=== PATIENT | female | born 1955 | race Caucasian/White ===

== ENCOUNTER 2020-07-11 12:21 | Outpatient (REF) | payer OTHER, SELFPAY | END 2020-07-11 12:22 | disposition home or self-care (01) | LOC: HO.BBR 12:21 | PROVIDERS: PCP Internal Medicine; Visit Provider Internal Medicine | DX: Z13.89 Encounter for screening for other disorder (principal) ==

== ENCOUNTER 2020-07-11 13:07 | Outpatient (REF) | payer SELFPAY ==
[2020-07-11 13:40] LABS: Cholesterol 200 mg/dL
== END 2020-07-11 13:08 | disposition home or self-care (01) ==
LOC: HO.LNC 13:07
PROVIDERS: Visit Provider Pathology Anatomic Pathology & Clinical Pathology
DX: Z76.89 Persons encountering health services in other specified circumstances (principal)
CPT/HCPCS: 82465

== ENCOUNTER 2020-08-31 07:25 | Outpatient (REF) | payer OTHER, SELFPAY ==
[2020-08-31 07:44] LABS: COVID-19 Test Negative (Negative)
== END 2020-08-31 07:26 | disposition home or self-care (01) ==
LOC: HO.EMPCOV 07:25
PROVIDERS: Visit Provider Internal Medicine
DX: Z20.822 Contact with and (suspected) exposure to COVID-19 (principal)
CPT/HCPCS: 36415; 87635; C9803

== ENCOUNTER 2020-09-07 08:00 | Outpatient (REF) | payer OTHER, SELFPAY ==
[2020-09-07 08:27] LABS: COVID-19 Test Negative (Negative); IDNOW Serial# 55D5AD1C
== END 2020-09-07 08:01 | disposition home or self-care (01) ==
LOC: HO.EMPCOV 08:00
PROVIDERS: Visit Provider Internal Medicine
DX: Z20.822 Contact with and (suspected) exposure to COVID-19 (principal)
CPT/HCPCS: 36415; 87635; C9803

== ENCOUNTER 2020-09-07 12:33 | Outpatient (REF) | payer OTHER, SELFPAY | END 2020-09-07 12:34 | disposition home or self-care (01) | LOC: HO.BBR 12:33 | PROVIDERS: PCP Internal Medicine; Visit Provider Internal Medicine | DX: Z13.89 Encounter for screening for other disorder (principal) ==

== ENCOUNTER 2020-11-11 08:14 | Outpatient (REF) | payer OTHER, SELFPAY ==
--- NOTE | ~2020-11-11 | MM_ITS ---
EXAMINATION: MM SCREENING DIGITAL BREAST TOMOSYNTHESIS, BILATERAL CLINICAL INFORMATION: Screening. Asymptomatic. Family history breast cancer sister, grandmother. The lifetime risk of breast cancer based on the Tyrer-Cuzick Model is 15%. COMPARISON: Mammography: 08/11/2019, 12/06/2016 TECHNIQUE: Digital breast tomosynthesis is performed in both the craniocaudal and mediolateral oblique views along with computer-aided detection (CAD). Synthesized 2D images are generated from the tomosynthesis. FINDINGS: There are scattered areas of fibroglandular density (ACR BI-RADS breast composition Category b). There are no significant masses, abnormal calcifications, or other abnormalities. Parenchymal pattern is similar to prior exams. There is biopsy clip marker anterior right breast. No significant changes. MM/MM tomosynthesis screening BI IMPRESSION: No significant changes from prior studies. ASSESSMENT: BI-RADS 1: Negative RECOMMENDATION: Routine annual mammography screening. This patient's information was entered into a reminder system with a target due date for their next mammogram.
== END 2020-11-11 08:15 | disposition home or self-care (01) ==
LOC: HO.MAMMO 08:14
PROVIDERS: Visit Provider Internal Medicine
DX: Z12.31 Encounter for screening mammogram for malignant neoplasm of breast (principal)
CPT/HCPCS: 77063; 77067

== ENCOUNTER 2020-11-23 14:01 | Outpatient (REF) | payer OTHER, SELFPAY ==
[2020-11-23 15:45] LABS: Alanine Aminotransferase 50 U/L (0-31); Albumin Level 3.9 g/dL (3.5-5.0); Alkaline Phosphatase 119 U/L (39-117); Aspartate Amino Transferase 42 U/L (5-31); Bilirubin Direct 0.2 mg/dL (0.0-0.5); Bilirubin Total 0.4 mg/dL (0.0-1.0); Iron 154 mcg/dL (30-160); Percent Iron Saturation 55 % (15-50); Total Iron Binding Capacity 280 mcg/dL (228-428); Total Protein 6.3 g/dL (6.5-8.0); Unsaturated Iron Binding 126 ug/dL
[2020-11-23 16:05] LABS: Ferritin 61 ng/mL (10-250)
== END 2020-11-23 14:02 | disposition home or self-care (01) ==
LOC: HO.BBR 14:01
PROVIDERS: Visit Provider Internal Medicine
DX: E83.110 Hereditary hemochromatosis (principal)
CPT/HCPCS: 36415; 80076; 82728; 83540

== ENCOUNTER 2021-02-03 13:12 | Outpatient (REF) | payer OTHER, SELFPAY | END 2021-02-03 13:13 | disposition home or self-care (01) | LOC: HO.BBR 13:12 | PROVIDERS: Visit Provider Internal Medicine | DX: Z13.89 Encounter for screening for other disorder (principal) ==

== ENCOUNTER 2021-04-05 13:59 | Outpatient (REF) | payer OTHER, SELFPAY | END 2021-04-05 14:00 | disposition home or self-care (01) | LOC: HO.BBR 13:59 | PROVIDERS: PCP Internal Medicine; Visit Provider Internal Medicine | DX: Z13.89 Encounter for screening for other disorder (principal) ==

== ENCOUNTER 2021-04-19 13:01 | Outpatient (REF) | payer OTHER, SELFPAY | END 2021-04-19 13:02 | disposition home or self-care (01) | LOC: HO.BBR 13:01 | PROVIDERS: PCP Internal Medicine; Visit Provider Internal Medicine | DX: Z13.89 Encounter for screening for other disorder (principal) ==

== ENCOUNTER 2021-06-20 10:32 | Outpatient (REF) | payer OTHER, SELFPAY ==
[2021-06-20 06:31] LABS: MANUAL DIFF FLAG NO
[2021-06-20 07:27] LABS: Basophils Absolute Auto 0.1 X10*3/uL (0.0-0.2); Basophils Percent Auto 1.1 % (0-2); Eosinophils Absolute Auto 0.3 X10*3/uL (0.0-0.4); Eosinophils Percent Auto 4.4 % (0-4); Hematocrit 41.5 % (37.0-47.0); Hemoglobin 14.2 g/dl (12.0-16.0); Imm Gran Abs Auto 0.01 X10*3/uL (0.00-0.03); Imm Gran Pct Auto 0.2 % (0.0-0.4); Lymphocytes Absolute Auto 2.7 X10*3/uL (1.2-4.9); Lymphocytes Percent Auto 42.4 % (20-40); Mean Corpuscular HGB Conc 34.2 g/dl (31.0-35.0); Mean Corpuscular Hemoglobin 34.4 pg (27.0-33.0); Mean Corpuscular Volume 100.5 fL (80.0-98.0); Monocytes Absolute Auto 0.5 X10*3/uL (0.1-1.2); Monocytes Percent Auto 7.8 % (2-11); Neutrophils Absolute Auto 2.8 x10*3/uL (2.0-8.3); Neutrophils Percent Auto 44.1 % (45-73); Platelet Count 313 X10*3/uL (160-400); Red Blood Count 4.13 X10*6/uL (4.20-5.50); Red Cell Distribution Width 13.2 % (11.0-16.0); White Blood Count 6.4 X10*3/uL (4.8-10.8)
[2021-06-20 08:00] LABS: Alanine Aminotransferase 48 U/L (0-31); Albumin Level 4.2 g/dL (3.5-5.0); Alkaline Phosphatase 131 U/L (39-117); Anion Gap 11 (12-20); Aspartate Amino Transferase 31 U/L (5-31); Bilirubin Total 0.6 mg/dL (0.0-1.0); Blood Urea Nitrogen 15 mg/dL (9-16); Calcium 9.4 mg/dL (8.4-10.2); Carbon Dioxide 28 mmol/L (22-29); Chloride 104 mmol/L (96-108); Cholesterol 208 mg/dL; Estimated Glomerular Filt Rate 51; Glucose Fasting 111 mg/dL (60-99); HDL Cholesterol 59 mg/dL; Iron 163 mcg/dL (30-160); LDL Cholesterol Calculated 116 mg/dl; Percent Iron Saturation 50 % (15-50); Potassium 4.2 mmol/L (3.3-5.1); Sodium 139 mmol/L (135-145); Total Iron Binding Capacity 326 mcg/dL (228-428); Total Protein 6.8 g/dL (6.5-8.0); Triglycerides 167 mg/dL; Unsaturated Iron Binding 163 ug/dL
[2021-06-20 08:05] LABS: Alanine Aminotransferase 48 U/L (0-31); Albumin Level 4.2 g/dL (3.5-5.0); Alkaline Phosphatase 132 U/L (39-117); Aspartate Amino Transferase 32 U/L (5-31); Bilirubin Direct 0.2 mg/dL (0.0-0.5); Bilirubin Total 0.6 mg/dL (0.0-1.0); Total Protein 6.8 g/dL (6.5-8.0)
[2021-06-20 08:25] LABS: Ferritin 26 ng/mL (10-250); Free T4 (Free Thyroxine) 1.09 ng/dL (0.71-1.85); Thyroid Stimulating Hormone 2.42 uIU/mL (0.32-4.0)
== END 2021-06-20 10:33 | disposition home or self-care (01) ==
LOC: HO.LAB 10:32
PROVIDERS: Absent Provider Internal Medicine; PCP Internal Medicine; Visit Provider Internal Medicine
DX: Z00.00 Encounter for general adult medical examination without abnormal findings (principal); E03.9 Hypothyroidism, unspecified; E83.110 Hereditary hemochromatosis
CPT/HCPCS: 36415; 80053; 80061; 80076; 82248; 82728; 83540; 84439; 84443; 85025

== ENCOUNTER 2021-06-21 13:02 | Outpatient (REF) | payer OTHER, SELFPAY | END 2021-06-21 13:03 | disposition home or self-care (01) | LOC: HO.BBR 13:02 | PROVIDERS: PCP Internal Medicine; Visit Provider Internal Medicine | DX: Z13.89 Encounter for screening for other disorder (principal) ==

== ENCOUNTER 2021-08-17 15:00 | Outpatient (REF) | payer OTHER, SELFPAY ==
--- NOTE | ~2021-08-17 | MM_ITS ---
EXAMINATION: BONE DENSITOMETRY CLINICAL INDICATION: Menopause. COMPARISON: None (current study represents initial baseline exam). TECHNIQUE: Using a A[employer] DXA System (software version: 13.1) manufactured by [employer], dual-energy x-ray absorptiometry was performed of the lumbar spine and left hip. The images are of good technical quality. Summary results are attached. FINDINGS: AP SPINE L1-L4: BMD 1.051 g/cm2, Z-score -0.6, T-score -1.1, osteopenia. LEFT FEMUR, NECK: BMD 0.985 g/cm2, Z-score 0.4, T-score -0.4, normal. LEFT FEMUR, TOTAL: BMD 1.111 g/cm2, Z-score 1.2, T-score 0.8, normal. IDENTIFIED RISK FACTORS: Low calcium intake, menopause. HISTORY OF FRACTURE: None listed. MEDICATIONS: Vitamin D. MM/XR DEXA axial skeleton IMPRESSION: 1. DIAGNOSIS: Osteopenia based on the lowest T-score value of -1.1 in the lumbar spine applying World Health Organization criteria. 2. 10-YEAR FRACTURE RISK PREDICTION, FRAX: Major osteoporotic fracture (clinical spine, forearm, hip or shoulder) 6.4%. Hip fracture 0.2%. 3. Treatment Recommendations: NOF guidelines recommend consideration for treatment in postmenopausal women and men age 50 and older presenting with the following: -A hip or vertebral (clinical or morphometric) fracture. -T-score less than or equal to -2.5 at the femoral neck or spine after appropriate evaluation to exclude secondary causes. -Low bone mass at the hip or spine and a 10-year fracture probability by FRAX of greater than or equal to 3% for hip fracture or greater than or equal to 20% for major osteoporotic fracture based on the [place] adapted WHO algorithm. 4. Other Recommendations: All treatment decisions require clinical judgment and consideration of individual patient factors, including patient preferences, comorbidities, previous drug use, risk factors not captured in the FRAX model (e.g. frailty, falls, vitamin D deficiency, increased bone turnover, interval significant decline in bone density) and possible under or overestimation of fracture risk by FRAX. Additional medical evaluation for secondary cause of low bone mineral density may be appropriate. FUTURE SCAN RECOMMENDATION: People with diagnosed cases of osteoporosis or at high risk for fracture should have regular bone mineral density tests. For patients eligible for Medicare, routine testing is allowed once every 2 years. The testing frequency can be increased to one year for patients who have rapidly progressing disease, those who are receiving or discontinuing medical therapy to restore bone mass, or have additional risk factors.
== END 2021-08-17 15:01 | disposition home or self-care (01) ==
LOC: HO.MAMMO 15:00
PROVIDERS: PCP Internal Medicine; Visit Provider Internal Medicine
DX: Z13.820 Encounter for screening for osteoporosis (principal); M85.80 Other specified disorders of bone density and structure, unspecified site; Z78.0 Asymptomatic menopausal state; Z79.899 Other long term (current) drug therapy
CPT/HCPCS: 77080

== ENCOUNTER 2021-08-23 12:58 | Outpatient (REF) | payer OTHER, SELFPAY | END 2021-08-23 12:59 | disposition home or self-care (01) | LOC: HO.BBR 12:58 | PROVIDERS: Visit Provider Internal Medicine | DX: Z13.89 Encounter for screening for other disorder (principal) ==

== ENCOUNTER 2021-09-04 09:16 | Day surgery (SDC) | payer OTHER, SELFPAY ==
[2021-08-29 11:45] VITALS: BMI 41.5
--- NOTE | 2021-09-01 09:55 | P.CONAN_ITS ---
Documented by User: Magda Borden NP 09/01/21 09:58 HPI - Anesthesia Eval Consult details Narrative: 65yo F for [facility] Past Medical History Medical History (Updated 08/29/21 @ 11:39 by Ashley Nicholson RN) GERD (gastroesophageal reflux disease) Hemochromatosis HTN (hypertension) Hypothyroid Migraine Surgical History Surgical History (Updated 08/29/21 @ 11:39 by Ashley Nicholson RN) H/O colonoscopy History of Evan fundoplication Hx of blepharoplasty Hx of breast biopsy Hx of cholecystectomy Social History Social History (System 08/28/21 @ 07:14 by Nilsa Sheikh) Patient Tobacco Use Status: Tobacco use Unknown Advance Directives: No Advance Directives Information Provided: Yes Advance Directives on File: No Meds Allergies Allergy/AdvReac Type Severity Reaction Status Date / Time bee pollen [bee stings] Allergy Unknown Unknown Verified 08/29/21 11:40 Seasonal Allergies Allergy Unknown Unknown Verified 08/29/21 11:40 Home Medications Medication Instructions Recorded Confirmed Last Taken Type amitriptyline 25 mg tablet 1 tab PO BEDTIME 08/29/21 08/29/21 Unknown History cetirizine 10 mg tablet 1 tab PO DAILY 08/29/21 08/29/21 Unknown History chlordiazepoxide HCl 10 mg capsule 1 cap PO BEDTIME 08/29/21 08/29/21 Unknown History levothyroxine 100 mcg tablet 1 tab PO DAILY 08/29/21 08/29/21 Unknown History losartan 25 mg tablet 1 tab PO DAILY 08/29/21 08/29/21 Unknown History metoprolol succinate 100 mg 1 tab PO DAILY 08/29/21 08/29/21 Unknown History tablet,extended release 24 hr Exam Exam Date and Time: September 01, 2021 0955 Height,Weight and Vital Signs: Height 5 ft 4 in Weight 109.769 kg Pertinent Lab Results Pertinent Lab Results: Laboratory Tests 06/20/21 06/20/21 06:29 06:29 WBC 6.4 Hgb 14.2 Hct 41.5 Plt Count 313 Sodium 139 Potassium 4.2 Chloride 104 Carbon Dioxide 28 BUN 15 Creatinine 1.08 Assessment and Plan Assessment Anesthesia Assessment: Chart Reviewed Documented by User: Kodi Purcell MD 09/04/21 09:33 [facility] Past Medical History Medical History (Updated 08/29/21 @ 11:39 by Ashley Nicholson RN) GERD (gastroesophageal reflux disease) Hemochromatosis HTN (hypertension) Hypothyroid Migraine Family History Family history of problems with anesthesia: No Surgical History Surgical History (Updated 08/29/21 @ 11:39 by Ashley Nicholson RN) H/O colonoscopy History of Evan fundoplication Hx of blepharoplasty Hx of breast biopsy Hx of cholecystectomy History of Problems with Anesthesia: No Social History Social History (System 08/28/21 @ 07:14 by Nilsa Sheikh) Patient Tobacco Use Status: Tobacco use Unknown Advance Directives: No Advance Directives Information Provided: Yes Advance Directives on File: No Meds Allergies Allergy/AdvReac Type Severity Reaction Status Date / Time bee pollen [bee stings] Allergy Unknown Unknown Verified 08/29/21 11:40 Seasonal Allergies Allergy Unknown Unknown Verified 08/29/21 11:40 Home Medications Medication Instructions Recorded Confirmed Last Taken Type amitriptyline 25 mg tablet 1 tab PO BEDTIME 08/29/21 08/29/21 Unknown History cetirizine 10 mg tablet 1 tab PO DAILY 08/29/21 08/29/21 Unknown History chlordiazepoxide HCl 10 mg capsule 1 cap PO BEDTIME 08/29/21 08/29/21 Unknown History levothyroxine 100 mcg tablet 1 tab PO DAILY 08/29/21 08/29/21 Unknown History losartan 25 mg tablet 1 tab PO DAILY 08/29/21 08/29/21 Unknown History metoprolol succinate 100 mg 1 tab PO DAILY 08/29/21 08/29/21 Unknown History tablet,extended release 24 hr Assessment and Plan Assessment Anesthesia Assessment: Anesthesia Plan Discussed Final Anesthetic Review Family History of Problems with Anesthesia: No History of Problems with Anesthesia: No NPO: Yes ASA Class: III Final Preanesthetic Review: No Changes in Pt Med Stat, Meds/Allgs Chart Reviewed, Consent Obtained/Reviewed and Anes Risks/Benef Reviewed Patient Risk: Intermediate Procedure Risk: Low Anesthetic Plan Anesthetic Plan: MAC: Disposition: Standard PACU
[2021-09-04 09:54] VITALS: BP 146/88; PULSE 77; RESP 18; TEMP 35.6; O2SAT 100
[2021-09-04] MEDS: Lactated Ringers 1,000 ML 100 ML IVCONT (09:58)
[2021-09-04 11:55] VITALS: BP 123/82; PULSE 76; RESP 18; TEMP -12.7; TEMP 9; O2SAT 98
--- NOTE | 2021-09-04 11:56 | P.BOP_ITS ---
Brief Operative Note Date of Service: 09/04/21 Pre-op diagnosis: Change in BM's, rectal bleeding Post-op diagnosis: other (Diverticulosis) Procedure: Colonoscopy to the cecum Surgeon: Gil Lacy Anesthesia: MAC Was an Deck Supervisor used for this Procedure?: No Estimated blood loss (mL): 0 Pathology: none sent Condition: stable Disposition: PACU
--- NOTE | 2021-09-04 11:59 | PC.NURSE ---
dr cisneros at bedside nad
[2021-09-04 12:10] VITALS: BP 119/82; PULSE 89; RESP 18; TEMP 36.1; O2SAT 98
--- NOTE | 2021-09-04 12:56 | OP_ITS ---
SURGEON: Gil Lacy MD INDICATIONS: The patient presents for evaluation of change in bowel habits and hematochezia. Full consent was obtained from her for this, including risks of bleeding and perforation. PREOPERATIVE DIAGNOSIS: POSTOPERATIVE DIAGNOSIS: PROCEDURE PERFORMED: Colonoscopy to cecum. ESTIMATED BLOOD LOSS: COMPLICATIONS: ANESTHESIA: Monitored anesthesia care. ASSISTANTS: SPECIMENS: PREOPERATIVE DIAGNOSES: Hematochezia and change in bowel habits. POSTOPERATIVE DIAGNOSES: Hematochezia, change in bowel habits, diverticulosis, and internal hemorrhoids. DESCRIPTION OF PROCEDURE: The patient was placed in the left lateral decubitus position. The digital rectal exam revealed no abnormalities. The Olympus video pediatric colonoscope was entered into the rectum and advanced to the cecum with the assistance of abdominal wall pressure. Once in the cecum, I did identify normal-appearing cecal pouch with appendiceal orifice and a normal-appearing ileocecal valve. The entire cecum and ileocecal valve appeared normal. The scope was slowly withdrawn assessing all mucosal surfaces carefully. Preparation was excellent. I did not visualize any sign of polyps, colitis, nor angiodysplasia. There was a mild amount of sigmoid diverticulosis. The sigmoid colon did have some edema and slight areas of erythema, but not consistent with colitis. I suspect this was related to the prep. There were no polyps, colitis, nor angiodysplasia is noted anywhere in the colon. In the rectum, scope was retroflexed visualizing some small internal hemorrhoids, but no other pathology. The rectal mucosa appeared normal. The scope was straightened and withdrawn from the patient. She tolerated the procedure well and was returned to recovery area in stable condition. IMPRESSION: 1. Sigmoid diverticulosis. 2. Internal hemorrhoids. PLAN: Given the negative exam, I would recommend a followup colonoscopy in 10 years for further screening. She was advised to continue her phlebotomy every other month for the hemochromatosis and to see me in 1 year for followup in that regard. She was advised to use daily supplemental fiber to help with her BM irregularity. She will otherwise see me in the interim on a p.r.n. basis. MD OMARI Leblanc/JORI / [phone] AMBREEN
== END 2021-09-04 12:47 | disposition home or self-care (01) ==
PROVIDERS: PCP Internal Medicine; Visit Provider Internal Medicine
PROC: 0DJD8ZZ Inspection of Lower Intestinal Tract, Via Natural or Artificial Opening Endoscopic (ICD-10-PCS; CPT 45378; principal; 2021-09-04 10:20)
DX: K62.5 Hemorrhage of anus and rectum (principal); R19.4 Change in bowel habit; K57.30 Diverticulosis of large intestine without perforation or abscess without bleeding; K64.8 Other hemorrhoids; E83.110 Hereditary hemochromatosis; I10 Essential (primary) hypertension; E03.9 Hypothyroidism, unspecified; G43.909 Migraine, unspecified, not intractable, without status migrainosus; Z79.899 Other long term (current) drug therapy; Z90.49 Acquired absence of other specified parts of digestive tract
CPT/HCPCS: 45378

== ENCOUNTER 2021-10-25 13:08 | Outpatient (REF) | payer OTHER, SELFPAY | END 2021-10-25 13:09 | disposition home or self-care (01) | LOC: HO.BBR 13:08 | PROVIDERS: Visit Provider Internal Medicine | DX: Z13.89 Encounter for screening for other disorder (principal) ==

== ENCOUNTER 2021-11-28 09:48 | Outpatient (REF) | payer OTHER, SELFPAY ==
--- NOTE | ~2021-11-28 | XR_ITS ---
EXAMINATION: XR WRIST, LEFT CLINICAL INFORMATION: Pain medial and lateral sides of the left wrist status post injury COMPARISON: None TECHNIQUE: PA, lateral, and oblique views of the left wrist. FINDINGS: There is some soft tissue swelling about the wrist with loss of fat planes. There is some degenerative spurring about the first carpal metacarpal joint. There is a lucent line seen about the dorsum of the triquetrum without definite avulsed fracture fragment. This may represent a nondisplaced triquetral body fracture. Clinical correlation is suggested. XR/XR wrist LT min 3V IMPRESSION: Question nondisplaced dorsal triquetral fracture. Clinical correlation suggested.
== END 2021-11-28 09:49 | disposition home or self-care (01) ==
LOC: HO.XRAY 09:48
PROVIDERS: PCP Internal Medicine; Visit Provider Internal Medicine
DX: S69.92XD Unspecified injury of left wrist, hand and finger(s), subsequent encounter (principal)
CPT/HCPCS: 73110

== ENCOUNTER 2022-01-31 12:03 | Outpatient (REF) | payer OTHER, SELFPAY ==
[2022-01-31 13:36] LABS: Alanine Aminotransferase 41 U/L (0-31); Albumin Level 3.9 g/dL (3.5-5.0); Alkaline Phosphatase 118 U/L (39-117); Aspartate Amino Transferase 43 U/L (5-31); Bilirubin Direct 0.2 mg/dL (0.0-0.5); Bilirubin Total 0.4 mg/dL (0.0-1.0); Iron 111 mcg/dL (30-160); Percent Iron Saturation 37 % (15-50); Total Iron Binding Capacity 300 mcg/dL (228-428); Total Protein 6.5 g/dL (6.5-8.0); Unsaturated Iron Binding 189 ug/dL
[2022-01-31 13:50] LABS: Ferritin 22 ng/mL (10-250)
== END 2022-01-31 12:04 | disposition home or self-care (01) ==
LOC: HO.BBR 12:03
PROVIDERS: Visit Provider Internal Medicine
DX: E83.110 Hereditary hemochromatosis (principal)
CPT/HCPCS: 36415; 80076; 82728; 83540

== ENCOUNTER 2022-02-13 12:45 | Outpatient (REF) | payer OTHER, SELFPAY ==
--- NOTE | ~2022-02-13 | XR_ITS ---
EXAMINATION: XR LUMBOSACRAL SPINE CLINICAL INFORMATION: Fall. Pain. COMPARISON: None TECHNIQUE: Three views of the lumbosacral spine. FINDINGS: Bone alignment is normal. There is a mild recent appearing compression fracture of the superior endplate of the L4 vertebral body. Disc spaces are normal. There is lower lumbar spine facet arthritis. There is evidence of atherosclerotic disease. XR/XR lumbar spine 2-3V IMPRESSION: Mild recent appearing compression fracture of the superior endplate of the L4 vertebral body. Lower lumbar spine facet arthritis. Findings will be communicated by the [place] work flow quality control representative.
== END 2022-02-13 12:46 | disposition home or self-care (01) ==
LOC: HO.XRAY 12:45
PROVIDERS: Absent Provider Internal Medicine; PCP Internal Medicine; Visit Provider Family Medicine
DX: M54.50 Low back pain, unspecified (principal); Z91.81 History of falling
CPT/HCPCS: 72100

== ENCOUNTER 2022-02-19 14:16 | Outpatient (REF) | payer OTHER, SELFPAY ==
--- NOTE | ~2022-02-19 | XR_ITS ---
EXAMINATION: XR PELVIS CLINICAL INFORMATION: Fall, trauma, pain COMPARISON: Lumbar radiographs 02/13/2022 TECHNIQUE: AP view of the pelvis. FINDINGS: There is no fracture or dislocation. The SI joints and pubis show no diastases. No hip joint narrowing or erosive change. There is some minor spurring from the bilateral greater trochanters and lateral iliac crests. Bowel gas unremarkable. XR/XR pelvis 1-2V IMPRESSION: No fracture or dislocation.
[2022-02-19 14:28] LABS: MANUAL DIFF FLAG NO
[2022-02-19 14:50] LABS: Appearance Urine HAZY; Color Urine YELLOW; Glucose Urine UA NEG (NEG); Leukocyte Esterase Urine 1+ (NEG); Nitrite Urine POS (NEG); Urine Blood 2+ (NEG); Urine Ketones NEG (NEG); Urine Protein NEG (NEG-TRACE)
[2022-02-19 14:51] LABS: Basophils Absolute Auto 0.1 X10*3/uL (0.0-0.2); Basophils Percent Auto 0.8 % (0-2); Eosinophils Absolute Auto 0.3 X10*3/uL (0.0-0.4); Eosinophils Percent Auto 3.6 % (0-4); Hematocrit 39.4 % (37.0-47.0); Hemoglobin 12.7 g/dl (12.0-16.0); Imm Gran Abs Auto 0.02 X10*3/uL (0.00-0.03); Imm Gran Pct Auto 0.2 % (0.0-0.4); Lymphocytes Absolute Auto 2.6 X10*3/uL (1.2-4.9); Lymphocytes Percent Auto 29.6 % (20-40); Mean Corpuscular HGB Conc 32.2 g/dl (31.0-35.0); Mean Corpuscular Hemoglobin 31.2 pg (27.0-33.0); Mean Corpuscular Volume 96.8 fL (80.0-98.0); Mean Platelet Volume 9.5 fL (9.4-12.3); Monocytes Absolute Auto 0.7 X10*3/uL (0.1-1.2); Monocytes Percent Auto 7.4 % (2-11); Neutrophils Absolute Auto 5.2 x10*3/uL (2.0-8.3); Neutrophils Percent Auto 58.4 % (45-73); Platelet Count 325 X10*3/uL (160-400); Red Blood Count 4.07 X10*6/uL (4.20-5.50); Red Cell Distribution Width 17.4 % (11.0-16.0); White Blood Count 8.9 X10*3/uL (4.8-10.8)
[2022-02-19 15:01] LABS: Bacteria Urine 4+ /LPF; Squamous Epithelial Cell Urine 1+ /LPF; WBC Urine 30-49 /HPF (0-4)
[2022-02-19 15:02] LABS: RBC Urine 0 /HPF (0)
[2022-02-19 15:13] LABS: Alanine Aminotransferase 32 U/L (0-31); Albumin Level 4.3 g/dL (3.5-5.0); Alkaline Phosphatase 169 U/L (39-117); Anion Gap 15 (12-20); Aspartate Amino Transferase 27 U/L (5-31); Bilirubin Total 0.5 mg/dL (0.0-1.0); Blood Urea Nitrogen 19 mg/dL (9-16); C Reactive Protein 0.48 mg/dL (< or = 0.50); Calcium 9.8 mg/dL (8.4-10.2); Carbon Dioxide 27 mmol/L (22-29); Chloride 104 mmol/L (96-108); Estimated Glomerular Filt Rate 46; Glucose Random 133 mg/dL (60-115); Potassium 4.6 mmol/L (3.3-5.1); Sodium 141 mmol/L (135-145); Total Protein 7.5 g/dL (6.5-8.0)
[2022-02-19 15:33] LABS: Free T4 (Free Thyroxine) 1.08 ng/dL (0.71-1.85); Thyroid Stimulating Hormone 3.37 uIU/mL (0.32-4.0)
== END 2022-02-19 14:17 | disposition home or self-care (01) ==
LOC: HO.XRAY 14:16
PROVIDERS: PCP Internal Medicine; Visit Provider Internal Medicine
DX: R10.2 Pelvic and perineal pain (principal); I10 Essential (primary) hypertension; E03.9 Hypothyroidism, unspecified; Z91.81 History of falling
CPT/HCPCS: 36415; 72170; 80053; 81001; 84439; 84443; 85025; 86140

== ENCOUNTER 2022-02-21 13:52 | Outpatient (REF) | payer OTHER, SELFPAY ==
--- NOTE | ~2022-02-21 | CT_ITS ---
EXAMINATION: CT PELVIS WITHOUT CONTRAST CLINICAL INFORMATION: Fall. Pain. Rule out fracture. COMPARISON: Previous x-ray of the pelvis 02/19/2022 TECHNIQUE: Helical scanning was performed with submillimeter collimation through the pelvis. Sagittal and coronal multiplanar 2-D reconstructions were obtained. This CT examination was performed using dose optimization techniques as appropriate, variously including the following: *Automated exposure control *Adjustment of mA and/or kV according to patient size (this includes techniques or standardized protocols for targeted exams where dose is matched to indication/reason for exam; i.e. extremities or head) *Use of iterative reconstruction technique DLP: 579 mGy-cm FINDINGS: Bone alignment is normal. No fracture or dislocation is seen. The hip joints are normal. The sacroiliac joints and pubic symphysis are normal. There is facet arthritis of the lower lumbar spine. Visualized bowel is unremarkable. Uterus and adnexa are unremarkable. No ascites or adenopathy is seen. Vascular structures are normal. No hernia. Bladder not optimally distended. CT/CT pelvis wo con IMPRESSION: Unremarkable examination.
== END 2022-02-21 13:53 | disposition home or self-care (01) ==
LOC: HO.CT 13:52
PROVIDERS: PCP Internal Medicine; Visit Provider Internal Medicine
DX: R10.2 Pelvic and perineal pain (principal)
CPT/HCPCS: 72192

== ENCOUNTER 2022-03-20 08:54 | Outpatient (REF) | payer OTHER, SELFPAY ==
--- NOTE | ~2022-03-20 | MR_ITS ---
EXAMINATION: MR LUMBAR SPINE WITHOUT CONTRAST CLINICAL INFORMATION: Wedge compression fracture of the fourth lumbar vertebra. COMPARISON: Lumbar spine radiographs 02/13/2022. TECHNIQUE: MRI of the lumbar spine was obtained using routine sequences without contrast. FINDINGS: There is bone marrow edema associated with a compression fracture of the L4 vertebral body. Specifically there is impaction of the upper and lower endplates resulting in 50% vertebral height loss centrally. There is no retropulsion of posterior cortex. Alignment is normal. There is disc desiccation at multiple levels without substantial loss of intervertebral disc height. The tip of the conus medullaris is located at L1-L2. No mass effect on the conus. Visualized distal cord signal intensity is normal. At L1-L2 there is a shallow central protrusion. No canal stenosis. No mass effect on the traversing or foraminal nerve roots. At L2-L3 there is a shallow central protrusion superimposed upon a bulging disc. Bilateral facet degenerative change. No canal stenosis. No mass effect on the traversing or foraminal nerve roots. At L3-L4 there is prominence of the epidural fat. There is a diffusely bulging disc. Advanced facet degenerative change. Complete effacement of the subarachnoid space effectively resulting in severe stenosis. No foraminal nerve root compression. At L4-L5 there is prominence of the epidural fat. There is a diffusely bulging disc. Advanced bilateral facet degenerative change. Mild to moderate canal stenosis. No mass effect on the traversing or foraminal nerve roots. At L5-S1 there is a slightly bulging disc. Advanced bilateral facet degenerative change. No canal stenosis. No mass effect on the traversing or foraminal nerve roots. Limited visualization of the retroperitoneal anatomy reveals a few small well marginated benign-appearing cystic lesions within both kidneys. Psoas and paraspinal groups are symmetric. MR/MR lumbar spine wo con IMPRESSION: There is bone marrow edema associated with an acute to subacute compression fracture of the L4 vertebral body. No retropulsion of posterior cortex at this level. There is however multilevel degenerative spondylosis of the mid to lower lumbar spine which appears to be superimposed upon epidural lipomatosis. Consequently there is complete effacement of the subarachnoid space effectively resulting in severe canal stenosis at L3-L4 and mild to moderate canal stenosis at L4-L5. No foraminal nerve root compression.
== END 2022-03-20 08:55 | disposition home or self-care (01) ==
LOC: HO.MRI 08:54
PROVIDERS: Visit Provider Nurse Practitioner Family
DX: S32.040A Wedge compression fracture of fourth lumbar vertebra, initial encounter for closed fracture (principal)
CPT/HCPCS: 72148

== ENCOUNTER 2022-04-24 07:01 | Day surgery (SDC) | payer OTHER, SELFPAY ==
--- NOTE | 2022-04-23 12:05 | HO.ANESPROP2 ---
Documented by User: Magda Borden NP 04/23/22 12:07 HPI - Anesthesia Eval Consult details Narrative: 66yo F for Kyphoplasty s/p colo 08/2021 with MAC [facility] Active Problems Active Problems: All Active Problems (Updated 03/27/22 @ 13:36 by Liliane Anguiano NP) Stenosis, spinal, lumbar (Acute) Spondylosis of lumbar spine (Acute) Osteopenia (Acute) Muscle spasm (Acute) Compression fracture of L4 vertebra (Acute) Past Medical History Medical History GERD (gastroesophageal reflux disease) Hemochromatosis HTN (hypertension) Hypothyroid Migraine Family History Family history of problems with anesthesia: No Surgical History Surgical History H/O colonoscopy History of Evan fundoplication Hx of blepharoplasty Hx of breast biopsy Hx of cholecystectomy History of Problems with Anesthesia: No Social History Social History Patient Tobacco Use Status: Tobacco use Unknown Use of substances other than those prescribed or required for medical reasons: No Are you DNR?: No Advance Directives: No Advance Directives Information Provided: Yes Meds Allergies Allergy/AdvReac Type Severity Reaction Status Date / Time bee pollen [bee stings] Allergy Unknown Unknown Verified 03/16/22 09:56 Seasonal Allergies Allergy Unknown Unknown Verified 03/16/22 09:56 Home Medications Medication Instructions Recorded Confirmed Last Taken Type amitriptyline 25 mg tablet 1 tab PO BEDTIME 08/29/21 08/29/21 Unknown History cetirizine 10 mg tablet 1 tab PO DAILY 08/29/21 08/29/21 Unknown History chlordiazepoxide HCl 10 mg capsule 1 cap PO BEDTIME 08/29/21 08/29/21 Unknown History levothyroxine 100 mcg tablet 1 tab PO DAILY 08/29/21 08/29/21 Unknown History losartan 25 mg tablet 1 tab PO DAILY 08/29/21 09/04/21 09/04/21 06:30 History metoprolol succinate 100 mg 1 tab PO DAILY 08/29/21 08/29/21 Unknown History tablet,extended release 24 hr gabapentin 100 mg capsule 100 mg PO TID PRN pain 03/16/22 Unknown History methylsulfonylmethane 1,000 mg 1,000 mg PO BID 03/16/22 Unknown History tablet (MSM) tramadol 50 mg tablet 50 mg PO Q6H PRN 03/16/22 Unknown History Exam Exam Date and Time: April 23, 2022 1205 Pertinent Lab Results Pertinent Lab Results: Laboratory Tests 02/19/22 02/19/22 14:27 14:27 WBC 8.9 Hgb 12.7 Hct 39.4 Plt Count 325 Sodium 141 Potassium 4.6 Chloride 104 Carbon Dioxide 27 BUN 19 H Creatinine 1.18 Narrative Narrative: MR lumbar spine wo con 03/2022 IMPRESSION: There is bone marrow edema associated with an acute to subacute compression fracture of the L4 vertebral body. No retropulsion of posterior cortex at this level. There is however multilevel degenerative spondylosis of the mid to lower lumbar spine which appears to be superimposed upon epidural lipomatosis. Consequently there is complete effacement of the subarachnoid space effectively resulting in severe canal stenosis at L3-L4 and mild to moderate canal stenosis at L4-L5. No foraminal nerve root compression. Assessment and Plan Assessment Anesthesia Assessment: Chart Reviewed Final Anesthetic Review Family History of Problems with Anesthesia: No History of Problems with Anesthesia: No Documented by User: Nader Tellez MD 04/24/22 08:37 [facility] Past Medical History Medical History GERD (gastroesophageal reflux disease) Hemochromatosis HTN (hypertension) Hypothyroid Migraine Surgical History Surgical History H/O colonoscopy History of Evan fundoplication Hx of blepharoplasty Hx of breast biopsy Hx of cholecystectomy Social History Social History Patient Tobacco Use Status: Tobacco use Unknown Use of substances other than those prescribed or required for medical reasons: No Are you DNR?: No Advance Directives: No Advance Directives Information Provided: Yes Meds Allergies Allergy/AdvReac Type Severity Reaction Status Date / Time bee pollen [bee stings] Allergy Unknown Unknown Verified 03/16/22 09:56 Seasonal Allergies Allergy Unknown Unknown Verified 03/16/22 09:56 Home Medications Medication Instructions Recorded Confirmed Last Taken Type amitriptyline 25 mg tablet 1 tab PO BEDTIME 08/29/21 08/29/21 Unknown History cetirizine 10 mg tablet 1 tab PO DAILY 08/29/21 08/29/21 Unknown History chlordiazepoxide HCl 10 mg capsule 1 cap PO BEDTIME 08/29/21 08/29/21 Unknown History levothyroxine 100 mcg tablet 1 tab PO DAILY 08/29/21 08/29/21 Unknown History losartan 25 mg tablet 1 tab PO DAILY 08/29/21 09/04/21 09/04/21 06:30 History metoprolol succinate 100 mg 1 tab PO DAILY 08/29/21 08/29/21 Unknown History tablet,extended release 24 hr gabapentin 100 mg capsule 100 mg PO TID PRN pain 03/16/22 Unknown History methylsulfonylmethane 1,000 mg 1,000 mg PO BID 03/16/22 Unknown History tablet (MSM) tramadol 50 mg tablet 50 mg PO Q6H PRN 03/16/22 Unknown History Exam Airway Mallampati Class: II TM Dist: >3cm Neck ROM: Full Denture: Upper and Lower Loose/Missing/Broken Teeth: Yes Heart: [id number] Lungs: cta b/l Assessment and Plan Assessment Anesthesia Assessment: Anesthesia Plan Discussed Final Anesthetic Review NPO: Yes ASA Class: III Final Preanesthetic Review: No Changes in Pt Med Stat, Meds/Allgs Chart Reviewed, Consent Obtained/Reviewed and Anes Risks/Benef Reviewed Patient Risk: Intermediate Procedure Risk: Intermediate Assessment/Block/Sedation in SS: Assess/Block/Sedation-SS Anesthetic Plan Anesthetic Plan: MAC: and Agree w/ Assess. and Plan Disposition: Standard PACU
[2022-04-24] VITALS (9 sets, daily range): BP systolic 124–172; BP diastolic 72–88; PULSE 56–71; RESP 10–18; TEMP 36.3–36.4; O2SAT 96–99; BMI 38.4
--- NOTE | ~2022-04-24 | CT_ITS ---
EXAMINATION: CT LUMBAR SPINE WITHOUT CONTRAST CT LUMBAR SPINE POST VERTEBROPLASTY CLINICAL INFORMATION: L4 compression fracture. Pre-kyphoplasty CT at L4. COMPARISON: Lumbar spine MRI 03/20/2022. TECHNIQUE: Lumbar spine CT centered at the L4 level was performed prior to and following kyphoplasty. Multiplanar reformats were rendered and reviewed. This CT examination was performed using dose optimization techniques as appropriate, variously including the following: *Automated exposure control *Adjustment of mA and/or kV according to patient size (this includes techniques or standardized protocols for targeted exams where dose is matched to indication/reason for exam; i.e. extremities or head) *Use of iterative reconstruction technique DLP: 515 mGy-cm FINDINGS: There is a severe compression fracture at L4 with comminution of the vertebral body but without significant retropulsion. The posterior elements appear intact. The adjacent L3 and L5 vertebral bodies appear normal. There is multilevel facet arthropathy. Mild atheromatous changes are seen in the abdominal aorta. The extraspinal soft tissues are otherwise within normal limits. No paraspinal hematoma is seen. On the posttreatment CT, cement is seen within the right and left aspects of the L4 vertebral body. A small amount of cement is also seen extending into the L3-L4 disc space. CT/CT lumbar spine wo IV con IMPRESSION: Preoperative and postoperative lumbar spine CT redemonstrates the significant compression fracture at L4. On the postoperative images cement is seen within the right and left aspects of the L4 vertebral body.
--- NOTE | ~2022-04-24 | CT_ITS ---
EXAMINATION: CT LUMBAR SPINE WITHOUT CONTRAST CT LUMBAR SPINE POST VERTEBROPLASTY CLINICAL INFORMATION: L4 compression fracture. Pre-kyphoplasty CT at L4. COMPARISON: Lumbar spine MRI 03/20/2022. TECHNIQUE: Lumbar spine CT centered at the L4 level was performed prior to and following kyphoplasty. Multiplanar reformats were rendered and reviewed. This CT examination was performed using dose optimization techniques as appropriate, variously including the following: *Automated exposure control *Adjustment of mA and/or kV according to patient size (this includes techniques or standardized protocols for targeted exams where dose is matched to indication/reason for exam; i.e. extremities or head) *Use of iterative reconstruction technique DLP: 515 mGy-cm FINDINGS: There is a severe compression fracture at L4 with comminution of the vertebral body but without significant retropulsion. The posterior elements appear intact. The adjacent L3 and L5 vertebral bodies appear normal. There is multilevel facet arthropathy. Mild atheromatous changes are seen in the abdominal aorta. The extraspinal soft tissues are otherwise within normal limits. No paraspinal hematoma is seen. On the posttreatment CT, cement is seen within the right and left aspects of the L4 vertebral body. A small amount of cement is also seen extending into the L3-L4 disc space. CT/CT lumbar spine post vert IMPRESSION: Preoperative and postoperative lumbar spine CT redemonstrates the significant compression fracture at L4. On the postoperative images cement is seen within the right and left aspects of the L4 vertebral body.
--- NOTE | ~2022-04-24 | IR_ITS ---
EXAMINATION: IR LUMBAR VERTEBROPLASTY CLINICAL INFORMATION: Osteopenia, fall, pain and with acute compression fracture L4 vertebra. COMPARISON: None MRI lumbar spine 03/20/2022. TECHNIQUE: Following explaining fluoroscopy-guided bipedicle approach L4 kyphoplasty procedure, benefits and risks, a written consent was obtained. Patient was placed prone on fluoroscopy table and low back area was cleaned and draped with 2% chlorhexidine solution. 1% lidocaine was injected at the skin following localization of the right L4 pedicle. A 22-gauge spinal needle was then inserted from the skin to the level of the pedicle and 0.25% Marcaine was injected. Through a small skin incision, a 10-gauge Kyphon needle was advanced from the skin to the level of the pedicle and through the pedicle into the posterior one third of the L4 vertebra. The needle was inserted obliquely from lateral to midline approach parallel to the pedicle. A similar left 10-gauge Kyphon needle was inserted from the skin through the pedicle into the lateral left half of the L4 vertebra perpendicular to the posterior cortex of the L4 vertebra. Subsequently, the stylets were withdrawn and a hand drill was injected to the right and left needle. Due to hardening of the bone a curette was advanced, through the right and left needle and a cavity was created. The curette was withdrawn and high-tensile balloons were inserted at the right and left needle and were inflated to 500 psi for 5 minutes. The balloons were deflated and freshly prepared polymethyl methacrylate was injected through the right followed by left needle under continuous AP, lateral fluoroscopy monitoring. After achieving an adequate amount of cement both needles were withdrawn and complete hemostasis was achieved at the puncture site. Patient tolerated the procedure extremely well. Sedation was provided by anesthesia department. FLUOROSCOPY TIME: 12 minutes. DOSE AREA PRODUCT: 8530 cGy-cm2. FINDINGS: On preliminary imaging, there is a severe compression fracture superior endplate L4 vertebra with anterior displacement a small bone fragment. There is a most vertical fissure extending through the mid L4 vertebra. On several fluoroscopy images obtained, there is an adequate amount of cement occupying the L4 vertebra with no extravasation seen. IR/IR kyphoplasty lumbar IMPRESSION: Successful fluoroscopy-guided bipedicle approach L4 kyphoplasty performed without immediate complications.
[2022-04-24 08:10] LABS: MANUAL DIFF FLAG NO
[2022-04-24 08:12] LABS: Basophils Absolute Auto 0.1 X10*3/uL (0.0-0.2); Eosinophils Absolute Auto 0.5 X10*3/uL (0.0-0.4); Eosinophils Percent Auto 8.9 % (0-4); Hematocrit 37.2 % (37.0-47.0); Hemoglobin 12.5 g/dl (12.0-16.0); Imm Gran Abs Auto 0.01 X10*3/uL (0.00-0.03); Imm Gran Pct Auto 0.2 % (0.0-0.4); Lymphocytes Absolute Auto 2.2 X10*3/uL (1.2-4.9); Lymphocytes Percent Auto 44.3 % (20-40); Mean Corpuscular HGB Conc 33.6 g/dl (31.0-35.0); Mean Corpuscular Hemoglobin 32.2 pg (27.0-33.0); Mean Corpuscular Volume 95.9 fL (80.0-98.0); Mean Platelet Volume 9.7 fL (9.4-12.3); Monocytes Absolute Auto 0.5 X10*3/uL (0.1-1.2); Monocytes Percent Auto 9.1 % (2-11); Neutrophils Absolute Auto 1.8 x10*3/uL (2.0-8.3); Neutrophils Percent Auto 35.5 % (45-73); Platelet Count 266 X10*3/uL (160-400); Red Blood Count 3.88 X10*6/uL (4.20-5.50); Red Cell Distribution Width 14.1 % (11.0-16.0); White Blood Count 5.1 X10*3/uL (4.8-10.8)
[2022-04-24 08:19] LABS: INTERNATIONAL NORM RATIO 0.8 (0.9-1.1); Prothrombin Time 9.6 SEC (10.0-13.1)
[2022-04-24 08:21] LABS: Partial Thromboplastin Time 27.9 SEC (26.0-36.4)
[2022-04-24 08:23] LABS: Anion Gap 14 (12-20); Blood Urea Nitrogen 24 mg/dL (9-16); Carbon Dioxide 24 mmol/L (22-29); Chloride 108 mmol/L (96-108); Creatinine Clr Calc Pharmacy 67.2; Estimated Glomerular Filt Rate 57; Sodium 142 mmol/L (135-145)
[2022-04-24] MEDS: Lidocaine HCl 2 % MPF 5 ML VIAL INFILTRATI (09:38)
[2022-04-24] MEDS: iohexoL 300 MG/ML 100 ML INFUS..BTL 50 ML IV (09:43)
--- NOTE | 2022-04-24 10:10 | HO.ANESPROP2 ---
HPI - Anesthesia Eval Consult details Narrative: 66 F for kyphoplasty PMFSH Active Problems Active Problems: All Active Problems (Updated 03/27/22 @ 13:36 by Liliane Anguiano NP) Stenosis, spinal, lumbar (Acute) Spondylosis of lumbar spine (Acute) Osteopenia (Acute) Muscle spasm (Acute) Compression fracture of L4 vertebra (Acute) Past Medical History Medical History GERD (gastroesophageal reflux disease) Hemochromatosis HTN (hypertension) Hypothyroid Migraine Family History Family history of problems with anesthesia: No Surgical History Surgical History H/O colonoscopy History of Evan fundoplication Hx of blepharoplasty Hx of breast biopsy Hx of cholecystectomy History of Problems with Anesthesia: No Social History Social History Patient Tobacco Use Status: Tobacco use Unknown Use of substances other than those prescribed or required for medical reasons: No Are you DNR?: No Advance Directives: No Advance Directives Information Provided: Yes Meds Allergies Allergy/AdvReac Type Severity Reaction Status Date / Time bee pollen [bee stings] Allergy Unknown Unknown Verified 03/16/22 09:56 Seasonal Allergies Allergy Unknown Unknown Verified 03/16/22 09:56 Active Medications: Current Medications Fentanyl (Fentanyl Citrate/Pf 100 Mcg/2 Ml Vial) 50 mcg IVPUSH Q5M PRN; Protocol PRN Reason: Pain, Severe (Pain Scale 7-10) Lactated Ringer's (Lr) 1,000 mls @ 100 mls/hr IVCONT .Q10H [place] Promethazine HCl 6.25 mg/ (Sodium Chloride) 50.25 mls @ 201 mls/hr IV ONCE PRN PRN Reason: Nausea and Vomiting Ondansetron HCl (Ondansetron Hcl 4 Mg/2 Ml Vial) 4 mg IVPUSH ONCE PRN PRN Reason: Nausea and Vomiting Oxycodone HCl (Oxycodone Hcl Immed Release 5 Mg Tablet) 10 mg PO ONCE PRN PRN Reason: Pain, Mild (Pain Scale 1-3) Home Medications Medication Instructions Recorded Confirmed Last Taken Type amitriptyline 25 mg tablet 1 tab PO BEDTIME 01/18/22 01/18/22 Unknown History cetirizine 10 mg tablet 1 tab PO DAILY 08/29/21 08/29/21 Unknown History chlordiazepoxide HCl 10 mg capsule 1 cap PO BEDTIME 08/29/21 08/29/21 Unknown History levothyroxine 100 mcg tablet 1 tab PO DAILY 08/29/21 08/29/21 Unknown History losartan 25 mg tablet 1 tab PO DAILY 08/29/21 09/04/21 09/04/21 06:30 History metoprolol succinate 100 mg 1 tab PO DAILY 08/29/21 08/29/21 Unknown History tablet,extended release 24 hr gabapentin 100 mg capsule 100 mg PO TID PRN pain 03/16/22 Unknown History methylsulfonylmethane 1,000 mg 1,000 mg PO BID 03/16/22 Unknown History tablet (MSM) tramadol 50 mg tablet 50 mg PO Q6H PRN 03/16/22 Unknown History Exam Exam Date and Time: April 24, 2022 1010 Height,Weight and Vital Signs: Height 5 ft 4 in Weight 224 lb Last Vital Signs Temp 97.3 F 04/24/22 07:44 Pulse 71 04/24/22 07:44 Resp 16 04/24/22 07:44 BP 146/88 H 04/24/22 07:44 Pulse Ox 98 04/24/22 07:44 O2 Del Method 04/24/22 07:44 Pertinent Lab Results Pertinent Lab Results: Laboratory Tests 04/24/22 04/24/22 04/24/22 07:59 07:59 07:59 WBC 5.1 RBC 3.88 L Hgb 12.5 Hct 37.2 MCV 95.9 MCH 32.2 MCHC 33.6 RDW 14.1 Plt Count 266 MPV 9.7 Immature Gran % (Auto) 0.2 Neut % (Auto) 35.5 L Lymph % (Auto) 44.3 H [place] % (Auto) 9.1 Eos % (Auto) 8.9 H Baso % (Auto) 2.0 Lymph # (Auto) 2.2 [place] # (Auto) 0.5 Eos # (Auto) 0.5 H Baso # (Auto) 0.1 Abs Immat Gran (auto) 0.01 Absolute Neuts (auto) 1.8 L Absolute Nucleated RBC 0.000 Nucleated RBC % (auto) 0.0 PT 9.6 L INR 0.8 L APTT 27.9 Sodium 142 Potassium 4.0 Chloride 108 Carbon Dioxide 24 Anion Gap 14 BUN 24 H Creatinine 0.98 Estim Creat Clear Calc 67.2 Estimated GFR 57 Airway Mallampati Class: III TM Dist: >3cm Neck ROM: Full Denture: Upper and Lower Loose/Missing/Broken Teeth: Yes Assessment and Plan Assessment Anesthesia Assessment: Anesthesia Plan Discussed Final Anesthetic Review Family History of Problems with Anesthesia: No History of Problems with Anesthesia: No NPO: Yes ASA Class: III Final Preanesthetic Review: No Changes in Pt Med Stat, Meds/Allgs Chart Reviewed, Consent Obtained/Reviewed and Anes Risks/Benef Reviewed Patient Risk: Intermediate Procedure Risk: Low Anesthetic Plan Anesthetic Plan: MAC: Disposition: Standard PACU
[2022-04-24] MEDS: Acetaminophen 325 MG TABLET 975 MG PO (12:23)
[2022-04-24] MEDS: oxyCODONE HCl Immed Release 5 MG TABLET PO (12:58)
== END 2022-04-24 14:29 | disposition home or self-care (01) ==
PROVIDERS: Radiology Diagnostic Radiology; PCP Internal Medicine; Visit Provider Radiology Diagnostic Radiology
DX: S32.040A Wedge compression fracture of fourth lumbar vertebra, initial encounter for closed fracture (principal); W19.XXXA Unspecified fall, initial encounter; Y93.9 Activity, unspecified; Y92.9 Unspecified place or not applicable; Y99.8 Other external cause status; M62.838 Other muscle spasm; M85.80 Other specified disorders of bone density and structure, unspecified site; J30.2 Other seasonal allergic rhinitis; I10 Essential (primary) hypertension; E03.9 Hypothyroidism, unspecified; G43.909 Migraine, unspecified, not intractable, without status migrainosus; E83.119 Hemochromatosis, unspecified; K21.9 Gastro-esophageal reflux disease without esophagitis; Z79.899 Other long term (current) drug therapy; Z98.890 Other specified postprocedural states
CPT/HCPCS: 22514; 36415; 72131; 80051; 82565; 84520; 85025; 85610; 85730; C1713; J0690; J2250; J3010; Q9967

== ENCOUNTER 2022-05-03 12:06 | Outpatient (REF) | payer OTHER, SELFPAY | END 2022-05-03 12:07 | disposition home or self-care (01) | LOC: HO.BBR 12:06 | PROVIDERS: Visit Provider Internal Medicine | DX: Z13.89 Encounter for screening for other disorder (principal) ==

== ENCOUNTER 2022-07-23 07:04 | Outpatient (REF) | payer OTHER, SELFPAY ==
[2022-07-23 08:35] LABS: Alanine Aminotransferase 29 U/L (0-31); Albumin Level 3.8 g/dL (3.5-5.0); Alkaline Phosphatase 126 U/L (39-117); Aspartate Amino Transferase 26 U/L (5-31); Bilirubin Direct < 0.2 mg/dL (0.0-0.5); Bilirubin Total 0.4 mg/dL (0.0-1.0); Ferritin 16 ng/mL (10-250); Iron 66 mcg/dL (30-160); Percent Iron Saturation 23 % (15-50); Total Iron Binding Capacity 284 mcg/dL (228-428); Total Protein 6.3 g/dL (6.5-8.0); Unsaturated Iron Binding 218 ug/dL
== END 2022-07-23 07:05 | disposition home or self-care (01) ==
LOC: HO.BBR 07:04
PROVIDERS: Visit Provider Internal Medicine
DX: E83.110 Hereditary hemochromatosis (principal)
CPT/HCPCS: 36415; 80076; 82728; 83540

== ENCOUNTER → 2022-08-29 14:10 | Outpatient (BNVA) | payer OTHER, SELFPAY | PROVIDERS: PCP Internal Medicine; Visit Provider Anesthesiology | DX: M47.816 Spondylosis without myelopathy or radiculopathy, lumbar region (principal) ==

== ENCOUNTER 2022-09-05 11:57 | Outpatient (REF) | payer OTHER, SELFPAY ==
--- NOTE | ~2022-09-05 | MM_ITS ---
EXAMINATION: MM SCREENING DIGITAL BREAST TOMOSYNTHESIS, BILATERAL CLINICAL INFORMATION: Screening. Asymptomatic. The lifetime risk of breast cancer based on the Tyrer-Cuzick Model is 12%. COMPARISON: Mammography: 11/11/2020, 08/11/2019, 12/06/2016 TECHNIQUE: Digital breast tomosynthesis is performed in both the craniocaudal and mediolateral oblique views along with computer-aided detection (CAD). Synthesized 2D images are generated from the tomosynthesis. FINDINGS: There are scattered areas of fibroglandular density (ACR BI-RADS breast composition Category b). There is fine fibronodular parenchymal pattern with small waxing and waning nodularity similar to prior exam. Biopsy clip marker again noted retroareolar right breast. There is no significant mass or architectural abnormality. No abnormal calcifications. The axilla and skin contours are unremarkable. MM/MM tomosynthesis screening BI IMPRESSION: No significant changes from prior studies. ASSESSMENT: BI-RADS 2: Benign RECOMMENDATION: Routine annual mammography screening. This patient's information was entered into a reminder system with a target due date for their next mammogram.
== END 2022-09-05 11:58 | disposition home or self-care (01) ==
LOC: HO.MAMMO 11:57
PROVIDERS: PCP Internal Medicine; Visit Provider Internal Medicine
DX: Z12.31 Encounter for screening mammogram for malignant neoplasm of breast (principal)
CPT/HCPCS: 77063; 77067

== ENCOUNTER 2022-09-13 10:46 | Day surgery (SDC) | payer OTHER, SELFPAY ==
--- NOTE | ~2022-09-13 | FL_ITS ---
EXAMINATION: FL FLUOROSCOPY WITH IMAGES CLINICAL INFORMATION: Bilateral lumbar injections. COMPARISON: None. TECHNIQUE: Fluoroscopy Supervised By: Dr. Raul Ortiz Fluoroscopy Time: 0.7 minutes Cumulative Dose: 16.7 mGy-cm DAP: 4.57 Gy-cm2 Images: 8 FINDINGS: 8 digital images were obtained revealing needle positioned adjacent to bilateral pedicles at S1, L5 and L3 pedicles with contrast opacifying the soft tissues. Visualized bones are grossly unremarkable. There is evidence of L4 kyphoplasty procedure. FL/FL guidance in OR IMPRESSION: Fluoroscopic guidance was provided to referring physician for pain management.
--- NOTE | 2022-09-13 09:55 | MHC.SHP ---
Pre-Procedural Eval Section A Date of Service: 09/13/22 Changes since office visit: Yes Patient answered all questions The History & Physical has been completed within 30 days and I have reviewed it.: No Section B Chief Complaint: Spondylosis without myelopathy or radiculopathy, Details of Present Illness: As above Relevant Family History (Specify if Yes): No Relevant Social History: None Present Medications: None Medical History: No relevant PMH History of Previous Operations: No relevant previous surgery Allergies: Allergies Allergy/AdvReac Type Severity Reaction Status Date / Time bee pollen [bee stings] Allergy Unknown Unknown Verified 08/29/22 14:25 Seasonal Allergies Allergy Unknown Unknown Verified 08/29/22 14:25 Review of Systems Sugical H&P ROS: Negative: Constitution, Cardiovascular, Respiratory, Neurological, Psychiatric, Hem-Onc, Allergic/Immunologic, Gastrointestinal, Genitourinary, Musculoskeletal, Integumentary, Endocrine and Eyes/Ears/Nose/Throat Exam Surgical H&P Exam: Normal: HEENT, Normal: Heart, Normal: Lungs, Normal: Extremities, Normal: Abdomen, Normal: Skin and Normal: Neurological Plan Diagnosis/Plan: Unchanged I have reviewed the history and physical and performed a pertinent physical examination on my patient. No changes have occurred unless specified. Time Spent With Patient Time: Total time managing care of this patient today ____ minutes.
[2022-09-13 11:02] VITALS: BMI 39.4
[2022-09-13 11:08] VITALS: BP 114/72; PULSE 85; RESP 18; TEMP 36.1; O2SAT 97
--- NOTE | 2022-09-13 11:17 | HO.ANESPROP2 ---
HPI - Anesthesia Eval Consult details Narrative: 66 yr female obese for MBBB PMFSH Active Problems Active Problems: All Active Problems (Updated 08/29/22 @ 14:51 by Raul Ortiz MD) Spondylosis of lumbar region without myelopathy or radiculopathy (Acute) Stenosis, spinal, lumbar (Acute) Spondylosis of lumbar spine (Acute) Osteopenia (Acute) Muscle spasm (Acute) Compression fracture of L4 vertebra (Acute) Past Medical History Medical History GERD (gastroesophageal reflux disease) Hemochromatosis HTN (hypertension) Hypothyroid Migraine Family History Family history of problems with anesthesia: No Surgical History Surgical History H/O colonoscopy History of Evan fundoplication Hx of blepharoplasty Hx of breast biopsy Hx of cholecystectomy History of Problems with Anesthesia: No Social History Social History Patient Tobacco Use Status: Former Tobacco user Use of substances other than those prescribed or required for medical reasons: No Advance Directives: No Advance Directives Information Provided: Yes Meds Allergies Allergy/AdvReac Type Severity Reaction Status Date / Time bee pollen [bee stings] Allergy Unknown Unknown Verified 08/29/22 14:25 Seasonal Allergies Allergy Unknown Unknown Verified 08/29/22 14:25 Active Medications: Current Medications Lactated Ringer's (Lr) 1,000 mls @ 50 mls/hr IVCONT .Q20H [facility] Home Medications Medication Instructions Recorded Confirmed Last Taken Type amitriptyline 25 mg tablet 1 tab PO BEDTIME 08/29/21 09/13/22 Unknown History cetirizine 10 mg tablet 1 tab PO DAILY 08/29/21 09/13/22 09/13/22 History chlordiazepoxide HCl 10 mg capsule 1 cap PO BEDTIME 08/29/21 09/13/22 Unknown History levothyroxine 100 mcg tablet 1 tab PO DAILY 08/29/21 09/13/22 09/13/22 History losartan 25 mg tablet 1 tab PO DAILY 08/29/21 09/13/22 09/13/22 History metoprolol succinate 100 mg 1 tab PO DAILY 08/29/21 09/13/22 09/13/22 History tablet,extended release 24 hr methylsulfonylmethane 1,000 mg 1,000 mg PO BID 03/16/22 Unknown History tablet (MSM) Exam Exam Date and Time: September 13, 2022 1117 Height,Weight and Vital Signs: Height 5 ft 4 in Weight 104.326 kg Last Vital Signs Temp 97.0 F 09/13/22 11:08 Pulse 85 09/13/22 11:08 Resp 18 09/13/22 11:08 BP 114/72 09/13/22 11:08 Pulse Ox 97 09/13/22 11:08 O2 Del Method 09/13/22 11:08 Airway Mallampati Class: II TM Dist: >3cm Neck ROM: Full Heart: rrr Lungs: cta Assessment and Plan Assessment Anesthesia Assessment: Anesthesia Plan Discussed and Chart Reviewed Final Anesthetic Review Family History of Problems with Anesthesia: No History of Problems with Anesthesia: No ASA Class: II Final Preanesthetic Review: No Changes in Pt Med Stat, Meds/Allgs Chart Reviewed, Consent Obtained/Reviewed and Anes Risks/Benef Reviewed Patient Risk: Low Procedure Risk: Low Anesthetic Plan Anesthetic Plan: MAC: Disposition: Standard PACU
[2022-09-13] MEDS: Lactated Ringers 1,000 ML 50 ML IVCONT (11:23)
--- NOTE | 2022-09-13 11:37 | P.OP_ITS ---
Operative Note Operative Note Date of Service: 09/13/22 Narrative: Diagnostic bilateral L2- L3- L4- DRL5 medial branch block. ?Informed consent was explained to the patient. All questions were explained and? answered.? The patient was taken inside the operating room where she was positioned prone on the operating table. Time-out was performed delineating correct site, side, the nature of the procedure, patient's allergy, preoperative antibiotic if needed.? All operating room staff was participating in OR time-out procedure. ASA monitors were applied and the patient was sedated. fentanyl and ketamine were avoided during the sedation. ?The lower back was prepped with ChloraPrep and draped with sterile towels.? C- arm was brought over the operating field and sq picture of L3, L4-and L5 vertebra and S1 AREA were delineated on the screen.? Point of interest were delineated as confluence of superior articular process of L3, L4 and L5 vertebra bilaterally with corresponding transverse processes as well as confluence of the sacral alae bilaterally with superior articular process of S1.? The projection of the point of interest to the skin were injected with the small amount of local anesthetic lidocaine 2% 1-1.5 cc.? After that 22 gauge 5 inch spinal n eedle was driven sequentially to the points of interest in tunnel vision fashion. After needle gently contacted the bone at the point of interests the needle was injected with small amount of the contrast.? The injection of the contrast did not demonstrate any intravascular or intrathecal spread of the contrast.? After that injection of the? ropivacaine 0.5%-1cc was performed at each needle location.? ? Upon completion of the injections? needle was? removed and sterile Band-Aids were applied.? The patient tolerated procedure very well.
--- NOTE | 2022-09-13 11:38 | P.BOP_ITS ---
Brief Operative Note Date of Service: 09/13/22 Pre-op diagnosis: spondylosis lumbar without myelo/ radiculopathy Post-op diagnosis: same Procedure: diagnostic MBB L2 L3- L4- DRL5 Surgeon: Raul Ortiz MD Anesthesia: MAC Was an Garage Mechanic used for this Procedure?: No Estimated blood loss (mL): 1 Condition: stable Disposition: PACU
[2022-09-13 12:15] VITALS: BP 111/64; PULSE 87; RESP 17; TEMP 36.4; O2SAT 98
[2022-09-13 12:31] VITALS: BP 119/75; PULSE 78; RESP 17; TEMP 36.4; O2SAT 98
== END 2022-09-13 13:32 | disposition home or self-care (01) ==
PROVIDERS: PCP Internal Medicine; Visit Provider Anesthesiology
PROC: (CPT 64493; principal; 2022-09-13 12:20)
DX: M47.816 Spondylosis without myelopathy or radiculopathy, lumbar region (principal); M54.9 Dorsalgia, unspecified; M62.838 Other muscle spasm; M85.80 Other specified disorders of bone density and structure, unspecified site
CPT/HCPCS: 64493; 64494; 64495; Q9967

== ENCOUNTER → 2022-09-20 11:38 | Outpatient (BNVA) | payer OTHER, SELFPAY | PROVIDERS: PCP Internal Medicine; Visit Provider Nurse Practitioner Family | DX: Z13.89 Encounter for screening for other disorder (principal) ==

== ENCOUNTER 2022-11-06 13:59 | Outpatient (REF) | payer OTHER, SELFPAY | END 2022-11-06 14:00 | disposition home or self-care (01) | LOC: HO.BBR 13:59 | PROVIDERS: Visit Provider Internal Medicine | DX: Z13.89 Encounter for screening for other disorder (principal) ==

== ENCOUNTER 2022-11-09 10:28 | Outpatient (REF) | payer OTHER, SELFPAY ==
[2022-11-09 10:47] LABS: MANUAL DIFF FLAG NO
[2022-11-09 11:05] LABS: Basophils Absolute Auto 0.1 X10*3/uL (0.0-0.2); Basophils Percent Auto 1.5 % (0-2); Eosinophils Absolute Auto 0.3 X10*3/uL (0.0-0.4); Eosinophils Percent Auto 4.7 % (0-4); Hematocrit 40.6 % (37.0-47.0); Hemoglobin 13.3 g/dl (12.0-16.0); Imm Gran Abs Auto 0.02 X10*3/uL (0.00-0.03); Imm Gran Pct Auto 0.3 % (0.0-0.4); Lymphocytes Percent Auto 41.1 % (20-40); Mean Corpuscular HGB Conc 32.8 g/dl (31.0-35.0); Mean Corpuscular Hemoglobin 31.6 pg (27.0-33.0); Mean Corpuscular Volume 96.4 fL (80.0-98.0); Mean Platelet Volume 10.1 fL (9.4-12.3); Monocytes Absolute Auto 0.7 X10*3/uL (0.1-1.2); Neutrophils Absolute Auto 3.1 x10*3/uL (2.0-8.3); Neutrophils Percent Auto 43.4 % (45-73); Platelet Count 296 X10*3/uL (160-400); Red Blood Count 4.21 X10*6/uL (4.20-5.50); Red Cell Distribution Width 15.1 % (11.0-16.0); White Blood Count 7.2 X10*3/uL (4.8-10.8)
[2022-11-09 11:33] LABS: Alanine Aminotransferase 35 U/L (0-31); Albumin Level 4.2 g/dL (3.5-5.0); Alkaline Phosphatase 138 U/L (39-117); Anion Gap 13 (12-20); Aspartate Amino Transferase 32 U/L (5-31); Bilirubin Total 0.5 mg/dL (0.0-1.0); Blood Urea Nitrogen 17 mg/dL (9-16); Calcium 9.5 mg/dL (8.4-10.2); Carbon Dioxide 26 mmol/L (22-29); Chloride 106 mmol/L (96-108); Estimated Glomerular Filt Rate 42; Glucose Random 100 mg/dL (60-115); Iron 100 mcg/dL (30-160); Percent Iron Saturation 31 % (15-50); Potassium 5.4 mmol/L (3.3-5.1); Sodium 140 mmol/L (135-145); Total Iron Binding Capacity 323 mcg/dL (228-428); Unsaturated Iron Binding 223 ug/dL
[2022-11-09 11:51] LABS: Ferritin 16 ng/mL (10-250); T4 Thyroxine 8.9 ug/dL (4.5-12.0); Thyroid Stimulating Hormone 5.04 uIU/mL (0.32-4.0); Vitamin D 25-OH Total 14.1 ng/mL (>30)
== END 2022-11-09 10:29 | disposition home or self-care (01) ==
LOC: HO.LAB 10:28
PROVIDERS: PCP Internal Medicine; Visit Provider Internal Medicine
DX: Z00.00 Encounter for general adult medical examination without abnormal findings (principal); E03.9 Hypothyroidism, unspecified
CPT/HCPCS: 36415; 80053; 82306; 82728; 83540; 84436; 84443; 85025

== ENCOUNTER 2022-11-12 06:29 | Outpatient (REF) | payer OTHER, SELFPAY ==
[2022-11-12 08:27] LABS: Alanine Aminotransferase 31 U/L (0-31); Albumin Level 4.1 g/dL (3.5-5.0); Alkaline Phosphatase 128 U/L (39-117); Anion Gap 14 (12-20); Aspartate Amino Transferase 25 U/L (5-31); Bilirubin Total 0.5 mg/dL (0.0-1.0); Blood Urea Nitrogen 19 mg/dL (9-16); Calcium 9.9 mg/dL (8.4-10.2); Carbon Dioxide 26 mmol/L (22-29); Chloride 104 mmol/L (96-108); Cholesterol 247 mg/dL; Estimated Glomerular Filt Rate 49; Glucose Fasting 108 mg/dL (60-99); HDL Cholesterol 64 mg/dL; LDL Cholesterol Calculated 141 mg/dl; Potassium 4.6 mmol/L (3.3-5.1); Sodium 139 mmol/L (135-145); Total Protein 6.8 g/dL (6.5-8.0); Triglycerides 213 mg/dL
== END 2022-11-12 06:30 | disposition home or self-care (01) ==
LOC: HO.LAB 06:29
PROVIDERS: PCP Internal Medicine; Visit Provider Internal Medicine
DX: Z00.00 Encounter for general adult medical examination without abnormal findings (principal); E03.9 Hypothyroidism, unspecified
CPT/HCPCS: 36415; 80053; 80061

== ENCOUNTER 2023-02-08 06:05 | Outpatient (REF) | payer OTHER, SELFPAY ==
[2023-02-08 08:18] LABS: Free T4 (Free Thyroxine) 1.07 ng/dL (0.71-1.85); Vitamin D 25-OH Total 56.7 ng/mL (>30)
[2023-02-08 08:28] LABS: Vitamin B12 298 pg/mL (200-900)
== END 2023-02-08 06:06 | disposition home or self-care (01) ==
LOC: HO.LAB 06:05
PROVIDERS: PCP Internal Medicine; Visit Provider Internal Medicine
DX: E03.9 Hypothyroidism, unspecified (principal); E55.9 Vitamin D deficiency, unspecified; R53.83 Other fatigue
CPT/HCPCS: 36415; 82306; 82607; 84439; 84443

== ENCOUNTER 2023-03-19 08:50 | Outpatient (REF) | payer OTHER, SELFPAY ==
[2023-03-19 12:30] LABS: Appearance Urine Cloudy; Color Urine Yellow; Glucose Urine UA Negative (Negative); Leukocyte Esterase Urine Large (3+) (Negative); Nitrite Urine Negative (Negative); PH 6.5 (5.0-9.0); UMIC TRIGGER UACC YES; Urine Blood Large (3+) (Negative); Urine Ketones Negative (Negative); Urine Protein Negative (Neg-Trace)
[2023-03-19 12:35] LABS: Bacteria Urine None Seen (None Seen); Hyaline Casts Urine 0-2 /LPF (0-2); RBC Urine >20 /HPF (0-2); Squamous Epithelial Cell Urine 0-2 /HPF (0-2); UACC Culture Trigger YES; WBC Urine >50 /HPF (0-5)
== END 2023-03-19 08:51 | disposition home or self-care (01) ==
LOC: HO.LAB 08:50
PROVIDERS: PCP Internal Medicine; Visit Provider Internal Medicine
DX: R30.0 Dysuria (principal)
CPT/HCPCS: 81001; 87086

== ENCOUNTER 2023-04-26 09:53 | Outpatient (AMB) | payer OTHER, SELFPAY ==
--- NOTE | 2023-04-26 10:07 | A.OFFVIS_ITS ---
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 Patient reports ankle surgery in 2005 [place]. Currently she continues to have swelling since surgery but has been getting worse the past 4-5 months. Feels tightness with swelling and numbness. 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 She states she has swelling in her ankle since the surgery but has been worsening since the past 5 months. She also c/o pain, numbness and tightness in her ankle. She has a history of right ankle surgery in [address] 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 Review of Systems Const All systems reviewed & are unremarkable except as noted in HPI and below Physical Exam Vital Signs: BMI result Body Mass Index 39.5 Const General: cooperative, healthy appearing, comfortable, no acute distress, well developed and alert Orientation/consciousness: patient oriented x3 HEENT Head: Yes normal to inspection, Yes normocephalic and Yes atraumatic Eyes General: appearance normal, both eyes and all related structures Resp Effort & Inspection: normal respiratory effort and able to speak in complete sentences Cardio Rate: regular rate Peripheral pulses: Peripheral pulses 2+ throughout GI Palpation (GI): Soft to palpation Skin Lesions: no lesions Rashes: no rashes Neuro General: patient oriented x3 Extrem Other: Right ankle: Normal to inspection. No bony abnormality. No tenderness over the medial or lateral malleolus. She does have slight tenderness over the anterior portion of ankle along the talus. Full ROM with minimal crepitus. NVI. Results Reviewed Results Reviewed: X-rays of the right ankle obtained in the office today show orthopedic hardware in place with evidence of joint collapse and post traumatic arthritic changes. Assessment & Plan Assessment & Plan (1) Arthritis of right ankle: Code(s): M19.071 - Primary osteoarthritis, right ankle and foot Plan We discussed options which include physical therapy, bracing, steroid injection and referral to foot and ankle specialist. At this time, we will try more conservative approach which will be physical therapy and a lace-up ankle brace which was given in the office today. We will also get her set up with some Compound cream. If she continues to have discomfort, she will contact me to discuss potential steroid injection, otherwise follow-up as needed. Orders: Orders XR ankle RT min 3V Today M25.571 - Pain in right ankle and joints of right foot PT Evaluation and Treatment Today M19.071 - Primary osteoarthritis, right ankle and foot Patient Instructions: Scribed for Alina Azar PA-C, by Con Weathers medical charge entry specialist, on 04/26/2023 at 10:00 AM EST. I, Alina Azar PA-C, have personally reviewed and agree with the information entered by the scribe. Coding Level of Care Code New Pt Level 3 (10397) Diagnoses Arthritis of right ankle M19.071
[2023-04-26 10:15] VITALS: BMI 39.5
== END 2023-04-26 11:04 | disposition home or self-care (01) ==
PROVIDERS: PCP Internal Medicine; Visit Provider Physician Assistant
DX: M19.071 Primary osteoarthritis, right ankle and foot (principal)
CPT/HCPCS: 99203

== ENCOUNTER 2023-04-26 09:53 | Outpatient (REF) | payer OTHER, SELFPAY ==
--- NOTE | ~2023-04-26 | XR_ITS ---
EXAMINATION: XR ANKLE, RIGHT CLINICAL INFORMATION: Pain in right ankle and joints of right foot COMPARISON: None available. TECHNIQUE: AP, lateral, and mortise views of the right ankle. FINDINGS: 2 screws are seen within the distal tibia and medial malleolus. 2 screws are seen in the distal fibula and lateral malleolus. No acute fracture. There is marked narrowing of the tibiotalar joint with marginal osteophytes. There is soft tissue swelling along the anterior aspect of the ankle. XR/XR ankle RT min 3V IMPRESSION: 1. Postsurgical changes of the distal tibia and fibula. 2. Marked osteoarthritis of the tibiotalar joint.
== END 2023-04-26 09:54 | disposition home or self-care (01) ==
LOC: HO.HOSX 09:53
PROVIDERS: PCP Internal Medicine; Visit Provider Physician Assistant
DX: M19.071 Primary osteoarthritis, right ankle and foot (principal)
CPT/HCPCS: 73610

== ENCOUNTER 2023-05-09 14:33 | Outpatient (REF) | payer OTHER, SELFPAY ==
[2023-05-09 16:24] LABS: Alanine Aminotransferase 63 U/L (0-31); Albumin Level 3.8 g/dL (3.5-5.0); Alkaline Phosphatase 121 U/L (39-117); Aspartate Amino Transferase 53 U/L (5-31); Bilirubin Direct 0.2 mg/dL (0.0-0.5); Bilirubin Total 0.4 mg/dL (0.0-1.0); Iron 179 mcg/dL (30-160); Percent Iron Saturation 70 % (15-50); Total Iron Binding Capacity 255 mcg/dL (228-428); Total Protein 6.7 g/dL (6.5-8.0); Unsaturated Iron Binding 76 ug/dL
[2023-05-09 16:34] LABS: Ferritin 96 ng/mL (10-250)
== END 2023-05-09 14:34 | disposition home or self-care (01) ==
LOC: HO.BBR 14:33
PROVIDERS: PCP Internal Medicine; Visit Provider Internal Medicine
DX: E83.110 Hereditary hemochromatosis (principal)
CPT/HCPCS: 36415; 80076; 82728; 83540

== ENCOUNTER 2023-09-03 14:00 | Outpatient (RCR) | payer OTHER, SELFPAY ==
[2023-08-16 14:09] VITALS: BP 123/69; PULSE 87
--- NOTE | 2023-08-16 15:16 | MHC.PT.EP ---
[facility] [place] Office [place] Office [place] Office [address] Chiquis Cervantes [address] [phone] F: [phone] F: [phone] F: [phone] F: [phone] Physical Therapy Plan of Care Date of Evaluation: 08/16/23 Date of Surgery: NA Diagnosis: Primary OA, R ankle and foot Assessment: Shellie Gonsalves is a 67 year old female who is referred to PT for primary OA, R ankle and foot . She reports of having ankle pain and swelling for the last 7-8 months. She has had p/h/o tri-malleolar fracture. On PT examination she presents with no TTP, 7/10 pain prolonged standing, walking and at the end of the day, decreased ankle ROM, decreased ankle and B hip strength, altered posture, balance and gait. She lives alone and is independent with all ADLS however has pain with them. 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 She would benefit from skilled PT to address the aforementioned impairments and improve tolerance to functional activities. Frequency and Duration: The patient will be seen 2/week for 4 weeks Short Term Goals: 1. Pt will report of having 50% decrease in pain which will enable her to stand throughout her shift without fatigue in 2 weeks 2. Pt will be able to move her ankle through all planes of motion without pain which will enable her to negotiate stairs without any difficulty in 3 weeks. Residential Goals: 1. Pt will demonstrate increase in muscle strength by 1 grade which will help reduce swelling and pain at the end of the day in 5 weeks. 2. Pt will be independent with all HEP for symptom management and maintenance following d/c in 5 weeks. Treatment Plan: Modalities to reduce pain, spasms and effusion. Manual therapy to restore motion and function. Therapeutic exercise to improve strength and flexibility. Neuromuscular re-education for posture and balance. Therapeutic activities to return to functional activities of daily living. Electronically signed by: Meeta Gavin PT DPT Please sign and return to therapist. Thank you for your referral.
--- NOTE | 2023-09-12 09:12 | MHC.PT.DC ---
[facility] [place] Office [place] Office [place] Office [address] Chiquis Cervantes [address] [phone] F: [phone] F: [phone] F: [phone] F: [phone] Physical Therapy Discharge Report Diagnosis: Primary OA, R ankle and foot Date of Surgery: NA Date of Evaluation: 08/16/23 Date of Discharge: 09/12/23 Treatments to Date: 4 Cancellations to Date: 4 No Shows to Date: 1 Discharge Status: Patient Elected to Stop Discharge Summary: Damaris attended 4 PT visits and then called and d/c herself from PT. She did not give any reason for d/c. She is therefore being d/c from PT. Electronically signed by: Meeta Gavin PT DPT Please sign and return to therapist. Thank you for your referral.
== END 2023-09-12 09:13 | disposition home or self-care (01) ==
LOC: HO.PT 14:00
PROVIDERS: PCP Internal Medicine; Visit Provider Physician Assistant
DX: M19.071 Primary osteoarthritis, right ankle and foot (principal)
CPT/HCPCS: 97110; 97161; 97530

== ENCOUNTER 2023-09-11 11:24 | Outpatient (REF) | payer OTHER, SELFPAY ==
--- NOTE | ~2023-09-11 | MM_ITS ---
EXAMINATION: MM SCREENING DIGITAL BREAST TOMOSYNTHESIS, BILATERAL CLINICAL INFORMATION: Screening. Asymptomatic. COMPARISON: Mammography: This study is compared with prior exams dating back to 2019. TECHNIQUE: Digital breast tomosynthesis is performed in both the craniocaudal and mediolateral oblique views along with computer-aided detection (CAD). Synthesized 2D images are generated from the tomosynthesis. FINDINGS: There are scattered areas of fibroglandular density (ACR BI-RADS breast composition Category b). There are no significant masses, abnormal calcifications, or other abnormalities. There is a biopsy tissue marker in the right subareolar region. It lies within a small, oval, benign mass. MM/MM tomosynthesis screening BI IMPRESSION: No mammographic evidence of malignancy. ASSESSMENT: BI-RADS BI-RADS 2 - Benign Findings RECOMMENDATION: Routine annual mammography screening. 1 year F/U This examination should not preclude the clinical evaluation of a suspicious palpable abnormality. This patient's information was entered into a reminder system with a target due date for their next mammogram.
== END 2023-09-11 11:25 | disposition home or self-care (01) ==
LOC: HO.MAMMO 11:24
PROVIDERS: PCP Internal Medicine; Visit Provider Internal Medicine
DX: Z12.31 Encounter for screening mammogram for malignant neoplasm of breast (principal)
CPT/HCPCS: 77063; 77067

== ENCOUNTER → 2023-09-11 11:30 | Outpatient (BNV) | payer OTHER, SELFPAY | PROVIDERS: PCP Internal Medicine; Visit Provider Radiology Diagnostic Radiology | DX: Z12.31 Encounter for screening mammogram for malignant neoplasm of breast (principal) | CPT/HCPCS: 77063; 77067 ==

== ENCOUNTER 2023-11-21 05:55 | Outpatient (REF) | payer OTHER, SELFPAY ==
[2023-11-21 06:26] LABS: MANUAL DIFF FLAG NO
[2023-11-21 08:10] LABS: Basophils Absolute Auto 0.1 X10*3/uL (0.0-0.2); Basophils Percent Auto 1.6 % (0-2); Eosinophils Absolute Auto 0.4 X10*3/uL (0.0-0.4); Eosinophils Percent Auto 6.5 % (0-4); Hematocrit 41.6 % (37.0-47.0); Hemoglobin 14.2 g/dl (12.0-16.0); Imm Gran Abs Auto 0.01 X10*3/uL (0.00-0.03); Imm Gran Pct Auto 0.2 % (0.0-0.4); Lymphocytes Absolute Auto 2.4 X10*3/uL (1.2-4.9); Lymphocytes Percent Auto 39.7 % (20-40); Mean Corpuscular HGB Conc 34.1 g/dl (31.0-35.0); Mean Corpuscular Hemoglobin 34.1 pg (27.0-33.0); Mean Corpuscular Volume 99.8 fL (80.0-98.0); Mean Platelet Volume 10.5 fL (9.4-12.3); Monocytes Absolute Auto 0.5 X10*3/uL (0.1-1.2); Neutrophils Absolute Auto 2.7 x10*3/uL (2.0-8.3); Platelet Count 273 X10*3/uL (160-400); Red Blood Count 4.17 X10*6/uL (4.20-5.50); Red Cell Distribution Width 13.7 % (11.0-16.0); White Blood Count 6.1 X10*3/uL (4.8-10.8)
[2023-11-21 08:15] LABS: INTERNATIONAL NORM RATIO 0.8 (0.9-1.1); Prothrombin Time 10.2 SEC (11.1-13.3)
[2023-11-22 12:57] LABS: Alpha Fetoprotein 3.9 ng/mL
[2023-11-27 02:24] LABS: FIB-ALT 55 U/L (6-29); FIB-Alpha-2-Macroglobulin 177 mg/dL (106-279); FIB-Apolipoprotein A1 180 mg/dL (101-198); FIB-GGT 64 U/L (3-65); FIB-Haptoglobin 64 mg/dL (43-212); FIB-Total Bilirubin 0.5 mg/dL (0.2-1.2); Liver Fibrosis Score 0.27; Liver Fibrosis Stage F1; Nec Inflam Act Grade A1; Nec Inflam Act Score 0.31
== END 2023-11-21 05:56 | disposition home or self-care (01) ==
LOC: HO.LAB 05:55
PROVIDERS: Visit Provider Internal Medicine
DX: E83.110 Hereditary hemochromatosis (principal); R74.8 Abnormal levels of other serum enzymes; K76.0 Fatty (change of) liver, not elsewhere classified
CPT/HCPCS: 36415; 81596; 82105; 85025; 85610

== ENCOUNTER 2023-11-21 14:34 | Outpatient (REF) | payer OTHER, SELFPAY ==
[2023-11-21 17:36] LABS: Alanine Aminotransferase 68 U/L (0-31); Albumin Level 3.8 g/dL (3.5-5.0); Alkaline Phosphatase 126 U/L (39-117); Aspartate Amino Transferase 56 U/L (5-31); Bilirubin Direct 0.2 mg/dL (0.0-0.5); Bilirubin Total 0.4 mg/dL (0.0-1.0); Iron 197 mcg/dL (30-160); Percent Iron Saturation 76 % (15-50); Total Iron Binding Capacity 258 mcg/dL (228-428); Total Protein 6.8 g/dL (6.5-8.0); Unsaturated Iron Binding 61 ug/dL
[2023-11-21 17:50] LABS: Ferritin 142 ng/mL (10-250)
== END 2023-11-21 14:35 | disposition home or self-care (01) ==
LOC: HO.BBR 14:34
PROVIDERS: PCP Internal Medicine; Visit Provider Internal Medicine
DX: E83.110 Hereditary hemochromatosis (principal)
CPT/HCPCS: 36415; 80076; 82728; 83540

== ENCOUNTER 2023-11-29 07:57 | Outpatient (REF) | payer OTHER, SELFPAY ==
--- NOTE | ~2023-11-29 | US_ITS ---
EXAMINATION: US COMPLETE ABDOMEN WITH LIVER ELASTOGRAPHY CLINICAL INFORMATION: Hereditary hemochromatosis. Elevated liver enzymes. COMPARISON: Abdomen ultrasound from 11/13/2019. TECHNIQUE: Real-time imaging of the abdominal viscera. Noninvasive ultrasound liver fibrosis assessment is performed using Mauro ElastPQ point quantification shear wave elastography (2D-SWE) with a C5-2 MHz transducer. Multiple elastography samples are obtained. FINDINGS: PANCREAS: The pancreas is obscured by bowel gas. ABDOMINAL AORTA: The proximal, middle, and distal aortic segments are normal in caliber. INFERIOR VENA CAVA: Visualized portions are normal. LIVER: The liver parenchyma remains diffusely hyperechoic. The liver contour is normal. No cirrhotic morphology. No focal lesion or intrahepatic ductal dilatation. The right lobe measures 17.3 cm in length. The left lobe measures 10.9 cm in length. Portal flow is normal. Shear wave liver elastography median stiffness is 1.58 m/s (reference: normal median stiffness is 1.3 m/s or less). The median stiffness measurement was 1.39 m/s on 11/13/2019. IQR/median stiffness to assess sampling precision is 0.07 (reference: good quality data set is IQR/median stiffness of 0.15 or less). GALLBLADDER: Status post cholecystectomy. COMMON BILE DUCT: Normal in caliber measuring 0.6 cm in diameter. RIGHT KIDNEY: The kidney is 10.8 cm in length. No nephrolithiasis or hydronephrosis. 1.6 cm simple cyst is present in the interpolar region. No renal imaging follow-up is recommended for simple cysts. LEFT KIDNEY: The kidney is 9.7 cm in length. No nephrolithiasis or hydronephrosis. There are 1.6 cm and 1.2 cm simple cysts for which no follow-up imaging is recommended. SPLEEN: Normal. The spleen measures 8.8 cm in maximum dimension. FREE FLUID: None. US/US abdomen comp w elastography IMPRESSION: * Diffuse hepatic steatosis. * Shear wave liver elastography reveals a median stiffness of 1.58 m/s, a 13% increase compared to 11/13/2019. In the absence of other known clinical signs, this rules out compensated advanced chronic liver disease. * No evidence of hepatic mass or ascites. REFERENCE: Society of Radiologists in Ultrasound Liver Stiffness Thresholds (2019): LIVER STIFFNESS THRESHOLDS: *Liver Stiffness equal or less than 1.3 m/s: High probability of being normal. *Liver Stiffness less than 1.7 m/s: In the absence of other known clinical signs, rules out compensated advanced chronic liver disease. *Liver Stiffness 1.7-2.1 m/s: Suggestive of compensated advanced chronic liver disease but need further test for confirmation. *Liver Stiffness over 2.1 m/s: Rules in compensated advanced chronic liver disease. *Liver Stiffness over 2.4 m/s: Suggestive of clinically significant portal hypertension. QUALITY OF DATA SET: *IQR/Median value equal or less than 0.15 implies a quality data set. *IQR/Median value over 0.15 implies a poor quality data set. SIGNIFICANT CHANGE FROM PRIOR EXAM: Significant change if liver stiffness measurement is 10% or greater from prior exam. OTHER CONSIDERATIONS: The stage of liver fibrosis may be overestimated in the setting of acute hepatitis, liver inflammation, elevated liver function tests, hepatic vascular congestion, obstructive cholestasis, non-fasting state, and infiltrative diseases such as amyloidosis and lymphoma. In some patients with NAFLD, the liver stiffness thresholds for compensated advanced chronic liver disease may be lower. In causes other than viral hepatitis and NAFLD, liver stiffness thresholds are not well established.
== END 2023-11-29 07:58 | disposition home or self-care (01) ==
LOC: HO.US 07:57
PROVIDERS: PCP Internal Medicine; Visit Provider Internal Medicine
DX: E83.10 Disorder of iron metabolism, unspecified (principal); R74.8 Abnormal levels of other serum enzymes; K76.0 Fatty (change of) liver, not elsewhere classified
CPT/HCPCS: 76700; 76981

== ENCOUNTER 2024-06-10 12:03 | Outpatient (REF) | payer OTHER, SELFPAY ==
[2024-06-10 13:59] LABS: Iron 195 mcg/dL (30-160); Percent Iron Saturation 71 % (15-50); Total Iron Binding Capacity 276 mcg/dL (228-428); Unsaturated Iron Binding 81 ug/dL
[2024-06-10 14:00] LABS: Ferritin 182 ng/mL (10-250)
== END 2024-06-10 12:04 | disposition home or self-care (01) ==
LOC: HO.BBR 12:03
PROVIDERS: PCP Internal Medicine; Visit Provider Internal Medicine
DX: E83.110 Hereditary hemochromatosis (principal)
CPT/HCPCS: 36415; 82728; 83540

== ENCOUNTER 2024-09-25 05:59 | Outpatient (REF) | payer OTHER, SELFPAY ==
--- OUTSIDE RECORDS SUMMARY | 2024-09-25 06:01 | XMS_ITS | Patient Health Record ---
[facility] Address [address] [facility] [place] [address] Care Team Providers Care Verse Writer Name Role Phone Hima Choudhary MD Primary Care Provider Vaughn Hong Unavailable [phone] Allergies No Known Allergies Reason For Referral No Information Medications Medication SIG (Take, Route, Frequency, Duration) Notes Start Date End Date Status Ketamine HCl Compound Cream Ac tive Gabapentin compound cream Acti ve Cetirizine HCl 10 MG 1 tablet Orally Onc e a day for 30 day(s) Active Losartan Potassium 25 MG 1 tablet Orally Once a day for 30 day(s) Active Diclofenac compound cream Acti ve Levothyroxine Sodium Active Ciclopirox 0.77 % 1 application Externally Twice a day for 365 days Active Metoprolol Succinate 100 MG 1 capsule Orally Once a day for 30 day(s) Active Social History Tobacco Use: Social History Observation Description Date Details (start date - stop date) Former Smoker NA - NA Tobacco Use/Smoking Question Answer Notes Are you a: former smoker Additional Findings: Tobacco Non-User Current no n-smoker Alcohol Screen Question Answer Notes Did you have a drink contain ing alcohol in the past year? Yes How often did you have a dri nk containing alcohol in the past year? Monthly or less (1 point) Points 1 Interpretation Negative Tobacco use other than smoking: Question Answer Notes Are you an other tobacco user? No Problems Problem Type SNOMED Code ICD Code Onset Dates Problem Status W/U Status Risk Notes Problem Skin ulcer of toe of right foot with fat layer exposed (L97.512) Active confirmed Problem [id number] Fungal infection of nail (B35.1) Active confirmed Rx management (4) Encounters Encounter Location Date Provider Diagnosis [facility] [place] [address] [place] [address] 10/14/2023 Vaughn Reina Plan Of Treatment Pending Test Test Name Order Date [id number] 07/19/2023 [id number] SKIN/TISSUE 08/02/2023 Insurance Providers Payer Name Payer Address Payer Phone Subscriber Number Group Number Insured Name Patient Relationship to Insured Coverage Start Date Coverage End Date Blue Benefits [address] [address] [place] [address] [id number] Yadira Bojorquez Self - patient is the insured Medical (General) History Medical History History ICD Code Arthritis Back,Hip,and Knee pain covid-19 Gall bladder problems Headaches/Migraines High blood pressure sinusitis thyroid Measles Mumps Chicken pox Bone implants/screws - Right ankle hemochromatosis - Liver Surgical History Surgery Date(Month/Year) Gall bladder removal laproscopy trimalleolar fracture - Right 2006 kyphosis repair
--- OUTSIDE RECORDS SUMMARY | 2024-09-25 06:01 | XMS_ITS ---
Author Organization [facility] Address [address] [place] [address] Care Team Providers Care Die Storage Worker Name Role Phone Hima Choudhary MD Primary Care Provider Unavaila Vaughn Gardner Unavailable [phone] REASON FOR VISIT CX 10/15/23 Encounters Encounter Location Date Provider Diagnosis [address] [address] 10/14/2023 Vaughn Reina Plan Of Treatment No Information Progress Notes * Yadira FONTENOTDOMarin:1955 (68 yo F)Acc No.[id number]:10/14/2023 Patient:?Yadira Fontenot :1955???Age:68 Y???Sex:Female Address:[address] [place] [address] [place] [address] * true * Date:? Generated for Ki khoury/Brenda/eTransmitting on:?09/25/2024 06:01 AM EST
--- OUTSIDE RECORDS SUMMARY | 2024-09-25 06:01 | XMS_ITS ---
Author Organization [facility] Address [address] [facility] [place] [address] Care Team Providers Care Slot Floor Supervisor Name Role Phone Hima Choudhary MD Primary Care Provider Unavaila Vaughn Gardner Unavailable [phone] Allergies No Known Allergies REASON FOR VISIT Open sore - Toe Medications Medication SIG (Take, Route, Frequency, Duration) Notes Start Date End Date Status Losartan Potassium 25 MG 1 tablet Orally Once a day for 30 day(s) Active Diclofenac compound cream Acti ve Levothyroxine Sodium Active Ciclopirox 0.77 % 1 application Externally Twice a day for 365 days Active Metoprolol Succinate 100 MG 1 capsule Orally Once a day for 30 day(s) Active Ketamine HCl Compound Cream Ac tive Gabapentin compound cream Acti ve Cetirizine HCl 10 MG 1 tablet Orally Onc e a day for 30 day(s) Active Social [...] with fat layer exposed (L97.512) Active confirmed Vital Signs Height 5ft 4in in 08/02/2023 Weight 230 lbs 08/02/2023 BMI 39.48 kg/m2 08/02/2023 Procedures Procedure Date Ordered Date Performed Result Body Sit e [id number] SKIN/TISSUE 08/02/2023 N/A Encounters Encounter Location Date Provider Diagnosis [facility] [place] [address] [place] [address] 08/02/2023 Vaughn Reina Skin ulcer of toe of right foot with fat layer exposed L97.512 Assessments Encounter Date Diagnosis (ICD Code) Assessment Notes Treatment Notes Treatment Clinical Notes Section Notes 08/02/2023 Skin ulcer of toe of right foot with fat layer exposed (ICD-10 - L97.512) Patient Educated with: WOUND CARE INSTRUCTIONS.p df (WOUND CARE INSTRUCTIONS.p df) 08/02/2023 Other Plan Of Treatment Treatment Notes Assessment Notes Skin ulcer of toe of right f oot with fat layer exposed Patient Educated with: WOUND CARE INSTRUCTIONS.pdf (WOUND CARE INSTRUCTIONS.pdf) Pending Test Test Name Order Date [id number] SKIN/TISSUE 08/02/2023 Next Appt Details Follow Up: 4 Weeks, Reason: Procedure Notes * Category Sub-Category Detail Notes Debride skin and subQ Open wound Physician of record performed open wound selective debridement of devitalized necrotic/nonviable soft tissue, fibrin, exudate, epidermis, dermis, thru skin and subcutaneous fat tissue, first 20 sq cm or less, using sharp dissection with sterile 15 blade, and/or tissue nippers. ANESTHESIA- was accomplished TOPICALLY with Lidocaine Hydrochloride Jelly 2 percent, Sterile antibiotic dressing applied. Hemostasis was controlled through direct pressure. Post debridement measurements: 12mm x 5mm x 3mm. Character of the wound post debriement is stable (99938) Progress Notes * Yadira FONTENOTDOB:1955 (67 yo F)Acc No.[id number]:08/02/2023 Progress Notes Patient:?Yadira Fontenot Provider:?Vaughn Reina DPM :1955???Age:67 Y???Sex:Female D ate:08/02/2023 Address:[address] [place] [address] Pcp:Hima Choudhary MD Subjective: * Chief Complaints: * ???Open sore - Toe * HPI: ???Skin problems:?Nature:?Open sore.?Treatments:?Topical abx, soaks.? * ROS:?General/Constitutional:?Nausea?denies.?Vomiting?denies.?Hunger Thirst?denies.?Loss appetite?denies.?Chills?denies.?Fatigue?denies.?Fever?denies.?Night Sweats?denies.?Unexplained weight loss?denies.?Unexplained weight gain?denies.?HEENTM:?Dentures?admits.?Dizziness?denies.?Glasses/contacts?admits.?Retinopathy?de nies.?Blurred/double vision?denies.?TMJ?denies.?Discharge/drainage?denies.?Implants?denies.?Sore throat?denies.?Dental implants?denies.?Hard of hearing ?denies.?Difficulty chewing/swallowing/speaking?denies.?Nose bleeds?denies.?Sore mouth?denies.?Respiratory:?On Oxygen?denies.?Pneumonia/pleurisy?denies.?Bronchitis?denies.?Emphysema?denies.?C oughing?denies.?Cough blood?denies.?Shortness of breath?denies.?Wheezing?denies.?Cardiovascular:?Pacemaker?denies.?MVP?denies.?WPW?denies.?CHF?denies.?Heart attack?denies.?Septal defect?denies.?Rapid beat?denies.?Chest pain ?denies.?Atrial Fib.?denies.?Murmur/Palpitations?denies.?Gastrointestinal:?Hemorrhoids?denies.?Stomach/Abdominal pain?denies.?Dark blood stool?denies.?Irritable bowel ?denies.?Constipation?denies.?Diarrhea?denies.?Hematology:?Swelling?denies.?Clots?denies.?Varicose Veins?denies.?Bruising?denies.?Bleeding problem?denies.?Genitourinary:?Blood urine?denies.?Frequent/Painfu/urination/bladder control?denies.?Kidney stones?denies.?Infection (UTI)?denies.?Nephropathy?denies.?sex trans dis (STD)?denies.?Prostate?denies.?Musculoskeletal:?Hammertoes?denies.?Bunions?denies.?Back Pain?admits.?Muscle Cramps/ Resting?admits.?Muscle cramps / walking?denies.?Generalized aches and pains?admits.?Weakness?denies.?Integ.:?Hager?denies.?Scars?denies.?Corns/calluses?denies.?Ingrown nails?admits.?Painful nails?admits.?Open Sores?denies.?Rashes?denies.?Neurologic:?Difficulty sleeping?denies.?Brain disorder?denies.?Numbness?denies.?Balance trouble?denies.?Confusion?denies.?Fainting/blackouts?denies.?Tingling?denies.?Tr emors?denies.? * Medical History:? * Surgical History:?Gall bladd er removal laproscopy trimalleolar fracture - Right 2006 kyphosis repair * Hospitalization/Major Diagno stic Procedure:?Denies Past Hospitalization * Family History:?Mother: dece ased, heart attack , diagnosed with Family history of arthritis, Diabetic - NIDDM, Unspecified essential hypertension, Unspecified heart disease.?Father: , heart attack , diagnosed with Diabetic - NIDDM, Unspecified heart disease.?Siblings: Cancer sister, brother kidney/liver disease, diagnosed with Other malignant neoplasm of unspecified site, Other specified conditions influencing health status.? * Social History:?Tobacco Use:?Tobacco Use/Smoking?Are you a:?former smoker ?Additional Findings: Tobacco Non-User?Current non-smoker ?Tobacco use other than smoking?Are you an other tobacco user??No ???Drugs/Alcohol:?Drugs?Have you used drugs other than those for medical reasons in the past 12 months??No ?Alcohol Screen?Did you have a drink containing alcohol in the past year??Yes ?How often did you have a drink containing alcohol in the past year??Monthly or less (1 point) ?Points?1 ?Interpretation?Negative ???Miscellaneous:?Caffeine: yes, frequency:, 2-3 cups per day. ?Children: yes, 2. ?Exercise: yes, painting, music, reading. ?Marital status: single. 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 * Medications:?TakingKetamine HCl , Notes: Compound CreamCetirizine HCl 10 MG Tablet 1 tablet Orally Once a dayGabapentin , Notes: compound creamDiclofenac , Notes: compound creamLosartan Potassium 25 MG Tablet 1 tablet Orally Once a dayLevothyroxine Sodium Metoprolol Succinate 100 MG Capsule ER 24 Hour Sprinkle 1 capsule Orally Once a dayCiclopirox 0.77 % Gel 1 application Externally Twice a dayMedication List reviewed and reconciled with the patientTaking Ketamine HCl , Notes: Compound CreamTaking Cetirizine HCl 10 MG Tablet 1 tablet Orally Once a dayTaking Gabapentin , Notes: compound creamTaking Diclofenac , Notes: compound creamTaking Losartan Potassium 25 MG Tablet 1 tablet Orally Once a dayTaking Levothyroxine Sodium Taking Metoprolol Succinate 100 MG Capsule ER 24 Hour Sprinkle 1 capsule Orally Once a dayTaking Ciclopirox 0.77 % Gel 1 application Externally Twice a dayMedication List reviewed and reconciled with the patient * Allergies:?N.K.D.A.yes[Aller gies Verified] Objective: * Vitals:?Ht:5ft 4in, Wt:230, BMI:39.48, Shoe size:7.5-8, Ht-cm: 162.56 cm, Wt-k.33 kg. * Examination: ???Dermatologic: ?ULCER:? LOCATION, Dorsal, T5,?SIZE, 12mm X 4mm X 2-3mm, BASE, fibro- granular, RIM, hyperkeratotic, UNDERMINING, mild, TRACKING, Sub Q with Fat layer exposed, DRAINAGE, serosanguineous, moderate, NECROTIC TISSUE, loosely-adherent, yellow slough, MALODOR, absent, CALOR, trace, ERYTHEMA, trace.? Assessment: * Assessment: 1.?Skin ulcer of toe of righ t foot with fat layer exposed - L97.512 (Primary)? Plan: * Treatment: * Procedures:?Debride skin and subQ:?Open wound?Physician of record performed open wound selective debridement of devitalized necrotic/nonviable soft tissue, fibrin, exudate, epidermis, dermis, thru skin and subcutaneous fat tissue, first 20 sq cm or less, using sharp dissection with sterile 15 blade, and/or tissue nippers. ANESTHESIA- was accomplished TOPICALLY with Lidocaine Hydrochloride Jelly 2 percent, Sterile antibiotic dressing applied. Hemostasis was controlled through direct pressure. Post debridement measurements: 12mm x 5mm x 3mm. Character of the wound post debriement is stable (50882).? * Procedure Codes:?10216 DEBRI DE SKIN/TISSUE * Preventive Medicine:? ??Counseling:?Ulcer:?A detailed plan of care was reviewed with the patient. We emphasized the fact that the patient takes on an active participating role in the treatment process and emphasized to them that they are an included, valued, and important member of the wound healing team in order to reach an expedient successful outcome. The patient agreed to follow their medically recommended diet while increasing their protein intake if safely able to do so, maintain proper bodily hydaration, abide by weight-bearing restrictions at all times, quit all current smoking habits if any, and diligently follow any/all dressing change instructions. It was clearly made known to the patient that if they fail to do their part, they will likely extend their course of treatment as well as possibly increase their risk of adverse events including amputation. The patient was instructed on importance of proper wound care consisting of pressure reduction, and proper maintainance of a moist wound environment. The patient is to cleanse the wound with warm soapy water/peroxide/saline, or betadine BID based on product availability. The patient is to apply ( Neosporin/Polysporin/or Triple) Antibiotic to the wound and cover with a DSD as directed. The patient was instructed to change dressings according to orders, or PRN saturation, leaks. The patient was instructed to monitor and report any signs or symptoms of infection or any untoward reactions. Precautions Taken: Offloading/Pressure reduction via rest/ limited activity to essential to daily life only, shoe modification, accommodative padding, sharp debridement, and take/apply medication as directed, Debridement frequency as indicated, Given recent successful results to treatment, The patient is to cont the local wound care as directed till completely healed.? * Follow Up:?4 Weeks * Images: * Sign off status: Completed true * Provider:?Vaughn Reina DPM Date:?2022 Generated for Ki khoury/Brenda/Lurdes on:?09/25/2024 06:01 AM EST History and Physical Notes * HPI (History of Present Illness) Category Sub-Category Detail Notes Category Not es Skin problems Nature: Open sore Treatments: Topical abx, soaks Examination Category Sub-Category Detail Notes Category Not es Dermatologic ULCER: LOCATION, Dorsal , T5, SIZE, 12mm X 4mm X 2-3mm, BASE, fibro-granular, RIM, hyperkeratotic, UNDERMINING, mild, TRACKING, Sub Q with Fat layer exposed, DRAINAGE, serosanguineous, moderate, NECROTIC TISSUE, loosely-adherent, yellow slough, MALODOR, absent, CALOR, trace, ERYTHEMA, trace
--- OUTSIDE RECORDS SUMMARY | 2024-09-25 06:01 | XMS_ITS ---
Author Organization [facility] Address [address] [place] [address] Care Team Providers Care Seo Executive Name Role Phone Hima Choudhary MD Primary Care Provider Unavaila Vaughn Gardner Unavailable [phone] Encounters Encounter Location Date Provider Diagnosis [address] [address] 10/15/2023 Vaughn Reina Plan Of Treatment No Information Progress Notes * Yadira FONTENOTDOB:1955 (68 yo F)Acc No.[id number]:10/15/2023 Progress Note Patient:Yadira TEIXEIRA Provider:?Vaughn Reina DPM :1955???Age:68 Y???Sex:Female D ate:10/15/2023 Address:[address] [place] [address] [id number] Pcp:Hima Choudhary MD Subjective: * Chief Complaints: * ??? * Medical History:? Objective: * Vitals:? Assessment: Plan: * Treatment: * Images: * The named appointment provid er may or may not be the originator of this progress note, and it is not deemed complete until electronically signed by the appointment provider. Sign off status: Pending * Provider:?Vaughn Reina DPM Date:?2023 Generated for Ki khoury/Brenda/eTransmitting on:?09/25/2024 06:01 AM EST
--- OUTSIDE RECORDS SUMMARY | 2024-09-25 06:02 | XMS_ITS ---
Author Organization [facility] Address [address] [place] [address] Care Team Providers Care Abrading Machine Tender Name Role Phone Hima Choudhary MD Primary Care Provider Unavaila Gil Bailon Unavailable [phone] REASON FOR VISIT order Encounters Encounter Location Date Provider Diagnosis [facility] [address] [place] [address] 11/11/2023 Gil Lacy PLAN OF TREATMENT Next Appt Details Provider Name:Gil Lacy , 09/23/2025 11:00:00 AM, [address], [address], [place], [address],
--- OUTSIDE RECORDS SUMMARY | 2024-09-25 06:02 | XMS_ITS ---
Author Organization [facility] Address [address] [place] [address] Care Team Providers Care Box Builder Name Role Phone Hima Choudhary MD Primary Care Provider Gil Hernandez Unavailable [phone] ALLERGIES Allergen (clinical drug ingredient) Drug/Non Drug Allergy documented on EMR Reaction Allergy Type Onset Date Status Bees (uncoded) Unknown Allergy Activ e Seasonal Allergies (uncoded) Unknown Allergy Active REASON FOR VISIT Patient presents today for hemochromatosis MEDICATIONS Medication SIG (Take, Route, Frequency, Duration) Notes Start Date End Date Status Cetirizine HCl 10 MG TK 1 T PO QAM Oral for 30 Active Losartan Potassium 25 MG 1 tablet Orally Once a day Active Amitriptyline HCl 10 MG 1 tablet at bedt killian Orally Once a day Active Levothyroxine Sodium 100 MCG TK 1 T PO O NCE DAILY AND TK 1 AND SS TS PO ON SATURDAY Oral for 90 Active Metoprolol Succinate 100 MG 1 capsule Or ally Once a day Active SOCIAL HISTORY Tobacco Use: Social History Observation Description Date Details (start date - stop date) Never Smoker NA - NA Sex Assigned At : Social History Observation Description Sex Assigned At Unknown Tobacco Use/Smoking Question Answer Notes Patient is a nonsmoker Alcohol Screen Question Answer Notes Did you have a drink containing alcohol in the p ast year? No Points 0 Interpretation Negative VITAL SIGNS BMI 39.48 kg/m2 09/22/2024 Blood pressure systolic 00 mm Hg 09/22/19 25 Blood pressure diastolic 00 mm Hg 025 Height 64 in 09/22/2024 Weight 230 lbs 09/22/2024 Encounters Encounter Location Date Provider Diagnosis [facility] [address] [place] [address] 09/22/2024 Gil Lacy Hereditary hemochromatosis E83.110 ; Elevated liver enzymes R74.8 and Constipation, unspecified constipation type K59.00 ASSESSMENTS Encounter Date Diagnosis Assessment Notes Treatment Notes Treatment Clinical Notes 09/22/2024 Hereditary hemochromatosis (ICD-10 - E83.110) Keep the every 6 month phlebotomy schedule 09/22/2024 Elevated liver enzymes (ICD-10 - R74.8) 09/22/2024 Constipation, unspecified constipation type (ICD-10 - K59.00) Use 2 Metamucil fiber pills once or twice a day with a lot of water to help the constipation PLAN OF TREATMENT Treatment Notes Assessment Notes Hereditary hemochromatosis Keep the ever y 6 month phlebotomy schedule Constipation, unspecified constipation t ype Use 2 Metamucil fiber pills once or twice a day with a lot of water to help the constipation Pending Test Test Name Order Date LIVER PROFILE 09/22/2024 CBC w DIFF 09/22/2024 ALPHA-FETOPROTEIN,TUMOR MARKER Prothrombin Time INR 09/22/2024 Liver Fibrosis Pnl 09/22/2024 US abdomen comp w elastography Next Appt Details Follow Up: 1 Year, Reason: Provider Name:Gil Lacy , 09/23/2025 11:00:00 AM, [address], [address], [place], [address], Progress Notes * Examination Category Sub-Category Detail Notes General Examination GENERAL APPEARANCE: pleasant , well nourished, well developed, in no acute distress EYES: sclera non-icteric NECK/THYROID: no cervical lymphade nopathy, neck supple HEART: S1, S2 normal LUNGS: clear to auscultatio n bilaterally ABDOMEN: normal bowel sounds, no guarding or rigidity, no hepatosplenomegaly, no masses palpable, soft, nontender, nondistended. NEUROLOGIC: alert and oriented SKIN: nonjaundiced, no spi taylor angiomata. EXTREMITIES: no edema ORAL CAVITY: mucosa moist
--- OUTSIDE RECORDS SUMMARY | 2024-09-25 06:03 | XMS_ITS ---
Author Organization [facility] Address [address] [place] [address] Care Team Providers Care Engine Lathe Tender Name Role Phone Hima Choudhary MD Primary Care Provider Gil Hernandez Unavailable [phone] Encounters Encounter Location Date Provider Diagnosis [facility] [address] [place] [address] 11/07/2023 Gil Lacy PLAN OF TREATMENT Next Appt Details Provider Name:Gil Lacy , 09/23/2025 11:00:00 AM, [address], [address], [place], [address],
[2024-09-25 06:24] LABS: MANUAL DIFF FLAG NO
[2024-09-25 07:14] LABS: Basophils Absolute Auto 0.1 X10*3/uL (0.0-0.2); Basophils Percent Auto 1.7 % (0-2); Eosinophils Absolute Auto 0.3 X10*3/uL (0.0-0.4); Eosinophils Percent Auto 5.4 % (0-4); Hematocrit 42.5 % (37.0-47.0); Hemoglobin 14.8 g/dl (12.0-16.0); Imm Gran Abs Auto 0.01 X10*3/uL (0.00-0.03); Imm Gran Pct Auto 0.2 % (0.0-0.4); Lymphocytes Absolute Auto 2.6 X10*3/uL (1.2-4.9); Lymphocytes Percent Auto 40.5 % (20-40); Mean Corpuscular HGB Conc 34.8 g/dl (31.0-35.0); Mean Corpuscular Hemoglobin 34.7 pg (27.0-33.0); Mean Corpuscular Volume 99.5 fL (80.0-98.0); Mean Platelet Volume 10.2 fL (9.4-12.3); Monocytes Absolute Auto 0.6 X10*3/uL (0.1-1.2); Neutrophils Absolute Auto 2.8 x10*3/uL (2.0-8.3); Neutrophils Percent Auto 43.2 % (45-73); Platelet Count 284 X10*3/uL (160-400); Red Blood Count 4.27 X10*6/uL (4.20-5.50); Red Cell Distribution Width 12.8 % (11.0-16.0); White Blood Count 6.4 X10*3/uL (4.8-10.8)
[2024-09-25 07:15] LABS: INTERNATIONAL NORM RATIO 0.9 (0.9-1.1); Prothrombin Time 9.9 SEC (10.9-12.4)
[2024-09-25 07:50] LABS: Alanine Aminotransferase 61 U/L (0-31); Albumin Level 4.1 g/dL (3.5-5.0); Alkaline Phosphatase 138 U/L (39-117); Aspartate Amino Transferase 53 U/L (5-31); Bilirubin Direct 0.1 mg/dL (0.0-0.5); Bilirubin Total 0.4 mg/dL (0.0-1.0); Total Protein 7.7 g/dL (6.5-8.0)
[2024-09-25 07:54] LABS: Alanine Aminotransferase 60 U/L (0-31); Albumin Level 4.1 g/dL (3.5-5.0); Alkaline Phosphatase 152 U/L (39-117); Anion Gap 14 (12-20); Aspartate Amino Transferase 52 U/L (5-31); Bilirubin Total 0.4 mg/dL (0.0-1.0); Blood Urea Nitrogen 16 mg/dL (9-16); Calcium 9.3 mg/dL (8.4-10.2); Carbon Dioxide 24 mmol/L (22-29); Chloride 105 mmol/L (96-108); Cholesterol 192 mg/dL (<200); Estimated Glomerular Filt Rate 52; Glucose Fasting 116 mg/dL (60-99); HDL Cholesterol 65 mg/dL (>40); Iron 123 mcg/dL (30-160); LDL Cholesterol Calculated 102 mg/dL (<100); Percent Iron Saturation 45 % (15-50); Potassium 4.2 mmol/L (3.3-5.1); Sodium 139 mmol/L (135-145); Total Iron Binding Capacity 271 mcg/dL (228-428); Total Protein 7.6 g/dL (6.5-8.0); Triglycerides 125 mg/dL (<150); Unsaturated Iron Binding 148 ug/dL
[2024-09-25 08:15] LABS: Ferritin 115 ng/mL (10-250); Free T4 (Free Thyroxine) 1.17 ng/dL (0.71-1.85); Thyroid Stimulating Hormone 3.31 uIU/mL (0.32-4.0); Vitamin D 25-OH Total 19.5 ng/mL (>30)
[2024-09-28 13:33] LABS: Alpha Fetoprotein 4.3 ng/mL
[2024-10-05 00:38] LABS: FIB-ALT 42 U/L (6-29); FIB-Alpha-2-Macroglobulin 207 mg/dL (106-279); FIB-Apolipoprotein A1 196 mg/dL (101-198); FIB-GGT 51 U/L (3-65); FIB-Haptoglobin 92 mg/dL (43-212); FIB-Total Bilirubin 0.3 mg/dL (0.2-1.2); Liver Fibrosis Score 0.18; Liver Fibrosis Stage F0; Nec Inflam Act Grade A0-A1; Reference ID 5349373
== END 2024-09-25 06:00 | disposition home or self-care (01) ==
LOC: HO.LAB 05:59
PROVIDERS: Internal Medicine; PCP Internal Medicine; Visit Provider Internal Medicine
DX: E83.110 Hereditary hemochromatosis (principal); R74.8 Abnormal levels of other serum enzymes
CPT/HCPCS: 36415; 80053; 80061; 80076; 81596; 82105; 82248; 82306; 82728; 83540; 84439; 84443; 85025; 85610

== ENCOUNTER 2024-09-25 14:34 | Outpatient (REF) | payer OTHER, SELFPAY ==
--- OUTSIDE RECORDS SUMMARY | 2024-09-25 14:37 | XMS_ITS | Patient Health Record ---
Author Organization [facility] Address [address] [place] [address] Care Team Providers Care Mobile Unit Assistant Name Role Phone Hima Choudhary MD Primary Care Provider Gil Hernandez Unavailable [phone] ALLERGIES Allergen (clinical drug ingredient) Drug/Non Drug Allergy documented on EMR Reaction Allergy Type Onset Date Status Bees (uncoded) Unknown Allergy Activ e Seasonal Allergies (uncoded) Unknown Allergy Active RESULTS Component Value Reference Range Notes Liver Fibrosis Pnl (Not yet reviewed by provider) Interpretation: Performing Lab:[facility], [address] [place] [phone] Notes/Report: Liver Fibrosis Score 0.27 Liver Fibrosis Stage F1 Liver Fibrosis Interpretation SEE NOTE minimal fibrosis Fibro Test Score (f) Metavir Score f>=0 and f<=0.21 : F0 (no fibrosis) f>0.21 and f<=0.27 : F0-F1 (no fibrosis) f>0.27 and f<=0.31 : F1 (minimal fibrosis) f>0.31 and f<=0.48 : F1-F2 (minimal fibrosis) f>0.48 and f<=0.58 : F2 (moderate fibrosis) f>0.58 and f<=0.72 : F3 (advanced fibrosis) f>0.72 and f<=0.74 : F3-F4 (advanced fibrosis) f>0.74 and f<=1.00 : F4 (severe fibrosis) Nec Inflam Act Score 0.31 Nec Inflam Act Grade A1 Nec Inflam Act Interpretation SEE NOTE minimal activity ActiTest Score (a) Metavir Score a>=0 and a<=0.17 : A0 (no activity) a>0.17 and a<=0.29 : A0-A1 (no activity) a>0.29 and a<=0.36 : A1 (minimal activity) a>0.36 and a<=0.52 : A1-A2 (minimal activity) a>0.52 and a<=0.60 : A2 (significant activity) a>0.60 and a<=0.62 : A2-A3 (significant activity) a>0.62 and a<=1.00 : A3 (severe activity) SDT-Gjima-3-Macroglobulin 177 106-279 mg/dL FIB-Haptoglobin 64 43-212 mg/dL FIB-Apolipoprotein A1 180 101-198 mg/dL FIB-Total Bilirubin 0.5 0.2-1.2 mg/dL FIB-GGT 64 3-65 U/L FIB-ALT 55 6-29 U/L Reference ID [id number] Footnote SEE NOTE The reliability of results is dependent on compliance with the preanalytical and analytical conditions recommended by [employer]. The tests have to be deferred for: acute hemolysis, acute hepatitis, acute inflammation, extra hepatic cholestasis. The advice of a specialist should be sought for interpretation in chronic hemolysis and Gilbert's syndrome. The test interpretation is not validated in liver transplant patients. Isolated extreme values of one of the components should lead to caution in interpreting the results. In case of discordance between a biopsy result and a test, it is recommended to seek the advice of a specialist. The causes of these discordances could be due to a flaw of the test or to a flaw in the biopsy: i.e. a liver biopsy has a 33% variability rate for one fibrosis stage. FibroTest is interpretable for chronic hepatitis B and C, alcoholic and non alcoholic steatosis. ActiTest is interpretable for chronic hepatitis B and C. The performance characteristics have been determined by [facility]. It has not been cleared or approved by the U.S. Food and Drug Administration. Performance characteristics refer to the analytical performance of the test. [employer], the associated logo, [employer] and all associated [employer] bae are the registered trademarks of [employer] All third democrat bae - (R) and (TM) - are the property of their respective owners. (C) 7539-6591 [employer]. All rights reserved. THIS TEST WAS PERFORMED AT: [employer] [address] [place] [address] GERARDO ENGLE MD,PHD,MOLLY Complete Blood Count Auto Di ff Reviewed date:11/21/2023 10:14:18 AM Interpretation: Performing Lab:[facility], [address] [place] [phone] Notes/Report: White Blood Count 6.1 4.8-10.8 X10*3/uL Red Blood Count 4.17 4.20-5.50 X10*6/uL Hemoglobin 14.2 12.0-16.0 g/dl Hematocrit 41.6 37.0-47.0 % Mean Corpuscular Volume 99.8 80.0-98.0 fL Mean Corpuscular Hemoglobin 34.1 27.0-33.0 pg Mean Corpuscular HGB Conc 34.1 31.0-35.0 g/dl Red Cell Distribution Width 13.7 11.0-16.0 % Platelet Count 273 160-400 X10*3/uL Mean Platelet Volume 10.5 9.4-12.3 fL Neutrophils Percent Auto 44.0 45-73 % Imm Gran Pct Auto 0.2 0.0-0.4 % Lymphocytes Percent Auto 39.7 20-40 % Monocytes Percent Auto 8.0 2-11 % Eosinophils Percent Auto 6.5 0-4 % Basophils Percent Auto 1.6 0-2 % NRBC Pct Auto 0.0 0.0-0.2 /100WBC Neutrophils Absolute Auto 2.7 2.0-8.3 x10*3/u L Imm Gran Abs Auto 0.01 0.00-0.03 X10*3/uL Lymphocytes Absolute Auto 2.4 1.2-4.9 X10*3/u L Monocytes Absolute Auto 0.5 0.1-1.2 X10*3/uL Eosinophils Absolute Auto 0.4 0.0-0.4 X10*3/u L Basophils Absolute Auto 0.1 0.0-0.2 X10*3/uL NRBC Abs Auto 0.000 0.0-0.012 X10*3/uL Prothrombin Time INR Reviewed date:11/21/2023 10:14:25 AM Interpretation: Performing Lab:[facility], [address] [place] [phone] Notes/Report: Prothrombin Time 10.2 11.1-13.3 SEC INTERNATIONAL NORM RATIO 0.8 0.9-1.1 INTERNATIONAL NORMALIZED RATIO (INR) REFERENCE RANGES Reference Range For patients not on anticoagulant therapy: 0.9 - 1.1 INR ranges for oral anticoagulant therapy: For prevention and treatment of venous thrombosis and pulmonary embolism: 2.0 - 3.0 For acute myocardial infarction with aspirin therapy: 2.0 - 3.0 For acute myocardial infarction without aspirin therapy: 3.0 - 4.0 For patients with mechanical prosthetic heart valves: 2.5 - 3.5 Liver Panel Reviewed date:11/23/2023 12:55:10 AM Interpretation: Performing Lab:[facility], [address] [place] [phone] Notes/Report: Bilirubin Total 0.4 0.0-1.0 mg/dL Bilirubin Direct 0.2 0.0-0.5 mg/dL Aspartate Amino Transferase 56 5-31 U/L Alanine Aminotransferase 68 0-31 U/L Total Protein 6.8 6.5-8.0 g/dL Albumin Level 3.8 3.5-5.0 g/dL Alkaline Phosphatase 126 39-117 U/L IRON PROFILE Reviewed date:11/23/2023 12:55:37 AM Interpretation: Performing Lab:[facility], [address] [place] [phone] Notes/Report: Iron 197 30-160 mcg/dL Total Iron Binding Capacity 258 228-428 mcg/dL Percent Iron Saturation 76 15-50 % Unsaturated Iron Binding 61 Ferritin Reviewed date:11/23/2023 12:55:20 AM Interpretation: Performing Lab:[address] [address] Notes/Report: Ferritin 142 10-250 ng/mL Alpha Fetoprotein Reviewed date:11/27/2023 09:15:28 PM Interpretation: Performing Lab:[facility], [address] [place] [phone] Notes/Report: Alpha Fetoprotein 3.9 Reference Range: <6.1 The use of AFP as a tumor marker in females is not recommended. This test was performed using the Domingo Yared chemiluminescent method. Values obtained from different assay methods cannot be used interchangeably. AFP levels, regardless of value, should not be interpreted as absolute evidence of the presence or absence of disease. THIS TEST WAS PERFORMED AT: [employer] [address] [place] [phone] SHAHRZAD OVALLES MD Therapeutic Phlebotomy Reviewed date:11/23/2023 12:55:57 AM Interpretation: Performing Lab:[facility], [address] [place] [phone] Notes/Report: THER/HGB 14.2 12.0-16.0 g/dL THER/HCT TNP 37.0-47.0 % Therapeutic Phlebotomy Phlebotomy Performed 500 mls drawn on 11/21/23. Please note that a copy of this report has been sent to the Primary Care Physician, the ordering physician and any physician designated by patient request. US abdomen comp w elastograp hy (Not yet reviewed by provider) Interpretation: Performing Lab: Notes/Report: [address] [address] Ultrasound Report Signed Patient: Shellie Fontenot MR#: [id number] 48 : 1955 Acct:[id number] Age/Sex: 68 / F ADM Date: 11/29/23 Loc: HO.US Attending Dr: Gil Lacy MD Ordering Physician: Gil Lacy Date of Service: 11/29/23 Procedure(s): US abdomen comp w elastography Accession Number(s): [id number] cc: Hima Choudhary MD; Gil Lacy EXAMINATION: US COMPLETE ABDOMEN WITH LIVER ELASTOGRAPHY CLINICAL INFORMATION: Hereditary hemochromatosis. Elevated liver enzymes. COMPARISON: Abdomen ultrasound from 11/13/2019. TECHNIQUE: Real-time imaging of the abdominal viscera. Noninvasive ultrasound liver fibrosis assessment is performed using Mauro ElastPQ point quantification shear wave elastography (2D-SWE) with a C5-2 MHz transducer. Multiple elastography samples are obtained. FINDINGS: PANCREAS: The pancreas is obscured by bowel gas. ABDOMINAL AORTA: The proximal, middle, and distal aortic segments are normal in caliber. INFERIOR VENA CAVA: Visualized portions are normal. LIVER: The liver parenchyma remains diffusely hyperechoic. The liver contour is normal. No cirrhotic morphology. No focal lesion or intrahepatic ductal dilatation. The right lobe measures 17.3 cm in length. The left lobe measures 10.9 cm in length. Portal flow is normal. Shear wave liver elastography median stiffness is 1.58 m/s (reference: normal median stiffness is 1.3 m/s or less). The median stiffness measurement was 1.39 m/s on 11/13/2019. IQR/median stiffness to assess sampling precision is 0.07 (reference: good quality data set is IQR/median stiffness of 0.15 or less). GALLBLADDER: Status post cholecystectomy. COMMON BILE DUCT: Normal in caliber measuring 0.6 cm in diameter. RIGHT KIDNEY: The kidney is 10.8 cm in length. No nephrolithiasis or hydronephrosis. 1.6 cm simple cyst is present in the interpolar region. No renal imaging follow-up is recommended for simple cysts. LEFT KIDNEY: The kidney is 9.7 cm in length. No nephrolithiasis or hydronephrosis. There are 1.6 cm and 1.2 cm simple cysts for which no follow-up imaging is recommended. SPLEEN: Normal. The spleen measures 8.8 cm in maximum dimension. FREE FLUID: None. US/US abdomen comp w elastography IMPRESSION: * Diffuse hepatic steatosis. * Shear wave liver elastography reveals a median stiffness of 1.58 m/s, a 13% increase compared to 11/13/2019. In the absence of other known clinical signs, this rules out compensated advanced chronic liver disease. * No evidence of hepatic mass or ascites. REFERENCE: Society of Radiologists in Ultrasound Liver Stiffness Thresholds (2020): LIVER STIFFNESS THRESHOLDS: *Liver Stiffness equal or less than 1.3 m/s: High probability of being normal. *Liver Stiffness less than 1.7 m/s: In the absence of other known clinical signs, rules out compensated advanced chronic liver disease. *Liver Stiffness 1.7-2.1 m/s: Suggestive of compensated advanced chronic liver disease but need further test for confirmation. *Liver Stiffness over 2.1 m/s: Rules in compensated advanced chronic liver disease. *Liver Stiffness over 2.4 m/s: Suggestive of clinically significant portal hypertension. QUALITY OF DATA SET: *IQR/Median value equal or less than 0.15 implies a quality data set. *IQR/Median value over 0.15 implies a poor quality data set. SIGNIFICANT CHANGE FROM PRIOR EXAM: Significant change if liver stiffness measurement is 10% or greater from prior exam. OTHER CONSIDERATIONS: The stage of liver fibrosis may be overestimated in the setting of acute hepatitis, liver inflammation, elevated liver function tests, hepatic vascular congestion, obstructive cholestasis, non-fasting state, and infiltrative diseases such as amyloidosis and lymphoma. In some patients with NAFLD, the liver stiffness thresholds for compensated advanced chronic liver disease may be lower. In causes other than viral hepatitis and NAFLD, liver stiffness thresholds are not well established. Dictated By: Yasmani Trammell MD Signed By: <Electronically signed by Yasmani Trammell MD in OV> 12/04/23 1105 DD/ 0830 TD/TT: Program Management Analyst: PD IRON PROFILE (Not yet review ed by provider) Interpretation: Performing Lab:[facility], [address] [place] [phone] Notes/Report: Iron 195 30-160 mcg/dL Total Iron Binding Capacity 276 228-428 mcg/dL Percent Iron Saturation 71 15-50 % Unsaturated Iron Binding 81 Ferritin Reviewed date:06/11/2024 01:19:08 PM Interpretation: Performing Lab:[facility], [address] [place] [phone] Notes/Report: Ferritin 182 10-250 ng/mL Therapeutic Phlebotomy Reviewed date:06/11/2024 01:19:19 PM Interpretation: Performing Lab:[facility], [address] [place] [phone] Notes/Report: THER/HGB 12.7 12.0-16.0 g/dL THER/HCT TNP 37.0-47.0 % Therapeutic Phlebotomy Phlebotomy Performed 500 mls drawn on 06/10/24. Please note that a copy of this report has been sent to the Primary Care Physician, the ordering physician and any physician designated by patient request. REASON FOR REFERRAL No Information MEDICATIONS Medication SIG (Take, Route, Frequency, Duration) [...] capsule Or ally Once a day Active IMMUNIZATIONS Vaccine Route Administration Date Status Comme nts Influenza Unknown 05/12/2018 Administered Influenza Unknown 08/12/2023 Administered Influenza Unknown 03/11/2020 Refused SOCIAL HISTORY Tobacco Use: Social History Observation Description Date Details (start date - stop date) Never Smoker NA - NA Sex Assigned At : Social History Observation Description Sex Assigned At Unknown Tobacco Use/Smoking Question Answer Notes Patient is a nonsmoker Alcohol Screen Question Answer Notes Did you have a drink containing alcohol in the p ast year? No Points 0 Interpretation Negative PROBLEMS Problem Type ICD Code Onset Dates Problem Status W/U Status Risk SNOMED Code Notes Problem Rectal bleeding (K62.5) Active confirmed 06780721 Problem Change in bowel habit (R19.4) Active confirmed 681587399 Problem Hereditary hemochromatosis (E83.110) Active confirmed 33786803 Problem Elevated liver function tests (R79.89) Active confirmed 818668543 Problem Elevated liver enzymes (R74.8) Active confirmed 020017547 Problem Fatty liver (K76.0) Active confirmed 768839299 Problem Iron excess (E83.19) Active confirmed Iron excess (55763990) Problem Constipation, unspecified constipation type (K59.00) Active confirmed 05931880 Problem Diverticulosis of colon (K57.30) Active confirmed Diverticulosi s of colon (766004275) VITAL SIGNS Blood pressure diastolic 00 mm Hg 09/22/2024 Height 64 in 09/22/2024 Blood pressure systolic 00 mm Hg 09/22/2024 Weight 230 lbs 09/22/2024 BMI 39.48 kg/m2 09/22/2024 Encounters Encounter Location Date Provider Diagnosis [facility] [address] [place] [address] 09/22/2024 Gil Lacy Hereditary hemochromatosis E83.110 ; Elevated liver enzymes R74.8 and Constipation, unspecified constipation type K59.00 [facility] [address] [place] [address] 11/07/2023 Gil Lacy [facility] [address] [place] [address] 11/11/2023 Gil Lacy ASSESSMENTS Encounter Date Diagnosis Assessment Notes Treatment Notes Treatment Clinical Notes 09/22/2024 Hereditary hemochromatosis (ICD-10 - E83.110) Keep the every 6 month phlebotomy schedule 09/22/2024 Elevated liver enzymes (ICD-10 - R74.8) 09/22/2024 Constipation, unspecified constipation type (ICD-10 - K59.00) Use 2 Metamucil fiber pills once or twice a day with a lot of water to help the constipation PLAN OF TREATMENT Pending Test Test Name Order Date LIVER PROFILE 09/22/2024 LIVER PROFILE 10/17/2016 LIVER PROFILE 02/04/2020 IRON + IBC (FE) 02/04/2020 IRON + IBC (FE) 11/04/2018 FERRITIN 02/04/2020 FERRITIN 11/04/2018 CBC w DIFF 09/22/2024 CBC w DIFF 08/21/2023 CBC w DIFF 10/17/2016 HEPATITIS B, C PROFILE 11/04/2018 ANYPM-3-[id number] (A1A) 11/04/2018 ALPHA-FETOPROTEIN,TUMOR MARKER 5 ALPHA-FETOPROTEIN,TUMOR MARKER 4 ALPHA-FETOPROTEIN,TUMOR MARKER 7 ALPHA-FETOPROTEIN,TUMOR MARKER 9 MITOCHONDRIAL AB 11/04/2018 SMOOTH MUSCLE ANTIBODIES 11/04/2018 US ABD 10/17/2016 FLUOR. ANTINUCLEAR AB SCREEN (LA) 10/11 HEPATITIS A ANTIBODY-IGG 11/04/2018 Prothrombin Time INR 08/21/2023 Prothrombin Time INR 09/22/2024 IRON PROFILE 06/10/2024 Liver Fibrosis Pnl 08/21/2023 Liver Fibrosis Pnl 11/21/2023 Liver Fibrosis Pnl 09/22/2024 US abdomen comp w elastography 5 US abdomen comp w elastography 4 US abdomen comp w elastography 4 Future Test Test Name Order Date COLONOSCOPY 07/30/2012 COLONOSCOPY 08/02/2021 Next Appt Details Provider Name:Gil Lacy , 09/23/2025 11:00:00 AM, [address] [place] [address], [place] [address], [place], [address], Insurance Providers Payer Name Payer Address Payer Phone Subscriber Number Group Number Insured Name Patient Relationship to Insured Coverage Start Date Coverage End Date [employer] [address] [address] [place] [address] [id number] DANNIELLE FONTENOT Self - patient is the insured MEDICAL (GENERAL) HISTORY Medical History History ICD Code Liver biopsy--no fibrosis/ci rrhosis--iron studies c/w hereditary hemochromatosis--1996 Herdiatary Hemochromatosis-- most recently she had a > 1 year lapse in her phlebotomies and resumed an every other week phlebotomy between November and February of 2020 with improvement of her LFTs and normalization of her iron studies. As of the August 2023 office visit she is on a phlebotomy schedule of every 6 months with stable iron studies and LFTs. Previous GERD-fine since Lap Evan fundop[place] [address] Barber HTN Hypothyroid Denies NC,DM,CVA,Lung disease,renal dise ase Bulging discs in neck Outdoor allergies Screening Colonoscopy in 09/2012-hyperpla stic polyp Migraine headaches Kyphoplasty Negative screening colonoscopy in 08/2021 Slightly elevated LFTs in Se ptember of 2022 in relation to underlying fatty liver, in addition to the hemochromatosis Surgical History Surgery Date(Month/Year) Breast Biopsy in 2009-benign Lap. Evan by Dr Barber Eyelid surgery Cholecystectomy 1997 Kyphoplasty 2020
== END 2024-09-25 14:35 | disposition home or self-care (01) ==
LOC: HO.MAMMO 14:34
PROVIDERS: PCP Internal Medicine; Visit Provider Internal Medicine
DX: Z12.31 Encounter for screening mammogram for malignant neoplasm of breast (principal)
CPT/HCPCS: 77063; 77067

== ENCOUNTER → 2024-09-25 14:45 | Outpatient (BNV) | payer OTHER, SELFPAY | PROVIDERS: PCP Internal Medicine; Visit Provider Internal Medicine | DX: Z12.31 Encounter for screening mammogram for malignant neoplasm of breast (principal) | CPT/HCPCS: 77063; 77067 ==

== ENCOUNTER 2024-11-04 14:33 | Outpatient (AMB) | payer OTHER, SELFPAY ==
--- NOTE | 2024-11-04 14:35 | MHC.PC.OV ---
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: No Accompanied by: Self / Same As Patient Allergies bee pollen [bee stings] Allergy (Unknown, Verified 11/04/24 14:36) Unknown Seasonal Allergies Allergy (Unknown, Verified 11/04/24 14:36) Unknown Tobacco use date assessed: 11/04/24 Fall risk assessment: No Falls in past year Last assessed Fall Risk: 11/04/24 Dental Screening Dental Screen Date: 11/04/24 Did you have a dental visit in the last 12 months?: Yes Did you have a dental problem in the last 6 months where you did not have access to dental care?: No Was dental information given to patient?: No (has dentures) PFSH Medical History GERD (gastroesophageal reflux disease) Hemochromatosis Hypothyroid Migraine HTN (hypertension) Surgical History H/O colonoscopy Hx of blepharoplasty Hx of cholecystectomy History of Evan fundoplication Hx of breast biopsy Family History (Updated 11/04/24 @ 14:45 by ANNA Sanders) Mother Cardiac pacemaker BP (high blood pressure) Anxiety Father Afib Social History (Updated 11/04/24 @ 14:45 by ANNA Sanders) Housing: House Alcohol intake: current Alcohol intake frequency: holidays/special occasions only Patient Tobacco Use Status: Former Tobacco user service: No Current occupational status: employed 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 1. Little interest or pleasure in doing things: not at all 2. Feeling down, depressed, or hopeless: not at all 3. Trouble falling or staying asleep, or sleeping too much: not at all 4. Feeling tired or having little energy: not at all 5. Poor appetite or overeating: not at all 6. Feeling bad about yourself - or that you are a failure or have let yourself or your family down: not at all 7. Trouble concentrating on things, such as reading the newspaper or watching television: not at all 8. Moving or speaking so slowly that other people could have noticed. Or the opposite - being so fidgety or restless that you have been moving around a lot more than usual: not at all 9. Thoughts that you would be better off or of hurting yourself in some way: not at all Total score: 0 Source: Developed by Drs. Gil Wood, Edna Lane, Lalit Adam and colleagues, with an educational cody from [employer] Thrive Questionnaire Date Thrive assessed: 11/04/24 I am a: Patient What is your living situation today?: I have a steady place to live Within the past 12 months, did the food you bought not last and you didn't have the money to get more?: Never true Within the past 12 months, did you worry whether your food would run out before you got money to buy more?: Never true Do you have trouble paying for medicines?: No Do you have trouble getting transportation to medical appointments?: No Do you have trouble paying your heating and electricity bill?: No Do you have trouble taking care of your child, family member or friend?: No Do you have trouble with day-to-day activities such as bathing, preparing meals, shopping, managing finances, etc.?: No Are you currently unemployed and looking for a job?: No Are you interested in more education?: No Please select the resources that you would like help with: None THRIVE Score: 0 AUDIT C Alcohol Use Questionnaire (AUDIT-C) 1. How often do you have a drink containing alcohol?: Monthly or less 2. How many drinks containing alcohol do you have on a typical day when you are drinking?: 1 or 2 3. How often do you have six or more drinks on one occasion?: Never Total Score: 1 AMOS-7 AMB Questionnaire AMOS-7 Date AMOS - 7 assessed: 11/04/24 Feeling nervous, anxious, or on edge: 0 = Not at all Not being able to stop or control worryin = Not at all Worrying too much about different things: 0 = Not at all Trouble relaxin = Not at all Being so restless that it is hard to sit still: 0 = Not at all Becoming easily annoyed or irritable: 0 = Not at all Feeling afraid as if something awful might happen: 0 = Not at all Total AMOS-7 score (0-4 normal; 5-9 mild; 10-14 moderate; 15-21 severe): 0 Source: Developed by Drs. Gil Wood, Edna Lane, Lalit Adam and colleagues, with an educational cody from [employer] Physical exam (Primary Care) Vital Signs: Last Vital Signs Temp 98.5 F 11/04/24 14:38 Pulse 84 11/04/24 14:38 Resp 16 11/04/24 14:38 BP 124/80 11/04/24 14:38 Pulse Ox 97 11/04/24 14:38 Oxygen Delivery Method Room Air 11/04/24 14:38 BMI result Body Mass Index 41.0 Tobacco/Smoking Status: Tobacco use Status Tobacco use date assessed 11/04/24 11/04/24 14:45 Patient Tobacco Use Status Former Tobacco user 11/04/24 14:45 PHQ-9: PHQ-9 Score PHQ-9: Total score 0 11/04/24 14:45 Thrive Assessment: Date of Thrive Assessment Date Thrive assessed 11/04/24 11/04/24 14:45 Coding Level of Care Code New Pt Level 4 (20828) Complex EM visit Add On G2211 Diagnoses Atopic dermatitis L20.9 Elevated liver enzymes R74.8 Assessment & Plan Assessment & Plan (1) Atopic dermatitis: Code(s): L20.9 - Atopic dermatitis, unspecified Plan: Abx and prednisone called in. (2) Elevated liver enzymes: Code(s): R74.8 - Abnormal levels of other serum enzymes Plan: Patient sees a GI MD (Dr Lacy) Plan History of Present Illness The patient is a 69-year-old female presenting with concerns about recurring skin inflammation on her right leg, managed historically with antibiotics and prednisone. Prior treatments with dermatological creams worsened skin thinning, leading to a preference for her previous physician's approach. Despite a previous biopsy, no definitive diagnosis has been determined, with differential diagnoses including atopic dermatitis and eczema. The unpredictability of the condition and fear of cellulitis associated with leg swelling is a source of anxiety for the patient. 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 - Living situation: Currently resides alone. - Alcohol use: Occasional, limited to social events like weddings. - Smoking history: Quit smoking, no current use. - Vision: Utilizes contacts and eyeglasses, including mono-index for vision assistance. - Exercise and mobility: Capable of driving, including at night; no issues reported. Review of Systems - Integumentary: Reports significant skin itchiness and thinning; lesions on the right leg. - Allergic/Immunologic: Reports experiencing allergies and considering increasing cetirizine use. 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 Physical Exam General: Cooperative and healthy appearing Nutritional Appearance: Well nourished Orientation/consciousness: Patient oriented x3 Limitations: No limitations Head: Normal to inspection General: Appearance normal, both eyes and all related structures Neck: Normal visual inspection Chest: Normal palpation of entire chest wall Respiratory: Normal respiratory effort Neurology: Patient oriented x3 Results - Labs: Mention of increased red blood cell size. - Diagnostics: Planned elastography or a CT scan by another provider for liver assessment. Plan I will prescribe Bactrim and prednisone for atopic dermatitis and eczema management, considering the patient's prior successful treatments. The patient is under care for hemochromatosis with ongoing liver monitoring. The patient was advised to discuss medication adjustments for anxiety management with their neurologist. Patient was informed and verbally consented to the use of an ambient scribe for clinic note documentation during this visit. Discussion Notes I reviewed with the patient that atopic dermatitis and eczema will be managed with Bactrim and prednisone, consciously chosen based on previous treatment efficacy. I detailed the benefits of addressing inflammation and minimizing skin irritation while reinforcing follow-up care procedures with her neurologist regarding potential medication changes for anxiety, emphasizing the value of clear communication with existing specialists for ongoing conditions. Patient Instructions - Take prescribed Bactrim and prednisone as directed for skin inflammation management. - Continue monitoring liver function and follow up with Dr. Lacy for hemochromatosis management. - Consult with the neurologist about the possible discontinuation of clorazepate. - Increase cetirizine dosage for allergy management if advised. - Watch for any signs of cellulitis or worsening skin symptoms and seek care promptly if they occur.
[2024-11-04 14:38] VITALS: BP 124/80; PULSE 84; RESP 16; TEMP 36.9; O2SAT 97; BMI 41.0
--- OUTSIDE RECORDS SUMMARY | 2024-11-04 17:30 | XMS_ITS ---
Author Organization [facility] Address [address] [place] [address] Care Team Providers Care Pear Picker Name Role Phone Hima Choudhary MD Primary Care Provider Unavaila Vaughn Gardner Unavailable [phone] Encounters Encounter Location Date Provider Diagnosis [address] [id number] 10/15/2023 Vaughn Reina Plan Of Treatment No Information Progress Notes * Yadira FONTENOTDOB:1955 (69 yo F)Acc No.[id number]:10/15/2023 Progress Note Patient:Yadira TEIXEIRA Provider:?Vaughn Reina DPM :1955???Age:68 Y???Sex:Female D ate:10/15/2023 Address:[address] [place] [address] [id number] Pcp:Hima Choudhary MD Subjective: * Chief Complaints: [...] Reina DPM Date:?2023 Generated for Ki khoury/Brenda/eTransmitting on:?11/04/2024 05:30 PM EDT
--- OUTSIDE RECORDS SUMMARY | 2024-11-04 17:30 | XMS_ITS | Patient Health Record ---
Author Organization [facility] Address [address] [place] [address] Care Team Providers Care Patient Care Coordinator Name Role Phone Hima Choudhary MD Primary Care Provider Gil Hernandez Unavailable [phone] Allergies Allergen (clinical drug ingredient) Drug/Non Drug Allergy documented on EMR Reaction Allergy Type Onset Date Status Bees (uncoded) Unknown Allergy Activ e Seasonal Allergies (uncoded) Unknown Allergy Active Results Component Value Reference Range Notes Complete Blood Count Auto Di ff Reviewed date:11/21/2023 10:14:18 AM Interpretation: Performing Lab:[facility], [address] [place] [phone] Notes/Report: White Blood Count 6.1 4.8-10.8 X10*3/uL [...] 0.0-0.2 /100WBC Neutrophils Absolute Auto 2.7 2.0-8.3 x10*3/uL Imm Gran Abs Auto 0.01 0.00-0.03 X10*3/uL Lymphocytes Absolute Auto 2.4 1.2-4.9 X10*3/uL Monocytes Absolute Auto 0.5 0.1-1.2 X10*3/uL Eosinophils Absolute Auto 0.4 0.0-0.4 X10*3/uL Basophils Absolute Auto 0.1 0.0-0.2 X10*3/uL NRBC Abs Auto 0.000 0.0-0.012 X10*3/uL Prothrombin Time INR Reviewed date:11/21/2023 10:14:25 AM Interpretation: Performing Lab:[address] [address] Notes/Report: Prothrombin Time 10.2 11.1-13.3 SEC INTERNATIONAL [...] Panel Reviewed date:11/23/2023 12:55:10 AM Interpretation: Performing Lab:[address] [address] Notes/Report: Bilirubin Total 0.4 0.0-1.0 mg/dL Bilirubin Direct 0.2 0.0-0.5 mg/dL Aspartate Amino Transferase 56 5-31 U/L Alanine Aminotransferase 68 0-31 U/L Total Protein 6.8 6.5-8.0 g/dL Albumin Level 3.8 3.5-5.0 g/dL Alkaline Phosphatase 126 39-117 U/L IRON PROFILE Reviewed date:11/23/2023 12:55:37 AM Interpretation: Performing Lab:[facility], [address] [place] [phone] Notes/Report: Iron 197 30-160 mcg/dL Total Iron Binding Capacity 258 228-428 mcg/dL Percent Iron Saturation 76 15-50 % Unsaturated Iron Binding 61 Ferritin Reviewed date:11/23/2023 12:55:20 AM Interpretation: Performing Lab:[facility], [address] [place] [phone] Notes/Report: Ferritin 142 10-250 ng/mL Alpha Fetoprotein Reviewed date:11/27/2023 09:15:28 PM Interpretation: Performing Lab:[facility], [address] [place] [phone] Notes/Report: Alpha Fetoprotein 3.9 Reference Range: <6.1 The use of AFP as a tumor marker in females is not recommended. This test was performed using the Domingo Brule chemiluminescent method. Values obtained from different assay methods cannot be used interchangeably. AFP levels, regardless of value, should not be interpreted as absolute evidence of the presence or absence of disease. THIS TEST WAS PERFORMED AT: [facility] [address] [place] [phone] SHAHRZAD OVALLES MD Liver Fibrosis Pnl Reviewed date:10/01/2024 07:00:03 PM Interpretation: Performing Lab:[address] [address] Notes/Report: Liver Fibrosis Score 0.27 Liver Fibrosis [...] a>0.62 and a<=1.00 : A3 (severe activity) BTD-Lfvpo-3-Macroglobuli n 177 106-279 mg/dL FIB-Haptoglobin 64 43-212 mg/dL FIB-Apolipoprotein A1 180 101-198 mg/dL FIB-Total Bilirubin 0.5 0.2-1.2 mg/dL FIB-GGT 64 3-65 U/L FIB-ALT 55 6-29 U/L Reference ID [id number] Footnote SEE NOTE The reliability of results is dependent on compliance with the preanalytical and analytical conditions recommended by Autot[employer]. The tests have to be deferred for: [...] The performance characteristics have been determined by [facility]. It has not been cleared or approved by the U.S. Food and Drug Administration. Performance characteristics refer to the analytical performance of the test. [employer], the associated logo, [employer] [place] and all associated [employer] bae are the registered trademarks of [employer]. All third constitution party bae - (R) and (TM) - are the property of their respective owners. (C) 5301-2353 [employer]. All rights reserved. THIS TEST WAS PERFORMED AT: [facility] [address] [place] [address] GERARDO ENGLE MD,PHD,MOLLY Therapeutic Phlebotomy Reviewed date:11/23/2023 12:55:57 AM Interpretation: Performing Lab:[facility], [address] [place] [phone] Notes/Report: THER/HGB 14.2 12.0-16.0 g/dL THER/HCT TNP 37.0-47.0 % Therapeutic Phlebotomy Phlebotomy Performed 500 mls drawn on 11/21/23. Please note that a copy of this report has been sent to the Primary Care Physician, the ordering physician and any physician designated by patient request. US abdomen comp w elastograp hy (Not yet reviewed by provider) Interpretation: Performing Lab: Notes/Report: [address] [address] Ultrasound Report Signed Patient: Shellie Fontenot MR#: [id number] 48 : 1955 Acct:[id number] Age/Sex: 68 / F ADM Date: 11/29/23 Loc: HO.US Attending Dr: Gil Lacy MD Ordering Physician: Gil Lacy Date of Service: 11/29/23 Procedure(s): US abdomen comp w elastography Accession Number(s): [id number] cc: Hima Choudhary MD; Gil Lacy EXAMINATION: [...] of Radiologists in Ultrasound Liver Stiffness Thresholds (2019): LIVER STIFFNESS THRESHOLDS: *Liver Stiffness equal or [...] in OV> 12/04/23 1105 DD/ 0830 TD/TT: Sewer And Inspector: [place] [address] Ultrasound Report Signed Patient: Shellie Fontenot MR#: [id number] 48 : 1955 Acct:[id number] Age/Sex: 68 / F ADM Date: 11/29/23 Loc: HO.US Attending Dr: Gil Lacy MD Ordering Physician: Gil Lacy Date of Service: 11/29/23 Procedure(s): US abdomen comp w elastography Accession Number(s): [id number] cc: Hima Choudhary MD ; Gil Lacy EXAMINATION: US COMPLETE ABDOMEN WITH LIVER ELASTOGRAPHY CLINICAL INFORMATION: Hereditary hemochromatosis. Elevated liver enzymes. COMPARISON: Abdomen ultrasound f rom 11/13/2019. TECHNIQUE: Real-time imaging of the abdominal viscera. Noninvasive ultrasound liver fibrosis assessment is performed using Mauro ElastPQ point quantification shear wave elastography (2D-SWE) with a C5-2 MHz transducer. Multiple elastography samples are obtained. FINDINGS: PANCREAS: The pancre as is obscured by bowel gas. ABDOMINAL AORTA: The proximal, middle, and distal aortic segments are normal in caliber. INFERIOR VENA CAVA: Visualized portions are normal. LIVER: The liver parenchyma remains diffusely hyperechoic. The liver contour is normal. N o cirrhotic morphology. No focal lesion or intrahepatic ductal dilatation. The right lobe measu res 17.3 cm in length. The left lobe measures 10.9 cm in length. Portal flow is normal. Shear wave liver elastography median stiffness is 1.58 m/s (reference: normal median stiffn ess is 1.3 m/s or less). The median stiffness measurement was 1.39 m/s on 11/13/2019. IQR/median stiffness to assess sampling precision is 0.07 (reference: good quality data se t is IQR/median stiffness of 0.15 or less). GALLBLADDER: Status post cholecystectomy. COMMON BILE DUCT: Normal in caliber measuring 0.6 cm in diameter. RIGHT KIDNEY: The kidney is 10.8 cm in length. No nephrolithiasis or hydronephrosis. 1.6 cm simple cyst is present in the interpolar region. No renal imaging follow-up is recommended for simple cysts. LEFT KIDNEY: The kid lucille is 9.7 cm in length. No nephrolithiasis or hydronephrosis. Ther e are 1.6 cm and 1.2 cm simple cysts for which no follow-up imaging is recommended. SPLEEN: Normal. The spleen measures 8.8 cm in maximum dimension. FREE FLUID: None. US/US abdomen comp w elastography IMPRESSION: * Diffuse hepatic steatosis. * Shear wave liver elastography reveals a median stiffness of 1.58 m/s, a 13% increase compared to 11/13/2019. In the absence of other known clinical signs , this rules out compensated advanced chronic liver disease. * No evidence of hepatic mass or ascites. REFERENCE: Society of Radiologi sts in Ultrasound Liver Stiffness Thresholds (2019): LIVER STIFFNESS THRESHOLDS: *Liver Stiffness equ al or less than 1.3 m/s: High probability of being normal. *Liver Stiffness les s than 1.7 m/s: In the absence of other known clinical signs, rule s out compensated advanced chronic liver disease. *Liver Stiffness 1.7-2.1 m/s: Suggestive of compensated advanced chronic liver diseas e but need further test for confirmation. *Liver Stiffness ove r 2.1 m/s: Rules in compensated advanced chronic liver disease. *Liver Stiffness ove r 2.4 m/s: Suggestive of clinically significant portal hypertension. QUALITY OF DATA SET: *IQR/Median value eq ual or less than 0.15 implies a quality data set. *IQR/Median value ov er 0.15 implies a poor quality data set. SIGNIFICANT CHANGE F ROM PRIOR EXAM: Significant change i f liver stiffness measurement is 10% or greater from prior exam. OTHER CONSIDERATIONS: The stage of liver fibrosis may be overestimated in the setting of acute hepatitis, radha er inflammation, elevated liver function tests, hepatic vascular congestion, obstructive cholestasis, non-fasting state, and infiltrat beck diseases such as amyloidosis and lymphoma. In some patients with NAFLD, the liver stiffness thresholds for compensated advanced chronic liver disease may be lower. In causes other than viral hepatitis and NAFLD, liver stiffness thresholds are not well established. Dictated By: Yasmani Trammell MD Signed By: <Electronically signed by Yasmani Trammell MD in OV> 12/04/23 1105 DD/ 0830 TD/TT: Sewer And Inspector: IRON PROFILE Reviewed date:10/01/2024 06:59:05 PM Interpretation: Performing Lab:[address] [address] Notes/Report: Iron 195 30-160 mcg/dL Total Iron Binding Capacity 276 228-428 mcg/dL Percent Iron Saturation 71 15-50 % Unsaturated Iron Binding 81 Ferritin Reviewed date:06/11/2024 01:19:08 PM Interpretation: Performing Lab:[facility], [address] [place] [phone] Notes/Report: Ferritin 182 10-250 ng/mL Therapeutic Phlebotomy Reviewed date:06/11/2024 01:19:19 PM Interpretation: Performing Lab:[address] [address] Notes/Report: THER/HGB 12.7 12.0-16.0 g/dL THER/HCT TNP 37.0-47.0 % Therapeutic Phlebotomy Phlebotomy Performed 500 mls drawn on 06/10/24. Please note that a copy of this report has been sent to the Primary Care Physician, the ordering physician and any physician designated by patient request. Complete Blood Count Auto Di ff Reviewed date:09/27/2024 03:40:08 PM Interpretation: Performing Lab:[facility], [address] [place] [phone] Notes/Report: White Blood Count 6.4 4.8-10.8 X10*3/uL Red Blood Count 4.27 4.20-5.50 X10*6/uL Hemoglobin 14.8 12.0-16.0 g/dl Hematocrit 42.5 37.0-47.0 % Mean Corpuscular Volume 99.5 80.0-98.0 fL Mean Corpuscular Hemoglobin 34.7 27.0-33.0 pg Mean Corpuscular HGB Conc 34.8 31.0-35.0 g/dl Red Cell Distribution Width 12.8 11.0-16.0 % Platelet Count 284 160-400 X10*3/uL Mean Platelet Volume 10.2 9.4-12.3 fL Neutrophils Percent Auto 43.2 45-73 % Imm Gran Pct Auto 0.2 0.0-0.4 % Lymphocytes Percent Auto 40.5 20-40 % Monocytes Percent Auto 9.0 2-11 % Eosinophils Percent Auto 5.4 0-4 % Basophils Percent Auto 1.7 0-2 % NRBC Pct Auto 0.0 0.0-0.2 /100WBC Neutrophils Absolute Auto 2.8 2.0-8.3 x10*3/uL Imm Gran Abs Auto 0.01 0.00-0.03 X10*3/uL Lymphocytes Absolute Auto 2.6 1.2-4.9 X10*3/uL Monocytes Absolute Auto 0.6 0.1-1.2 X10*3/uL Eosinophils Absolute Auto 0.3 0.0-0.4 X10*3/uL Basophils Absolute Auto 0.1 0.0-0.2 X10*3/uL NRBC Abs Auto 0.000 0.0-0.012 X10*3/uL Prothrombin Time INR Reviewed date:09/27/2024 03:39:49 PM Interpretation: Performing Lab:[facility], [address] [place] [phone] Notes/Report: Prothrombin Time 9.9 10.9-12.4 SEC INTERNATIONAL NORM RATIO 0.9 0.9-1.1 INTERNATIONAL NORMALIZED RATIO (INR) REFERENCE RANGES [...] valves: 2.5 - 3.5 Liver Panel Reviewed date:09/27/2024 03:40:27 PM Interpretation: Performing Lab:[facility], [address] [place] [phone] Notes/Report: Bilirubin Total 0.4 0.0-1.0 mg/dL Bilirubin Direct 0.1 0.0-0.5 mg/dL Aspartate Amino Transferase 53 5-31 U/L Alanine Aminotransferase 61 0-31 U/L Total Protein 7.7 6.5-8.0 g/dL Albumin Level 4.1 3.5-5.0 g/dL Alkaline Phosphatase 138 39-117 U/L Alpha Fetoprotein Reviewed date:2024 06:53:08 PM Interpretation: Performing Lab:[facility], [address] [place] [phone] Notes/Report: Alpha Fetoprotein 4.3 Reference Range: <6.1 The use of AFP as a tumor marker in females is not recommended. This test was performed using the Domingo Yared chemiluminescent method. Values obtained from different assay methods cannot be used interchangeably. AFP levels, regardless of value, should not be interpreted as absolute evidence of the presence or absence of disease. THIS TEST WAS PERFORMED AT: [facility] [address] [place] [phone] SHAHRZAD OVALLES MD Liver Fibrosis Pnl Reviewed date:2024 06:53:27 PM Interpretation: Performing Lab:[facility], [address] [place] [phone] Notes/Report: Liver Fibrosis Score 0.18 Liver Fibrosis Stage F0 Liver Fibrosis Interpretation SEE NOTE no fibrosis Fibro Test Score (f) Metavir Score [...] F4 (severe fibrosis) Nec Inflam Act Score 0.20 Nec Inflam Act Grade A0-A1 Nec Inflam Act Interpretation SEE NOTE no activity ActiTest Score (a) Metavir Score a>=0 and a<=0.17 : A0 (no activity) a>0.17 and a<=0.29 : A0-A1 (no activity) a>0.29 and a<=0.36 : A1 (minimal activity) a>0.36 and a<=0.52 : A1-A2 (minimal activity) a>0.52 and a<=0.60 : A2 (significant activity) a>0.60 and a<=0.62 : A2-A3 (significant activity) a>0.62 and a<=1.00 : A3 (severe activity) WLT-Wcytk-8-Macroglobuli n 207 106-279 mg/dL FIB-Haptoglobin 92 43-212 mg/dL FIB-Apolipoprotein A1 196 101-198 mg/dL FIB-Total Bilirubin 0.3 0.2-1.2 mg/dL FIB-GGT 51 3-65 U/L FIB-ALT 42 6-29 U/L Reference ID [id number] Footnote SEE NOTE The reliability of results is dependent on compliance with the preanalytical and analytical conditions recommended by [employer]otask. The tests have to be deferred for: [...] The performance characteristics have been determined by [employer]. It has not been cleared or approved by the U.S. Food and Drug Administration. Performance characteristics refer to the analytical performance of the test. [employer], [employer], the associated logo, [employer] and all associated [employer] bae are the registered trademarks of [employer]. All third constitution party bae - (R) and (TM) - are the property of their respective owners. (C) 3290-1234 [employer]. All rights reserved. THIS TEST WAS PERFORMED AT: [facility] [address] [place] [address] GERARDO ENGLE MD,PHD,MOLLY Reason For Referral No Information Medications Medication [...] capsule Or ally Once a day Active Immunizations Vaccine Route Administration Date Status Comme nts Influenza Unknown 05/12/2018 Administered Influenza Unknown 08/12/2023 Administered Influenza Unknown 03/11/2020 Refused Social History Tobacco Use: Social History Observation Description Date Details (start date - stop date) Never Smoker NA - NA Tobacco Use/Smoking Question Answer Notes Patient is a nonsmoker Alcohol Screen Question Answer Notes Did you have a drink containing alcohol in the p ast year? No Points 0 Interpretation Negative Section Notes: Nonsmoker > 10 yrs ago; occa sional alcohol Nonsmoker > 10 yrs ago; occa sional alcohol Nonsmoker > 10 yrs ago; occa sional alcohol Nonsmoker > 10 yrs ago; occa sional alcohol Nonsmoker > 10 yrs ago; occa sional alcohol Nonsmoker > 10 yrs ago; Problems Problem Type SNOMED Code ICD Code Onset Dates Problem Status W/U Status Risk Notes Problem 57397060 Rectal bleeding (K62.5) Active confirmed Problem 637080582 Change in bowel habit (R19.4) Active confirmed Problem 51355399 Hereditary hemochromatosis (E83.110) Active confirmed Problem 513270534 Elevated liver function tests (R79.89) Active confirmed Problem 206493312 Elevated liver enzymes (R74.8) Active confirmed Problem 230056946 Fatty liver (K76.0) Active confirmed Problem Iron excess (75412220) Iron excess (E83.19) Active confirmed Problem 15609075 Constipation, unspecified constipation type (K59.00) Active confirmed Problem Diverticulosis of colon (355341912) Diverticulosis of colon (K57.30) Active confirmed Vital Signs Blood pressure diastolic 00 mm Hg 09/22/2024 Height 64 in 09/22/2024 Blood pressure systolic 00 mm Hg 09/22/2024 Weight 230 lbs 09/22/2024 BMI 39.48 kg/m2 09/22/2024 Encounters Encounter Location Date Provider Diagnosis [facility] [address] [place] [phone] 09/22/2024 Gil Lacy Hereditary hemochromatosis E83.110 ; Elevated liver enzymes R74.8 and Constipation, unspecified constipation type K59.00 [facility] [address] [place] [phone] 11/07/2023 Gil Lacy [facility] [address] [place] [phone] 11/11/2023 Gil Lacy Assessments Encounter Date Diagnosis (ICD Code) Assessment Notes Treatment Notes Treatment Clinical Notes Section Notes 09/22/2024 Hereditary hemochromatosis (ICD-10 - E83.110) Keep the every 6 month phlebotomy schedule Overall, Ana appears to be doing well. Her hereditary hemochromatosis seems to be quite stable on her current regimen of the phlebotomies every 6 months. While the iron saturation was somewhat elevated, her ferritin level was in the normal range and therefore I don't think the phlebotomies need to be increased in frequency. She will continue to have close monitoring of her iron levels to be sure the phlebotomies don't need to be increased in frequency in the future. I shall check a followup ultrasound of her liver and abdomen, as well as followup laboratories including alpha-fetoprotein level, liver fibrosis score, and LFTs. We did review that she should have these studies done yearly due to the underlying hemachromatosis and some fibrosis, albeit minimal. I did recommend she try some Metamucil on a regular daily basis with plenty of fluids in regard to her intermittent constipation. I did advise her stay on a high-fiber diet is well. We did review that she will be due for a followup screening colonoscopy in 2031 given a negative exam in 2021 and no family history of colorectal cancer. If theings remain stable I will plan to see Dannielle in one year for a followup visit. I did advise her to certainly call with any problems or questions I can be of assistance with in the interim. Dannielle was comfortable with this plan. Thank you again for allowing me to participate in Dannielle's care. I shall continue to keep you advised of her progress. 09/22/2024 Elevated liver enzymes (ICD-10 - R74.8) Overall, Ana appears to be doing well. Her hereditary hemochromatosis seems to be quite stable on her current regimen of the phlebotomies every 6 months. While the iron saturation was somewhat elevated, her ferritin level was in the normal range and therefore I don't think the phlebotomies need to be increased in frequency. She will continue to have close monitoring of her iron levels to be sure the phlebotomies don't need to be increased in frequency in the future. I shall check a followup ultrasound of her liver and abdomen, as well as followup laboratories including alpha-fetoprotein level, liver fibrosis score, and LFTs. We did review that she should have these studies done yearly due to the underlying hemachromatosis and some fibrosis, albeit minimal. I did recommend she try some Metamucil on a regular daily basis with plenty of fluids in regard to her intermittent constipation. I did advise her stay on a high-fiber diet is well. We did review that she will be due for a followup screening colonoscopy in 2031 given a negative exam in 2021 and no family history of colorectal cancer. If theings remain stable I will plan to see Dannielle in one year for a followup visit. I did advise her to certainly call with any problems or questions I can be of assistance with in the interim. Dannielle was comfortable with this plan. Thank you again for allowing me to participate in Dannielle's care. I shall continue to keep you advised of her progress. 09/22/2024 Constipation, unspecified constipation type (ICD-10 - K59.00) Use 2 Metamucil fiber pills once or twice a day with a lot of water to help the constipation Overall, Ana appears to be doing well. Her hereditary hemochromatosis seems to be quite stable on her current regimen of the phlebotomies every 6 months. While the iron saturation was somewhat elevated, her ferritin level was in the normal range and therefore I don't think the phlebotomies need to be increased in frequency. She will continue to have close monitoring of her iron levels to be sure the phlebotomies don't need to be increased in frequency in the future. I shall check a followup ultrasound of her liver and abdomen, as well as followup laboratories including alpha-fetoprotein level, liver fibrosis score, and LFTs. We did review that she should have these studies done yearly due to the underlying hemachromatosis and some fibrosis, albeit minimal. I did recommend she try some Metamucil on a regular daily basis with plenty of fluids in regard to her intermittent constipation. I did advise her stay on a high-fiber diet is well. We did review that she will be due for a followup screening colonoscopy in 2031 given a negative exam in 2021 and no family history of colorectal cancer. If theings remain stable I will plan to see Dannielle in one year for a followup visit. I did advise her to certainly call with any problems or questions I can be of assistance with in the interim. Dannielle was comfortable with this plan. Thank you again for allowing me to participate in Dannielle's care. I shall continue to keep you advised of her progress. Plan Of Treatment Pending Test Test Name Order Date LIVER PROFILE 09/22/2024 LIVER PROFILE 02/04/2020 LIVER PROFILE 10/17/2016 IRON + IBC (FE) 11/04/2018 IRON + IBC (FE) 02/04/2020 FERRITIN 11/04/2018 FERRITIN 02/04/2020 CBC w DIFF 08/21/2023 CBC w DIFF 09/22/2024 CBC w DIFF 10/17/2016 HEPATITIS B, C PROFILE 11/04/2018 [id number] (A1A) 11/04/2018 ALPHA-FETOPROTEIN,TUMOR MARKER 7 ALPHA-FETOPROTEIN,TUMOR MARKER 9 ALPHA-FETOPROTEIN,TUMOR MARKER 4 ALPHA-FETOPROTEIN,TUMOR MARKER 5 MITOCHONDRIAL AB 11/04/2018 SMOOTH MUSCLE ANTIBODIES 11/04/2018 US ABD 10/17/2016 FLUOR. ANTINUCLEAR AB SCREEN (LA) 10/11 HEPATITIS A ANTIBODY-IGG 11/04/2018 Prothrombin Time INR 08/21/2023 Prothrombin Time INR 09/22/2024 Liver Fibrosis Pnl 09/22/2024 Liver Fibrosis Pnl 08/21/2023 US abdomen comp w elastography 4 US abdomen comp w elastography 5 US abdomen comp w elastography 4 Future Test Test Name Order Date COLONOSCOPY 07/30/2012 COLONOSCOPY 08/02/2021 Next Appt Details Provider Name:Gil Lacy , 09/23/2025 11:00:00 AM, [address] [facility], [address], [place], [address], Insurance Providers Payer Name Payer Address Payer Phone Subscriber Number Group Number Insured Name Patient Relationship to Insured Coverage Start Date Coverage End Date [employer] [place] [address] [address] [place] [address] [id number] DANNIELLE FONTENOT Self - patient is the insured Medical (General) History Medical History History ICD Code Liver biopsy--no [...] [address] Barber HTN Hypothyroid Denies MT,DM,CVA,Lung disease,renal dise ase Bulging discs in neck [...]
--- OUTSIDE RECORDS SUMMARY | 2024-11-04 17:30 | XMS_ITS ---
Author Organization [facility] Address [address] [facility] [place] [address] Care Team Providers Care Mortgage Servicing Specialist Name Role Phone Hima Choudhary MD Primary Care Provider Unavaila Vaughn Gardner Unavailable [phone] Allergies No Known Allergies REASON FOR VISIT [...] Ordered Date Performed Result Body Sit e 25097-[id number] SKIN/TISSUE 08/02/2023 N/A Encounters Encounter Location Date Provider Diagnosis [facility] [address] [place] [address] 08/02/2023 Vaughn Reina Skin ulcer of toe [...] INSTRUCTIONS.pdf) Pending Test Test Name Order Date [id number] SKIN/TISSUE 08/02/2023 Next Appt Details Follow Up: [...] of the wound post debriement is stable (40789) Progress Notes * Yadira FONTENOTDOB:1955 (67 yo F)Acc No.[id number]:08/02/2023 Progress Notes Patient:?Yadira Fontenot Provider:?Vaughn Reina DPM :1955???Age:67 Y???Sex:Female D ate:08/02/2023 Address:[address] [place] [address] Pcp:Hima Choudhary MD Subjective: * Chief Complaints: [...] painting, music, reading. ?Marital status: single. 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 * Medications:?TakingKetamine HCl , [...] of the wound post debriement is stable (52507).? * Procedure Codes:?30306 DEBRI DE SKIN/TISSUE * Preventive Medicine:? ??Counseling:?Ulcer:?A [...] Reina DPM Date:?2022 Generated for Ki khoury/Brenda/Lurdes on:?11/04/2024 05:30 PM EDT History and Physical Notes * HPI (History [...]
--- OUTSIDE RECORDS SUMMARY | 2024-11-04 17:30 | XMS_ITS ---
Author Organization [facility] Address [address] [place] [address] Care Team Providers Care Flare Breaker Name Role Phone Hima Choudhary MD Primary Care Provider UnavailGil James [phone] REASON FOR VISIT order Encounters Encounter Location Date Provider Diagnosis [facility] [address] [place] [address] 11/11/2023 Gil Lacy Plan Of Treatment Next Appt Details Provider Name:Gil Lacy , 09/23/2025 11:00:00 AM, [address], [address], [place], [address], Progress Notes * DANNIELLE FONTENOTDOB:1955 (68 yo F)Acc No.[id number]:11/11/2023 Patient:?DANNIELLE FONTENOT :1955???Age:68 Y???Sex:Female Address:[address] [place], [place] [address] [address] * true * Date:? Generated for Printi iraida/Brenda/eTransmitting on:?11/04/2024 05:30 PM EDT
--- OUTSIDE RECORDS SUMMARY | 2024-11-04 17:30 | XMS_ITS | Patient Health Record ---
Author Organization [facility] Address [address] [facility] [place] [address] Care Team Providers Care Town Marshal Name Role Phone Hima Choudhary MD Primary Care Provider Vaughn Hong Unavailable [phone] Allergies No Known Allergies Reason For Referral [...] fat layer exposed (L97.512) Active confirmed Problem 258282290 Fungal infection of nail (B35.1) Active confirmed Rx management (4) Plan Of Treatment Pending Test Test Name Order Date [id number] 07/19/2023 [id number] SKIN/TISSUE 08/02/2023 Insurance Providers Payer Name Payer Address Payer Phone Subscriber Number Group Number Insured Name Patient Relationship to Insured Coverage Start Date Coverage End Date Blue Benefits [address] [address] [place] [id number] Yadira Bojorquez Self - patient is the [...]
--- OUTSIDE RECORDS SUMMARY | 2024-11-04 17:30 | XMS_ITS ---
Author Organization [facility] Address [address] [address] Care Team Providers Care Cyber Workforce Developer And Manager Name Role Phone Hima Choudhary MD Primary Care Provider Gil Hernandez Unavailable [phone] Allergies Allergen (clinical drug ingredient) Drug/Non Drug Allergy documented on EMR Reaction Allergy Type Onset Date Status Bees (uncoded) Unknown Allergy Activ e Seasonal Allergies (uncoded) Unknown Allergy Active REASON FOR VISIT Patient presents today for hemochromatosis Medications Medication SIG (Take, Route, Frequency, Duration) [...] capsule Or ally Once a day Active Social History Tobacco Use: Social History Observation Description Date Details (start date - stop date) Never Smoker NA - NA Tobacco Use/Smoking Question Answer Notes Patient is a nonsmoker Alcohol Screen Question Answer Notes Did you have a drink containing alcohol in the p ast year? No Points 0 Interpretation Negative Section Notes: Nonsmoker > 10 yrs ago; Vital Signs Blood pressure systolic 00 mm Hg 09/22/19 25 Blood pressure diastolic 00 mm Hg 025 Height 64 in 09/22/2024 Weight 230 lbs 09/22/2024 BMI 39.48 kg/m2 09/22/2024 Encounters Encounter Location Date Provider Diagnosis [facility] [address] [place] [address] 09/22/2024 Gil Lacy Hereditary hemochromatosis E83.110 ; Elevated liver enzymes R74.8 and Constipation, unspecified constipation type K59.00 Assessments Encounter Date Diagnosis (ICD Code) Assessment [...] advised of her progress. Plan Of Treatment Treatment Notes Assessment Notes Hereditary hemochromatosis Keep [...] Provider Name:Gil Lacy , 09/23/2025 11:00:00 AM, [address] [place] [address], [address], [place], [address], Progress Notes * DANNIELLE FONTENOTDOB:1955 (69 yo F)Acc No.[id number]:09/22/2024 Progress Notes Patient:?DANNIELLE FONTENOT Provider:?Gil Lacy MD :1955???Age:68 Y???Sex:Female D ate:09/22/2024 Address:[address] [place], [place] [id number] Pcp:Hima Choudhary MD Subjective: * Chief Complaints: * ???Patient presents today fo r hemochromatosis * HPI: ???incontinence:? I saw Dannielle in followup today in regard to her underlying history of hereditary hemachromatosis and some constipation. Since I last saw Dannielle in August of 2023 she reports that she has been feeling well in general from a GI standpoint. However, she has had some constipation on an intermittent basis. She has not had any hematochezia nor melena. She enjoys a good appetite and denies any significant heartburn nor dysphagia. She has not needed any acid reflux treatment since her previous hiatal hernia surgery back in 1997. She denies abdominal pain, jaundice, nor unintentional weight loss. She denies any known family history of colorectal cancer. In regard to the hereditary hemochromatosis she has been continuing her current regimen of the phlebotomy every 6 months. This has continued to work well in maintaining a normal ferritin level. Her most recent phlebotomy was in May 2024. At that time she had an Iron of 195 and an Iron saturation of 71%. However, her ferritin was only 182 and therefore I did not increase in frequency of her phlebotomies. Laboratories from the spring revealed a normal PT with INR, a normal alpha-fetoprotein level, a liver fibrosis score of only F1, a normal CBC with platelet count, and a normal liver profile except for minimal elevations of her AST, ALT, and alkaline phosphatase. She did have abdominal ultrasound in November of 2023 describing a probable fatty liver but no sign of cirrhosis, splenomegaly, nor ascites. The liver elastography was just minimally elevated. * ROS:?General/Constitutional:?Change in appetite?denies.?Chills?denies.?Fatigue?denies.?Ophthalmologic:?Patient denies? Negative..?ENT:?Patient denies?Negative..?Respiratory:?Patient denies?No coughing/hemoptysis..?Cardiovascular:?Patient denies? No chest pain/orthopnea..?Gastrointestinal:?Comments?See HPI for details.?Genitourinary:?Patient denies? No dysuria/hematuria..?Musculoskeletal:?Patient denies? No specific arthralgias/myalgias..?Skin:?Patient denies?No rash/pruritus..?Neurologic:?Patient denies? No headaches/seizures..?Psychiatric:?Patient denies?Negative..? * Medical History:? * Surgical History:?Breast Bio psy in 2009-benign Lap. Evan by Dr Barber Eyelid surgery Cholecystectomy 1998Kyphoplasty 2020 * Hospitalization/Major Diagno stic Procedure:?No Hospitalization History. * Family History:?Father: dece ased.?Mother: .? Sister had breast cancer. Father had polyps. No colorectal cancer nor liver disease in family, except for a brother with alcoholism-, but did have a liver transplant. sister with hemochromatisis. * Social History:?Tobacco Use:?Tobacco Use/Smoking?Patient is a?nonsmoker.?Drugs/Alcohol:?Alcohol Screen?Did you have a drink containing alcohol in the past year??No,?Points?0,?Interpretation?Negative.?Miscellaneous:?Marital status: . 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 ???Nonsmoker > 10 yrs ago;. * Medications:?TakingMetoprolo l Succinate 100 MG Capsule ER 24 Hour Sprinkle 1 capsule Orally Once a day Losartan Potassium 25 MG Tablet 1 tablet Orally Once a day Cetirizine HCl 10 MG Tablet TK 1 T PO QAM Oral Levothyroxine Sodium 100 MCG Tablet TK 1 T PO ONCE DAILY AND TK 1 AND SS TS PO ON SATURDAY Oral Amitriptyline HCl 10 MG Tablet 1 tablet at bedtime Orally Once a day Medication List reviewed and reconciled with the patientTaking Metoprolol Succinate 100 MG Capsule ER 24 Hour Sprinkle 1 capsule Orally Once a day Taking Losartan Potassium 25 MG Tablet 1 tablet Orally Once a day Taking Cetirizine HCl 10 MG Tablet TK 1 T PO QAM Oral Taking Levothyroxine Sodium 100 MCG Tablet TK 1 T PO ONCE DAILY AND TK 1 AND SS TS PO ON SATURDAY Oral Taking Amitriptyline HCl 10 MG Tablet 1 tablet at bedtime Orally Once a day Medication List reviewed and reconciled with the patient * Allergies:?Seasonal Allergie s Bees yes[Allergies Verified] Objective: * Vitals:?Wt: 230 lbs, Ht: 64 in, BMI:39.48Index, BP: 00/00 mm Hg. * Examination: ???General Examination: ?GENERAL APPEARANCE:?pleasant, well nourished, well developed, in no acute distress.?EYES:?sclera non-icteric.?ORAL CAVITY:?mucosa moist.?NECK/THYROID:?no cervical lymphadenopathy, neck supple.?SKIN:?nonjaundiced, no spider angiomata..?HEART:?S1, S2 normal.?LUNGS:?clear to auscultation bilaterally.?ABDOMEN:?normal bowel sounds, no guarding or rigidity, no hepatosplenomegaly, no masses palpable, soft, nontender, nondistended..?EXTREMITIES:?no edema.?NEUROLOGIC:?alert and oriented.? Assessment: * Assessment: 1.?Hereditary hemochromatosi s - E83.110 (Primary)???2.?Elevated liver enzymes - R74.8???3.?Constipation, unspecified constipation type - K59.00??? Overall, Ana appears to b e doing well. Her hereditary hemochromatosis seems to [...] I did advise her stay on a high- fiber diet is well. We did review that [...] to keep you advised of her progress. Plan: * Treatment: Notes: Keep the every 6 month phlebotomy schedule??2.?Elevated liver enzymes?LAB: LIVER PROFILE ?LAB: CBC w DIFF ?LAB: ALPHA-FETOPROTEIN,TUMOR MARKER ?LAB: Prothrombin Time INR ?LAB: Liver Fibrosis Pnl ?Imaging: US abdomen comp w elastography* 3.?Constipation, unspecified constipation type? Notes: Use 2 Metamucil fiber pills once or twice a day with a lot of water to help the constipation ? * Procedure Codes:?3017F COLOR ECTAL CA SCREEN DOC ZKG4567I TOBACCO NON-WYARA1540 BP SCR NOT PRFRM REC REASON NOS * Preventive Medicine:? ??Counseling:?Care goal follow-up plan:?Above Normal BMI Follow-up?Giving encouragement to exercise,?BMI management provided?Yes.? ??Urinary Incontinence:?Urinary Incontinence?Assessment:?Absent,?Plan of care documented:?No, reason not specified.? ??Screenings:?Fall Risk Screening?Fall Risk Assessment:?No falls in the past year,?Screening:?No falls in the past year,?Assessment:?Not performed, no reason specified,?Plan of Care:?Not documented, no reason specified.? * Follow Up:?1 Year * * Sign off status: Completed true * Provider:?Gil Lacy MD Date:? 025 Generated for Ki khoury/Brenda/Neitting on:?11/04/2024 05:30 PM EDT History and Physical Notes * HPI (History of Present Illness) Category Sub-Category Detail Notes Category Not es incontinence I saw Dannielle in followup today in regard to her underlying history of hereditary hemachromatosis and some constipation. Since I last saw Dannielle in August of 2023 she reports that she has been feeling well in general from a GI standpoint. However, she has had some constipation on an intermittent basis. She has not had any hematochezia nor melena. She enjoys a good appetite and denies any significant heartburn nor dysphagia. She has not needed any acid reflux treatment since her previous hiatal hernia surgery back in 1997. She denies abdominal pain, jaundice, nor unintentional weight loss. She denies any known family history of colorectal cancer. In regard to the hereditary hemochromatosis she has been continuing her current regimen of the phlebotomy every 6 months. This has continued to work well in maintaining a normal ferritin level. Her most recent phlebotomy was in May 2024. At that time she had an Iron of 195 and an Iron saturation of 71%. However, her ferritin was only 182 and therefore I did not increase in frequency of her phlebotomies. Laboratories from the spring revealed a normal PT with INR, a normal alpha-fetoprotein level, a liver fibrosis score of only F1, a normal CBC with platelet count, and a normal liver profile except for minimal elevations of her AST, ALT, and alkaline phosphatase. She did have abdominal ultrasound in November of 2023 describing a probable fatty liver but no sign of cirrhosis, splenomegaly, nor ascites. The liver elastography was just minimally elevated. Examination Category Sub-Category Detail Notes Category Not es General Examination GENERAL APPEARANCE: pleasant , well [...]
--- OUTSIDE RECORDS SUMMARY | 2024-11-04 17:30 | XMS_ITS ---
Author Organization [facility] Address [address] [place] [address] Care Team Providers Care Rounder Hand Name Role Phone Hima Choudhary MD Primary Care Provider Unavaila Vaughn Gardner Unavailable [phone] REASON FOR VISIT CX 10/15/23 Encounters Encounter Location Date Provider Diagnosis [address] [address] 10/14/2023 Vaughn Reina Plan Of Treatment No Information Progress Notes * Yadira FONTENOTDOMarin:1955 (68 yo F)Acc No.[id number]:10/14/2023 Patient:?Yadira Fontenot :1955???Age:68 Y???Sex:Female Address:[address] [place] [address] [place] [address] * true * Date:? Generated for Irmai iraida/Brenda/eTransmitting on:?11/04/2024 05:29 PM EDT
--- OUTSIDE RECORDS SUMMARY | 2024-11-04 17:31 | XMS_ITS ---
Author Organization [facility] Address [address] [place] [address] Care Team Providers Care Belt Worker Name Role Phone Hima Choudhary MD Primary Care Provider Gil Hernandez [phone] Encounters Encounter Location Date Provider Diagnosis [facility] [address] [place] [address] 11/07/2023 Gil Lacy Plan Of Treatment Next Appt Details Provider Name:Gil Lacy , 09/23/2025 11:00:00 AM, [address], [address], [place], [address], Progress Notes * DANNIELLE FONTENOTDOB:1955 (68 yo F)Acc No.[id number]:11/07/2023 Patient:?DANNIELLE FONTENOT :1955???Age:68 Y???Sex:Female Address:[address] [place] [address] * true * Date:? Generated for Printi iraida/Brenda/eTransmitting on:?11/04/2024 05:30 PM EDT
== END 2024-11-04 15:04 | disposition home or self-care (01) ==
LOC: HO.HMCHD 14:33
PROVIDERS: PCP Internal Medicine; Visit Provider Internal Medicine
DX: L20.9 Atopic dermatitis, unspecified (principal); R74.8 Abnormal levels of other serum enzymes

== ENCOUNTER → 2024-11-04 14:33 | Outpatient (BNVA) | payer OTHER, SELFPAY | PROVIDERS: PCP Internal Medicine; Visit Provider Internal Medicine ==

== ENCOUNTER 2024-11-16 14:02 | Outpatient (REF) | payer OTHER, SELFPAY ==
[2024-11-16 15:51] LABS: Ferritin 193 ng/mL (10-250)
[2024-11-16 16:30] LABS: Iron 248 mcg/dL (30-160); Percent Iron Saturation 91 % (15-50); Total Iron Binding Capacity 273 mcg/dL (228-428); Unsaturated Iron Binding < 25 ug/dL
--- OUTSIDE RECORDS SUMMARY | 2024-11-16 16:48 | XMS_ITS | Patient Health Record ---
Author Organization [facility] Address [address] [facility] [place] [address] Care Team Providers Care Information Systems Technician Name Role Phone Hima Choudhary MD Primary Care Provider Vaughn Hong Unavailable [phone] Allergies No Known Allergies Reason For Referral [...] fat layer exposed (L97.512) Active confirmed Problem 468190489 Fungal infection of nail (B35.1) Active confirmed Rx management (4) Plan Of Treatment Pending Test Test Name Order Date [id number] 07/19/2023 [id number] SKIN/TISSUE 08/02/2023 Insurance Providers Payer Name Payer Address Payer Phone Subscriber Number Group Number Insured Name Patient Relationship to Insured Coverage Start Date Coverage End Date Blue Benefits [address] [address] [place] [id number] Yadira Bojorquez Self - patient is the [...]
--- OUTSIDE RECORDS SUMMARY | 2024-11-16 16:48 | XMS_ITS ---
Author Organization [facility] Address [address] [facility] [place] [address] Care Team Providers Care Political Analyst Name Role Phone Hima Choudhary MD Primary Care Provider Unavaila Vaughn Gardner Unavailable [phone] REASON FOR VISIT CX 10/15/23 Encounters Encounter Location Date Provider Diagnosis [address] [address] 10/14/2023 Vaughn Reina Plan Of Treatment No Information Progress Notes * Yadira FONTENOTDOMarin:1955 (68 yo F)Acc No.[id number]:10/14/2023 Patient:?Yadira Fontenot :1955???Age:68 Y???Sex:Female Address:[address] [place] [address] [place] [address] * true * Date:? Generated for Printi iraida/Brenda/eTransmitting on:?11/16/2024 04:48 PM EDT
--- OUTSIDE RECORDS SUMMARY | 2024-11-16 16:49 | XMS_ITS ---
Author Organization [facility] Address [address] [place] [address] Care Team Providers Care Operations Lieutenant Name Role Phone Hima Choudhary MD Primary Care Provider Gil Hernandez [phone] Encounters Encounter Location Date Provider Diagnosis [facility] [address] [place] [address] 11/07/2023 Gil Lacy Plan Of Treatment Next Appt Details Provider Name:Gil Lacy , 09/23/2025 11:00:00 AM, [address], [address], [place], [address], Progress Notes * DANNIELLE FONTENOTDOB:1955 (68 yo F)Acc No.[id number]:11/07/2023 Patient:?DANNIELLE FONTENOT :1955???Age:68 Y???Sex:Female Address:[address] [place] [address] * true * Date:? Generated for Printi iraida/Brenda/eTransmitting on:?11/16/2024 04:49 PM EDT
--- OUTSIDE RECORDS SUMMARY | 2024-11-16 16:49 | XMS_ITS | Patient Health Record ---
Author Organization [facility] Address [address] [place] [address] Care Team Providers Care Hand Stitcher Name Role Phone Hima Choudhary MD Primary Care Provider Gil Hernandez Unavailable [phone] Allergies Allergen (clinical drug ingredient) Drug/Non Drug Allergy documented on EMR Reaction Allergy Type Onset Date Status Bees (uncoded) Unknown Allergy Activ e Seasonal Allergies (uncoded) Unknown Allergy Active Results Component Value Reference Range Notes Complete Blood Count Auto Di ff Reviewed date:11/21/2023 10:14:18 AM Interpretation: Performing Lab:[facility], [address] [place] [address] Notes/Report: White Blood Count 6.1 4.8-10.8 X10*3/uL [...] INR Reviewed date:11/21/2023 10:14:25 AM Interpretation: Performing Lab:[address] [address] Notes/Report: Prothrombin Time 10.2 11.1-13.3 SEC INTERNATIONAL [...] Panel Reviewed date:11/23/2023 12:55:10 AM Interpretation: Performing Lab:[address] [address] Notes/Report: Bilirubin Total 0.4 0.0-1.0 mg/dL Bilirubin Direct 0.2 0.0-0.5 mg/dL Aspartate Amino Transferase 56 5-31 U/L Alanine Aminotransferase 68 0-31 U/L Total Protein 6.8 6.5-8.0 g/dL Albumin Level 3.8 3.5-5.0 g/dL Alkaline Phosphatase 126 39-117 U/L IRON PROFILE Reviewed date:11/23/2023 12:55:37 AM Interpretation: Performing Lab:[facility], [address] [place] [address] Notes/Report: Iron 197 30-160 mcg/dL Total Iron Binding Capacity 258 228-428 mcg/dL Percent Iron Saturation 76 15-50 % Unsaturated Iron Binding 61 Ferritin Reviewed date:11/23/2023 12:55:20 AM Interpretation: Performing Lab:[facility], [address] [place] [address] Notes/Report: Ferritin 142 10-250 ng/mL Alpha Fetoprotein Reviewed date:11/27/2023 09:15:28 PM Interpretation: Performing Lab:[facility], [address] [place] [address] Notes/Report: Alpha Fetoprotein 3.9 Reference Range: <6.1 [...] of disease. THIS TEST WAS PERFORMED AT: [facility] [address] [place] [address] SHAHRZAD OVALLES MD Liver Fibrosis Pnl Reviewed date:10/01/2024 07:00:03 PM Interpretation: Performing Lab:[address] [address] Notes/Report: Liver Fibrosis Score 0.27 Liver Fibrosis [...] a>0.62 and a<=1.00 : A3 (severe activity) MAM-Bajsx-0-Macroglobuli n 177 106-279 mg/dL FIB-Haptoglobin 64 43-212 mg/dL FIB-Apolipoprotein A1 180 101-198 mg/dL FIB-Total Bilirubin 0.5 0.2-1.2 mg/dL FIB-GGT 64 3-65 U/L FIB-ALT 55 6-29 U/L Reference ID [id number] Footnote SEE NOTE The reliability of results is dependent on compliance with the preanalytical and analytical conditions recommended by Submittable. The tests have to be deferred for: [...] The performance characteristics have been determined by [employer]. It has not been cleared or approved by the U.S. Food and Drug Administration. Performance characteristics refer to the analytical performance of the test. Nephros, the associated logo, [employer] [place] and all associated [facility] bae are the registered trademarks of [employer]. All third constitution party bae - (R) and (TM) - are the property of their respective owners. (C) 5562-4378 [employer]. All rights reserved. THIS TEST WAS PERFORMED AT: [facility] [address] [place] [address] GERARDO ENGLE MD,PHD,MOLLY Therapeutic Phlebotomy Reviewed date:11/23/2023 12:55:57 AM Interpretation: Performing Lab:[facility], [address] [place] [address] Notes/Report: THER/HGB 14.2 12.0-16.0 g/dL THER/HCT TNP 37.0-47.0 % Therapeutic Phlebotomy Phlebotomy Performed 500 mls drawn on 11/21/23. Please note that a copy of this report has been sent to the Primary Care Physician, the ordering physician and any physician designated by patient request. US abdomen comp w elastograp hy (Not yet reviewed by provider) Interpretation: Performing Lab: Notes/Report: [address] [address] Ultrasound Report Signed Patient: Shellie Fontenot MR#: [id number] 48 : 1955 Acct:[id number] Age/Sex: 68 / F ADM Date: 11/29/23 Loc: HO.US Attending Dr: Gil Lacy MD Ordering Physician: Gil Lacy Date of Service: 11/29/23 Procedure(s): US abdomen comp w elastography Accession Number(s): [id number] cc: Hima Choudhary MD; Gil Lacy EXAMINATION: [...] in OV> 12/04/23 1105 DD/ 0830 TD/TT: Log Processor Operator: [place] [address] Ultrasound Report Signed Patient: Shellie Fontenot MR#: [id number] 48 : 1955 Acct:[id number] Age/Sex: 68 / F ADM Date: 11/29/23 Loc: HO.US Attending Dr: Gil Lacy MD Ordering Physician: Gil Lacy Date of Service: 11/29/23 Procedure(s): US abdomen comp w elastography Accession Number(s): [id number] cc: Hima Choudhary MD ; Gil Lacy [...] in OV> 12/04/23 1105 DD/ 0830 TD/TT: Log Processor Operator: IRON PROFILE Reviewed date:10/01/2024 06:59:05 PM Interpretation: Performing Lab:[address] [address] Notes/Report: Iron 195 30-160 mcg/dL Total Iron Binding Capacity 276 228-428 mcg/dL Percent Iron Saturation 71 15-50 % Unsaturated Iron Binding 81 Ferritin Reviewed date:06/11/2024 01:19:08 PM Interpretation: Performing Lab:[facility], [address] [place] [address] Notes/Report: Ferritin 182 10-250 ng/mL Therapeutic Phlebotomy Reviewed date:06/11/2024 01:19:19 PM Interpretation: Performing Lab:[address] [address] Notes/Report: THER/HGB 12.7 12.0-16.0 g/dL THER/HCT TNP 37.0-47.0 % Therapeutic Phlebotomy Phlebotomy Performed 500 mls drawn on 06/10/24. Please note that a copy of this report has been sent to the Primary Care Physician, the ordering physician and any physician designated by patient request. Complete Blood Count Auto Di ff Reviewed date:09/27/2024 03:40:08 PM Interpretation: Performing Lab:[facility], [address] [place] [address] Notes/Report: White Blood Count 6.4 4.8-10.8 X10*3/uL [...] INR Reviewed date:09/27/2024 03:39:49 PM Interpretation: Performing Lab:[facility], [address] [place] [address] Notes/Report: Prothrombin Time 9.9 10.9-12.4 SEC INTERNATIONAL [...] Panel Reviewed date:09/27/2024 03:40:27 PM Interpretation: Performing Lab:[facility], [address] [place] [address] Notes/Report: Bilirubin Total 0.4 0.0-1.0 mg/dL Bilirubin Direct 0.1 0.0-0.5 mg/dL Aspartate Amino Transferase 53 5-31 U/L Alanine Aminotransferase 61 0-31 U/L Total Protein 7.7 6.5-8.0 g/dL Albumin Level 4.1 3.5-5.0 g/dL Alkaline Phosphatase 138 39-117 U/L Alpha Fetoprotein Reviewed date:2024 06:53:08 PM Interpretation: Performing Lab:[facility], [address] [place] [address] Notes/Report: Alpha Fetoprotein 4.3 Reference Range: <6.1 The use of AFP as a tumor marker in females is not recommended. This test was performed using the [employer] chemiluminescent method. Values obtained from different assay methods cannot be used interchangeably. AFP levels, regardless of value, should not be interpreted as absolute evidence of the presence or absence of disease. THIS TEST WAS PERFORMED AT: [facility] [address] [place] [address] SHAHRZAD OVALLES MD Liver Fibrosis Pnl Reviewed date:2024 06:53:27 PM Interpretation: Performing Lab:[facility], [address] [place] [address] Notes/Report: Liver Fibrosis Score 0.18 Liver Fibrosis [...] a>0.62 and a<=1.00 : A3 (severe activity) OOX-Mmcgu-9-Macroglobuli n 207 106-279 mg/dL FIB-Haptoglobin 92 43-212 mg/dL FIB-Apolipoprotein A1 196 101-198 mg/dL FIB-Total Bilirubin 0.3 0.2-1.2 mg/dL FIB-GGT 51 3-65 U/L FIB-ALT 42 6-29 U/L Reference ID [id number] Footnote SEE NOTE The reliability of results is dependent on compliance with the preanalytical and analytical conditions recommended by Submittable. The tests have to be deferred for: [...] The performance characteristics have been determined by [facility]. It has not been cleared or approved by the U.S. Food and Drug Administration. Performance characteristics refer to the analytical performance of the test. [employer], [employer], the associated logo, [employer] [place] and all associated [employer] bae are the registered trademarks of [employer]. All third constitution party bae - (R) and (TM) - are the property of their respective owners. (C) 9450-6328 [employer]. All rights reserved. THIS TEST WAS PERFORMED AT: [facility] [place] [address] [place] [address] GERARDO ENGLE MD,PHD,MOLLY IRON PROFILE (Not yet review ed by provider) Interpretation: Performing Lab:[facility], [address] [place] [address] Notes/Report: Iron 248 30-160 mcg/dL Total Iron Binding Capacity 273 228-428 mcg/dL Percent Iron Saturation 91 15-50 % Unsaturated Iron Binding < 25 Ferritin (Not yet reviewed b y provider) Interpretation: Performing Lab:[facility], [address] [place] [address] Notes/Report: Ferritin 193 10-250 ng/mL Therapeutic Phlebotomy (Not yet reviewed by provider) Interpretation: Performing Lab:[facility], [address] [place] [address] Notes/Report: THER/HGB 14.4 12.0-16.0 g/dL THER/HCT TNP 37.0-47.0 % Therapeutic Phlebotomy Phlebotomy Performed 500 mls drawn on 11/16/24. Please note that a copy of this report has been sent to the Primary Care Physician, the ordering physician and any physician designated by patient request. Reason For Referral No Information Medications Medication [...] Problem Status W/U Status Risk Notes Problem 69885486 Rectal bleeding (K62.5) Active confirmed Problem 044654020 Change in bowel habit (R19.4) Active confirmed Problem 78234427 Hereditary hemochromatosis (E83.110) Active confirmed Problem 035346251 Elevated liver function tests (R79.89) Active confirmed Problem 619208929 Elevated liver enzymes (R74.8) Active confirmed Problem 136614592 Fatty liver (K76.0) Active confirmed Problem Iron excess (94681503) Iron excess (E83.19) Active confirmed Problem 74393053 Constipation, unspecified constipation type (K59.00) Active confirmed Problem Diverticulosis of colon (874529443) Diverticulosis of colon (K57.30) Active confirmed Vital Signs Blood pressure diastolic 00 mm Hg 09/22/2024 Height 64 in 09/22/2024 Blood pressure systolic 00 mm Hg 09/22/2024 Weight 230 lbs 09/22/2024 BMI 39.48 kg/m2 09/22/2024 Encounters Encounter Location Date Provider Diagnosis [facility] [address] [place] [address] 09/22/2024 Gil Lacy Hereditary hemochromatosis E83.110 ; [...] DIFF 10/17/2016 HEPATITIS B, C PROFILE 11/04/2018 ZZZZN-4-NYCBBNOSPZW (A1A) 11/04/2018 ALPHA-FETOPROTEIN,TUMOR MARKER 7 ALPHA-FETOPROTEIN,TUMOR MARKER 9 ALPHA-FETOPROTEIN,TUMOR MARKER 4 ALPHA-FETOPROTEIN,TUMOR MARKER 5 MITOCHONDRIAL AB 11/04/2018 SMOOTH MUSCLE ANTIBODIES 11/04/2018 US ABD 10/17/2016 FLUOR. ANTINUCLEAR AB SCREEN (LA) 10/11 HEPATITIS A ANTIBODY-IGG 11/04/2018 Prothrombin Time INR 08/21/2023 Prothrombin Time INR 09/22/2024 IRON PROFILE 11/16/2024 Ferritin 11/16/2024 Liver Fibrosis Pnl 09/22/2024 Liver Fibrosis Pnl 08/21/2023 US abdomen comp w elastography 4 US abdomen comp w elastography 5 US abdomen comp w elastography 4 Therapeutic Phlebotomy 11/16/2024 Future Test Test Name Order Date COLONOSCOPY 07/30/2012 COLONOSCOPY 08/02/2021 Next Appt Details Provider Name:Gil Lacy , 09/23/2025 11:00:00 AM, [address] [place] [address], [place] [address], [place], [address], Insurance Providers Payer Name Payer Address Payer Phone Subscriber Number Group Number Insured Name Patient Relationship to Insured Coverage Start Date Coverage End Date [employer] [place] [address] [address] [place] [address] [id number] DANNIELLE FONTENOT Self - patient is [...] [address] Barber HTN Hypothyroid Denies [place],DM,CVA,Lung disease,renal dise ase Bulging discs in neck [...]
--- OUTSIDE RECORDS SUMMARY | 2024-11-16 16:49 | XMS_ITS ---
Author Organization [facility] Address [address] [place] [address] Care Team Providers Care Biomedical Engineering Technician Name Role Phone Hima Choudhary MD Primary Care Provider Unavaila Vaughn Gardner Unavailable [phone] Encounters Encounter Location Date Provider Diagnosis [address] [address] 10/15/2023 Vaughn Reina Plan Of Treatment No Information Progress Notes * Yadira FONTENOTDOB:1955 (69 yo F)Acc No.[id number]:10/15/2023 Progress Note Patient:Yadira TEIXEIRA Provider:?Vaughn Reina DPM :1955???Age:68 Y???Sex:Female D ate:10/15/2023 Address:[address] [place] [address] [facility] Pcp:Hima Choudhary MD Subjective: * Chief Complaints: [...] Reina DPM Date:?2023 Generated for Ki khoury/Brenda/eTransmitting on:?11/16/2024 04:48 PM EDT
--- OUTSIDE RECORDS SUMMARY | 2024-11-16 16:49 | XMS_ITS ---
Author Organization [facility] Address [address] [facility] [place] [address] Care Team Providers Care Restorative Aide Name Role Phone Hima Choudhary MD Primary Care Provider Unavaila Vaughn Gardner Unavailable [phone] Allergies No Known Allergies REASON FOR VISIT [...] Ordered Date Performed Result Body Sit e 95101-QRVYGZP SKIN/TISSUE 08/02/2023 N/A Encounters Encounter Location Date Provider Diagnosis [facility] [address] [place] [address] 08/02/2023 Vaughn Reina Skin ulcer of toe [...] INSTRUCTIONS.pdf) Pending Test Test Name Order Date 45686-MUIFNOM SKIN/TISSUE 08/02/2023 Next Appt Details Follow Up: [...] of the wound post debriement is stable (02375) Progress Notes * Yadira FONTENOTDOB:1955 (67 yo F)Acc No.[id number]:08/02/2023 Progress Notes Patient:?Yadira Fontenot Provider:?Vaughn Reina DPM :1955???Age:67 Y???Sex:Female D ate:08/02/2023 Address:[address] [place] [address] Pcp:Hima Choudhary MD Subjective: * Chief Complaints: [...] painting, music, reading. ?Marital status: single. 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 * Medications:?TakingKetamine HCl [...] of the wound post debriement is stable (83655).? * Procedure Codes:?89165 DEBRI DE SKIN/TISSUE * Preventive Medicine:? ??Counseling:?Ulcer:?A [...] Reina DPM Date:?2022 Generated for Ki khoury/Brenda/Lurdes on:?11/16/2024 04:48 PM EDT History and Physical Notes * [...]
--- OUTSIDE RECORDS SUMMARY | 2024-11-16 16:49 | XMS_ITS ---
Author Organization [facility] Address [address] [address] Care Team Providers Care Facilities Mechanical Design Engineer Name Role Phone Hima Choudhary MD Primary Care Provider Gil Hernandez Unavailable [phone] Allergies Allergen (clinical drug ingredient) Drug/Non Drug [...] 09/22/2024 Encounters Encounter Location Date Provider Diagnosis [facility] [address] [place] [address] 09/22/2024 Gil Lacy Hereditary hemochromatosis E83.110 ; [...] Elevated liver enzymes (ICD-10 - R74.8) Overall, nAa appears to be doing well. Her hereditary [...] Provider Name:Gil Lacy , 09/23/2025 11:00:00 AM, [address] [place] [address], [address], [place], [address], Progress Notes * DANNIELLE FONTENOTDOB:1955 (69 yo F)Acc No.[id number]:09/22/2024 Progress Notes Patient:?DANNIELLE FONTENOT Provider:?Gil Lacy MD :1955???Age:68 Y???Sex:Female D ate:09/22/2024 Address:[address] [place], [place] [address] Pcp:Hima Choudhary MD Subjective: * Chief Complaints: [...] in the past year??No,?Points?0,?Interpretation?Negative.?Miscellaneous:?Marital status: . 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 ???Nonsmoker > 10 yrs ago;. * Medications:?TakingMetoprolo [...] be of assistance with in the interim. Dannielel was comfortable with this plan. Thank you [...] Procedure Codes:?3017F COLOR ECTAL CA SCREEN DOC ZBG1250O TOBACCO NON-MYWYD2781 BP SCR NOT PRFRM REC REASON NOS [...] MD Date:? 025 Generated for Ki khoury/Brenda/Neitting on:?11/16/2024 04:49 PM EDT History and Physical Notes * [...]
--- OUTSIDE RECORDS SUMMARY | 2024-11-16 16:49 | XMS_ITS ---
Author Organization [facility] Address [address] [place] [address] Care Team Providers Care Tape Librarian Name Role Phone Hima Choudhary MD Primary Care Provider UnavailGil James [phone] REASON FOR VISIT order Encounters Encounter Location Date Provider Diagnosis [facility] [address] [place] [address] 11/11/2023 Gil Lacy Plan Of Treatment Next Appt Details Provider Name:Gil Lacy , 09/23/2025 11:00:00 AM, [address], [address], [place], [address], Progress Notes * DANNIELLE FONTENOTDOB:1955 (68 yo F)Acc No.[id number]:11/11/2023 Patient:?DANNIELLE FONTENOT :1955???Age:68 Y???Sex:Female Address:[address] [place] [address] [place] [address] * true * Date:? Generated for Printi iraida/Brenda/eTransmitting on:?11/16/2024 04:49 PM EDT
== END 2024-11-16 14:03 | disposition home or self-care (01) ==
LOC: HO.BBR 14:02
PROVIDERS: Visit Provider Internal Medicine
DX: E83.110 Hereditary hemochromatosis (principal)
CPT/HCPCS: 36415; 82728; 83540

== ENCOUNTER 2024-12-25 07:53 | Outpatient (REF) | payer OTHER, SELFPAY ==
--- NOTE | ~2024-12-25 | US_ITS ---
EXAMINATION: US COMPLETE ABDOMEN WITH LIVER ELASTOGRAPHY CLINICAL INFORMATION: Elevated liver enzymes. There are hemachromatosis. COMPARISON: 11/29/2023 abdomen US with elastography. TECHNIQUE: Real-time imaging of the abdominal viscera. Noninvasive ultrasound liver fibrosis assessment is performed using Mauro ElastPQ point quantification shear wave elastography (pSWE) with a C5-2 MHz transducer. Multiple elastography samples are obtained. FINDINGS: PANCREAS: The visualized pancreatic head and body are normal in appearance. The remainder of the pancreas is obscured from visualization by the overlying bowel gas. ABDOMINAL AORTA: No aortic aneurysm is seen. INFERIOR VENA CAVA: Visualized portions are normal. LIVER: The liver demonstrates mild enlargement, normal contour, and diffusely increased echogenicity. No focal lesion or intrahepatic biliary duct dilatation. The right lobe measures 18.9 cm in length. The left lobe measures 11.1 cm in length. Portal flow is towards the liver (hepatopetal). Shear wave liver elastography median stiffness is 1.15 m/s (reference: normal median stiffness is 1.3 m/s or less). (Previous stiffness measured 1.58 m/s). IQR/median stiffness to assess sampling precision is 0.14 (reference: good quality data set is IQR/median stiffness of 0.15 or less). GALLBLADDER: Surgically absent. COMMON BILE DUCT: Normal in caliber measuring 0.8 cm in diameter. RIGHT KIDNEY: No hydronephrosis. No renal calculi or focal parenchymal lesions. The kidney measures 11.0 cm in maximum dimension. Minimally complicated septated midpole cyst measuring 0.7 cm. Simple upper pole cyst measuring 1.3 cm. LEFT KIDNEY: No hydronephrosis. No renal calculi or focal parenchymal lesions. The kidney measures 10.0 cm in maximum dimension. Mid to upper pole simple cyst measuring 2.2 cm. Mid pole simple cyst measuring 1.3 cm. SPLEEN: Unremarkable. The spleen measures 8.4 cm in maximum dimension. FREE FLUID: None seen. US/US abdomen comp w elastography IMPRESSION: 1. Diffusely increased echogenicity of the liver, without focal lesion seen. Mild liver enlargement. Findings most likely represent steatosis. 2. Liver elastography: Measurements are consistent with a high probability of normal liver stiffness. When compared with prior exam, there is a statistically significant decrease in liver stiffness (decrease at least 10%). 3. Cholecystectomy. 4. Bilateral renal cysts. REFERENCE: Society of Radiologists in Ultrasound Liver Stiffness Thresholds (2019): LIVER STIFFNESS THRESHOLDS: *Liver Stiffness equal or less than 1.3 m/s: High probability of being normal. *Liver Stiffness less than 1.7 m/s: In the absence of other known clinical signs, rules out compensated advanced chronic liver disease. *Liver Stiffness 1.7-2.1 m/s: Suggestive of compensated advanced chronic liver disease but need further test for confirmation. *Liver Stiffness over 2.1 m/s: Rules in compensated advanced chronic liver disease. *Liver Stiffness over 2.4 m/s: Suggestive of clinically significant portal hypertension. QUALITY OF DATA SET: *IQR/Median value equal or less than 0.15 implies a quality data set. *IQR/Median value over 0.15 implies a poor quality data set. SIGNIFICANT CHANGE FROM PRIOR EXAM: Significant change if liver stiffness measurement is 10% or greater from prior exam. OTHER CONSIDERATIONS: The stage of liver fibrosis may be overestimated in the setting of acute hepatitis, liver inflammation, elevated liver function tests, hepatic vascular congestion, obstructive cholestasis, non-fasting state, and infiltrative diseases such as amyloidosis and lymphoma. In some patients with NAFLD, the liver stiffness thresholds for compensated advanced chronic liver disease may be lower. In causes other than viral hepatitis and NAFLD, liver stiffness thresholds are not well established. Electronically signed by: Daniele Gray MD 12/25/2024 09:23 AM EDT
--- OUTSIDE RECORDS SUMMARY | 2024-12-25 07:57 | XMS_ITS ---
Author Organization [facility] Address [address] [place] [address] Care Team Providers Care Dianeticist Name Role Phone Hima Choudhary MD Primary Care Provider Unavaila Vaughn Gardner Unavailable [phone] REASON FOR VISIT CX 10/15/23 Encounters Encounter Location Date Provider Diagnosis [address] [address] 10/14/2023 Vaughn Reina Plan Of Treatment No Information Progress Notes * Yadira FONTENOTDOMarin:1955 (68 yo F)Acc No.[id number]:10/14/2023 Patient:?Yadira Fontenot :1955???Age:68 Y???Sex:Female Address:[address] [place] [address] [place] [address] * true * Date:? Generated for Irmai iraida/Brenda/eTransmitting on:?12/25/2024 07:57 AM EDT
--- OUTSIDE RECORDS SUMMARY | 2024-12-25 07:58 | XMS_ITS ---
Author Organization [facility] Address [address] [place] [address] Care Team Providers Care Sheet Metal Supervisor Name Role Phone Hima Choudhary MD Primary Care Provider Unavaila Vaughn Gardner Unavailable [phone] Encounters Encounter Location Date Provider Diagnosis [address] [address] 10/15/2023 Vaughn Reina Plan Of Treatment No Information Progress Notes * Yadira FONTENOTDOB:1955 (69 yo F)Acc No.[id number]:10/15/2023 Progress Note Patient:Yadira TEIXEIRA Provider:?Vaughn Reina DPM :1955???Age:68 Y???Sex:Female D ate:10/15/2023 Address:[address] [place] [address] [facility] Pcp:Hima Choudhary MD Subjective: * Chief Complaints: [...] Reina DPM Date:?2023 Generated for Ki khoury/Brenda/eTransmitting on:?12/25/2024 07:57 AM EDT
--- OUTSIDE RECORDS SUMMARY | 2024-12-25 07:58 | XMS_ITS | Patient Health Record ---
Author [facility] Address [address] [facility] [address] Care Team Providers Care Area Coordinator Name Role Phone Hima Choudhary MD Primary Care Provider Vaughn Hong Unavailable [phone] Allergies No Known Allergies Reason For Referral [...] fat layer exposed (L97.512) Active confirmed Problem 953060288 Fungal infection of nail (B35.1) Active confirmed Rx management (4) Plan Of Treatment Pending Test Test Name Order Date 10790-AGI 07/19/2023 64704-CKJTZQA SKIN/TISSUE 08/02/2023 Insurance Providers Payer Name Payer Address Payer Phone Subscriber Number Group Number Insured Name Patient Relationship to Insured Coverage Start Date Coverage End Date Blue Benefits [address] [address] [place] [id number] Yadira Bojorquez Self - patient is the [...]
--- OUTSIDE RECORDS SUMMARY | 2024-12-25 07:58 | XMS_ITS ---
Author Organization [facility] Address [address] [place] [address] Care Team Providers Care Tire Repairman Name Role Phone Hima Choudhary MD Primary Care Provider Unavaila Vaughn Gardner Unavailable [phone] Allergies No Known Allergies REASON FOR VISIT [...] Ordered Date Performed Result Body Sit e 43802-CNAICNV SKIN/TISSUE 08/02/2023 N/A Encounters Encounter Location Date Provider Diagnosis [facility] [address] [place] [address] 08/02/2023 Vaughn Reina Skin ulcer of toe [...] INSTRUCTIONS.pdf) Pending Test Test Name Order Date 94257-SYCMYKI SKIN/TISSUE 08/02/2023 Next Appt Details Follow Up: [...] of the wound post debriement is stable (26981) Progress Notes * Yadira FONTENOTDOB:1955 (67 yo F)Acc No.[id number]:08/02/2023 Progress Notes Patient:?Yadira Fontenot Provider:?Vaughn Reina DPM :1955???Age:67 Y???Sex:Female D ate:08/02/2023 Address:[address] [place] [address] Pcp:Hima Choudhary MD Subjective: * Chief Complaints: [...] painting, music, reading. ?Marital status: single. 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 * Medications:?TakingKetamine HCl , [...] of the wound post debriement is stable (09472).? * Procedure Codes:?48116 DEBRI DE SKIN/TISSUE * Preventive Medicine:? ??Counseling:?Ulcer:?A [...] Reina DPM Date:?2022 Generated for Ki khoury/Brenda/Lurdes on:?12/25/2024 07:57 AM EDT History and Physical Notes * HPI [...]
--- OUTSIDE RECORDS SUMMARY | 2024-12-25 07:58 | XMS_ITS ---
Author Organization [facility] Address [address] [place] [address] Care Team Providers Care Compensation Adjuster Name Role Phone Hima Choudhary MD Primary Care Provider UnavailGil James [phone] REASON FOR VISIT order Encounters Encounter Location Date Provider Diagnosis [facility] [address] [facility] [address] [place] [address] 11/11/2023 Gil Lacy Plan Of Treatment Next Appt Details Provider Name:Gil Lacy , 09/23/2025 11:00:00 AM, [address], [address], [place], [address], Progress Notes * DANNIELLE FONTENOTDOB:1955 (68 yo F)Acc No.[id number]:11/11/2023 Patient:?DANNIELLE FONTENOT :1955???Age:68 Y???Sex:Female Address:[address] [place] [address] [place] [address] * true * Date:? Generated for Printi iraida/Brenda/eTransmitting on:?12/25/2024 07:58 AM EDT
--- OUTSIDE RECORDS SUMMARY | 2024-12-25 07:58 | XMS_ITS ---
Author Organization [facility] Address [address] [place] [address] Care Team Providers Care Mobile Equipment Operator Name Role Phone Hima Choudhary MD Primary Care Provider Gil Hernandez [phone] Encounters Encounter Location Date Provider Diagnosis [facility] [address] [place] [address] 11/07/2023 Gil Lacy Plan Of Treatment Next Appt Details Provider Name:Gil Lacy , 09/23/2025 11:00:00 AM, [address], [address], [place], [address], Progress Notes * DANNIELLE FONTENOTDOB:1955 (68 yo F)Acc No.[id number]:11/07/2023 Patient:?DANNIELLE FONTENOT :1955???Age:68 Y???Sex:Female Address:[address] [place] [address] * true * Date:? Generated for Printi iraida/Brenda/eTransmitting on:?12/25/2024 07:58 AM EDT
--- OUTSIDE RECORDS SUMMARY | 2024-12-25 07:58 | XMS_ITS ---
Author Organization [facility] Address [address] [address] Care Team Providers Care Power Switchboard Operator Name Role Phone Hima Choudhary MD Primary Care Provider Gil Hernandez Unavailable [phone] Allergies Allergen (clinical drug ingredient) Drug/Non Drug [...] 09/22/2024 Encounters Encounter Location Date Provider Diagnosis [facility] [address] [place] [address] 09/22/2024 Gil Lacy Hereditary hemochromatosis E83.110 ; [...] Provider Name:Gil Lacy , 09/23/2025 11:00:00 AM, [address] [place] [address], [address], [place], [address], Progress Notes * DANNIELLE FONTENOTDOB:1955 (69 yo F)Acc No.[id number]:09/22/2024 Progress Notes Patient:?DANNIELLE FONTENOT Provider:?Gil Lacy MD :1955???Age:68 Y???Sex:Female D ate:09/22/2024 Address:[address] [place], [place] [id number] Pcp:Hima Choudhary MD Subjective: * Chief Complaints: [...] in the past year??No,?Points?0,?Interpretation?Negative.?Miscellaneous:?Marital status: . 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 ???Nonsmoker > 10 yrs ago;. * Medications:?TakingMetoprolo [...] Procedure Codes:?3017F COLOR ECTAL CA SCREEN DOC [id number] TOBACCO [id number]-[id number] BP SCR NOT PRFRM REC REASON NOS [...] Lacy MD Date:? 025 Generated for Ki khoury/Brenda/Tobysmitting on:?12/25/2024 07:58 AM EDT History and Physical Notes * [...]
--- OUTSIDE RECORDS SUMMARY | 2024-12-25 07:58 | XMS_ITS | Patient Health Record ---
Author Organization [facility] Address [address] [place] [address] Care Team Providers Care Real Estate Associate Name Role Phone Hima Choudhary MD Primary Care Provider Gli Hernandez [phone] Allergies Allergen (clinical drug ingredient) Drug/Non Drug Allergy documented on EMR Reaction Allergy Type Onset Date Status Bees (uncoded) Unknown Allergy Activ e Seasonal Allergies (uncoded) Unknown Allergy Active Results Component Value Reference Range Notes IRON PROFILE Reviewed date:10/01/2024 06:59:05 PM Interpretation: Performing Lab:[facility], [address] [place] [address] Notes/Report: Iron 195 30-160 mcg/dL Total Iron Binding Capacity 276 228-428 mcg/dL Percent Iron Saturation 71 15-50 % Unsaturated Iron Binding 81 Ferritin Reviewed date:06/11/2024 01:19:08 PM Interpretation: Performing Lab:[facility], [address] [place] [phone] Notes/Report: Ferritin 182 10-250 ng/mL Therapeutic Phlebotomy Reviewed date:06/11/2024 01:19:19 PM Interpretation: Performing Lab:[facility], [address] [place] [address] Notes/Report: THER/HGB 12.7 12.0-16.0 g/dL THER/HCT TNP 37.0-47.0 % Therapeutic Phlebotomy Phlebotomy Performed 500 mls drawn on 06/10/24. Please note that a copy of this report has been sent to the Primary Care Physician, the ordering physician and any physician designated by patient request. Complete Blood Count Auto Di ff Reviewed date:09/27/2024 03:40:08 PM Interpretation: Performing Lab:[facility], [address] [place] [address] Notes/Report: White Blood Count 6.4 4.8-10.8 X10*3/uL [...] 0.0-0.2 /100WBC Neutrophils Absolute Auto 2.8 2.0-8.3 x10*3/u L Imm Gran Abs Auto 0.01 0.00-0.03 X10*3/uL Lymphocytes Absolute Auto 2.6 1.2-4.9 X10*3/u L Monocytes Absolute Auto 0.6 0.1-1.2 X10*3/uL Eosinophils Absolute Auto 0.3 0.0-0.4 X10*3/u L Basophils Absolute Auto 0.1 0.0-0.2 X10*3/uL NRBC Abs Auto 0.000 0.0-0.012 X10*3/uL Prothrombin Time INR Reviewed date:09/27/2024 03:39:49 PM Interpretation: Performing Lab:[facility], [address] [place] [phone] Notes/Report: Prothrombin Time 9.9 10.9-12.4 SEC INTERNATIONAL [...] Panel Reviewed date:09/27/2024 03:40:27 PM Interpretation: Performing Lab:[address] [address] Notes/Report: Bilirubin Total 0.4 0.0-1.0 mg/dL Bilirubin Direct 0.1 0.0-0.5 mg/dL Aspartate Amino Transferase 53 5-31 U/L Alanine Aminotransferase 61 0-31 U/L Total Protein 7.7 6.5-8.0 g/dL Albumin Level 4.1 3.5-5.0 g/dL Alkaline Phosphatase 138 39-117 U/L Alpha Fetoprotein Reviewed date:2024 06:53:08 PM Interpretation: Performing Lab:[address] [address] Notes/Report: Alpha Fetoprotein 4.3 Reference Range: <6.1 The use of AFP as a tumor marker in females is not recommended. This test was performed using the Dom[employer] chemiluminescent method. Values obtained from different assay methods cannot be used interchangeably. AFP levels, regardless of value, should not be interpreted as absolute evidence of the presence or absence of disease. THIS TEST WAS PERFORMED AT: [facility] [address] [place] [phone] SHAHRZAD OVALLES MD Liver Fibrosis Pnl Reviewed date:2024 06:53:27 PM Interpretation: Performing Lab:[address] [address] Notes/Report: Liver Fibrosis Score 0.18 Liver Fibrosis [...] a>0.62 and a<=1.00 : A3 (severe activity) VKR-Zqtfq-0-Macroglobulin 207 106-279 mg/dL FIB-Haptoglobin 92 43-212 mg/dL FIB-Apolipoprotein A1 196 101-198 mg/dL FIB-Total Bilirubin 0.3 0.2-1.2 mg/dL FIB-GGT 51 3-65 U/L FIB-ALT 42 6-29 U/L Reference ID [id number] Footnote SEE NOTE The reliability of results is dependent on compliance with the preanalytical and analytical conditions recommended by [employer]. The tests have to be deferred for: [...] The performance characteristics have been determined by [employer] [facility]. It has not been cleared or approved by the U.S. Food and Drug Administration. Performance characteristics refer to the analytical performance of the test. [employer], the associated logo, [employer] and all associated [employer] bae are the registered trademarks of [employer]. All third alliance party bae - (R) and (TM) - are the property of their respective owners. (C) 1976-3153 [employer]. All rights reserved. THIS TEST WAS PERFORMED AT: [facility] [address] [place] [address] GERARDO ENGLE MD,PHD,MOLLY IRON PROFILE Reviewed date:11/16/2024 11:35:52 PM Interpretation: Performing Lab:[address] [address] Notes/Report: Iron 248 30-160 mcg/dL Total Iron Binding Capacity 273 228-428 mcg/dL Percent Iron Saturation 91 15-50 % Unsaturated Iron Binding < 25 Ferritin Reviewed date:11/16/2024 11:35:37 PM Interpretation: Performing Lab:[address] [address] Notes/Report: Ferritin 193 10-250 ng/mL Therapeutic Phlebotomy Reviewed date:11/16/2024 11:37:43 PM Interpretation: Performing Lab:[address] [address] Notes/Report: THER/HGB 14.4 12.0-16.0 g/dL THER/HCT TNP [...] Problem Status W/U Status Risk Notes Problem 39636958 Rectal bleeding (K62.5) Active confirmed Problem 531153416 Change in bowel habit (R19.4) Active confirmed Problem 62718984 Hereditary hemochromatosis (E83.110) Active confirmed Problem 004438890 Elevated liver function tests (R79.89) Active confirmed Problem 459371110 Elevated liver enzymes (R74.8) Active confirmed Problem 554133777 Fatty liver (K76.0) Active confirmed Problem Iron excess (06074818) Iron excess (E83.19) Active confirmed Problem 24470429 Constipation, unspecified constipation type (K59.00) Active confirmed Problem Diverticulosis of colon (290656007) Diverticulosis of colon (K57.30) Active confirmed Vital Signs Blood pressure diastolic 00 mm Hg 09/22/2024 Height 64 in 09/22/2024 Blood pressure systolic 00 mm Hg 09/22/2024 Weight 230 lbs 09/22/2024 BMI 39.48 kg/m2 09/22/2024 Encounters Encounter Location Date Provider Diagnosis [facility] [address] [place] [address] 09/22/2024 Gil Lacy Hereditary hemochromatosis E83.110 ; [...] DIFF 10/17/2016 HEPATITIS B, C PROFILE 11/04/2018 [id number] (A1A) 11/04/2018 ALPHA-FETOPROTEIN,TUMOR MARKER 7 ALPHA-FETOPROTEIN,TUMOR MARKER [...] COLONOSCOPY 08/02/2021 Next Appt Details Provider Name:Gil Varghese Lacy , 09/23/2025 11:00:00 AM, [address], [address], [place], [address], Insurance Providers Payer Name Payer Address Payer Phone Subscriber Number Group Number Insured Name Patient Relationship to Insured Coverage Start Date Coverage End Date [employer] [place] [address] [address] [place] [address] [id number] DANNIELLE FONTENOT Self - patient is [...] [address] Barber HTN Hypothyroid Denies [place],DM,CVA,Lung disease,renal dise ase Bulging discs in neck [...]
== END 2024-12-25 07:54 | disposition home or self-care (01) ==
LOC: HO.US 07:53
PROVIDERS: Visit Provider Internal Medicine
DX: E83.110 Hereditary hemochromatosis (principal); R74.8 Abnormal levels of other serum enzymes
CPT/HCPCS: 76700; 76981

== ENCOUNTER → 2024-12-25 07:55 | Outpatient (BNV) | payer OTHER, SELFPAY | PROVIDERS: Visit Provider Radiology Diagnostic Radiology | DX: K76.0 Fatty (change of) liver, not elsewhere classified (principal); N20.0 Calculus of kidney | CPT/HCPCS: 76700; 76981 ==

== ENCOUNTER 2025-01-06 16:14 | Outpatient (AMB) | payer OTHER, SELFPAY ==
--- NOTE | 2025-01-06 14:11 | A.OFFPC_ITS ---
Vital Signs 01/06/25 14:11 Height 5 ft 4 in Intake Visit Reasons: Needs an updated MRI Forestry Consultant Required: No Accompanied by: Self / Same As Patient Allergies bee pollen [bee stings] Allergy (Unknown, Verified 01/06/25 15:14) Unknown Seasonal Allergies Allergy (Unknown, Verified 01/06/25 15:14) Unknown Medication List - Last Reconciled 01/06/25 by Sung Britton MD amitriptyline 1 tab PO BEDTIME cetirizine 1 tab PO DAILY chlordiazepoxide HCl 1 cap PO BEDTIME fluticasone propionate 50 mcg/actuation 1 spray intranasal BID levothyroxine 1 tab PO DAILY losartan 1 tab PO DAILY metoprolol succinate ER 1 tab PO DAILY prednisone 60 mg (3 x 20 mg) PO DAILY sulfamethoxazole-trimethoprim 800-160 mg (Bactrim DS) 1 tab PO BID 7 days Tobacco use date assessed: 01/06/25 Fall risk assessment: No Falls in past year Last assessed Fall Risk: 01/06/25 Dental Screening Dental Screen Date: 01/06/25 Did you have a dental visit in the last 12 months?: Yes Did you have a dental problem in the last 6 months where you did not have access to dental care?: No HPI Needs an updated MRI HPI Details [facility] Medical History GERD (gastroesophageal reflux disease) Hemochromatosis Hypothyroid Migraine HTN (hypertension) Surgical History H/O colonoscopy (~09/04/21) Hx of blepharoplasty Hx of cholecystectomy History of Evan fundoplication Hx of breast biopsy Family History Mother Cardiac pacemaker BP (high blood pressure) Anxiety Father Afib Social History Housing: House Alcohol intake: current Alcohol intake frequency: holidays/special occasions only Patient Tobacco Use Status: Never used Tobacco e-Cigarette/Vaping Use: Never Used service: No Current occupational status: employed 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 1. Little interest or pleasure in doing things: not at all 2. Feeling down, depressed, or hopeless: not at all 3. Trouble falling or staying asleep, or sleeping too much: not at all 4. Feeling tired or having little energy: not at all 5. Poor appetite or overeating: not at all 6. Feeling bad about yourself - or that you are a failure or have let yourself or your family down: not at all 7. Trouble concentrating on things, such as reading the newspaper or watching television: not at all 8. Moving or speaking so slowly that other people could have noticed. Or the opposite - being so fidgety or restless that you have been moving around a lot more than usual: not at all 9. Thoughts that you would be better off or of hurting yourself in some way: not at all Total score: 0 Source: Developed by Drs. Gil Wood, Edna Lane, Lalit Adam and colleagues, with an educational cody from [employer]. Thrive Questionnaire Date Thrive assessed: 01/06/25 I am a: Patient Within the past 12 months, did the food you bought not last and you didn't have the money to get more?: Never true Within the past 12 months, did you worry whether your food would run out before you got money to buy more?: Never true Do you have trouble paying for medicines?: No Do you have trouble getting transportation to medical appointments?: No Do you have trouble paying your heating and electricity bill?: No Do you have trouble taking care of your child, family member or friend?: No Do you have trouble with day-to-day activities such as bathing, preparing meals, shopping, managing finances, etc.?: No Are you currently unemployed and looking for a job?: No Are you interested in more education?: No THRIVE Score: 0 AUDIT C Alcohol Use Questionnaire (AUDIT-C) 1. How often do you have a drink containing alcohol?: Never 3. How often do you have six or more drinks on one occasion?: Never Total Score: 0 AMOS-7 AMB Questionnaire AMOS-7 Date AMOS - 7 assessed: 01/06/25 Feeling nervous, anxious, or on edge: 0 = Not at all Not being able to stop or control worryin = Not at all Worrying too much about different things: 0 = Not at all Trouble relaxin = Not at all Being so restless that it is hard to sit still: 0 = Not at all Becoming easily annoyed or irritable: 0 = Not at all Feeling afraid as if something awful might happen: 0 = Not at all Total AMOS-7 score (0-4 normal; 5-9 mild; 10-14 moderate; 15-21 severe): 0 Source: Developed by Drs. Gil Wood, Edna Lane, Lalit Adam and colleagues, with an educational cody from [employer]. Physical exam (Primary Care) Tobacco/Smoking Status: Tobacco use Status Tobacco use date assessed 01/06/25 01/06/25 14:13 Patient Tobacco Use Status Never used Tobacco 01/06/25 14:13 e-Cigarette/Vaping Use Never Used 01/06/25 14:13 PHQ-9: PHQ-9 Score PHQ-9: Total score 0 01/06/25 14:13 Thrive Assessment: Date of Thrive Assessment Date Thrive assessed 01/06/25 01/06/25 14:13 Telehealth Telehealth Telehealth Platform: Telephone Location of provider rendering services: practice address Location of patient: address on file Patient Identification confirmed using: Name, : Yes Telehealth method: voice only Patient verbally consented to treatment: Yes Patient verbally consented to billing insurance company: Yes Patient informed of any privacy concerns related to visit: Yes Minutes spent on Phone/Video with Pt.: 15 Coding Level of Care Code Tele Est Pt Level 3 (44049) Complex EM visit Add On G2211 Diagnoses Stenosis, spinal, lumbar M48.061 Assessment & Plan Assessment & Plan (1) Stenosis, spinal, lumbar: Code(s): M48.061 - Spinal stenosis, lumbar region without neurogenic claudication Category: Medical Plan: History of Present Illness - The patient is a 69-year-old female presenting with a request for MRI of the lumbar spine. - History of dermatitis treated with antibiotics and prednisone. - Kyphoplasty performed in 2021. - Known spinal stenosis, - Lumbar spine MRI in 2021 showed bulging discs. 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 Review of Systems - Musculoskeletal: Reports bulging discs. Physical Exam Results - Imaging: Lumbar spine MRI in 2021 showed bulging discs; canal stenosis present. Plan 1. Dermatitis - Previous treatment involved antibiotics and prednisone. - Continue monitoring for any recurrence. 2. Spinal Stenosis - Plan to order a lumbar spine MRI pending insurance approval. - Consider physical therapy as required by insurance. Discussion Notes During the telehealth visit, we discussed the patient's history of dermatitis and spinal stenosis. I explained the need for a lumbar spine MRI to assess her condition further. The findings from the previous MRI, which showed bulging discs with canal stenosis, were reviewed. We talked about the potential requirement for physical therapy by the insurance company before MRI approval. I advised that I would place the order for the MRI and follow up based on the insurance's decision. The patient acknowledged understanding of the plan and agreed to proceed as discussed. Patient Instructions - - Await further instructions regarding the MRI after insurance approval. - Consider starting physical therapy if required by insurance. - Contact the office if there are any changes or worsening of symptoms.
--- OUTSIDE RECORDS SUMMARY | 2025-01-06 16:19 | XMS_ITS ---
Author Organization [facility] Address [address] [place] [address] Care Team Providers Care Warehouse Operations Associate Name Role Phone Hima Choudhary MD Primary Care Provider Unavaila Vaughn Gardner Unavailable [phone] REASON FOR VISIT CX 10/15/23 Encounters Encounter Location Date Provider Diagnosis [address] [address] 10/14/2023 Vaughn Reina Plan Of Treatment No Information Progress Notes * Yadira FONTENOTDOMarin:1955 (68 yo F)Acc No.[id number]:10/14/2023 Patient:?Yadira Fontenot :1955???Age:68 Y???Sex:Female Address:[address] [place] [address] [place] [address] * true * Date:? Generated for Irmai iraida/Brenda/eTransmitting on:?01/06/2025 04:18 PM EDT
== END 2025-01-06 16:42 | disposition home or self-care (01) ==
LOC: HO.HMCHD 16:14
PROVIDERS: PCP Internal Medicine; Visit Provider Internal Medicine
DX: M48.061 Spinal stenosis, lumbar region without neurogenic claudication (principal)

== ENCOUNTER → 2025-01-06 16:14 | Outpatient (BNVA) | payer OTHER, SELFPAY | PROVIDERS: PCP Internal Medicine; Visit Provider Internal Medicine | DX: M48.061 Spinal stenosis, lumbar region without neurogenic claudication (principal) ==

== ENCOUNTER 2025-01-08 11:37 | Outpatient (REF) | payer OTHER, SELFPAY ==
--- NOTE | ~2025-01-08 | MR_ITS ---
CLINICAL HISTORY: M48.061 - Spinal stenosis, lumbar region without neurogenic claudication MR lumbar spine without gadolinium Comparison: 03/20/2022, 04/24/2022 Findings: Signal void likely related to cement material noted in the L4 vertebral body. No scoliosis or spondylolisthesis. No acute fracture or pathologic bone lesion. Cauda equina and conus medullaris within normal limits. Broad-based degenerative disc bulge at L3-L4 with mild central canal stenosis, not significantly changed. Paraspinous musculature intact. IMPRESSION: No acute findings. This document has been electronically signed by: Deny Oneal MD on 01/09/2025 10:34:51
--- OUTSIDE RECORDS SUMMARY | 2025-01-08 12:31 | XMS_ITS | Patient Health Record ---
Author Organization [facility] Address [address] [address] Care Team Providers Care Protective Signal Operator Name Role Phone Hima Choudhary MD Primary Care Provider Vaughn Hong Unavailable [phone] Allergies No Known Allergies Reason For Referral [...] fat layer exposed (L97.512) Active confirmed Problem 159815253 Fungal infection of nail (B35.1) Active confirmed Rx management (4) Plan Of Treatment Pending Test Test Name Order Date [id number] 07/19/2023 [id number] SKIN/TISSUE 08/02/2023 Insurance Providers Payer Name Payer Address Payer Phone Subscriber Number Group Number Insured Name Patient Relationship to Insured Coverage Start Date Coverage End Date Blue Benefits [address] [address] [place] [id number] Yadira Bojorquez Self - patient is the [...]
== END 2025-01-08 11:38 | disposition home or self-care (01) ==
LOC: HO.MRI 11:37
PROVIDERS: Visit Provider Internal Medicine
DX: M48.061 Spinal stenosis, lumbar region without neurogenic claudication (principal)
CPT/HCPCS: 72148

== ENCOUNTER → 2025-01-08 11:49 | Outpatient (BNV) | payer OTHER, SELFPAY | PROVIDERS: Visit Provider Specialist | DX: M48.061 Spinal stenosis, lumbar region without neurogenic claudication (principal) | CPT/HCPCS: 72148 ==

== ENCOUNTER 2025-02-17 11:40 | Outpatient (AMB) | payer OTHER, SELFPAY ==
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
--- OUTSIDE RECORDS SUMMARY | 2025-02-17 12:51 | XMS_ITS | Patient Health Record ---
Author Organization [facility] Address [address] [place] [address] Care Team Providers Care Vocational Nurse Lvn Name Role Phone Hima Choudhary MD Primary Care Provider Gil Hernandez [phone] Allergies Allergen (clinical drug ingredient) Drug/Non Drug Allergy documented on EMR Reaction Allergy Type Onset Date Status Bees (uncoded) Unknown Allergy Activ e Seasonal Allergies (uncoded) Unknown Allergy Active Results Component Value Reference Range Notes IRON PROFILE Reviewed date:10/01/2024 06:59:05 PM Interpretation: Performing Lab:[facility], [address] [place] [phone] Notes/Report: Iron 195 30-160 mcg/dL Total Iron Binding Capacity 276 228-428 mcg/dL Percent Iron Saturation 71 15-50 % Unsaturated Iron Binding 81 Ferritin Reviewed date:06/11/2024 01:19:08 PM Interpretation: Performing Lab:[facility], [address] [place] [phone] Notes/Report: Ferritin 182 10-250 ng/mL Therapeutic Phlebotomy Reviewed date:06/11/2024 01:19:19 PM Interpretation: Performing Lab:[facility], [address] [place] [address] Notes/Report: THER/HGB 12.7 12.0-16.0 g/dL THER/HCT TNP 37.0-47.0 % Therapeutic Phlebotomy Phlebotomy Performed 500 mls drawn on 06/10/24. Please note that a copy of this report has been sent to the Primary Care Physician, the ordering physician and any physician designated by patient request. Complete Blood Count Auto Di ff Reviewed date:09/27/2024 03:40:08 PM Interpretation: Performing Lab:[facility], [address] [place] [phone] Notes/Report: White Blood Count 6.4 4.8-10.8 X10*3/uL [...] INR Reviewed date:09/27/2024 03:39:49 PM Interpretation: Performing Lab:[facility], [address] [place] [phone] Notes/Report: Prothrombin Time 9.9 10.9-12.4 SEC INTERNATIONAL [...] Panel Reviewed date:09/27/2024 03:40:27 PM Interpretation: Performing Lab:[address] [address] Notes/Report: Bilirubin Total 0.4 0.0-1.0 mg/dL Bilirubin Direct 0.1 0.0-0.5 mg/dL Aspartate Amino Transferase 53 5-31 U/L Alanine Aminotransferase 61 0-31 U/L Total Protein 7.7 6.5-8.0 g/dL Albumin Level 4.1 3.5-5.0 g/dL Alkaline Phosphatase 138 39-117 U/L Alpha Fetoprotein Reviewed date:2024 06:53:08 PM Interpretation: Performing Lab:[address] [address] Notes/Report: Alpha Fetoprotein 4.3 Reference Range: <6.1 The use of AFP as a tumor marker in females is not recommended. This test was performed using the [employer] [place] chemiluminescent method. Values obtained from different assay methods cannot be used interchangeably. AFP levels, regardless of value, should not be interpreted as absolute evidence of the presence or absence of disease. THIS TEST WAS PERFORMED AT: [employer] [address] [place] [phone] SHAHRZAD OVALLES MD Liver Fibrosis Pnl Reviewed date:2024 06:53:27 PM Interpretation: Performing Lab:[address] [address] Notes/Report: Liver Fibrosis Score 0.18 Liver Fibrosis [...] a>0.62 and a<=1.00 : A3 (severe activity) XDZ-Dibuo-9-Macroglobulin 207 106-279 mg/dL FIB-Haptoglobin 92 43-212 mg/dL FIB-Apolipoprotein A1 196 101-198 mg/dL FIB-Total Bilirubin 0.3 0.2-1.2 mg/dL FIB-GGT 51 3-65 U/L FIB-ALT 42 6-29 U/L Reference ID [id number] Footnote SEE NOTE The reliability of results is dependent on compliance with the preanalytical and analytical conditions recommended by [employer]. The tests have to be deferred for: [...] The performance characteristics have been determined by [facility]. It has not been cleared or approved by the U.S. Food and Drug Administration. Performance characteristics refer to the analytical performance of the test. [employer], the associated logo, [employer] and all associated [employer] bae are the registered trademarks of [employer]. All third republican bae - (R) and (TM) - are the property of their respective owners. (C) 2553-9814 [employer]. All rights reserved. THIS TEST WAS PERFORMED AT: [employer] [facility] [place] [address] [place] [address] GERARDO ENGLE MD,PHD,MOLLY IRON PROFILE Reviewed date:11/16/2024 11:35:52 PM Interpretation: Performing Lab:[address] [address] Notes/Report: Iron 248 30-160 mcg/dL Total Iron Binding Capacity 273 228-428 mcg/dL Percent Iron Saturation 91 15-50 % Unsaturated Iron Binding < 25 Ferritin Reviewed date:11/16/2024 11:35:37 PM Interpretation: Performing Lab:[address] [address] Notes/Report: Ferritin 193 10-250 ng/mL Therapeutic Phlebotomy Reviewed date:11/16/2024 11:37:43 PM Interpretation: Performing Lab:[address] [address] Notes/Report: THER/HGB 14.4 12.0-16.0 g/dL THER/HCT TNP 37.0-47.0 % Therapeutic Phlebotomy Phlebotomy Performed 500 mls drawn on 11/16/24. Please note that a copy of this report has been sent to the Primary Care Physician, the ordering physician and any physician designated by patient request. US abdomen comp w elastograp hy (Not yet reviewed by provider) Interpretation: Performing Lab: Notes/Report: [address] [address] Ultrasound Report Signed Patient: Shellie Fontenot MR#: [id number] 48 : 1955 Acct:[id number] Age/Sex: 69 / F ADM Date: 12/25/24 Loc: HO.US Attending Dr: Gil Lacy MD Ordering Physician: Gil Lacy MD Date of Service: 12/25/24 Procedure(s): US abdomen comp w elastography Accession Number(s): [id number] cc: Gil Lacy MD EXAMINATION: US COMPLETE ABDOMEN WITH LIVER ELASTOGRAPHY CLINICAL INFORMATION: Elevated liver enzymes. There are hemachromatosis. COMPARISON: 11/29/2023 abdomen US with elastography. TECHNIQUE: Real-time imaging of the abdominal viscera. Noninvasive ultrasound liver fibrosis assessment is performed using [employer] El[employer] point quantification shear wave elastography (pSWE) with a C5-2 MHz transducer. Multiple elastography samples are obtained. FINDINGS: PANCREAS: The visualized pancreatic head and body are normal in appearance. The remainder of the pancreas is obscured from visualization by the overlying bowel gas. ABDOMINAL AORTA: No aortic aneurysm is seen. INFERIOR VENA CAVA: Visualized portions are normal. LIVER: The liver demonstrates mild enlargement, normal contour, and diffusely increased echogenicity. No focal lesion or intrahepatic biliary duct dilatation. The right lobe measures 18.9 cm in length. The left lobe measures 11.1 cm in length. Portal flow is towards the liver (hepatopetal). Shear wave liver elastography median stiffness is 1.15 m/s (reference: normal median stiffness is 1.3 m/s or less). (Previous stiffness measured 1.58 m/s). IQR/median stiffness to assess sampling precision is 0.14 (reference: good quality data set is IQR/median stiffness of 0.15 or less). GALLBLADDER: Surgically absent. COMMON BILE DUCT: Normal in caliber measuring 0.8 cm in diameter. RIGHT KIDNEY: No hydronephrosis. No renal calculi or focal parenchymal lesions. The kidney measures 11.0 cm in maximum dimension. Minimally complicated septated midpole cyst measuring 0.7 cm. Simple upper pole cyst measuring 1.3 cm. LEFT KIDNEY: No hydronephrosis. No renal calculi or focal parenchymal lesions. The kidney measures 10.0 cm in maximum dimension. Mid to upper pole simple cyst measuring 2.2 cm. Mid pole simple cyst measuring 1.3 cm. SPLEEN: Unremarkable. The spleen measures 8.4 cm in maximum dimension. FREE FLUID: None seen. US/US abdomen comp w elastography IMPRESSION: 1. Diffusely increased echogenicity of the liver, without focal lesion seen. Mild liver enlargement. Findings most likely represent steatosis. 2. Liver elastography: Measurements are consistent with a high probability of normal liver stiffness. When compared with prior exam, there is a statistically significant decrease in liver stiffness (decrease at least 10%). 3. Cholecystectomy. 4. Bilateral renal cysts. REFERENCE: Society of Radiologists in Ultrasound Liver [...] liver stiffness thresholds are not well established. Electronically signed by: Daniele Gray MD 12/25/2024 09:23 AM EDT Dictated By: Daniele Gray MD Signed By: <Electronically signed by Daniele Gray MD in OV> 12/25/24922 DD/ 1 TD/TT: 12/25/24828 Batt Machine Operator: Reason For Referral No Information Medications Medication [...] Problem Status W/U Status Risk Notes Problem 44790852 Rectal bleeding (K62.5) Active confirmed Problem 707704041 Change in bowel habit (R19.4) Active confirmed Problem 18930826 Hereditary hemochromatosis (E83.110) Active confirmed Problem 943867986 Elevated liver function tests (R79.89) Active confirmed Problem 418644718 Elevated liver enzymes (R74.8) Active confirmed Problem 986894204 Fatty liver (K76.0) Active confirmed Problem Iron excess (64924176) Iron excess (E83.19) Active confirmed Problem 35265094 Constipation, unspecified constipation type (K59.00) Active confirmed Problem Diverticulosis of colon (466487803) Diverticulosis of colon (K57.30) Active confirmed Vital Signs Blood pressure diastolic 00 mm Hg 09/22/2024 Height 64 in 09/22/2024 Blood pressure systolic 00 mm Hg 09/22/2024 Weight 230 lbs 09/22/2024 BMI 39.48 kg/m2 09/22/2024 Encounters Encounter Location Date Provider Diagnosis [facility] [address] [place] [address] 09/22/2024 Gil Lacy Hereditary hemochromatosis E83.110 ; [...] DIFF 10/17/2016 HEPATITIS B, C PROFILE 11/04/2018 [id number] (A1A) 11/04/2018 ALPHA-FETOPROTEIN,TUMOR MARKER 7 ALPHA-FETOPROTEIN,TUMOR MARKER [...] 4 US abdomen comp w elastography 5 Future Test Test Name Order Date COLONOSCOPY 07/30/2012 COLONOSCOPY 08/02/2021 Next Appt Details Provider Name:Gil Lacy , 09/23/2025 11:00:00 AM, [address], [address], [place], [address], Insurance Providers Payer Name Payer Address Payer Phone Subscriber Number Group Number Insured Name Patient Relationship to Insured Coverage Start Date Coverage End Date [employer] [address] [address] [place] [address] [id number] DANNIELLE FONTENOT Self - patient is [...] [address] Barber HTN Hypothyroid Denies VA,DM,CVA,Lung disease,renal dise ase Bulging discs in neck [...]
--- OUTSIDE RECORDS SUMMARY | 2025-02-17 12:51 | XMS_ITS | Patient Health Record ---
Author Organization [facility] Address [address] [place] [address] Care Team Providers Care Composite Science Teacher Name Role Phone Hima Choudhary MD Primary Care Provider Vaughn Hong Unavailable [phone] Allergies No Known Allergies Reason For Referral No Information Medications Medication SIG (Take, Route, Frequency, Duration) Notes Start Date End Date Status Ketamine HCl Compound Cream Ac tive Gabapentin compound cream Acti ve Cetirizine HCl 10 MG 1 tablet Orally Onc e a day; Duration: 30 day(s) Active Losartan Potassium 25 MG 1 tablet Orally Once a day; Duration: 30 day(s) Active Diclofenac compound cream Acti ve Levothyroxine Sodium Active Ciclopirox 0.77 % 1 application Externally Twice a day; Duration: 365 days Active Metoprolol Succinate 100 MG 1 capsule Orally Once a day; Duration: 30 day(s) Active Social History Tobacco Use: [...] fat layer exposed (L97.512) Active confirmed Problem Fungal infection of nail (673345015) Fungal infection of nail (B35.1) Active confirmed Rx management (4) Plan Of Treatment Pending Test Test Name Order Date [id number] 07/19/2023 [id number] SKIN/TISSUE 08/02/2023 Insurance Providers Payer Name Payer Address Payer Phone Subscriber Number Group Number Insured Name Patient Relationship to Insured Coverage Start Date Coverage End Date [employer] [address] [address] [place] [address] [id number] Yadira Bojorquez Self - patient is the [...]
== END 2025-02-17 13:40 | disposition home or self-care (01) ==
LOC: HO.HSM 11:41
PROVIDERS: PCP Internal Medicine; Referring Provider Internal Medicine; Visit Provider Psychiatry & Neurology Neurology
DX: G43.909 Migraine, unspecified, not intractable, without status migrainosus (principal); G44.209 Tension-type headache, unspecified, not intractable
CPT/HCPCS: 99214

== ENCOUNTER 2025-02-22 08:56 | Outpatient (AMB) | payer OTHER, SELFPAY ==
--- NOTE | 2025-02-22 08:59 | MHC.OFFVIS ---
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 She was last seen in September 2022 and had diagnostic bilateral L2, L3, L4, L5 medial branch blocks with significant pain relief for 2.5 days. The pain is primarily located in the lower back, occasionally radiating slightly to the side of the legs, but not extending down the legs. Denies any recent trauma, injury or falls. The patient reports that leaning backwards alleviates the pain, while walking exacerbates it, causing her to stop frequently. She denies numbness or tingling in the legs and has not experienced any significant weakness. The patient has a history of lumbar disc herniation at L3-L4, causing mild central canal stenosis, and previously had severe stenosis at L4-L5. She underwent kyphoplasty following a compression fracture at L4 due to a fall in 2021. The patient also reports severe arthritis in her left knee, confirmed by imaging at local Urgent Care clinic, but has not pursued further treatment. She uses topical treatments like Icy Hot and patches but avoids oral NSAIDs due to kidney concerns. - Onset: Chronic, with significant relief from medial branch blocks for 2.5 days - Quality: Aching pain primarily in the lower back - Location: Lower back, occasionally radiating to the side of the legs - Exacerbating factors: Walking - Relieving factors: Leaning backward - Interference: Causes frequent stops during walking - Affect: Pain impacts mobility, causing frequent stops during walking - Analgesia: Uses topical treatments like Icy Hot and patches, avoids NSAIDs due to kidney concerns - Adverse Effects: None reported from current pain management - Activities of Daily Living: Pain limits ability to walk long distances - Aberrant Drug Related Behaviors: None reported PRIOR 09/20/22: Shellie Gonsalves is a pleasant 66 years old female who presents today via telehealth encounter to assess response to Diagnostic Bilateral L2-L3-L4 DR L5 MBB on 09/13/[address] Ortiz. Patient reports 100% pain relief for 2.5 days post procedure with notable improvement in her mobility, daily activities and sleep. She also notes after 3 days her pain return but not completely to her baseline line 6-7/10 but has remained 5/10 or below. We discussed in detail peripheral nerve stimulation vs RFA as next steps. Patient would like to think about both procedures and review informational brochures first. She denies any fever, weight changes, weakness, numbness or tingling, bladder or bowel dysfunction or saddle anesthesia. PRIOR 08/29/22 Dr. Ortiz: Ms. Bojorquez came to my office after long period of absence. Originally T she visited nurse practitioner in my office and was diagnosed with L4 compression fracture. Somehow due to the scheduling problems she ended up in Dr. Wolff's schedule who performed kyphoplasty on her. The patient reports that her back became more straight. However she reports that pain in the back increased. She has significant moderate to severe L3-L4 interval spinal canal stenosis however she denies any weakness in bilateral lower extremities or any numbness. She reports pain in the back with radiation into bilateral hips. She reports extension of the back aggravates her pain. She reports the loading test is making her pain worse. I will schedule this patient for diagnostic medial branch block L2-L3 L4 does ramus L5. I will assess this after the diagnostic block and will see if the patient reports good results of diagnostic MBB. [facility] Medical History (Updated 02/22/25 @ 11:47 by DANIEL Roman) Compression fracture of L4 vertebra Tension headache Cervical disc disease GERD (gastroesophageal reflux disease) Hemochromatosis Hypothyroid Migraine HTN (hypertension) Surgical History History of kyphoplasty H/O colonoscopy (~09/04/21) Hx of blepharoplasty Hx of cholecystectomy History of Evan fundoplication Hx of breast biopsy Family History Mother Cardiac pacemaker BP (high blood pressure) Anxiety Father Afib Social History Housing: House Alcohol intake: current Alcohol intake frequency: holidays/special occasions only Patient Tobacco Use Status: Never used Tobacco e-Cigarette/Vaping Use: Never Used service: No Current occupational status: employed 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, 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 Alert and oriented. Mood and affect appropriate. Follows and participates in conversation appropriately. Respiratory effort is unlabored. No cough. Able to transition from sit to stand unassisted. Ambulates with bilaterally normal heel strike and toe off, except on the left due to knee pain. General: Yes no CVA tenderness Back/Spine/Pelvis Other: Limited lumbar ROM due to pain. Lumbar extension is intact and does not reproduce pain. Lumbar flexion forward and bending reproduces moderate pain. Demonstrates 5/5 strength of quadriceps bilaterally as well as flexion/dorsiflexion of bilateral feet against resistance. 2+ pedal pulses bilaterally. Seated/Supine straight leg rise with dorsiflexion negative bilaterally. +1 patellar and achilles reflexes bilaterally. Facet loading test positive bilaterally. Bertha sign, Luis?s and Stinchfield tests are negative bilaterally. No groin pain with I/E hip rotations. Valsalva maneuver negative. Back: no CVA tenderness Cervical Spine: cervical ROM normal, cervical muscular tenderness and No Cervical spine tenderness Thoracic/Lumbar Spine: thoracic and lumbar spine normal to inspection, No Thoracic/lumbar spine scar(s), Lasegue's sign negative, straight leg raise negative bilaterally, pain with thoraco-lumbar ROM, paraspinal muscle tenderness, thoraco-lumbar ROM limited, No thoracic spinal tenderness and lumbar spinal tenderness (L3-S1) Sacroiliac joints: bilaterally nontender Extrem General: Yes capillary refill normal, Yes no clubbing, cyanosis or edema and Yes no calf tenderness Left lower extremity: knee (Limited ROM due to pain) Details: normal to inspection, tenderness (global anterior left knee) Location: of the patella and of the medial joint line and crepitus; no swelling, no ecchymosis and no unusual warmth Results Reviewed Results Reviewed: MR lumbar spine wo con 01/09/25 Comparison: 03/20/2022, 04/24/2022 Findings: Signal void likely related to cement material noted in the L4 vertebral body. No scoliosis or spondylolisthesis. No acute fracture or pathologic bone lesion. Cauda equina and conus medullaris within normal limits. Broad-based degenerative disc bulge at L3-L4 with mild central canal stenosis, not significantly changed. Paraspinous musculature intact. IMPRESSION: No acute findings. Assessment & Plan Assessment & Plan (1) Spondylosis of lumbar spine: Code(s): M47.816 - Spondylosis without myelopathy or radiculopathy, lumbar region Category: Medical (2) Stenosis, spinal, lumbar: Code(s): M48.061 - Spinal stenosis, lumbar region without neurogenic claudication Category: Medical (3) Spondylosis of lumbar region without myelopathy or radiculopathy: Code(s): M47.816 - Spondylosis without myelopathy or radiculopathy, lumbar region Category: Medical (4) History of kyphoplasty: Code(s): Z98.890 - Other specified postprocedural states Category: Surgical (5) Lumbar disc herniation: Code(s): M51.26 - Other intervertebral disc displacement, lumbar region Category: Medical (6) Left knee pain: Code(s): M25.562 - Pain in left knee Category: Medical (7) Osteoarthritis of left knee: Code(s): M17.12 - Unilateral primary osteoarthritis, left knee Category: Medical Plan The patient will be referred to Dr. Nair at [facility] for further evaluation of her lumbar disc herniation and potential surgical intervention, to address the discogenic pain limiting her mobility and daily functioning. Given the history of kyphoplasty and the current condition of the lumbar spine, steroid injections will be avoided. The patient is advised to undergo flexion and extension x-rays to assess spinal stability before the consultation with Dr. Nair. For the severe arthritis in the left knee, the patient will be scheduled for left intra-articular knee steroid injections with local and fluoroscopy. We also discussed gel injections, peripheral nerve stimulation and genicular RFA. Patient is also attempting to loose weight to reduce pressure and pain on her joints. Patient will consider Orthopedic evaluation if no relief with therapeutic injections. All questions and concerns have been answered and patient agreed with the plan. Follow up after knee injection and sooner as needed. Patient was informed and verbally consented to the use of an ambient scribe for clinic note documentation during this visit. Orders: Orders XR lumbar spine 6V w bending Today M47.816 - Spondylosis without myelopathy or radiculopathy, lumbar region, M48.061 - Spinal stenosis, lumbar region without neurogenic claudication, S32.040A - Wedge compression fracture of fourth lumbar vertebra, initial encounter for closed fracture, Z98.890 - Other specified postprocedural states Referrals Neuro Spine Referral M48.061 - Spinal stenosis, lumbar region without neurogenic claudication, M51.26 - Other intervertebral disc displacement, lumbar region, Z98.890 - Other specified postprocedural states Coding Level of Care Code Est Pt Level 4 (82028) Complex EM visit Add On G2211 Diagnoses Spondylosis of lumbar spine M47.816 Stenosis, spinal, lumbar M48.061 Spondylosis of lumbar region without myelopathy or radiculopathy M47.816 History of kyphoplasty Z98.890 Lumbar disc herniation M51.26 Left knee pain M25.562 Osteoarthritis of left knee M17.12
[2025-02-22 09:03] VITALS: BP 138/95; PULSE 77; O2SAT 97; BMI 40.9
== END 2025-02-22 09:32 | disposition home or self-care (01) ==
LOC: HO.PMC 08:57
PROVIDERS: Visit Provider Nurse Practitioner Family
DX: M47.816 Spondylosis without myelopathy or radiculopathy, lumbar region (principal); M48.061 Spinal stenosis, lumbar region without neurogenic claudication; Z98.890 Other specified postprocedural states; M51.26 Other intervertebral disc displacement, lumbar region; M25.562 Pain in left knee; M17.12 Unilateral primary osteoarthritis, left knee
CPT/HCPCS: 99214

== ENCOUNTER 2025-02-25 08:10 | Outpatient (AMB) | payer OTHER, SELFPAY ==
--- OUTSIDE RECORDS SUMMARY | 2025-02-25 08:12 | XMS_ITS | Patient Health Record ---
Author Organization [facility] Address [address] [place] [address] Care Team Providers Care Spanish Speaking Nanny Name Role Phone Kenrick (RETIRED) Hima MCKEON Primary Care Provide Gil Martins [phone] Allergies Allergen (clinical drug ingredient) Drug/Non Drug Allergy documented on EMR Reaction Allergy Type Onset Date Status Bees (uncoded) Unknown Allergy Activ e Seasonal Allergies (uncoded) Unknown Allergy Active Results Component Value Reference Range Notes IRON PROFILE Reviewed date:10/01/2024 06:59:05 PM Interpretation: Performing Lab:[facility], [address] [place] [phone] Notes/Report: Iron 195 30-160 mcg/dL Total Iron Binding Capacity 276 228-428 mcg/dL Percent Iron Saturation 71 15-50 % Unsaturated Iron Binding 81 Ferritin Reviewed date:06/11/2024 01:19:08 PM Interpretation: Performing Lab:[facility], [address] [place] [phone] Notes/Report: Ferritin 182 10-250 ng/mL Therapeutic Phlebotomy Reviewed date:06/11/2024 01:19:19 PM Interpretation: Performing Lab:[facility], [address] [place] [phone] Notes/Report: THER/HGB 12.7 12.0-16.0 g/dL THER/HCT TNP 37.0-47.0 % Therapeutic Phlebotomy Phlebotomy Performed 500 mls drawn on 06/10/24. Please note that a copy of this report has been sent to the Primary Care Physician, the ordering physician and any physician designated by patient request. Complete Blood Count Auto Di ff Reviewed date:09/27/2024 03:40:08 PM Interpretation: Performing Lab:[facility], [address] [place] [phone] Notes/Report: White Blood Count 6.4 4.8-10.8 X10*3/uL [...] INR Reviewed date:09/27/2024 03:39:49 PM Interpretation: Performing Lab:[facility], [address] [place] [phone] Notes/Report: Prothrombin Time 9.9 10.9-12.4 SEC INTERNATIONAL [...] Panel Reviewed date:09/27/2024 03:40:27 PM Interpretation: Performing Lab:[address] [phone] Notes/Report: Bilirubin Total 0.4 0.0-1.0 mg/dL Bilirubin Direct 0.1 0.0-0.5 mg/dL Aspartate Amino Transferase 53 5-31 U/L Alanine Aminotransferase 61 0-31 U/L Total Protein 7.7 6.5-8.0 g/dL Albumin Level 4.1 3.5-5.0 g/dL Alkaline Phosphatase 138 39-117 U/L Alpha Fetoprotein Reviewed date:2024 06:53:08 PM Interpretation: Performing Lab:[address] [address] Notes/Report: Alpha Fetoprotein 4.3 Reference Range: <6.1 The use of AFP as a tumor marker in females is not recommended. This test was performed using the Domingo Dawson chemiluminescent method. Values obtained from different assay methods cannot be used interchangeably. AFP levels, regardless of value, should not be interpreted as absolute evidence of the presence or absence of disease. THIS TEST WAS PERFORMED AT: [facility] [address] [place] [phone] SHAHRZAD OVALLES MD Liver Fibrosis Pnl Reviewed date:2024 06:53:27 PM Interpretation: Performing Lab:[address] [phone] Notes/Report: Liver Fibrosis Score 0.18 Liver Fibrosis [...] a>0.62 and a<=1.00 : A3 (severe activity) IFP-Abiwu-9-Macroglobulin 207 106-279 mg/dL FIB-Haptoglobin 92 43-212 mg/dL FIB-Apolipoprotein A1 196 101-198 mg/dL FIB-Total Bilirubin 0.3 0.2-1.2 mg/dL FIB-GGT 51 3-65 U/L FIB-ALT 42 6-29 U/L Reference ID [id number] Footnote SEE NOTE The reliability of results is dependent on compliance with the preanalytical and analytical conditions recommended by [employer]. The tests have to be deferred for: [...] The performance characteristics have been determined by [facility]. It has not been cleared or approved by the U.S. Food and Drug Administration. Performance characteristics refer to the analytical performance of the test. [employer], the associated logo, [employer] and all associated [employer] bae are the registered trademarks of [employer]. All third libertarian bae - (R) and (TM) - are the property of their respective owners. (C) 8910-6268 [employer]. All rights reserved. THIS TEST WAS PERFORMED AT: [employer] [facility] [address] [place] [address] GERARDO ENGLE MD,PHD,MOLLY IRON PROFILE Reviewed date:11/16/2024 11:35:52 PM Interpretation: Performing Lab:[facility], [address] [place] [phone] Notes/Report: Iron 248 30-160 mcg/dL Total Iron Binding Capacity 273 228-428 mcg/dL Percent Iron Saturation 91 15-50 % Unsaturated Iron Binding < 25 Ferritin Reviewed date:11/16/2024 11:35:37 PM Interpretation: Performing Lab:[address] [phone] Notes/Report: Ferritin 193 10-250 ng/mL Therapeutic Phlebotomy Reviewed date:11/16/2024 11:37:43 PM Interpretation: Performing Lab:[facility], [address] [place] [phone] Notes/Report: THER/HGB 14.4 12.0-16.0 g/dL THER/HCT TNP 37.0-47.0 % Therapeutic Phlebotomy Phlebotomy Performed 500 mls drawn on 11/16/24. Please note that a copy of this report has been sent to the Primary Care Physician, the ordering physician and any physician designated by patient request. US abdomen comp w elastograp hy (Not yet reviewed by provider) Interpretation: Performing Lab: Notes/Report: [address] [address] Ultrasound Report Signed Patient: Shellie Fontenot MR#: [id number] 48 : 1955 Acct:[id number] Age/Sex: 69 / F ADM Date: 12/25/24 Loc: HO.US Attending Dr: Gil Lacy MD Ordering Physician: Gil Lacy MD Date of Service: 12/25/24 Procedure(s): US abdomen comp w elastography Accession Number(s): [id number] cc: Gil Lacy MD EXAMINATION: US COMPLETE ABDOMEN WITH LIVER ELASTOGRAPHY CLINICAL INFORMATION: Elevated liver enzymes. There are hemachromatosis. COMPARISON: 11/29/2023 abdomen US with elastography. TECHNIQUE: Real-time imaging of the abdominal viscera. Noninvasive ultrasound liver fibrosis assessment is performed using [employer] ElastPQ point quantification shear wave elastography (pSWE) [...] in OV> 12/25/24922 DD/ 1 TD/TT: 12/25/24828 Lining Marker: Reason For Referral No Information Medications Medication [...] Problem Status W/U Status Risk Notes Problem 39945071 Rectal bleeding (K62.5) Active confirmed Problem 497907454 Change in bowel habit (R19.4) Active confirmed Problem 85496143 Hereditary hemochromatosis (E83.110) Active confirmed Problem 495069072 Elevated liver function tests (R79.89) Active confirmed Problem 802539563 Elevated liver enzymes (R74.8) Active confirmed Problem 110407403 Fatty liver (K76.0) Active confirmed Problem Iron excess (88200462) Iron excess (E83.19) Active confirmed Problem 61336891 Constipation, unspecified constipation type (K59.00) Active confirmed Problem Diverticulosis of colon (586105107) Diverticulosis of colon (K57.30) Active confirmed Vital Signs Blood pressure diastolic 00 mm Hg 09/22/2024 Height 64 in 09/22/2024 Blood pressure systolic 00 mm Hg 09/22/2024 Weight 230 lbs 09/22/2024 BMI 39.48 kg/m2 09/22/2024 Encounters Encounter Location Date Provider Diagnosis [facility] [address] [place] [address] 09/22/2024 Gil Lacy Hereditary hemochromatosis E83.110 ; [...] DIFF 10/17/2016 HEPATITIS B, C PROFILE 11/04/2018 [id number] (A1A) 11/04/2018 ALPHA-FETOPROTEIN,TUMOR MARKER 7 ALPHA-FETOPROTEIN,TUMOR MARKER [...] Name:Gil Lacy , 09/23/2025 11:00:00 AM, [address], [address], [place], [address], Insurance Providers Payer Name Payer Address Payer Phone Subscriber Number Group Number Insured Name Patient Relationship to Insured Coverage Start Date Coverage End Date [employer] [address] [address] [place] [address] [id number] DANNIELLE FONTENOT Self - patient is [...] [address] Barber HTN Hypothyroid Denies MA,DM,CVA,Lung disease,renal dise ase Bulging discs in neck [...]
--- OUTSIDE RECORDS SUMMARY | 2025-02-25 08:12 | XMS_ITS | Patient Health Record ---
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 Driver Name Role Phone Hima Choudhary MD Primary Care Provider Vaughn Hong Unavailable [phone] Allergies No Known Allergies Reason For Referral [...] Active confirmed Problem Fungal infection of nail (029503808) Fungal infection of nail (B35.1) Active confirmed Rx management (4) Plan Of Treatment Pending Test Test Name Order Date [id number] 07/19/2023 [id number] SKIN/TISSUE 08/02/2023 Insurance Providers Payer Name Payer Address Payer Phone Subscriber Number Group Number Insured Name Patient Relationship to Insured Coverage Start Date Coverage End Date [employer] [address] [address] [place] [address] [id number] Yadira Bojorquez Self - patient is the [...]
[2025-02-25 08:19] VITALS: BP 124/82; PULSE 96; TEMP 37; O2SAT 96; BMI 41.7
--- NOTE | 2025-02-25 08:19 | AM.OFFWIN_ITS ---
Intake Vital Signs 3 02/25/25 08:19 Height 5 ft 4 in Weight 243 lb BMI 41.7 BP 124/82 Blood Pressure Location Lt brachial Position Sitting Pulse 96 Pulse Source Pulse Oximeter Temp 98.6 F Temp Source Oral Pulse Oximetry (%) 96 Oxygen Delivery Method Room Air Intake Visit Reasons: EP RT knee pain after fall Intake Note: Patient fell last night and hurt her right knee, swelling and aching Patient Tobacco Use Status: Never used Tobacco Malted Milk Mixer Required: No Is last menstrual period known: No Post menopausal: Yes Patient : No Allergies bee pollen (bee stings) Allergy (Unknown, Verified 02/25/25 08:23) Unknown Seasonal Allergies Allergy (Unknown, Verified 02/25/25 08:23) Unknown Do you need a note to return to daycare/school/sports/work: Yes HPI HPI Comments 2 History of Present Illness0 Details 69 y/o Female patient [facility] c/o Right Knee Pain and swelling after a Fall last night. [facility] Medical History (Updated 02/25/25 @ 08:43 by Nichole Wilcox NP) Right knee pain Compression fracture of L4 vertebra Tension headache Cervical disc disease GERD (gastroesophageal reflux disease) Hemochromatosis Hypothyroid Migraine HTN (hypertension) Surgical History History of kyphoplasty H/O colonoscopy (~09/04/21) Hx of blepharoplasty Hx of cholecystectomy History of Evan fundoplication Hx of breast biopsy Family History Mother Cardiac pacemaker BP (high blood pressure) Anxiety Father Afib Social History Housing: House Alcohol intake: current Alcohol intake frequency: holidays/special occasions only Patient Tobacco Use Status: Never used Tobacco e-Cigarette/Vaping Use: Never Used Patient : No service: No Current occupational status: employed 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, 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 Hearing needs: No Vision needs: Yes (rx contacts/ reading glasses) Review of Systems Const All systems reviewed & are unremarkable except as noted in HPI and below Physical Exam Vital Signs: Last Vital Signs Temp 98.6 F 02/25/25 08:19 Pulse 96 07/17/25 08:19 BP 124/82 02/25/25 08:19 Pulse Ox 96 02/25/25 08:19 Oxygen Delivery Method Room Air 02/25/25 08:19 BMI result Body Mass Index 41.7 Const General: no acute distress; No comfortable Nutritional Appearance: obese Orientation/consciousness: patient oriented x3 Neuro General: patient oriented x3 Extrem Right lower extremity: knee Details: tenderness Location: of the patella Details: medially and laterally, swelling Location: of the patella, ecchymosis (Large Hematoma right Patella.) and warmth; no crepitus Left lower extremity: normal to inspection and full ROM Knee images: 2 1. Large Hematoma Patella, TTP Psych Speech and movement: Normal speech and movement present Assessment & Plan Assessment & Plan (1) Right knee pain: Code(s): M25.561 - Pain in right knee Qualifiers: Chronicity: acute Qualified Code(s): M25.561 - Pain in right knee Plan: Xray right Knee Ice/Hot Elevate and apply compression. NSAIDs and Acetaminophen. Orders: Orders 2 XR knee RT 3V Today M25.561 - Pain in right knee Medications: New 2 ibuprofen 800 mg PO Q8H 30 tabs 0RF M25.561 - Pain in right knee Coding Level of Care Code Est Pt Level 4 (45623) Diagnoses Acute pain of right knee M25.561 Chronicity: acute Time Spent (min) 20
== END 2025-02-25 09:02 | disposition home or self-care (01) ==
PROVIDERS: Visit Provider Nurse Practitioner Family
DX: M25.561 Pain in right knee (principal)

== ENCOUNTER 2025-02-25 08:10 | Outpatient (REF) | payer OTHER, SELFPAY ==
--- NOTE | ~2025-02-25 | XR_ITS ---
EXAMINATION: XR KNEE, RIGHT CLINICAL INFORMATION: M25.561 - Pain in right knee COMPARISON: None available. TECHNIQUE: Four views of the right knee. FINDINGS: No fracture, dislocation, or suspicious bone lesion. Normal bone mineralization. Normal alignment. There is very mild medial compartment joint space narrowing. Remainder of the joint spaces are preserved. No significant joint effusion. Soft tissues appear normal. XR/XR knee RT 4V IMPRESSION: 1. No acute bony abnormalities. No joint effusion. 2. Early medial compartment joint space narrowing. Electronically signed by: Daniele Gray MD 02/25/2025 09:39 AM EDT
--- NOTE | ~2025-02-25 | XR_ITS ---
EXAMINATION: XR LUMBOSACRAL SPINE CLINICAL INFORMATION: S32.040A - Wedge compression fracture of fourth lumbar vertebra, initial... COMPARISON: CT lumbar spine 04/24/2022. MR lumbar spine 01/08/2025. TECHNIQUE: 8 views of the lumbar spine, inclusive of flexion and extension and bilateral oblique views, were obtained. FINDINGS: No significant scoliosis. Normal lordosis. There is a chronic superior endplate compression fracture of L4, proximal 30% loss of height, with associated kyphoplasty cement present. No additional compression deformities or fractures. No suspicious bone lesions. Alignment is normal without subluxations. No instability on flexion and extension views. Normal facet alignment. There is degenerative facet changes spanning L3-S1. There are no pars defects evident. Mild diffuse disc degeneration, most significant at L3-4. Soft tissues demonstrate a vascular calcifications. There are cholecystectomy clips. The sacrum is intact. The SI joints appear normal. XR/XR lumbar spine 6V w bending IMPRESSION: 1. No acute bony abnormalities of the lumbar spine. 2. There is no evidence of instability on flexion and extension views. 3. There is a chronic approximate 30% superior endplate compression deformity of L4 with associated kyphoplasty cement present. 4. There is mild to moderate multilevel lumbar spondylosis . Electronically signed by: Daniele Gray MD 02/25/2025 09:47 AM EDT
== END 2025-02-25 08:11 | disposition home or self-care (01) ==
LOC: HO.HMGCX 08:10
PROVIDERS: Visit Provider Nurse Practitioner Family
DX: M25.561 Pain in right knee (principal); S32.040A Wedge compression fracture of fourth lumbar vertebra, initial encounter for closed fracture; M47.816 Spondylosis without myelopathy or radiculopathy, lumbar region; M48.061 Spinal stenosis, lumbar region without neurogenic claudication; Z98.890 Other specified postprocedural states; W19.XXXA Unspecified fall, initial encounter; Y92.89 Other specified places as the place of occurrence of the external cause; Y93.89 Activity, other specified; Y99.8 Other external cause status
CPT/HCPCS: 72114; 73564

== ENCOUNTER → 2025-02-25 09:05 | Outpatient (BNV) | payer OTHER, SELFPAY | PROVIDERS: Visit Provider Radiology Diagnostic Radiology | DX: M47.896 Other spondylosis, lumbar region (principal); M25.561 Pain in right knee | CPT/HCPCS: 72114; 73564 ==

== ENCOUNTER 2025-03-08 14:00 | Outpatient (AMB) | payer OTHER, SELFPAY ==
--- NOTE | 2025-03-08 14:02 | A.SPINEOV_ITS ---
Vital Signs 03/08/25 14:06 Height 5 ft 4 in Weight 243 lb BMI 41.7 Intake Visit Reasons: spinal stenosis Intake Note: Ms. Bojorquez is here today c/o low back pain. Sanitation Lead Required: No Allergies bee pollen (bee stings) Allergy (Unknown, Verified 03/08/25 14:09) Unknown Seasonal Allergies Allergy (Unknown, Verified 03/08/25 14:09) Unknown Physical Exam Vital Signs: BMI result Body Mass Index 41.7 Assessment & Plan Assessment & Plan (1) Back pain: Code(s): M54.9 - Dorsalgia, unspecified Category: Medical Plan Dear Marium Thank you for referring Mrs. Bojorquez to our office today. She is a 69-year-old female works here at [facility] [employer] who presents for evaluation of a chronic low back pain that started when she fell in 2021 and sustained a compression fracture at L4. She underwent a kyphoplasty at that time and was initially doing okay, feeling like she was standing up straight or but never really felt as though the back pain completely went away. Fast forward a few years and she still continues to get tremendous amounts of pain when she is standing for any length of time. If she is sitting or lying down she is fine. No pain going down the legs. She will take an anti-inflammatories if needed. She did undergo median branch blocks from L2-L5 with 3 days of complete relief. She is here to follow up to see if there is any surgical intervention that can be done to help with her issues. PMH: She has a history of hemochromatosis, hypertension, atopic dermatitis, hypothyroidism, migraines, laparoscopic hernia repair with fundoplication, colonoscopy, cholecystectomy. Social hx: She has not smoke, drink use any recreational drugs Medications: Levothyroxine, losartan, metoprolol, cetirizine Allergies: None Physical exam: Awake alert oriented no acute distress, she describes pain localizing the paraspinal regions of the whole lumbar spine. Strength is inta ct. I could not test her right proximal leg because of a recent knee injury. Rest of her motor exam appears full however. Similarly with her right knee it could not test the patellar reflex but the Achilles and left patella were fine. Imaging review: Lumbar MRI shows kyphoplasty at L4 with approximately 50% of height loss. No new fractures are seen. Her overall disc quality throughout the lumbar spine looks quite good. There is some accentuated kyphosis secondary to the old fracture but it is not severe. She has facet arthropathy at L3-4 and L4-5. Seems to be the worse at L4-5. She has some epidural lipomatosis causing mild stenosis. Impression: 69-year-old female presents for evaluation of a chronic low back pain that seemed to start around the time she had her L4 fracture, status post kyphoplasty in 2021. The symptoms really just never went away although they improve. She has persistent pain with standing that goes away when she sits or lays down. Overall her lumbar spine shows evidence of very good disc quality. There is definitely some facet arthropathy at L3-4 and L4-5 with L4-5 being the worse. Since she had a tremendous response to the injections median branch blocks at these levels, I think it would be worth considering doing a facet RFA. From the standpoint of her discs, I do not think her pain is discogenic and I do not think lumbar fusion would be indicated. Thank you for allowing us to care for your patient. The total time spent with this visit with this patient was 45 minutes reviewing history, physical exam, lumbar imaging review, and implementation of treatment plan or further diagnostic testing Nomi Nair MD,PhD [facility] Coding Level of Care Code New Pt Level 4 (35131) Diagnoses Back pain M54.9
[2025-03-08 14:06] VITALS: BMI 41.7
--- OUTSIDE RECORDS SUMMARY | 2025-03-08 14:44 | XMS_ITS | Patient Health Record ---
[facility] Address [address] [place] [address] Care Team Providers Care Surg Physician Asst Name Role Phone Hima Choudhary MD Primary Care Provider Vaughn Hong Unavailable [phone] Allergies No Known Allergies Reason For Referral [...] Active confirmed Problem Fungal infection of nail (310635770) Fungal infection of nail (B35.1) Active confirmed Rx management (4) Plan Of Treatment Pending Test Test Name Order Date [id number] 07/19/2023 [id number] SKIN/TISSUE 08/02/2023 Insurance Providers Payer Name Payer Address Payer Phone Subscriber Number Group Number Insured Name Patient Relationship to Insured Coverage Start Date Coverage End Date Blue Benefits [address] [address] [place] [address] [id number] Yadira Bojorquez Self - patient is the [...]
--- OUTSIDE RECORDS SUMMARY | 2025-03-08 14:44 | XMS_ITS | Patient Health Record ---
Author Organization [facility] Address [address] [place] [address] Care Team Providers Care Brush Fabrication Supervisor Name Role Phone Kenrick (RETIRED) Hima MCKEON Primary Care Provide Gil Martins [phone] Allergies Allergen (clinical drug ingredient) Drug/Non Drug Allergy documented on EMR Reaction Allergy Type Onset Date Status Bees (uncoded) Unknown Allergy Activ e Seasonal Allergies (uncoded) Unknown Allergy Active Results Component Value Reference Range Notes IRON PROFILE Reviewed date:10/01/2024 06:59:05 PM Interpretation: Performing Lab:[facility], [address] [place] [phone] Notes/Report: Iron 195 30-160 mcg/dL Total Iron Binding Capacity 276 228-428 mcg/dL Percent Iron Saturation 71 15-50 % Unsaturated Iron Binding 81 Ferritin Reviewed date:06/11/2024 01:19:08 PM Interpretation: Performing Lab:[facility], [address] [place] [phone] Notes/Report: Ferritin 182 10-250 ng/mL Therapeutic Phlebotomy Reviewed date:06/11/2024 01:19:19 PM Interpretation: Performing Lab:[facility], [address] [place] [phone] Notes/Report: THER/HGB 12.7 12.0-16.0 g/dL THER/HCT TNP 37.0-47.0 % Therapeutic Phlebotomy Phlebotomy Performed 500 mls drawn on 06/10/24. Please note that a copy of this report has been sent to the Primary Care Physician, the ordering physician and any physician designated by patient request. Complete Blood Count Auto Di ff Reviewed date:09/27/2024 03:40:08 PM Interpretation: Performing Lab:[facility], [address] [place] [phone] Notes/Report: White Blood Count 6.4 4.8-10.8 X10*3/uL [...] INR Reviewed date:09/27/2024 03:39:49 PM Interpretation: Performing Lab:[facility], [address] [place] [phone] Notes/Report: Prothrombin Time 9.9 10.9-12.4 SEC INTERNATIONAL [...] Panel Reviewed date:09/27/2024 03:40:27 PM Interpretation: Performing Lab:[address] [address] Notes/Report: Bilirubin Total 0.4 0.0-1.0 mg/dL Bilirubin Direct 0.1 0.0-0.5 mg/dL Aspartate Amino Transferase 53 5-31 U/L Alanine Aminotransferase 61 0-31 U/L Total Protein 7.7 6.5-8.0 g/dL Albumin Level 4.1 3.5-5.0 g/dL Alkaline Phosphatase 138 39-117 U/L Alpha Fetoprotein Reviewed date:2024 06:53:08 PM Interpretation: Performing Lab:[address] [address] Notes/Report: Alpha Fetoprotein 4.3 Reference Range: <6.1 The use of AFP as a tumor marker in females is not recommended. This test was performed using the Domingo Florala chemiluminescent method. Values obtained from different assay methods cannot be used interchangeably. AFP levels, regardless of value, should not be interpreted as absolute evidence of the presence or absence of disease. THIS TEST WAS PERFORMED AT: [facility] [address] [place] [phone] SHAHRZAD OVALLES MD Liver Fibrosis Pnl Reviewed date:2024 06:53:27 PM Interpretation: Performing Lab:[address] [address] Notes/Report: Liver Fibrosis Score 0.18 Liver Fibrosis [...] a>0.62 and a<=1.00 : A3 (severe activity) UOJ-Ekvvp-6-Macroglobulin 207 106-279 mg/dL FIB-Haptoglobin 92 43-212 mg/dL FIB-Apolipoprotein A1 196 101-198 mg/dL FIB-Total Bilirubin 0.3 0.2-1.2 mg/dL FIB-GGT 51 3-65 U/L FIB-ALT 42 6-29 U/L Reference ID [id number] Footnote SEE NOTE The reliability of results is dependent on compliance with the preanalytical and analytical conditions recommended by SeeSpace[employer]One[employer]way. The tests have to be deferred for: [...] The performance characteristics have been determined by [facility]. It has not been cleared or approved by the U.S. Food and Drug Administration. Performance characteristics refer to the analytical performance of the test. WriteOn, the associated logo, Research Journalist and all associated [employer] bae are the registered trademarks of [employer]. All third libertarian bae - (R) and (TM) - are the property of their respective owners. (C) 2447-7264 [employer]. All rights reserved. THIS TEST WAS PERFORMED AT: [employer] [facility] [address] [place] [address] GERARDO ENGLE MD,PHD,MOLLY IRON PROFILE Reviewed date:11/16/2024 11:35:52 PM Interpretation: Performing Lab:[facility], [address] [place] [phone] Notes/Report: Iron 248 30-160 mcg/dL Total Iron Binding Capacity 273 228-428 mcg/dL Percent Iron Saturation 91 15-50 % Unsaturated Iron Binding < 25 Ferritin Reviewed date:11/16/2024 11:35:37 PM Interpretation: Performing Lab:[address] [address] Notes/Report: Ferritin 193 10-250 ng/mL Therapeutic Phlebotomy Reviewed date:11/16/2024 11:37:43 PM Interpretation: Performing Lab:[facility], [address] [place] [phone] Notes/Report: THER/HGB 14.4 12.0-16.0 g/dL THER/HCT TNP 37.0-47.0 % Therapeutic Phlebotomy Phlebotomy Performed 500 mls drawn on 11/16/24. Please note that a copy of this report has been sent to the Primary Care Physician, the ordering physician and any physician designated by patient request. US abdomen comp w elastograp hy (Not yet reviewed by provider) Interpretation: Performing Lab: Notes/Report: [address] [address] Ultrasound Report Signed Patient: Shellie Fontenot MR#: [id number] 48 : 1955 Acct:[id number] Age/Sex: 69 / F ADM Date: 12/25/24 Loc: HO.US Attending Dr: Gil Lacy MD Ordering Physician: Gil Lacy MD Date of Service: 12/25/24 Procedure(s): US abdomen comp w elastography Accession Number(s): [id number] cc: Gil Lacy MD EXAMINATION: US COMPLETE ABDOMEN WITH LIVER ELASTOGRAPHY CLINICAL INFORMATION: Elevated liver enzymes. There are hemachromatosis. COMPARISON: 11/29/2023 abdomen US with elastography. TECHNIQUE: Real-time imaging of the abdominal viscera. Noninvasive ultrasound liver fibrosis assessment is performed using Plum ElastPQ point quantification shear wave elastography (pSWE) [...] in OV> 12/25/24922 DD/ 1 TD/TT: 12/25/24828 Settlement Technician: Reason For Referral No Information Medications Medication [...] Problem Status W/U Status Risk Notes Problem 51488371 Rectal bleeding (K62.5) Active confirmed Problem 746689145 Change in bowel habit (R19.4) Active confirmed Problem 32469916 Hereditary hemochromatosis (E83.110) Active confirmed Problem 708136806 Elevated liver function tests (R79.89) Active confirmed Problem 208635423 Elevated liver enzymes (R74.8) Active confirmed Problem 753942669 Fatty liver (K76.0) Active confirmed Problem Iron excess (61837306) Iron excess (E83.19) Active confirmed Problem 07010510 Constipation, unspecified constipation type (K59.00) Active confirmed Problem Diverticulosis of colon (131825848) Diverticulosis of colon (K57.30) Active confirmed Vital Signs Blood pressure diastolic 00 mm Hg 09/22/2024 Height 64 in 09/22/2024 Blood pressure systolic 00 mm Hg 09/22/2024 Weight 230 lbs 09/22/2024 BMI 39.48 kg/m2 09/22/2024 Encounters Encounter Location Date Provider Diagnosis [facility] [address] [place] [address] 09/22/2024 Gil Lacy Hereditary hemochromatosis E83.110 ; [...] Test Test Name Order Date LIVER PROFILE 02/04/2020 LIVER PROFILE 10/17/2016 LIVER PROFILE 09/22/2024 IRON + IBC (FE) 02/04/2020 IRON + IBC (FE) 11/04/2018 FERRITIN 11/04/2018 FERRITIN 02/04/2020 CBC w DIFF 09/22/2024 CBC w DIFF 10/17/2016 CBC w DIFF 08/21/2023 HEPATITIS B, C PROFILE 11/04/2018 [id number] (A1A) 11/04/2018 ALPHA-FETOPROTEIN,TUMOR MARKER 4 ALPHA-FETOPROTEIN,TUMOR MARKER 5 ALPHA-FETOPROTEIN,TUMOR MARKER 7 ALPHA-FETOPROTEIN,TUMOR MARKER 9 MITOCHONDRIAL AB 11/04/2018 SMOOTH MUSCLE ANTIBODIES 11/04/2018 US ABD 10/17/2016 FLUOR. ANTINUCLEAR AB SCREEN (LA) 10/11 HEPATITIS A ANTIBODY-IGG 11/04/2018 Prothrombin Time INR 08/21/2023 Prothrombin Time INR 09/22/2024 Liver Fibrosis Pnl 08/21/2023 Liver Fibrosis Pnl 09/22/2024 US abdomen comp w elastography 5 US abdomen comp w elastography 4 US abdomen comp w elastography 5 US abdomen comp w elastography 4 Future Test Test Name Order Date COLONOSCOPY 07/30/2012 COLONOSCOPY 08/02/2021 Next Appt Details Provider Name:Gil Lacy , 09/23/2025 11:00:00 AM, [address], [address], [place], [address], Insurance Providers Payer Name Payer Address Payer Phone Subscriber Number Group Number Insured Name Patient Relationship to Insured Coverage Start Date Coverage End Date [employer] [address] [address] [place] [address] [id number] DANNIELLE FONTENOT Self - patient is [...] [address] Barber HTN Hypothyroid Denies [place],DM,CVA,Lung disease,renal dise ase Bulging discs in neck [...]
== END 2025-03-08 14:42 | disposition home or self-care (01) ==
LOC: HO.HNS 14:01
PROVIDERS: Referring Provider Nurse Practitioner Family; Visit Provider Physician Assistant
DX: M54.9 Dorsalgia, unspecified (principal)
CPT/HCPCS: 99204

== ENCOUNTER 2025-03-18 06:12 | Outpatient (REF) | payer OTHER, SELFPAY ==
--- NOTE | ~2025-03-18 | FL_ITS ---
EXAMINATION: FL GUIDANCE ONLY HISTORY: M47.816 - Spondylosis without myelopathy or radiculopathy, lumbar region COMPARISON: None available. TECHNIQUE: Fluoroscopy time: 0.4 minutes. Cumulative Dose: 8.31 mGy. DAP: 0.0933 mGym2 Images: 3. FINDINGS: Fluoroscopic spot films of the lumbar spine demonstrate needles and contrast material in the regions of the bilateral L3-4, L4-5, and L5-S1 facet joints. FL/FL guidance in treatment room IMPRESSION: Fluoroscopy during procedure. Please see procedure report for additional information. Electronically signed by: Gil Smith MD 03/18/2025 01:09 PM EDT
--- OUTSIDE RECORDS SUMMARY | 2025-03-18 06:15 | XMS_ITS | Patient Health Record ---
Author Organization [facility] Address [address] [place] [address] Care Team Providers Care Benefits Advisor Name Role Phone Hima Choudhary MD Primary Care Provider Vaughn Hong Unavailable [phone] Allergies No Known Allergies Reason For Referral [...] Active confirmed Problem Fungal infection of nail (573876030) Fungal infection of nail (B35.1) Active confirmed Rx management (4) Plan Of Treatment Pending Test Test Name Order Date [id number] 07/19/2023 [id number] SKIN/TISSUE 08/02/2023 Insurance Providers Payer Name Payer Address Payer Phone Subscriber Number Group Number Insured Name Patient Relationship to Insured Coverage Start Date Coverage End Date Blue Benefits [address] [address] [place] [address] [id number] Yadira Bojorquez Self - patient is the [...]
--- OUTSIDE RECORDS SUMMARY | 2025-03-18 06:15 | XMS_ITS | Patient Health Record ---
Author Organization [facility] Address [address] [place] [address] Care Team Providers Care Lime Spreader Name Role Phone Kenrick (RETIRED) Hima MCKEON Primary Care Provide Gil Martins [phone] Allergies Allergen (clinical drug ingredient) Drug/Non Drug Allergy documented on EMR Reaction Allergy Type Onset Date Status Bees (uncoded) Unknown Allergy Activ e Seasonal Allergies (uncoded) Unknown Allergy Active Results Component Value Reference Range Notes IRON PROFILE Reviewed date:10/01/2024 06:59:05 PM Interpretation: Performing Lab:[facility], [address] [place] [phone] Notes/Report: Iron 195 30-160 mcg/dL Total Iron Binding Capacity 276 228-428 mcg/dL Percent Iron Saturation 71 15-50 % Unsaturated Iron Binding 81 Ferritin Reviewed date:06/11/2024 01:19:08 PM Interpretation: Performing Lab:[facility], [address] [place] [phone] Notes/Report: Ferritin 182 10-250 ng/mL Therapeutic Phlebotomy Reviewed date:06/11/2024 01:19:19 PM Interpretation: Performing Lab:[facility], [address] [place] [phone] Notes/Report: THER/HGB 12.7 12.0-16.0 g/dL THER/HCT TNP 37.0-47.0 % Therapeutic Phlebotomy Phlebotomy Performed 500 mls drawn on 06/10/24. Please note that a copy of this report has been sent to the Primary Care Physician, the ordering physician and any physician designated by patient request. Complete Blood Count Auto Di ff Reviewed date:09/27/2024 03:40:08 PM Interpretation: Performing Lab:[facility], [address] [place] [phone] Notes/Report: White Blood Count 6.4 4.8-10.8 X10*3/uL [...] INR Reviewed date:09/27/2024 03:39:49 PM Interpretation: Performing Lab:[facility], [address] [place] [phone] Notes/Report: Prothrombin Time 9.9 10.9-12.4 SEC INTERNATIONAL [...] Panel Reviewed date:09/27/2024 03:40:27 PM Interpretation: Performing Lab:[address] [address] Notes/Report: Bilirubin Total 0.4 0.0-1.0 mg/dL Bilirubin Direct 0.1 0.0-0.5 mg/dL Aspartate Amino Transferase 53 5-31 U/L Alanine Aminotransferase 61 0-31 U/L Total Protein 7.7 6.5-8.0 g/dL Albumin Level 4.1 3.5-5.0 g/dL Alkaline Phosphatase 138 39-117 U/L Alpha Fetoprotein Reviewed date:2024 06:53:08 PM Interpretation: Performing Lab:[address] [address] Notes/Report: Alpha Fetoprotein 4.3 Reference Range: <6.1 [...] of disease. THIS TEST WAS PERFORMED AT: [facility] [address] [place] [phone] SHAHRZAD OVALLES MD Liver Fibrosis Pnl Reviewed date:2024 06:53:27 PM Interpretation: Performing Lab:[address] [address] Notes/Report: Liver Fibrosis Score 0.18 Liver Fibrosis [...] a>0.62 and a<=1.00 : A3 (severe activity) ENK-Rtntv-7-Macroglobulin 207 106-279 mg/dL FIB-Haptoglobin 92 43-212 mg/dL FIB-Apolipoprotein A1 196 101-198 mg/dL FIB-Total Bilirubin 0.3 0.2-1.2 mg/dL FIB-GGT 51 3-65 U/L FIB-ALT 42 6-29 U/L Reference ID [id number] Footnote SEE NOTE The reliability of results is dependent on compliance with the preanalytical and analytical conditions recommended by [employer]. The tests have to be deferred for: [...] The performance characteristics have been determined by [facility]. It has not been cleared or approved by the U.S. Food and Drug Administration. Performance characteristics refer to the analytical performance of the test. [employer], the associated logo, ZanAqua and all associated [employer] bae are the registered trademarks of [employer]. All third alliance party bae - (R) and (TM) - are the property of their respective owners. (C) 7980-7636 Neotropix. All rights reserved. THIS TEST WAS PERFORMED AT: [facility] [address] [place] [address] GERARDO ENGLE MD,PHD,MOLLY IRON PROFILE Reviewed date:11/16/2024 11:35:52 PM Interpretation: Performing Lab:[facility], [address] [place] [phone] Notes/Report: Iron 248 30-160 mcg/dL Total Iron Binding Capacity 273 228-428 mcg/dL Percent Iron Saturation 91 15-50 % Unsaturated Iron Binding < 25 Ferritin Reviewed date:11/16/2024 11:35:37 PM Interpretation: Performing Lab:[address] [address] Notes/Report: Ferritin 193 10-250 ng/mL Therapeutic Phlebotomy Reviewed date:11/16/2024 11:37:43 PM Interpretation: Performing Lab:[facility], [address] [place] [address] Notes/Report: THER/HGB 14.4 12.0-16.0 g/dL THER/HCT TNP 37.0-47.0 % Therapeutic Phlebotomy Phlebotomy Performed 500 mls drawn on 11/16/24. Please note that a copy of this report has been sent to the Primary Care Physician, the ordering physician and any physician designated by patient request. US abdomen comp w elastograp hy (Not yet reviewed by provider) Interpretation: Performing Lab: Notes/Report: [address] [address] Ultrasound Report Signed Patient: Shellie Fontenot MR#: [id number] 48 : 1955 Acct:[id number] Age/Sex: 69 / F ADM Date: 12/25/24 Loc: HO.US Attending Dr: Gil Lacy MD Ordering Physician: Gil Lacy MD Date of Service: 12/25/24 Procedure(s): US abdomen comp w elastography Accession Number(s): [id number] cc: Gil Lacy MD EXAMINATION: US COMPLETE ABDOMEN WITH LIVER ELASTOGRAPHY CLINICAL INFORMATION: Elevated liver enzymes. There are hemachromatosis. COMPARISON: 11/29/2023 abdomen US with elastography. TECHNIQUE: Real-time imaging of the abdominal viscera. 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: Reason For Referral No Information Medications Medication [...] Problem Status W/U Status Risk Notes Problem 01328327 Rectal bleeding (K62.5) Active confirmed Problem 787228413 Change in bowel habit (R19.4) Active confirmed Problem 51339465 Hereditary hemochromatosis (E83.110) Active confirmed Problem 367283537 Elevated liver function tests (R79.89) Active confirmed Problem 368811540 Elevated liver enzymes (R74.8) Active confirmed Problem 024102812 Fatty liver (K76.0) Active confirmed Problem Iron excess (11374351) Iron excess (E83.19) Active confirmed Problem 01666427 Constipation, unspecified constipation type (K59.00) Active confirmed Problem Diverticulosis of colon (583625428) Diverticulosis of colon (K57.30) Active confirmed Vital Signs Blood pressure diastolic 00 mm Hg 09/22/2024 Height 64 in 09/22/2024 Blood pressure systolic 00 mm Hg 09/22/2024 Weight 230 lbs 09/22/2024 BMI 39.48 kg/m2 09/22/2024 Encounters Encounter Location Date Provider Diagnosis [facility] [address] [place] [address] 09/22/2024 Gil Lacy Hereditary hemochromatosis E83.110 ; [...] DIFF 08/21/2023 HEPATITIS B, C PROFILE 11/04/2018 [id number] (A1A) 11/04/2018 ALPHA-FETOPROTEIN,TUMOR MARKER 4 ALPHA-FETOPROTEIN,TUMOR MARKER [...] Name:Gil Lacy , 09/23/2025 11:00:00 AM, [address], [address], [place], [address], Insurance Providers Payer Name Payer Address Payer Phone Subscriber Number Group Number Insured Name Patient Relationship to Insured Coverage Start Date Coverage End Date [employer] [address] [address] [place] [address] [id number] DANNIELLE FONTENOT Self - patient is [...] [address] Barber HTN Hypothyroid Denies [place],DM,CVA,Lung disease,renal dise ase Bulging discs in neck [...]
== END 2025-03-18 06:13 | disposition home or self-care (01) ==
LOC: CF 06:12
PROVIDERS: Visit Provider Internal Medicine
DX: M47.816 Spondylosis without myelopathy or radiculopathy, lumbar region (principal); M51.26 Other intervertebral disc displacement, lumbar region
CPT/HCPCS: 64493; 64494; J2003; J2795; Q9967

== ENCOUNTER 2025-03-18 11:21 | Outpatient (AMB) | payer OTHER, SELFPAY ==
[2025-03-18 11:31] VITALS: BP 117/58; PULSE 84; RESP 18; O2SAT 97; BMI 41.2
--- NOTE | 2025-03-18 11:31 | A.OFFVIS_ITS ---
Vital Signs 03/18/25 11:31 Height 5 ft 4 in Weight 240 lb BMI 41.2 BP 117/58 L Blood Pressure Location Lt brachial Position Sitting Respiration 18 Pulse 84 Pulse Source Pulse Oximeter Pulse Oximetry (%) 97 Oxygen Delivery Method Room Air Intake Visit Reasons: Bong Dx L3-L4-L5 MBB/ ativan [employer] Consultant Required: No Allergies bee pollen (bee stings) Allergy (Unknown, Verified 03/08/25 14:09) Unknown Seasonal Allergies Allergy (Unknown, Verified 03/08/25 14:09) Unknown HPI HPI Bong Dx L3-L4-L5 MBB/ ativan: Details: Patient presents for scheduled procedure. Denies any recent cough, cold, infection, fever or other significant changes in medical history since last office visit. [facility] Medical History (Updated 03/08/25 @ 14:43 by ANUSHA Pereyra) Right knee pain Compression fracture of L4 vertebra Tension headache Cervical disc disease GERD (gastroesophageal reflux disease) Hemochromatosis Hypothyroid Migraine HTN (hypertension) Surgical History History of kyphoplasty H/O colonoscopy (~09/04/21) Hx of blepharoplasty Hx of cholecystectomy History of Evan fundoplication Hx of breast biopsy Family History Mother Cardiac pacemaker BP (high blood pressure) Anxiety Father Afib Social History Housing: House Alcohol intake: current Alcohol intake frequency: holidays/special occasions only Patient Tobacco Use Status: Never used Tobacco e-Cigarette/Vaping Use: Never Used service: No Current occupational status: employed 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, 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 The patient was placed in a prone position. The respective lumbosacral area was prepped with chloraprep and draped in sterile fashion. The skin over the target medial branch nerves was anesthetized with 0.5% lidocaine. A 22 gauge 3.5 inch needle was inserted into the target medial branch nerve under fluoroscopic guidance. No paresthesias were elicited with needle placement and aspiration was negative for blood and CSF. Next, 0.2cc of omnipaque 180 was injected to verify positioning in AP and oblique imaging. Next 0.5 ml 0.5% ropivicaine was injected (0.5cc total per level). The identical procedure was performed at the remaining levels. The skin was cleansed and a sterile bandage was applied. Following the procedure the patient's vital signs were stable. The patient tolerated the procedure well and no complications were encountered. Following the procedure the patient's vital signs were stable. The patient was discharged home in good condition with post-procedural instructions. Time Out: Immediately prior to the procedure, the following was verbally confirmed that there is a signed consent form and that the correct patient, planned procedure, site and side are consistent with documentation and that necessary equipment and/or blood products are available prior to the start of the case. Complications: none EBL: <5 cc 20075 - with Fluoroscopy (bilateral) 82822 - second level, with Fluoroscopy Procedure code (CPT) selection complete Assessment & Plan Assessment & Plan (1) Spondylosis of lumbar spine: Code(s): M47.816 - Spondylosis without myelopathy or radiculopathy, lumbar region Category: Medical Plan Patient is status post bilateral lower lumbar MBBs. Patient tolerated procedure well and was discharged home in stable condition with discharge instructions. All questions were answered. We will follow-up via telephone or in clinic to assess response to therapy. A follow-up appointment was made during today's visit. Orders: Orders FL guidance in treatment room 03/18/25 Breezy Webster MD M47.816 - Spondylosis without myelopathy or radiculopathy, lumbar region, M51.26 - Other intervertebral disc displacement, lumbar region Medications: New lorazepam Take one tablet 30 min prior to procedure 03/18/25. Avoid taking with chlordiazePOXIDE 10 mg. 1 mg PO ONCE PRN 1 tab 0RF procedural anxiety 1 day DANIEL Roman M47.816 - Spondylosis without myelopathy or radiculopathy, lumbar region Coding Level of Care Code Procedure Only Diagnoses Spondylosis of lumbar spine M47.816 CPT Codes Facet Injection-Lumbar/Sacral - CPT: 37943 - with Fluoroscopy ([id number]) Facet Injection-Lumbar/Sacral - CPT: 96521 - second level, with Fluoroscopy ([id number])
== END 2025-03-18 12:17 | disposition home or self-care (01) ==
LOC: HO.PMCPRC 11:21
PROVIDERS: Visit Provider Internal Medicine
DX: M47.816 Spondylosis without myelopathy or radiculopathy, lumbar region (principal)
CPT/HCPCS: 64493; 64494

== ENCOUNTER 2025-03-26 11:44 | Outpatient (AMB) | payer OTHER, SELFPAY ==
--- OUTSIDE RECORDS SUMMARY | 2025-03-26 11:46 | XMS_ITS | Patient Health Record ---
Author Organization [facility] Address [address] [address] Care Team Providers Care Birthing Nurse Name Role Phone Hima Choudhary MD Primary Care Provider Vaughn Hong Unavailable [phone] Allergies No Known Allergies Reason For Referral [...] Active confirmed Problem Fungal infection of nail (695628944) Fungal infection of nail (B35.1) Active confirmed Rx management (4) Plan Of Treatment Pending Test Test Name Order Date [id number] 07/19/2023 [id number] SKIN/TISSUE 08/02/2023 Insurance Providers Payer Name Payer Address Payer Phone Subscriber Number Group Number Insured Name Patient Relationship to Insured Coverage Start Date Coverage End Date [employer] Benefits [address] [address] [place] [address] [id number] Yadira Bojorquez Self - patient is the [...]
--- OUTSIDE RECORDS SUMMARY | 2025-03-26 11:46 | XMS_ITS | Patient Health Record ---
Author Organization [facility] Address [address] [place] [address] Care Team Providers Care Business Practices Supervisor Name Role Phone Kenrick (RETIRED) Hima MCKEON Primary Care Provide Gil Martins [phone] Allergies Allergen (clinical drug ingredient) Drug/Non Drug Allergy documented on EMR Reaction Allergy Type Onset Date Status Bees (uncoded) Unknown Allergy Activ e Seasonal Allergies (uncoded) Unknown Allergy Active Results Component Value Reference Range Notes IRON PROFILE Reviewed date:10/01/2024 06:59:05 PM Interpretation: Performing Lab:[facility], [address] [place] [phone] Notes/Report: Iron 195 30-160 mcg/dL Total Iron Binding Capacity 276 228-428 mcg/dL Percent Iron Saturation 71 15-50 % Unsaturated Iron Binding 81 Ferritin Reviewed date:06/11/2024 01:19:08 PM Interpretation: Performing Lab:[facility], [address] [place] [phone] Notes/Report: Ferritin 182 10-250 ng/mL Therapeutic Phlebotomy Reviewed date:06/11/2024 01:19:19 PM Interpretation: Performing Lab:[facility], [address] [place] [phone] Notes/Report: THER/HGB 12.7 12.0-16.0 g/dL THER/HCT TNP 37.0-47.0 % Therapeutic Phlebotomy Phlebotomy Performed 500 mls drawn on 06/10/24. Please note that a copy of this report has been sent to the Primary Care Physician, the ordering physician and any physician designated by patient request. Complete Blood Count Auto Di ff Reviewed date:09/27/2024 03:40:08 PM Interpretation: Performing Lab:[facility], [address] [place] [phone] Notes/Report: White Blood Count 6.4 4.8-10.8 X10*3/uL [...] INR Reviewed date:09/27/2024 03:39:49 PM Interpretation: Performing Lab:[facility], [address] [place] [phone] Notes/Report: Prothrombin Time 9.9 10.9-12.4 [employer] [...] Reviewed date:09/27/2024 03:40:27 PM Interpretation: Performing Lab:[address] [address] Notes/Report: Bilirubin Total 0.4 0.0-1.0 mg/dL Bilirubin Direct 0.1 0.0-0.5 mg/dL Aspartate Amino Transferase 53 5-31 U/L Alanine Aminotransferase 61 0-31 U/L Total Protein 7.7 6.5-8.0 g/dL Albumin Level 4.1 3.5-5.0 g/dL Alkaline Phosphatase 138 39-117 U/L Alpha Fetoprotein Reviewed date:2024 06:53:08 PM Interpretation: Performing Lab:[address] [phone] Notes/Report: Alpha Fetoprotein 4.3 Reference Range: <6.1 [...] of disease. THIS TEST WAS PERFORMED AT: [employer] [address] [place] [phone] SHAHRZAD OVALLES MD Liver Fibrosis Pnl Reviewed date:2024 06:53:27 PM Interpretation: Performing Lab:[address] [phone] Notes/Report: Liver Fibrosis Score 0.18 Liver Fibrosis [...] a>0.62 and a<=1.00 : A3 (severe activity) LWG-Niyqz-0-Macroglobulin 207 106-279 mg/dL FIB-Haptoglobin 92 43-212 mg/dL FIB-Apolipoprotein A1 196 101-198 mg/dL FIB-Total Bilirubin 0.3 0.2-1.2 mg/dL FIB-GGT 51 3-65 U/L FIB-ALT 42 6-29 U/L Reference ID [id number] Footnote SEE NOTE The reliability of results is dependent on compliance with the preanalytical and analytical conditions recommended by [employer]. The tests have to be deferred for: [...] The performance characteristics have been determined by [employer]: turn off the lights [facility]. It has not been cleared or approved by the U.S. Food and Drug Administration. Performance characteristics refer to the analytical performance of the test. [employer], the associated logo, [employer] and all associated [employer]: turn off the lights bae are the registered trademarks of [employer]: turn off the lights. All third libertarian bae - (R) and (TM) - are the property of their respective owners. (C) [id number] [employer]. All rights reserved. THIS TEST WAS PERFORMED AT: [employer] [facility] [address] [place] [address] GERARDO ENGLE MD,PHD,MOLLY IRON PROFILE Reviewed date:11/16/2024 11:35:52 PM Interpretation: Performing Lab:[facility], [address] [place] [phone] Notes/Report: Iron 248 30-160 mcg/dL Total Iron Binding Capacity 273 228-428 mcg/dL Percent Iron Saturation 91 15-50 % Unsaturated Iron Binding < 25 Ferritin Reviewed date:11/16/2024 11:35:37 PM Interpretation: Performing Lab:[address] [phone] Notes/Report: Ferritin 193 10-250 ng/mL Therapeutic Phlebotomy Reviewed date:11/16/2024 11:37:43 PM Interpretation: Performing Lab:[facility], [address] [place] [phone] Notes/Report: THER/HGB 14.4 12.0-16.0 g/dL THER/HCT TNP 37.0-47.0 % Therapeutic Phlebotomy Phlebotomy Performed 500 mls drawn on 11/16/24. Please note that a copy of this report has been sent to the Primary Care Physician, the ordering physician and any physician designated by patient request. US abdomen comp w elastograp hy (Not yet reviewed by provider) Interpretation: Performing Lab: Notes/Report: [address] [address] Ultrasound Report Signed Patient: Shellie Fontenot MR#: [id number] 48 : 1955 Acct:[id number] Age/Sex: 69 / F ADM Date: 12/25/24 Loc: HO.US Attending Dr: Gil Lacy MD Ordering Physician: Gil Lacy MD Date of Service: 12/25/24 Procedure(s): US abdomen comp w elastography Accession Number(s): [id number] cc: Gil Lacy MD EXAMINATION: US COMPLETE ABDOMEN WITH LIVER ELASTOGRAPHY CLINICAL INFORMATION: Elevated liver enzymes. There are hemachromatosis. COMPARISON: 11/29/2023 abdomen US with elastography. TECHNIQUE: Real-time imaging of the abdominal viscera. 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 [employer] It: Reason For Referral No Information Medications Medication [...] Problem Status W/U Status Risk Notes Problem 15439582 Rectal bleeding (K62.5) Active confirmed Problem 394768878 Change in bowel habit (R19.4) Active confirmed Problem 37455742 Hereditary hemochromatosis (E83.110) Active confirmed Problem 155385647 Elevated liver function tests (R79.89) Active confirmed Problem 112500367 Elevated liver enzymes (R74.8) Active confirmed Problem 417217755 Fatty liver (K76.0) Active confirmed Problem Iron excess (31378449) Iron excess (E83.19) Active confirmed Problem 72825247 Constipation, unspecified constipation type (K59.00) Active confirmed Problem Diverticulosis of colon (647956541) Diverticulosis of colon (K57.30) Active confirmed Vital Signs Blood pressure diastolic 00 mm Hg 09/22/2024 Height 64 in 09/22/2024 Blood pressure systolic 00 mm Hg 09/22/2024 Weight 230 lbs 09/22/2024 BMI 39.48 kg/m2 09/22/2024 Encounters Encounter Location Date Provider Diagnosis [facility] [address] [place] [address] 09/22/2024 Gil Lacy Hereditary hemochromatosis E83.110 ; [...] DIFF 10/17/2016 HEPATITIS B, C PROFILE 11/04/2018 [id number]-8-ZSIICODCFCQ (A1A) 11/04/2018 ALPHA-FETOPROTEIN,TUMOR MARKER 7 ALPHA-FETOPROTEIN,TUMOR MARKER [...] Name:Gil Lacy , 09/23/2025 11:00:00 AM, [address], [address], [place], [address], Insurance Providers Payer Name Payer Address Payer Phone Subscriber Number Group Number Insured Name Patient Relationship to Insured Coverage Start Date Coverage End Date [employer] [address] [address] [place] [address] [id number] DANNIELLE FONTENOT Self - patient is [...] [address] Barber HTN Hypothyroid Denies MS,DM,CVA,Lung disease,renal dise ase Bulging discs in neck [...]
--- NOTE | 2025-03-26 11:48 | A.OFFVIS_ITS ---
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 She underwent repeat diagnostic lumbar medial branch blocks last and reports no pain in her back today. Previously, she experienced twisting and cramping sensations on the left side, which were higher up, but these have resolved since procedure. She reports significant improvement in daily functioning, mobility and sleep since procedure. Patient is interested to proceed with lumbar medial branch RFA as next steps for a longer term pain management of chronic low back pain. The patient has a history of left knee pain, which was previously considered for steroidal injection. However, this was put on hold due to her back pain. Additionally, she reports a fall resulting in a large hematoma on her right knee, which has since reduced in size and is no longer visible. Patient also reports she recently underwent Neurosurgical evaluation and was deemed non surgical and was recommended for lumbar RFA. Denies any recent cough, cold, infection, fever or any significant changes in medical history since last office visit. Past Procedure: 03/18/25: Bilateral Diagnostic L3-L4-DR L5 MBB-100% pain relief >1 week 09/13/22: Bilateral Diagnostic L3-L4-DR L5 MBB-100% pain for 2.5 days PRIOR: The patient is a 69-year-old female presenting with chronic low back pain. She was last seen in September 2022 and had diagnostic bilateral L2, L3, L4, L5 medial branch blocks with significant pain relief for 2.5 days. The pain is primarily located in the lower back, occasionally radiating slightly to the side of the legs, but not extending down the legs. Denies any recent trauma, injury or falls. The patient reports that leaning backwards alleviates the pain, while walking exacerbates it, causing her to stop frequently. She denies numbness or tingling in the legs and has not experienced any significant weakness. The patient has a history of lumbar disc herniation at L3-L4, causing mild central canal stenosis, and previously had severe stenosis at L4-L5. She underwent kyphoplasty following a compression fracture at L4 due to a fall in 2021. The patient also reports severe arthritis in her left knee, confirmed by imaging at local Urgent Care clinic, but has not pursued further treatment. She uses topical treatments like Icy Hot and patches but avoids oral NSAIDs due to kidney concerns. - Onset: Chronic, with significant relief from medial branch blocks for 2.5 days - Quality: Aching pain primarily in the lower back - Location: Lower back, occasionally radiating to the side of the legs - Exacerbating factors: Walking - Relieving factors: Leaning backward - Interference: Causes frequent stops during walking - Affect: Pain impacts mobility, causing frequent stops during walking - Analgesia: Uses topical treatments like Icy Hot and patches, avoids NSAIDs due to kidney concerns - Adverse Effects: None reported from current pain management - Activities of Daily Living: Pain limits ability to walk long distances - Aberrant Drug Related Behaviors: None reported PRIOR 09/20/22: Shellie Gonsalves is a pleasant 66 years old female who presents today via telehealth encounter to assess response to Diagnostic Bilateral L2-L3-L4 DR L5 MBB on 09/13/[address] Ortiz. Patient reports 100% pain relief for 2.5 days post procedure with notable improvement in her mobility, daily activities and sleep. She also notes after 3 days her pain return but not completely to her baseline line 6-7/10 but has remained 5/10 or below. We discussed in detail peripheral nerve stimulation vs R FA as next steps. Patient would like to think about both procedures and review informational brochures first. She denies any fever, weight changes, weakness, numbness or tingling, bladder or bowel dysfunction or saddle anesthesia. PRIOR 08/29/22 Dr. Ortiz: Ms. Bojorquez came to my office after long period of absence. Originally T she visited nurse practitioner in my office and was diagnosed with L4 compression fracture. Somehow due to the scheduling problems she ended up in Dr. Wolff's schedule who performed kyphoplasty on her. The patient reports that her back became more straight. However she reports that pain in the back increased. She has significant moderate to severe L3-L4 interval spinal canal stenosis however she denies any weakness in bilateral lower extremities or any numbness. She reports pain in the back with radiation into bilateral hips. She reports extension of the back aggravates her pain. She reports the loading test is making her pain worse. I will schedule this patient for diagnostic medial branch block L2-L3 L4 does ramus L5. I will assess this after the diagnostic block and will see if the patient reports good results of diagnostic MBB. [facility] Medical History Right knee pain Compression fracture of L4 vertebra Tension headache Cervical disc disease GERD (gastroesophageal reflux disease) Hemochromatosis Hypothyroid Migraine HTN (hypertension) Surgical History History of kyphoplasty H/O colonoscopy (~09/04/21) Hx of blepharoplasty Hx of cholecystectomy History of Evan fundoplication Hx of breast biopsy Family History Mother Cardiac pacemaker BP (high blood pressure) Anxiety Father Afib Social History Housing: House Alcohol intake: current Alcohol intake frequency: holidays/special occasions only Patient Tobacco Use Status: Never used Tobacco e-Cigarette/Vaping Use: Never Used service: No Current occupational status: employed 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 Alert and oriented. Mood and affect appropriate. Follows and participates in conversation appropriately. Respiratory effort is unlabored. No cough. Able to transition from sit to stand unassisted. Ambulates with bilaterally normal heel strike and toe off, except on the left due to knee pain. General: Yes no CVA tenderness Back/Spine/Pelvis Other: Limited lumbar ROM due to pain. Lumbar extension reproduces minimal discomfort since recent injections. Lumbar flexion forward and bending reproduces mild pain. Demonstrates 5/5 strength of quadriceps bilaterally as well as flexion/dorsiflexion of bilateral feet against resistance. 2+ pedal pulses bilaterally. Straight leg rise with dorsiflexion negative bilaterally. +1 patellar and achilles reflexes bilaterally. Facet loading test positive bilaterally. Luis?s negative bilaterally. No groin pain with I/E hip rotations. Valsalva maneuver negative. Back: no CVA tenderness Cervical Spine: cervical ROM normal, cervical muscular tenderness and No Cervical spine tenderness Thoracic/Lumbar Spine: thoracic and lumbar spine normal to inspection, No Thoracic/lumbar spine scar(s), Lasegue's sign negative, straight leg raise negative bilaterally, pain with thoraco-lumbar ROM, paraspinal muscle tenderness, thoraco-lumbar ROM limited, No thoracic spinal tenderness and lumbar spinal tenderness (L3-S1) Sacroiliac joints: bilaterally nontender Results Reviewed Results Reviewed: MR lumbar spine wo con 01/09/25 Comparison: 03/20/2022, 04/24/2022 Findings: Signal void likely related to cement material noted in the L4 vertebral body. No scoliosis or spondylolisthesis. No acute fracture or pathologic bone lesion. Cauda equina and conus medullaris within normal limits. Broad-based degenerative disc bulge at L3-L4 with mild central canal stenosis, not significantly changed. Paraspinous musculature intact. IMPRESSION: No acute findings. XR LUMBOSACRAL SPINE 02/25/25 CLINICAL INFORMATION: S32.040A - Wedge compression fracture of fourth lumbar vertebra, initial... COMPARISON: CT lumbar spine 04/24/2022. MR lumbar spine 01/08/2025. TECHNIQUE: 8 views of the lumbar spine, inclusive of flexion and extension and bilateral oblique views, were obtained. FINDINGS: No significant scoliosis. Normal lordosis. There is a chronic superior endplate compression fracture of L4, proximal 30% loss of height, with associated kyphoplasty cement present. No additional compression deformities or fractures. No suspicious bone lesions. Alignment is normal without subluxations. No instability on flexion and extension views. Normal facet alignment. There is degenerative facet changes spanning L3-S1. There are no pars defects evident. Mild diffuse disc degeneration, most significant at L3-4. Soft tissues demonstrate a vascular calcifications. There are cholecystectomy clips. The sacrum is intact. The SI joints appear normal. IMPRESSION: 1. No acute bony abnormalities of the lumbar spine. 2. There is no evidence of instability on flexion and extension views. 3. There is a chronic approximate 30% superior endplate compression deformity of L4 with associated kyphoplasty cement present. 4. There is mild to moderate multilevel lumbar spondylosis . Assessment & Plan Assessment & Plan (1) Spondylosis of lumbar region without myelopathy or radiculopathy: Code(s): M47.816 - Spondylosis without myelopathy or radiculopathy, lumbar region Category: Medical (2) Chronic low back pain: Code(s): M54.50 - Low back pain, unspecified; G89.29 - Other chronic pain Category: Medical Plan The plan includes proceeding with bilateral L3-L4 DR L5 medial branch radiofrequency ablation (RFA) with local, oral sedation, and fluoroscopy as discussed given successful 2 diagnostic bilateral lumbar MBBs with complete and ongoing pain relief since last procedure. Expectations, risks and benefits were reviewed. Patient is aware she will be contacted to schedule this procedure. The left knee steroidal injection will be reconsidered after addressing the lumbar pain. All questions and concerns have been answered and patient agreed with the treatment plan. Follow up after lumbar RFA and sooner as needed. Patient was informed and verbally consented to the use of an ambient scribe for clinic note documentation during this visit. Coding Level of Care Code Est Pt Level 4 (26609) Complex EM visit Add On G2211 Diagnoses Spondylosis of lumbar region without myelopathy or radiculopathy M47.816 Chronic low back pain M54.50; G89.29
[2025-03-26 11:49] VITALS: BP 119/90; PULSE 80; BMI 41.2
== END 2025-03-26 11:56 | disposition home or self-care (01) ==
LOC: HO.PMC 11:45
PROVIDERS: Visit Provider Nurse Practitioner Family
DX: M47.816 Spondylosis without myelopathy or radiculopathy, lumbar region (principal); M54.50 Low back pain, unspecified; G89.29 Other chronic pain
CPT/HCPCS: 99214

== ENCOUNTER 2025-05-06 06:27 | Outpatient (REF) | payer OTHER, SELFPAY ==
--- NOTE | ~2025-05-06 | FL_ITS ---
EXAMINATION: FL GUIDANCE ONLY HISTORY: M47.816 - Spondylosis without myelopathy or radiculopathy, lumbar region COMPARISON: Correlation is made with plain films of the lumbar spine dated 02/25/2025. TECHNIQUE: Fluoroscopy time: 47 seconds. Cumulative Dose: 14.2 mGy. DAP: 246.99 uGym2 Images: 2. FINDINGS: Fluoroscopic spot films of the lumbar spine demonstrate needles in place the regions of the right L3-4, L4-5, and L5-S1 facet joints. FL/FL guidance in treatment room IMPRESSION: Fluoroscopy during procedure. Please see procedure report for additional information. Electronically signed by: Gil Smith MD 05/06/2025 02:32 PM EDT
--- OUTSIDE RECORDS SUMMARY | 2025-05-06 06:30 | XMS_ITS | Patient Health Record ---
[facility] Address [address] [address] Care Team Providers Care Medical Secretary Receptionist Name Role Phone Hima Choudhary MD Primary Care Provider Vaughn Hong Unavailable [phone] Allergies No Known Allergies Reason For Referral [...] Active confirmed Problem Fungal infection of nail (930862256) Fungal infection of nail (B35.1) Active confirmed Rx management (4) Plan Of Treatment Pending Test Test Name Order Date [id number] 07/19/2023 [id number] SKIN/TISSUE 08/02/2023 Insurance Providers Payer Name Payer Address Payer Phone Subscriber Number Group Number Insured Name Patient Relationship to Insured Coverage Start Date Coverage End Date [employer] Benefits [address] [address] [place] [address] [id number] Yadira Bojorquez Self - patient is the [...]
--- OUTSIDE RECORDS SUMMARY | 2025-05-06 06:30 | XMS_ITS | Patient Health Record ---
Author Organization [facility] Address [address] [place] [address] Care Team Providers Care Mental Health Specialist Name Role Phone Kenrick (RETIRED) Hima MCKEON Primary Care Provide Gil Martins [phone] Allergies Allergen (clinical drug ingredient) Drug/Non Drug Allergy documented on EMR Reaction Allergy Type Onset Date Status Bees (uncoded) Unknown Allergy Activ e Seasonal Allergies (uncoded) Unknown Allergy Active Results Component Value Reference Range Notes IRON PROFILE Reviewed date:10/01/2024 06:59:05 PM Interpretation: Performing Lab:[facility], [address] [place] [phone] Notes/Report: Iron 195 30-160 mcg/dL Total Iron Binding Capacity 276 228-428 mcg/dL Percent Iron Saturation 71 15-50 % Unsaturated Iron Binding 81 Ferritin Reviewed date:06/11/2024 01:19:08 PM Interpretation: Performing Lab:[facility], [address] [place] [phone] Notes/Report: Ferritin 182 10-250 ng/mL Therapeutic Phlebotomy Reviewed date:06/11/2024 01:19:19 PM Interpretation: Performing Lab:[facility], [address] [place] [phone] Notes/Report: THER/HGB 12.7 12.0-16.0 g/dL THER/HCT TNP 37.0-47.0 % Therapeutic Phlebotomy Phlebotomy Performed 500 mls drawn on 06/10/24. Please note that a copy of this report has been sent to the Primary Care Physician, the ordering physician and any physician designated by patient request. Complete Blood Count Auto Di ff Reviewed date:09/27/2024 03:40:08 PM Interpretation: Performing Lab:[facility], [address] [place] [phone] Notes/Report: White Blood Count 6.4 4.8-10.8 X10*3/uL [...] INR Reviewed date:09/27/2024 03:39:49 PM Interpretation: Performing Lab:[facility], [address] [place] [address] Notes/Report: Prothrombin Time 9.9 10.9-12.4 SEC INTERNATIONAL [...] Panel Reviewed date:09/27/2024 03:40:27 PM Interpretation: Performing Lab:[address] [address] Notes/Report: Bilirubin Total 0.4 0.0-1.0 mg/dL Bilirubin Direct 0.1 0.0-0.5 mg/dL Aspartate Amino Transferase 53 5-31 U/L Alanine Aminotransferase 61 0-31 U/L Total Protein 7.7 6.5-8.0 g/dL Albumin Level 4.1 3.5-5.0 g/dL Alkaline Phosphatase 138 39-117 U/L Alpha Fetoprotein Reviewed date:2024 06:53:08 PM Interpretation: Performing Lab:[address] [address] Notes/Report: Alpha Fetoprotein 4.3 Reference Range: <6.1 The use of AFP as a tumor marker in females is not recommended. This test was performed using the [employer] [place] chemiluminescent method. Values obtained from different assay methods cannot be used interchangeably. AFP levels, regardless of value, should not be interpreted as absolute evidence of the presence or absence of disease. THIS TEST WAS PERFORMED AT: [facility] [address] [place] [phone] SHAHRZAD OVALLES MD Liver Fibrosis Pnl Reviewed date:2024 06:53:27 PM Interpretation: Performing Lab:[address] [address] Notes/Report: Liver Fibrosis Score 0.18 Liver Fibrosis [...] a>0.62 and a<=1.00 : A3 (severe activity) NKF-Fqtdf-5-Macroglobulin 207 106-279 mg/dL FIB-Haptoglobin 92 43-212 mg/dL FIB-Apolipoprotein A1 196 101-198 mg/dL FIB-Total Bilirubin 0.3 0.2-1.2 mg/dL FIB-GGT 51 3-65 U/L FIB-ALT 42 6-29 U/L Reference ID [id number] Footnote SEE NOTE The reliability of results is dependent on compliance with the preanalytical and analytical conditions recommended by [employer]!. The tests have to be deferred for: [...] The performance characteristics have been determined by [employer] [facility]. It has not been cleared or approved by the U.S. Food and Drug Administration. Performance characteristics refer to the analytical performance of the test. [employer], the associated logo, [employer] and all associated [employer] bae are the registered trademarks of [employer]. All third republican bae - (R) and (TM) - are the property of their respective owners. (C) [id number] [employer]. All rights reserved. THIS TEST WAS PERFORMED AT: [facility] [place] [address] [place] [address] GERARDO ENGLE MD,PHD,MOLLY IRON PROFILE Reviewed date:11/16/2024 11:35:52 PM Interpretation: Performing Lab:[facility], [address] [place] [phone] Notes/Report: Iron 248 30-160 mcg/dL Total Iron Binding Capacity 273 228-428 mcg/dL Percent Iron Saturation 91 15-50 % Unsaturated Iron Binding < 25 Ferritin Reviewed date:11/16/2024 11:35:37 PM Interpretation: Performing Lab:[address] [address] Notes/Report: Ferritin 193 10-250 ng/mL Therapeutic Phlebotomy Reviewed date:11/16/2024 11:37:43 PM Interpretation: Performing Lab:[facility], [address] [place] [address] Notes/Report: THER/HGB 14.4 12.0-16.0 g/dL THER/HCT TNP 37.0-47.0 % Therapeutic Phlebotomy Phlebotomy Performed 500 mls drawn on 11/16/24. Please note that a copy of this report has been sent to the Primary Care Physician, the ordering physician and any physician designated by patient request. US abdomen comp w elastograp hy (Not yet reviewed by provider) Interpretation: Performing Lab: Notes/Report: [address] [address] Ultrasound Report Signed Patient: Shellie Fontenot MR#: [id number] 48 : 1955 Acct:[id number] Age/Sex: 69 / F ADM Date: 12/25/24 Loc: HO.US Attending Dr: Gil Lacy MD Ordering Physician: Gil Lacy MD Date of Service: 12/25/24 Procedure(s): US abdomen comp w elastography Accession Number(s): [id number] cc: Gil Lacy MD EXAMINATION: US COMPLETE ABDOMEN WITH LIVER ELASTOGRAPHY CLINICAL INFORMATION: Elevated liver enzymes. There are hemachromatosis. COMPARISON: 11/29/2023 abdomen US with elastography. TECHNIQUE: Real-time imaging of the abdominal viscera. 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: Reason For Referral No Information Medications [...] Problem Status W/U Status Risk Notes Problem 59646217 Rectal bleeding (K62.5) Active confirmed Problem 079523324 Change in bowel habit (R19.4) Active confirmed Problem 08427676 Hereditary hemochromatosis (E83.110) Active confirmed Problem 441704395 Elevated liver function tests (R79.89) Active confirmed Problem 494029112 Elevated liver enzymes (R74.8) Active confirmed Problem 683508919 Fatty liver (K76.0) Active confirmed Problem Iron excess (53127852) Iron excess (E83.19) Active confirmed Problem 47936300 Constipation, unspecified constipation type (K59.00) Active confirmed Problem Diverticulosis of colon (626958943) Diverticulosis of colon (K57.30) Active confirmed Vital Signs Blood pressure diastolic 00 mm Hg 09/22/2024 Height 64 in 09/22/2024 Blood pressure systolic 00 mm Hg 09/22/2024 Weight 230 lbs 09/22/2024 BMI 39.48 kg/m2 09/22/2024 Encounters Encounter Location Date Provider Diagnosis [facility] [address] [place] [address] 09/22/2024 Gil Lacy Hereditary hemochromatosis E83.110 ; [...] DIFF 10/17/2016 HEPATITIS B, C PROFILE 11/04/2018 [id number] (A1A) 11/04/2018 ALPHA-FETOPROTEIN,TUMOR MARKER 7 ALPHA-FETOPROTEIN,TUMOR MARKER [...] Name:Gil Lacy , 09/23/2025 11:00:00 AM, [address], [address], [place], [address], Insurance Providers Payer Name Payer Address Payer Phone Subscriber Number Group Number Insured Name Patient Relationship to Insured Coverage Start Date Coverage End Date [employer] [address] [address] [place] [address] [id number] DANNIELLE FONTENOT Self - patient is [...] [address] Barber HTN Hypothyroid Denies VT,DM,CVA,Lung disease,renal dise ase Bulging discs in neck [...]
== END 2025-05-06 06:28 | disposition home or self-care (01) ==
LOC: CF 06:27
PROVIDERS: Visit Provider Internal Medicine
DX: M47.816 Spondylosis without myelopathy or radiculopathy, lumbar region (principal)
CPT/HCPCS: 64635; 64636; J2003

== ENCOUNTER 2025-05-06 09:19 | Outpatient (AMB) | payer OTHER, SELFPAY ==
[2025-05-06 09:21] VITALS: BP 146/56; PULSE 68; RESP 16; O2SAT 97; BMI 41.2
--- NOTE | 2025-05-06 09:21 | A.OFFVIS_ITS ---
Vital Signs 05/06/25 09:21 05/06/25 10:13 Height 5 ft 4 in Weight 240 lb BMI 41.2 BP 146/56 H 181/98 H Blood Pressure Location Lt brachial Lt brachial Position Sitting Sitting Respiration 16 16 Pulse 68 78 Pulse Source Pulse Oximeter Pulse Oximeter Pulse Oximetry (%) 97 96 Oxygen Delivery Method Room Air Room Air Intake Visit Reasons: Right L3-L4 DR L5 MB RFA / Valium & Oxy Allergies bee pollen (bee stings) Allergy (Unknown, Verified 04/26/25 08:43) Unknown Seasonal Allergies Allergy (Unknown, Verified 04/26/25 08:43) Unknown HPI HPI Right L3-L4 DR L5 MB RFA / Valium & Oxy: Details: Patient presents for scheduled procedure. Denies any recent cough, cold, infection, fever or other significant changes in medical history since last office visit. PFSH Medical History Right knee pain Compression fracture of L4 vertebra Tension headache Cervical disc disease GERD (gastroesophageal reflux disease) Hemochromatosis Hypothyroid Migraine HTN (hypertension) Surgical History History of kyphoplasty H/O colonoscopy (~09/04/21) Hx of blepharoplasty Hx of cholecystectomy History of Evan fundoplication Hx of breast biopsy Family History Mother Cardiac pacemaker BP (high blood pressure) Anxiety Father Afib Social History Housing: House Alcohol intake: current Alcohol intake frequency: holidays/special occasions only Patient Tobacco Use Status: Never used Tobacco e-Cigarette/Vaping Use: Never Used service: No Current occupational status: employed 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, 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 Standard monitors were applied. The patient was placed in the prone position. The lumbar area was prepped with chloraprep and draped in sterile fashion. The skin over the target for each medial branch nerve was anesthetized with 0.5% lidocaine. An 18 gauge radiofrequency cannula was advanced to each target site under fluoroscopic guidance. No paresthesias were elicited with needle placement and aspiration was negative for heme and CSF. Impedences were verified under 600 ohms. Sensory testing (50 Hz) and then motor testing (2 Hz) confirmed needle placement at each site within the appropriate voltage thresholds. Each site was injected with 0.5 ml 2% preservative-free lidocaine. Radiofrequency lesioning was performed for 90 seconds at 80 deg Celcius. Each site was then injected with 0.5ml 2% lidocaine. The needle was removed, skin cleansed and a sterile bandage was applied. The patient tolerated the procedure well and no complications were encountered. Following the procedure the patient's vital signs were stable. The patient was discharged home in good condition with post-procedural instructions. Time Out: Immediately prior to the procedure, the following was verbally confirmed that there is a signed consent form and that the correct patient, planned procedure, site and side are consistent with documentation and that necessary equipment and/or blood products are available prior to the start of the case. Complications: none EBL: <5 cc 12041 - RFA Lumbar Medial Branches 92453 - Lumbar Medial Branches ADDNL Procedure code (CPT) selection complete Office Meds lidocaine (PF) 10 mg/mL (1 %) injection solution Performing Provider: Breezy Webster MD Performing Location: [facility] Administered by: Breezy Webster MD on 05/06/25 10:15 Dose Route Admin Location Dispensed Lot Number Expiration Date NDC Transportation Consultant 5 mL subcut 5 mL Total Dispensed Waste 5 mL 0 % Assessment & Plan Assessment & Plan (1) Spondylosis of lumbar spine: Code(s): M47.816 - Spondylosis without myelopathy or radiculopathy, lumbar region Category: Medical Plan Patient is status post right L3, L4 medial branches and L5 DR RFA. Patient tolerated procedure well and was discharged home in stable condition with disch arge instructions. All questions were answered. We will follow-up via telephone or in clinic to assess response to therapy. A follow-up appointment was made during today's visit. Orders: Orders FL guidance in treatment room Today Kaylyn Cisse APRN, DOUGLAS M47.816 - Spondylosis without myelopathy or radiculopathy, lumbar region AMB RFA Radiofrequency Ablation Pain Management Today Breezy Webster MD M47.817 - Spondylosis without myelopathy or radiculopathy, lumbosacral region Medications: New diazepam (Valium) please take 30minutes prior to arrival for procedure 5 mg PO ONCE PRN 1 tab 0RF sleep Kaylyn Cisse APRN, DOUGLAS oxycodone take 30 minutes prior to arrival for procedure 10 mg PO ONCE PRN 1 tab 0RF pain Kaylyn Cisse APRN, AIRPORT SHUTTLE DRIVER Coding Level of Care Code Procedure Only Diagnoses Spondylosis of lumbar spine M47.816 CPT Codes Radiofrequency Ablation - Rad-Ablation 3: 58827 - RFA Lumbar Medial Branches ([id number]) Radiofrequency Ablation - Rad-Ablation 4: 89769 - Lumbar Medial Branches ADDNL ([id number])
[2025-05-06 10:13] VITALS: BP 181/98; PULSE 78; RESP 16; O2SAT 96
== END 2025-05-06 10:15 | disposition home or self-care (01) ==
LOC: HO.PMCPRC 09:19
PROVIDERS: Visit Provider Internal Medicine
DX: M47.817 Spondylosis without myelopathy or radiculopathy, lumbosacral region (principal); M47.816 Spondylosis without myelopathy or radiculopathy, lumbar region
CPT/HCPCS: 64635; 64636

== ENCOUNTER 2025-05-20 06:25 | Outpatient (REF) | payer OTHER, SELFPAY ==
--- NOTE | ~2025-05-20 | FL_ITS ---
EXAMINATION: FL GUIDANCE ONLY HISTORY: M47.816 - Spondylosis without myelopathy or radiculopathy, lumbar region COMPARISON: None available. TECHNIQUE: Fluoroscopy time: 0.4 minutes. Cumulative Dose: 10.7 mGy. DAP: 0.0990 mGycm2 Images: 3. FINDINGS: Fluoroscopic spot films of the lumbar spine demonstrate needles in the regions of the left L3-4, L4-5, and L5-S1 facet joints. FL/FL guidance in treatment room IMPRESSION: Fluoroscopy during procedure. Please see procedure report for additional information. Electronically signed by: Gil Smith MD 05/20/2025 03:03 PM EDT
== END 2025-05-20 06:26 | disposition home or self-care (01) ==
LOC: CF 06:25
PROVIDERS: Visit Provider Internal Medicine
DX: M47.816 Spondylosis without myelopathy or radiculopathy, lumbar region (principal)
CPT/HCPCS: 64635; 64636; J2003; J2795

== ENCOUNTER 2025-05-20 13:02 | Outpatient (AMB) | payer OTHER, SELFPAY ==
[2025-05-20 13:34] VITALS: BP 152/72; PULSE 68; O2SAT 97; BMI 41.2
--- NOTE | 2025-05-20 13:34 | A.OFFVIS_ITS ---
Vital Signs 05/20/25 13:34 Height 5 ft 4 in Weight 240 lb BMI 41.2 BP 152/72 H Blood Pressure Location Lt brachial Position Sitting Pulse 68 Pulse Oximetry (%) 97 Oxygen Delivery Method Room Air Intake Visit Reasons: Left L3-L4 DR L5 MB RFA / Valium & Oxy Retail Sales Clerk Required: No Executive Director: Executive Director Present Accompanied by: Employee Allergies bee pollen (bee stings) Allergy (Unknown, Verified 05/20/25 13:34) Unknown Seasonal Allergies Allergy (Unknown, Verified 05/20/25 13:34) Unknown Medication List - Last Reconciled 05/20/25 by Emelina Jansen, WILLOW MACHINE OPERATOR amitriptyline 25 mg PO BEDTIME 90 days cetirizine 1 tab PO DAILY chlordiazepoxide HCl 10 mg PO BEDTIME 30 days diazepam (Valium) 5 mg PO ONCE PRN diazepam (Valium) 5 mg PO ONCE PRN ibuprofen 800 mg PO Q8H levothyroxine 1 tab PO DAILY lorazepam 1 mg PO ONCE PRN 1 day losartan 1 tab PO DAILY metoprolol succinate ER 1 tab PO DAILY oxycodone 10 mg PO ONCE PRN oxycodone 10 mg PO ONCE PRN HPI HPI Left L3-L4 DR L5 MB RFA / Valium & Oxy: Details: Patient presents for scheduled procedure. Denies any recent cough, cold, infection, fever or other significant changes in medical history since last office visit. [facility] Medical History Right knee pain Compression fracture of L4 vertebra Tension headache Cervical disc disease GERD (gastroesophageal reflux disease) Hemochromatosis Hypothyroid Migraine HTN (hypertension) Surgical History History of kyphoplasty H/O colonoscopy (~09/04/21) Hx of blepharoplasty Hx of cholecystectomy History of Evan fundoplication Hx of breast biopsy Family History Mother Cardiac pacemaker BP (high blood pressure) Anxiety Father Afib Social History Housing: House Alcohol intake: current Alcohol intake frequency: holidays/special occasions only Patient Tobacco Use Status: Never used Tobacco e-Cigarette/Vaping Use: Never Used service: No Current occupational status: employed 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 Standard monitors were applied. The patient was placed in the prone position. The lumbar area was prepped with chloraprep and draped in sterile fashion. The skin over the target for each medial branch nerve was anesthetized with 0.5% lidocaine. An 18 gauge radiofrequency cannula was advanced to each target site under fluoroscopic guidance. No paresthesias were elicited with needle placement and aspiration was negative for heme and CSF. Impedences were verified under 600 ohms. Sensory testing (50 Hz) and then motor testing (2 Hz) confirmed needle placement at each site within the appropriate voltage thresholds. Each site was injected with 0.5 ml 2% preservative-free lidocaine. Radiofrequency lesioning was performed for 90 seconds at 80 deg Celcius. Each site was then injected with 0.5ml 0.5% ropivacaine. The needles were removed, skin cleansed and a sterile bandage was applied. The patient tolerated the procedure well and no complications were encountered. Following the procedure the patient's vital signs were stable. The patient was discharged home in good condition with post-procedural instructions. Time Out: Immediately prior to the procedure, the following was verbally confirmed that there is a signed consent form and that the correct patient, planned procedure, site and side are consistent with documentation and that necessary equipment and/or blood products are available prior to the start of the case. Complications: none EBL: <5 cc 83491 - RFA Lumbar Medial Branches 33071 - Lumbar Medial Branches ADDNL Procedure code (CPT) selection complete Assessment & Plan Assessment & Plan (1) Spondylosis of lumbar spine: Code(s): M47.816 - Spondylosis without myelopathy or radiculopathy, lumbar region Category: Medical Plan Patient is status post left L3, L4 medial branches and L5 dorsal ramus radiofrequency ablation. Patient tolerated procedure well and was discharged home in stable condition with discharge instructions. All questions were answered. We will follow-up via telephone or in clinic to assess response to therapy. A follow-up appointment was made during today's visit. Orders: Orders FL guidance in treatment room 05/20/25 M47.816 - Spondylosis without myelopathy or radiculopathy, lumbar region Medications: New diazepam (Valium) please take 30minutes prior to arrival for procedure 5 mg PO ONCE PRN 1 tab 0RF sleep oxycodone take 30 minutes prior to arrival for procedure 10 mg PO ONCE PRN 1 tab 0RF pain Coding Level of Care Code Procedure Only Diagnoses Spondylosis of lumbar spine M47.816 CPT Codes Radiofrequency Ablation - Rad-Ablation 3: 45860 - RFA Lumbar Medial Branches ([id number]) Radiofrequency Ablation - Rad-Ablation 4: 05663 - Lumbar Medial Branches ADDNL ([id number])
== END 2025-05-20 14:31 | disposition home or self-care (01) ==
LOC: HO.PMCPRC 13:02
PROVIDERS: Visit Provider Internal Medicine
DX: M47.816 Spondylosis without myelopathy or radiculopathy, lumbar region (principal)
CPT/HCPCS: 64635; 64636

== ENCOUNTER 2025-06-08 14:06 | Outpatient (REF) | payer OTHER, SELFPAY ==
[2025-06-08 15:56] LABS: Iron 159 mcg/dL (30-160); Percent Iron Saturation 64 % (15-50); Total Iron Binding Capacity 249 mcg/dL (228-428); Unsaturated Iron Binding 90 ug/dL
[2025-06-08 16:14] LABS: Ferritin 148 ng/mL (10-250)
--- OUTSIDE RECORDS SUMMARY | 2025-06-08 18:32 | XMS_ITS | Patient Health Record ---
Author Organization [facility] Address [address] [place] [address] Care Team Providers Care Cake Knocker Name Role Phone Kenrick (RETIRED) Hima MCKEON Primary Care Provide Gil Martins [phone] Allergies Allergen (clinical drug ingredient) Drug/Non Drug Allergy documented on EMR Reaction Allergy Type Onset Date Status Bees (uncoded) Unknown Allergy Activ e Seasonal Allergies (uncoded) Unknown Allergy Active Results Component Value Reference Range Notes IRON PROFILE Reviewed date:10/01/2024 06:59:05 PM Interpretation: Performing Lab:[facility], [address] [place] [phone] Notes/Report: Iron 195 30-160 mcg/dL Total Iron Binding Capacity 276 228-428 mcg/dL Percent Iron Saturation 71 15-50 % Unsaturated Iron Binding 81 Ferritin Reviewed date:06/11/2024 01:19:08 PM Interpretation: Performing Lab:[facility], [address] [place] [phone] Notes/Report: Ferritin 182 10-250 ng/mL Therapeutic Phlebotomy Reviewed date:06/11/2024 01:19:19 PM Interpretation: Performing Lab:[facility], [address] [place] [phone] Notes/Report: THER/HGB 12.7 12.0-16.0 g/dL THER/HCT TNP 37.0-47.0 % Therapeutic Phlebotomy Phlebotomy Performed 500 mls drawn on 06/10/24. Please note that a copy of this report has been sent to the Primary Care Physician, the ordering physician and any physician designated by patient request. Complete Blood Count Auto Di ff Reviewed date:09/27/2024 03:40:08 PM Interpretation: Performing Lab:[facility], [address] [place] [phone] Notes/Report: White Blood Count 6.4 4.8-10.8 X10*3/uL [...] INR Reviewed date:09/27/2024 03:39:49 PM Interpretation: Performing Lab:[facility], [address] [place] [address] Notes/Report: Prothrombin Time 9.9 10.9-12.4 SEC INTERNATIONAL [...] Panel Reviewed date:09/27/2024 03:40:27 PM Interpretation: Performing Lab:[address] [address] Notes/Report: Bilirubin Total 0.4 0.0-1.0 mg/dL Bilirubin Direct 0.1 0.0-0.5 mg/dL Aspartate Amino Transferase 53 5-31 U/L Alanine Aminotransferase 61 0-31 U/L Total Protein 7.7 6.5-8.0 g/dL Albumin Level 4.1 3.5-5.0 g/dL Alkaline Phosphatase 138 39-117 U/L Alpha Fetoprotein Reviewed date:2024 06:53:08 PM Interpretation: Performing Lab:[address] [address] Notes/Report: Alpha Fetoprotein 4.3 Reference Range: <6.1 [...] of disease. THIS TEST WAS PERFORMED AT: [facility] [address] [place] [phone] SHAHRZAD OVALLES MD Liver Fibrosis Pnl Reviewed date:2024 06:53:27 PM Interpretation: Performing Lab:[address] [address] Notes/Report: Liver Fibrosis Score 0.18 Liver Fibrosis [...] a>0.62 and a<=1.00 : A3 (severe activity) JTM-Qkmge-3-Macroglobulin 207 106-279 mg/dL FIB-Haptoglobin 92 43-212 mg/dL FIB-Apolipoprotein A1 196 101-198 mg/dL FIB-Total Bilirubin 0.3 0.2-1.2 mg/dL FIB-GGT 51 3-65 U/L FIB-ALT 42 6-29 U/L Reference ID [id number] Footnote SEE NOTE The reliability of results is dependent on compliance with the preanalytical and analytical conditions recommended by [employer]. The tests have to be deferred for: [...] The performance characteristics have been determined by [employer] [facility]. It has not been cleared or approved by the U.S. Food and Drug Administration. Performance characteristics refer to the analytical performance of the test. Miproto, the associated logo, iZ3D and all associated [employer] bae are the registered trademarks of [employer] [facility]. All third democrat bae - (R) and (TM) - are the property of their respective owners. (C) [id number] [employer]. All rights reserved. THIS TEST WAS PERFORMED AT: [employer] [facility] [address] [place] [address] GERARDO ENGLE MD,PHD,MOLLY IRON PROFILE Reviewed date:11/16/2024 11:35:52 PM Interpretation: Performing Lab:[facility], [address] [place] [phone] Notes/Report: Iron 248 30-160 mcg/dL Total Iron Binding Capacity 273 228-428 mcg/dL Percent Iron Saturation 91 15-50 % Unsaturated Iron Binding < 25 Ferritin Reviewed date:11/16/2024 11:35:37 PM Interpretation: Performing Lab:[address] [address] Notes/Report: Ferritin 193 10-250 ng/mL Therapeutic Phlebotomy Reviewed date:11/16/2024 11:37:43 PM Interpretation: Performing Lab:[facility], [address] [place] [address] Notes/Report: THER/HGB 14.4 12.0-16.0 g/dL THER/HCT TNP 37.0-47.0 % Therapeutic Phlebotomy Phlebotomy Performed 500 mls drawn on 11/16/24. Please note that a copy of this report has been sent to the Primary Care Physician, the ordering physician and any physician designated by patient request. US abdomen comp w elastograp hy (Not yet reviewed by provider) Interpretation: Performing Lab: Notes/Report: [address] [address] Ultrasound Report Signed Patient: Shellie Fontenot MR#: [id number] 48 : 1955 Acct:[id number] Age/Sex: 69 / F ADM Date: 12/25/24 Loc: HO.US Attending Dr: Gil Lacy MD Ordering Physician: Gil Lacy MD Date of Service: 12/25/24 Procedure(s): US abdomen comp w elastography Accession Number(s): [id number] cc: Gil Lacy MD EXAMINATION: US COMPLETE ABDOMEN WITH LIVER ELASTOGRAPHY CLINICAL INFORMATION: Elevated liver enzymes. There are hemachromatosis. COMPARISON: 11/29/2023 abdomen US with elastography. TECHNIQUE: Real-time imaging of the abdominal viscera. Noninvasive ultrasound liver fibrosis assessment is performed using [employer] ElastPQ point quantification shear wave elastography (pSWE) [...] Daniele Gray MD 12/25/2024 09:23 AM EDT RP Dictated By: Daniele Gray MD Signed By: <Electronically signed by Daniele Gray MD in OV> 12/25/24922 DD/ 1 TD/TT: 12/25/24828 Process Machine Operator: IRON PROFILE (Not yet review ed by provider) Interpretation: Performing Lab:[facility], [address] [place] [address] Notes/Report: Iron 159 30-160 mcg/dL Total Iron Binding Capacity 249 228-428 mcg/dL Percent Iron Saturation 64 15-50 % Unsaturated Iron Binding 90 Ferritin (Not yet reviewed b y provider) Interpretation: Performing Lab:[facility], [address] [place] [phone] Notes/Report: Ferritin 148 10-250 ng/mL Reason For Referral No Information Medications Medication SIG (Take, Route, Frequency, Duration) Notes Start Date End Date Status Cetirizine HCl 10 MG TK 1 T PO QAM Oral; Duration: 30 Active Losartan Potassium 25 MG 1 tablet Orally Once a day Active Amitriptyline HCl 10 MG 1 tablet at bedt killian Orally Once a day Active Levothyroxine Sodium 100 MCG TK 1 T PO O NCE DAILY AND TK 1 AND SS TS PO ON SATURDAY Oral; Duration: 90 Active Metoprolol Succinate 100 MG 1 [...] Problem Status W/U Status Risk Notes Problem Rectal bleeding (08315125) Rectal bleeding (K62.5) Active confirmed Problem Change in bowel habit (69359954) Change in bowel habit (R19.4) Active confirmed Problem Hereditary hemochromatosis (41857516) Hereditary hemochromatosis (E83.110) Active confirmed Problem Elevated liver enzymes level (988155556) Elevated liver function tests (R79.89) Active confirmed Problem Elevated liver enzymes level (165094701) Elevated liver enzymes (R74.8) Active confirmed Problem Fatty liver (073920282) Fatty liver (K76.0) Active confirmed Problem Iron excess (81271710) Iron excess (E83.19) Active confirmed Problem Constipation (69400513) Constipation, unspecified constipation type (K59.00) Active confirmed Problem Diverticulosis of colon (655408579) Diverticulosis of colon (K57.30) Active confirmed Vital Signs Blood pressure diastolic 00 mm Hg 09/22/2024 Height 64 in 09/22/2024 Blood pressure systolic 00 mm Hg 09/22/2024 Weight 230 lbs 09/22/2024 BMI 39.48 kg/m2 09/22/2024 Encounters Encounter Location Date Provider Diagnosis [facility] [address] [place] [address] 09/22/2024 Gil Lacy Hereditary hemochromatosis E83.110 ; [...] DIFF 10/17/2016 HEPATITIS B, C PROFILE 11/04/2018 [id number] (A1A) 11/04/2018 ALPHA-FETOPROTEIN,TUMOR MARKER 7 ALPHA-FETOPROTEIN,TUMOR MARKER 9 ALPHA-FETOPROTEIN,TUMOR MARKER 4 ALPHA-FETOPROTEIN,TUMOR MARKER 5 MITOCHONDRIAL AB 11/04/2018 SMOOTH MUSCLE ANTIBODIES 11/04/2018 US ABD 10/17/2016 FLUOR. ANTINUCLEAR AB SCREEN (LA) 10/11 HEPATITIS A ANTIBODY-IGG 11/04/2018 Prothrombin Time INR 08/21/2023 Prothrombin Time INR 09/22/2024 IRON PROFILE 06/08/2025 Ferritin 06/08/2025 Liver Fibrosis Pnl 09/22/2024 Liver Fibrosis Pnl 08/21/2023 US abdomen comp w elastography 4 US abdomen comp w elastography 5 US abdomen comp w elastography 4 US abdomen comp w elastography 5 Future Test Test Name Order Date COLONOSCOPY 07/30/2012 COLONOSCOPY 08/02/2021 Next Appt Details Provider Name:Gil Lacy , 09/23/2025 11:00:00 AM, [address] [place] [address], [address], [place], [address], Insurance Providers Payer Name Payer Address Payer Phone Subscriber Number Group Number Insured Name Patient Relationship to Insured Coverage Start Date Coverage End Date [employer] [place] [address] [address] [place] [address] [id number] DANNIELLE FONTENOT Self - patient is [...] [address] Barber HTN Hypothyroid Denies CT,DM,CVA,Lung disease,renal dise ase Bulging discs in neck [...]
--- OUTSIDE RECORDS SUMMARY | 2025-06-08 18:32 | XMS_ITS | Patient Health Record ---
Author Organization [facility] Address [address] [facility] [place] [address] Care Team Providers Care Case Worker Name Role Phone Hima Choudhary MD Primary Care Provider Vaughn Hong Unavailable [phone] Allergies No Known Allergies Reason For Referral [...] Active confirmed Problem Fungal infection of nail (848897586) Fungal infection of nail (B35.1) Active confirmed Rx management (4) Plan Of Treatment Pending Test Test Name Order Date [id number] 07/19/2023 [id number] SKIN/TISSUE 08/02/2023 Insurance Providers Payer Name Payer Address Payer Phone Subscriber Number Group Number Insured Name Patient Relationship to Insured Coverage Start Date Coverage End Date [employer] [address] [address] [place] [address] [id number] Yadira Bojorquez Self - patient is the [...]
== END 2025-06-08 14:07 | disposition home or self-care (01) ==
LOC: HO.BBR 14:06
PROVIDERS: Visit Provider Internal Medicine
DX: E83.110 Hereditary hemochromatosis (principal)
CPT/HCPCS: 36415; 82728; 83540

== ENCOUNTER 2025-06-09 09:31 | Outpatient (AMB) | payer OTHER, SELFPAY ==
--- NOTE | 2025-06-09 09:34 | A.OFFVIS_ITS ---
Vital Signs 06/09/25 09:35 Height 5 ft 4 in Weight 244 lb BMI 41.9 BP 110/60 Blood Pressure Location Lt brachial Position Sitting Respiration 16 Pulse 84 Pulse Source Pulse Oximeter Pulse Oximetry (%) 98 Oxygen Delivery Method Room Air Intake Visit Reasons: S/P Bilateral L3-L4 DR L5 MB RFA Administrative Intern Required: No Allergies bee pollen (bee stings) Allergy (Unknown, Verified 06/09/25 09:37) Unknown Seasonal Allergies Allergy (Unknown, Verified 06/09/25 09:37) Unknown Medication List - Last Reconciled 06/09/25 by Luz Dugan LPN amitriptyline 25 mg PO BEDTIME 90 days cetirizine 1 tab PO DAILY chlordiazepoxide HCl 10 mg PO BEDTIME 30 days ibuprofen 800 mg PO Q8H levothyroxine 1 tab PO DAILY losartan 1 tab PO DAILY metoprolol succinate ER 1 tab PO DAILY HPI HPI S/P Bilateral L3-L4 DR L5 MB RFA: Details: History of Present Illness The patient is a 69-year-old female presenting with lumbar medial branch pain. She reports improvement in her ability to walk uphill without stopping, which she attributes to the recent radiofrequency ablation procedure. However, she experienced increased pain after overexerting herself by moving furniture, which she acknowledges was excessive activity. The patient describes the pain as primarily affecting the left side or the middle of her back, with no issues on the right side. She notes that the right side has improved significantly, while the left side continues to experience discomfort. The patient has a history of vertebral fracture, which she was unaware of until the fracture occurred. She has not been physically active for the past two years, which she believes has contributed to her current condition. Pain Description - Onset and Timing: Pain primarily on the left side or middle of the back, worsened by overexertion. - Quality and Character: Described as tightness or cramp-like sensation. - Primary Location: Left side or middle of the back. - Exacerbating Factors: Overexertion, such as moving furniture. - Relieving Factors: Improvement noted after radiofrequency ablation. Physical Exam - Musculoskeletal: Sacroiliac joint provocation test reproduced discomfort in the left sacroiliac joint area. Results Pain Management - Affect: Pain impacts daily activities, but improvement noted post-procedure. - Analgesia: Radiofrequency ablation performed, with noted improvement in right side pain. - Activities of Daily Living: Patient reports improved ability to walk uphill without stopping. PFSH Medical History Right knee pain Compression fracture of L4 vertebra Tension headache Cervical disc disease GERD (gastroesophageal reflux disease) Hemochromatosis Hypothyroid Migraine HTN (hypertension) Surgical History History of kyphoplasty H/O colonoscopy (~09/04/21) Hx of blepharoplasty Hx of cholecystectomy History of Evan fundoplication Hx of breast biopsy Family History Mother Cardiac pacemaker BP (high blood pressure) Anxiety Father Afib Social History Housing: House Alcohol intake: current Alcohol intake frequency: holidays/special occasions only Patient Tobacco Use Status: Never used Tobacco e-Cigarette/Vaping Use: Never Used service: No Current occupational status: employed 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, 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 Hearing needs: No Vision needs: Yes (rx contacts/ reading glasses) Physical Exam Vital Signs: Last Vital Signs Pulse 84 06/09/25 09:35 Resp 16 06/09/25 09:35 BP 110/60 06/09/25 09:35 Pulse Ox 98 06/09/25 09:35 Oxygen Delivery Method Room Air 06/09/25 09:35 BMI result Body Mass Index 41.9 Assessment & Plan Assessment & Plan (1) Chronic low back pain: Code(s): M54.50 - Low back pain, unspecified; G89.29 - Other chronic pain Category: Medical (2) Spondylosis of lumbar spine: Code(s): M47.816 - Spondylosis without myelopathy or radiculopathy, lumbar region Category: Medical (3) SI (sacroiliac) joint dysfunction: Code(s): M53.3 - Sacrococcygeal disorders, not elsewhere classified Category: Medical Plan Plan Patient was informed and verbally consented to the use of an ambient scribe for clinic note documentation during this visit. 1. Lumbar Spondylosis - Plan to monitor pain progression and consider further interventions if necessary. 2. Left-Sided Sacroiliac Joint Pain - Diagnostic left sacroiliac joint injection planned to assess pain origin. - Injection will involve local anesthetic to determine if pain relief occurs, indicating sacroiliac joint involvement. Discussion Notes We discussed the possibility of a diagnostic left sacroiliac joint injection to determine the source of the left-sided pain. The procedure involves a local anesthetic and is expected to provide temporary relief if the sacroiliac joint is the pain source. The patient was informed that the procedure is quick and can be performed in the office, allowing her to return to work immediately afterward. We also discussed the importance of core strengthening and gradual increase in physical activity to aid in pain management. Patient Instructions - Gradually increase physical activity as tolerated. - Engage in core strengthening exercises to support back health. - Follow up for the scheduled diagnostic left sacroiliac joint injection. Coding Level of Care Code Est Pt Level 3 (72386) Diagnoses Chronic low back pain M54.50; G89.29 Spondylosis of lumbar spine M47.816 SI (sacroiliac) joint dysfunction M53.3
[2025-06-09 09:35] VITALS: BP 110/60; PULSE 84; RESP 16; O2SAT 98; BMI 41.9
--- OUTSIDE RECORDS SUMMARY | 2025-06-09 11:20 | XMS_ITS | Patient Health Record ---
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 Name Role Phone Kenrick (RETIRED) Hima MCKEON Primary Care Provide Gil Martins [phone] Allergies Allergen (clinical drug ingredient) Drug/Non Drug Allergy documented on EMR Reaction Allergy Type Onset Date Status Bees (uncoded) Unknown Allergy Activ e Seasonal Allergies (uncoded) Unknown Allergy Active Results Component Value Reference Range Notes IRON PROFILE Reviewed date:10/01/2024 06:59:05 PM Interpretation: Performing Lab:[facility], [address] [place] [phone] Notes/Report: Iron 195 30-160 mcg/dL Total Iron Binding Capacity 276 228-428 mcg/dL Percent Iron Saturation 71 15-50 % Unsaturated Iron Binding 81 Ferritin Reviewed date:06/11/2024 01:19:08 PM Interpretation: Performing Lab:[facility], [address] [place] [phone] Notes/Report: Ferritin 182 10-250 ng/mL Therapeutic Phlebotomy Reviewed date:06/11/2024 01:19:19 PM Interpretation: Performing Lab:[facility], [address] [place] [phone] Notes/Report: THER/HGB 12.7 12.0-16.0 g/dL THER/HCT TNP 37.0-47.0 % Therapeutic Phlebotomy Phlebotomy Performed 500 mls drawn on 06/10/24. Please note that a copy of this report has been sent to the Primary Care Physician, the ordering physician and any physician designated by patient request. Complete Blood Count Auto Di ff Reviewed date:09/27/2024 03:40:08 PM Interpretation: Performing Lab:[facility], [address] [place] [phone] Notes/Report: White Blood Count 6.4 4.8-10.8 X10*3/uL [...] date:09/27/2024 03:39:49 PM Interpretation: Performing Lab:[facility], [address] [place] [phone] Notes/Report: Prothrombin Time 9.9 10.9-12.4 [employer] [...] Panel Reviewed date:09/27/2024 03:40:27 PM Interpretation: Performing Lab:[address] [phone] Notes/Report: Bilirubin Total 0.4 0.0-1.0 mg/dL Bilirubin Direct 0.1 0.0-0.5 mg/dL Aspartate Amino Transferase 53 5-31 U/L Alanine Aminotransferase 61 0-31 U/L Total Protein 7.7 6.5-8.0 g/dL Albumin Level 4.1 3.5-5.0 g/dL Alkaline Phosphatase 138 39-117 U/L Alpha Fetoprotein Reviewed date:2024 06:53:08 PM Interpretation: Performing Lab:[address] [phone] Notes/Report: Alpha Fetoprotein 4.3 Reference Range: <6.1 [...] of disease. THIS TEST WAS PERFORMED AT: [facility] [address] [place] [phone] SHAHRZAD OVALLES MD Liver Fibrosis Pnl Reviewed date:2024 06:53:27 PM Interpretation: Performing Lab:[address] [phone] Notes/Report: Liver Fibrosis Score 0.18 Liver Fibrosis [...] a>0.62 and a<=1.00 : A3 (severe activity) YVG-Csuez-2-Macroglobulin 207 106-279 mg/dL FIB-Haptoglobin 92 43-212 mg/dL FIB-Apolipoprotein A1 196 101-198 mg/dL FIB-Total Bilirubin 0.3 0.2-1.2 mg/dL FIB-GGT 51 3-65 U/L FIB-ALT 42 6-29 U/L Reference ID [id number] Footnote SEE NOTE The reliability of results is dependent on compliance with the preanalytical and analytical conditions recommended by [employer]. The tests have to be deferred for: [...] The performance characteristics have been determined by [facility]. It has not been cleared or approved by the U.S. Food and Drug Administration. Performance characteristics refer to the analytical performance of the test. [employer], the associated logo, [employer] and all associated [employer] bae are the registered trademarks of [employer]. All third green party bae - (R) and (TM) - are the property of their respective owners. (C) 6630-7220 [employer]. All rights reserved. THIS TEST WAS PERFORMED AT: [employer] [facility] [place] [address] [place] [address] GERARDO ENGLE MD,PHD,MOLLY IRON PROFILE Reviewed date:11/16/2024 11:35:52 PM Interpretation: Performing Lab:[facility], [address] [place] [phone] Notes/Report: Iron 248 30-160 mcg/dL Total Iron Binding Capacity 273 228-428 mcg/dL Percent Iron Saturation 91 15-50 % Unsaturated Iron Binding < 25 Ferritin Reviewed date:11/16/2024 11:35:37 PM Interpretation: Performing Lab:[address] [phone] Notes/Report: Ferritin 193 10-250 ng/mL Therapeutic Phlebotomy Reviewed date:11/16/2024 11:37:43 PM Interpretation: Performing Lab:[facility], [address] [place] [phone] Notes/Report: THER/HGB 14.4 12.0-16.0 g/dL THER/HCT TNP 37.0-47.0 % Therapeutic Phlebotomy Phlebotomy Performed 500 mls drawn on 11/16/24. Please note that a copy of this report has been sent to the Primary Care Physician, the ordering physician and any physician designated by patient request. US abdomen comp w elastograp hy (Not yet reviewed by provider) Interpretation: Performing Lab: Notes/Report: [address] [address] Ultrasound Report Signed Patient: Shellie Fontenot MR#: [id number] 48 : 1955 Acct:[id number] Age/Sex: 69 / F ADM Date: 12/25/24 Loc: HO.US Attending Dr: Gil Lacy MD Ordering Physician: Gil Lacy MD Date of Service: 12/25/24 Procedure(s): US abdomen comp w elastography Accession Number(s): [id number] cc: Gil Lacy MD EXAMINATION: US COMPLETE ABDOMEN WITH LIVER ELASTOGRAPHY CLINICAL INFORMATION: Elevated liver enzymes. There are hemachromatosis. COMPARISON: 11/29/2023 abdomen US with elastography. TECHNIQUE: Real-time imaging of the abdominal viscera. Noninvasive ultrasound liver fibrosis assessment is performed using [employer] ElastPQ point quantification shear wave elastography (pSWE) [...] in OV> 12/25/24922 DD/ 1 TD/TT: 12/25/24828 Shrub Planter: IRON PROFILE (Not yet review ed by provider) Interpretation: Performing Lab:[facility], [address] [place] [phone] Notes/Report: Iron 159 30-160 mcg/dL Total Iron Binding Capacity 249 228-428 mcg/dL Percent Iron Saturation 64 15-50 % Unsaturated Iron Binding 90 Ferritin Reviewed date:06/09/2025 01:39:57 AM Interpretation: Performing Lab:[facility], [address] [place] [phone] Notes/Report: Ferritin 148 10-250 ng/mL Reason For [...] W/U Status Risk Notes Problem Rectal bleeding (11853387) Rectal bleeding (K62.5) Active confirmed Problem Change in bowel habit (74864220) Change in bowel habit (R19.4) Active confirmed Problem Hereditary hemochromatosis (98327786) Hereditary hemochromatosis (E83.110) Active confirmed Problem Elevated liver enzymes level (999402503) Elevated liver function tests (R79.89) Active confirmed Problem Elevated liver enzymes level (707190938) Elevated liver enzymes (R74.8) Active confirmed Problem Fatty liver (726245738) Fatty liver (K76.0) Active confirmed Problem Iron excess (57538774) Iron excess (E83.19) Active confirmed Problem Constipation (24302952) Constipation, unspecified constipation type (K59.00) Active confirmed Problem Diverticulosis of colon (688643609) Diverticulosis of colon (K57.30) Active confirmed Vital Signs Blood pressure diastolic 00 mm Hg 09/22/2024 Height 64 in 09/22/2024 Blood pressure systolic 00 mm Hg 09/22/2024 Weight 230 lbs 09/22/2024 BMI 39.48 kg/m2 09/22/2024 Encounters Encounter Location Date Provider Diagnosis [facility] [address] [place] [address] 09/22/2024 Gil Lacy Hereditary hemochromatosis E83.110 ; [...] DIFF 10/17/2016 HEPATITIS B, C PROFILE 11/04/2018 [id number]-[id number] (A1A) 11/04/2018 ALPHA-FETOPROTEIN,TUMOR MARKER 7 ALPHA-FETOPROTEIN,TUMOR MARKER 9 ALPHA-FETOPROTEIN,TUMOR MARKER 4 ALPHA-FETOPROTEIN,TUMOR MARKER 5 MITOCHONDRIAL AB 11/04/2018 SMOOTH MUSCLE ANTIBODIES 11/04/2018 US ABD 10/17/2016 FLUOR. ANTINUCLEAR AB SCREEN (LA) 10/11 HEPATITIS A ANTIBODY-IGG 11/04/2018 Prothrombin Time INR 08/21/2023 Prothrombin Time INR 09/22/2024 IRON PROFILE 06/08/2025 Liver Fibrosis Pnl 09/22/2024 Liver Fibrosis Pnl 08/21/2023 US abdomen comp w elastography 4 US abdomen comp w elastography 5 US abdomen comp w elastography 4 US abdomen comp w elastography 5 Future Test Test Name Order Date COLONOSCOPY 07/30/2012 COLONOSCOPY 08/02/2021 Next Appt Details Provider Name:Gil Lacy , 09/23/2025 11:00:00 AM, [address] [place] [address], [address], [place], [address], Insurance Providers Payer Name Payer Address Payer Phone Subscriber Number Group Number Insured Name Patient Relationship to Insured Coverage Start Date Coverage End Date [employer] [place] [address] [address] [place] [id number] DANNIELLE FONTENOT Self - patient is [...] [address] Barber HTN Hypothyroid Denies CA,DM,CVA,Lung disease,renal dise ase Bulging discs in neck [...]
--- OUTSIDE RECORDS SUMMARY | 2025-06-09 11:20 | XMS_ITS | Patient Health Record ---
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 Name Role Phone Hima Choudhary MD Primary Care Provider Vaughn Hong Unavailable [phone] Allergies No Known Allergies Reason For Referral [...] Active confirmed Problem Fungal infection of nail (837234975) Fungal infection of nail (B35.1) Active confirmed Rx management (4) Plan Of Treatment Pending Test Test Name Order Date [id number] 07/19/2023 [id number] SKIN/TISSUE 08/02/2023 Insurance Providers Payer Name Payer Address Payer Phone Subscriber Number Group Number Insured Name Patient Relationship to Insured Coverage Start Date Coverage End Date [employer] [address] [address] [place] [address] [id number] Yadira Bojorquez Self - patient is the [...]
== END 2025-06-09 10:12 | disposition home or self-care (01) ==
LOC: HO.PMC 09:31
PROVIDERS: PCP Internal Medicine; Visit Provider Internal Medicine
DX: M54.50 Low back pain, unspecified (principal); G89.29 Other chronic pain; M47.816 Spondylosis without myelopathy or radiculopathy, lumbar region; M53.3 Sacrococcygeal disorders, not elsewhere classified
CPT/HCPCS: 99213

== ENCOUNTER 2025-07-19 15:17 | Outpatient (AMB) | payer OTHER, SELFPAY ==
--- NOTE | 2025-07-19 15:20 | A.OFFPC_ITS ---
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: No Accompanied by: Self / Same As Patient Allergies bee pollen (bee stings) Allergy (Unknown, Verified 07/19/25 15:20) Unknown Seasonal Allergies Allergy (Unknown, Verified 07/19/25 15:20) Unknown Medication List - Last Reconciled 07/20/25 by ANUSHA Luque amitriptyline 25 mg PO BEDTIME 90 days cetirizine 1 tab PO DAILY chlordiazepoxide HCl 10 mg PO BEDTIME 30 days ibuprofen 800 mg PO Q8H levothyroxine 1 tab PO DAILY losartan 1 tab PO DAILY metoprolol succinate ER 1 tab PO DAILY Tobacco use date assessed: 04/26/25 Dental Screening Dental Screen Date: 04/26/25 HPI HPI Comments History of Present Illness Details 69-year-old female with history of hypot hyroidism, migraines, hemochromatosis, vitamin-D deficiency. Lives with herself and feels safe there. 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 Very rare alcohol use. History cigarettes, quit age 42. No drugs. She is not exercising due to back pain. Exercising as she is able. Healthy diet overall. Osteopenia-Due for DEXA scan-she is taking vitamin-D. Limited weight-bearing exercise Chronic low back pain-denies any radiculopathy, weakness, paresthesias. Follows with pain management Hemochromatosis as follows with Dr. Lacy annually. Undergoes phlebotomy every 3 months. Also undergoes routine liver elastography exams Migraines- Dr. Du. Amitriptyline with good improvement overall. However, when she does have breakthrough headaches, they are debilitating and she is unable to work. Hypothyroidism-on levothyroxine Concerns: Palpitations when sleeping. Ongoing months, worse last 2 months. No CP, SOB, lightheadness, syncope. Feels this is consistent with SVT Rash bilateral shins- [facility] appt next month. Initially given abx and prednisone. Also lotion and cortisone cream Health Maintenance: Due for DEXA scan Last screening mammogram 09/2024 with 1 year follow-up advised, no evidence of malignancy ROS: General: No fevers, malaise, unintentional weight loss HEENT: No blurred vision, diplopia. No sore throat, nasal congestion, rhinorrhea, sinus pain, ear pain. No hearing loss Neck - no adenopathy Cardiovascular: No chest pain. see hpi Respiratory: No shortness of breath, wheezing, cough Breast: No pain, palpable lumps, nipple inversion GI: No dysphagia, odynophagia, globus sensation. No abdominal pain, nausea, vomiting, diarrhea, constipation, melena, hematochezia : No dysuria, hematuria, increased urinary frequency, decreased urinary output. 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 No AH/VH. No SI/HI Skin: No rashes. see HPI EXAM: Constitutional - Awake and Alert, No apparent distress Eyes - PERRLA, EOMI. Anicteric Ears - external ears normal, canals clear, TMs intact and pearly padilla with good cone of light Nose- septum midline, nares clear, no sinus tenderness Mouth/throat- mucosa moist, tongue and uvula midline, no erythema/edema or tonsillar adenopathy. Neck-trachea midline, thyroid symmetric without palpable nodules, no adenopathy Cardiovascular - S1S2, regular rhythm, tachycardic, No edema Respiratory - Normal lung expansion, Normal respiratory effort, No respiratory distress, CTA bilaterally Gastrointestinal - NT / ND; +BS; No rebound or guarding - No CVA tenderness Extremities - no calf tenderness bilaterally, no swelling Musculoskeletal - Normal inspection, normal ROM Skin - Warm/Dry. Thickened mildly erythematous skin over the anterior shins with multiple lesions with excoriation over the area. Neurological - Alert & oriented x3, CN II-XII in tact, 5/5 strength BUE and BLE, 2+ patellar reflexes, sensation intact Psychological - Appropriate affect PFSH Medical History Right knee pain Compression fracture of L4 vertebra Tension headache Cervical disc disease GERD (gastroesophageal reflux disease) Hemochromatosis Hypothyroid Migraine HTN (hypertension) Surgical History History of kyphoplasty H/O colonoscopy (~09/04/21) Hx of blepharoplasty Hx of cholecystectomy History of Evan fundoplication Hx of breast biopsy Family History (Updated 07/19/25 @ 16:03 by ANUSHA Luque) Mother BP (high blood pressure) Anxiety Complete heart block Congestive heart failure Father Afib Social History Housing: House Alcohol intake: current Alcohol intake frequency: holidays/special occasions only Patient Tobacco Use Status: Never used Tobacco e-Cigarette/Vaping Use: Never Used service: No Current occupational status: employed Current occupation: [employer] 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 Hearing needs: No Vision needs: Yes (rx contacts/ reading glasses) Questionnaire Thrive Questionnaire Date Thrive assessed: 04/26/25 AMOS-7 AMB Questionnaire AMOS-7 Date AMOS - 7 assessed: 04/26/25 Source: Developed by Drs. Gil Wood, Edna Lane, Lalit Adam and colleagues, with an educational cody from [employer]. Physical exam (Primary Care) Vital Signs: Last Vital Signs Temp 98.3 F 07/19/25 15:23 Pulse 121 H 07/19/25 15:23 BP 146/92 H 07/19/25 15:23 Pulse Ox 98 07/19/25 15:23 Oxygen Delivery Method Room Air 07/19/25 15:23 BMI result Body Mass Index 42.6 Tobacco/Smoking Status: Tobacco use Status Tobacco use date assessed 04/26/25 07/19/25 15:22 Patient Tobacco Use Status Never used Tobacco 07/19/25 15:22 e-Cigarette/Vaping Use Never Used 07/19/25 15:22 Thrive Assessment: Date of Thrive Assessment Date Thrive assessed 04/26/25 07/19/25 15:22 Coding Level of Care Code Est Pt Level 4 (14795) Est Pt Prev Care >65y(28773) Diagnoses Routine medical exam Z00.00 Migraine G43.909 Chronic low back pain M54.50; G89.29 Palpitations R00.2 Osteopenia M85.80 Assessment & Plan Assessment & Plan (1) Routine medical exam: Code(s): Z00.00 - Encounter for general adult medical examination without abnormal findings Category: Medical Plan: 69-year-old female presenting for annual physical exam. Plan as below (2) Migraine: Code(s): G43.909 - Migraine, unspecified, not intractable, without status migrainosus Category: Medical Plan: Overall well-controlled with amitriptyline for prophylaxis. Continue following with Neurology as scheduled. Monitor for any worsening symptoms. No aura (3) Chronic low back pain: Code(s): M54.50 - Low back pain, unspecified; G89.29 - Other chronic pain Category: Medical Plan: Reviewed last note from pain management. Continue with pain management as scheduled. (4) Palpitations: Code(s): R00.2 - Palpitations Category: Medical Plan: Sinus rhythm. Holter monitor ordered for 5 days. Concern for episodes of SVT, check echocardiogram as well. Resume metoprolol (5) Osteopenia: Code(s): M85.80 - Other specified disorders of bone density and structure, unspecified site Category: Medical Plan: DEXA scan ordered. Recommend continuing vitamin-D supplementation. Recommend weight-bearing exercise. Plan Routine screening labs as ordered below. Also present for labs several days prior to next visit Continue with screening mammograms and colonoscopies Continue following for annual skin exams and use sun protection Annual eye exams Dental exams twice yearly Wear seat belt in car Recommend regular exercise and healthy diet Follow-up in the office in 6 months, sooner if needed Orders: Orders Basic Metabolic Panel 07/19/25 G43.909 - Migraine, unspecified, not intractable, without status migrainosus, M85.80 - Other specified disorders of bone density and structure, unspecified site, Z00.00 - Encounter for general adult medical examination without abnormal findings Hemoglobin A1c 07/19/25 G43.909 - Migraine, unspecified, not intractable, without status migrainosus, M85.80 - Other specified disorders of bone density and structure, unspecified site, Z00.00 - Encounter for general adult medical examination without abnormal findings Liver Panel 07/19/25 G43.909 - Migraine, unspecified, not intractable, without status migrainosus, M85.80 - Other specified disorders of bone density and structure, unspecified site, Z00.00 - Encounter for general adult medical examination without abnormal findings TSH reflex Free T4 07/19/25 G43.909 - Migraine, unspecified, not intractable, without status migrainosus, M85.80 - Other specified disorders of bone density and structure, unspecified site, Z00.00 - Encounter for general adult medical examination without abnormal findings Vitamin D 25-OH Total 07/19/25 G43.909 - Migraine, unspecified, not intractable, without status migrainosus, M85.80 - Other specified disorders of bone density and structure, unspecified site, Z00.00 - Encounter for general adult medical examination without abnormal findings Basic Metabolic Panel 6 Months G43.909 - Migraine, unspecified, not intractable, without status migrainosus, M51.26 - Other intervertebral disc displacement, lumbar region, M85.80 - Other specified disorders of bone density and structure, unspecified site CA echo transthoracic complete 07/19/25 R00.0 - Tachycardia, unspecified, R00.2 - Palpitations Lipid Panel 07/19/25 G43.909 - Migraine, unspecified, not intractable, without status migrainosus, M85.80 - Other specified disorders of bone density and structure, unspecified site, Z00.00 - Encounter for general adult medical examination without abnormal findings TSH reflex Free T4 6 Months G43.909 - Migraine, unspecified, not intractable, without status migrainosus, M51.26 - Other intervertebral disc displacement, lumbar region, M85.80 - Other specified disorders of bone density and structure, unspecified site XR DEXA axial skeleton 07/19/25 M85.80 - Other specified disorders of bone density and structure, unspecified site, M89.8X9 - Other specified disorders of bone, unspecified site, N95.9 - Unspecified menopausal and perimenopausal disorder ECG 5 day holter monitor Today R00.0 - Tachycardia, unspecified, R00.2 - Palpitations, Z82.49 - Family history of ischemic heart disease and other diseases of the circulatory system
[2025-07-19 15:23] VITALS: BP 146/92; PULSE 121; TEMP 36.8; O2SAT 98; BMI 42.6
== END 2025-07-19 16:18 | disposition home or self-care (01) ==
LOC: HO.HMCHD 15:17
PROVIDERS: PCP Physician Assistant; Visit Provider Physician Assistant
DX: Z00.00 Encounter for general adult medical examination without abnormal findings (principal); R00.2 Palpitations; G43.909 Migraine, unspecified, not intractable, without status migrainosus; M54.50 Low back pain, unspecified; G89.29 Other chronic pain; M85.80 Other specified disorders of bone density and structure, unspecified site

== ENCOUNTER → 2025-07-20 10:55 | Outpatient (REF) | payer OTHER, SELFPAY | LOC: HO.CARD 10:55 | PROVIDERS: Visit Provider Physician Assistant | DX: R00.2 Palpitations (principal); R00.0 Tachycardia, unspecified; Z82.49 Family history of ischemic heart disease and other diseases of the circulatory system | CPT/HCPCS: 93242 ==

== ENCOUNTER → 2025-07-20 11:08 | Outpatient (BNV) | payer OTHER, SELFPAY | PROVIDERS: Visit Provider Internal Medicine Cardiovascular Disease | DX: R00.2 Palpitations (principal) | CPT/HCPCS: 93244 ==

== ENCOUNTER → 2025-08-03 10:36 | Outpatient (REF) | payer OTHER, SELFPAY ==
--- NOTE | 2025-08-03 10:38 | CA_ITS ---
Transthoracic Echocardiogram Patient (Last, First, Middle): Shellie Bojorquez, Gender: Female Date of : 1955 Age: 69 Procedure Date: 08/03/2025 Procedure Type: Transthoracic Echocardiogram Location: OP Height: 162.56 cm Weight: 111.13 kg BSA: 2.13 m2 Heart Rate: 69 bpm BP: 138 / 78 mmHg Library Technology Instructor: MATTHIAS Referring MD: Ivette TAVARES Video Game Repair Technician: Bruno Duffy MD Symptoms: R00.2 - Palpitations Study Quality: Adequate ECG Rhythm: Sinus Conclusions: - 1. Normal LV ejection fraction of 65-70% with impaired relaxation filling pattern 2. Normal cardiac valvular Dopplers 3. Normal RV systolic pressure 4. No pericardial effusion Findings Left Ventricle Normal left ventricular size, thickness, and systolic function. The visually estimated ejection fraction is between 65-70%. Spectral Doppler is indicative of an impaired relaxation filling pattern. E/E prime ratio is between 8 and 15 consistent with indeterminate filling pressures. Right Ventricle Normal right ventricular cavity size and systolic function. Atria Both atria are normal in size. There is no evidence of interatrial shunt. Aortic Valve Normal aortic valve structure and function. There is no aortic valve stenosis. There is no aortic valve regurgitation. Mitral Valve Normal mitral valve structure and function. There is trace mitral valve regurgitation. There is no mitral valve stenosis. Pulmonic Valve The pulmonic valve is likely normal. Tricuspid Valve Normal tricuspid valve structure. There is trace tricuspid valve regurgitation. The right ventricular systolic pressure is normal. The right ventricular systolic pressure is 23 mmHg. Normal right atrial pressure. There is no evidence of pulmonary hypertension. Great Vessels All visible segments of the aorta are normal in size. The pulmonary artery was not well visualized. There is no dilatation of the ascending aorta measuring 3.30 cm. Venous The inferior vena cava is normal in size and collapses greater than 50% with inspiration. Pericardium/Pleural There is no evidence of pericardial effusion. Prior Study Comparison No prior study available for comparison. Measurements 2D Linear Measurements IVSd: 0.71 0.6-0.9/0.6-1.0 cm LVIDd: 4.89 3.9-5.3/4.2-5.9 cm LVIDd Index: 2.30 2.4-3.2/2.2-3.1 cm/m2 LVIDs: 3.12 2.0-3.6 cm LVPWd: 0.79 0.7-1.1 cm LA Diam: 3.20 2.7-3.8/3.0-4.0 cm LAIDs Index: 1.50 1.5-2.3 cm/m2 LV Mass: 148.98 67-162/88-224 g LV Mass Index: 69.94 43-95/49-115 g/m2 LVOT Diam: 2.10 3.0+(-)1.3 cm 2D Systolic Function EF 4C: 65.90 >55% EF 2C: 68.20 >55% EF BiP: 66.70 >55% Mitral Valve MV Pk E: 0.68 MV PK A: 0.79 MV Decel Time: 257.00 E/A: 0.90 E'Lateral: 7.29 E'Medial: 5.98 E/E' Med: 11.30 E/E' Lat: 9.30 PHT: 75.00 MVA PHT: 2.93 Decel Fountain: 2.64 Aortic Valve AoV Pk Luciano: 1.52 AoV Pk Grad: 9.00 CORTES: 3.00 LVOT LVOT Pk Luciano: 1.26 LVOT Mn Luciano: 0.83 LVOT VTI: 0.27 LVOT Pk Grad: 6.00 LVOT Mn Grad: 3.00 LVOT Diam: 2.10 LVOT Area: 3.46 Diastolic Function MV Pk E: 0.68 MV Pk A: 0.79 E/A: 0.90 E'Medial: 5.98 E/E' Med: 11.30 E' Laterial: 7.29 E/E' Lat: 9.30 Right Ventricle TVS' Luciano: 11.60 Tricuspid Valve TR Pk Luciano: 2.26 TR Pk Grad: 20.00 RA Press: 3.00 RVSP: 23.00 Great Vessels Aorta Sinus of Valsalva: 3.50 2.0-3.5 cm Ao Asc: 3.30 2.1-3.4 cm Ao Arch: 3.30 Pulmonary Veins Pulm Vein S/D 2.40 Pulmonary Valve PV Pk Luciano: 0.96 Peak PV Grad: 4.00 Updated in Other Vendor System with Status of Final Bruno Duffy MD electronically signed on 08/04/2025 1:29:18 PM with status of Final
--- OUTSIDE RECORDS SUMMARY | 2025-08-03 11:56 | XMS_ITS | Patient Health Record ---
Author Organization [facility] Address [address] [place] [address] Care Team Providers Care Relocation Services Specialist Name Role Phone Kenrick (RETIRED) Hima MCKEON Primary Care Provide Gil Martins [phone] Allergies Allergen (clinical drug ingredient) Drug/Non Drug Allergy documented on EMR Reaction Allergy Type Onset Date Status Bees (uncoded) Unknown Allergy Activ e Seasonal Allergies (uncoded) Unknown Allergy Active Results Component Value Reference Range Flag Notes Complete Blood Count Auto Di ff Reviewed date:09/27/2024 03:40:08 PM Interpretation: Performing Lab:[facility], [address] [place] [id number] Notes/Report: White Blood Count 6.4 4.8-10.8 X10*3/uL N Red Blood Count 4.27 4.20-5.50 X10*6/uL N Hemoglobin 14.8 12.0-16.0 g/dl N Hematocrit 42.5 37.0-47.0 % N Mean Corpuscular Volume 99.5 80.0-98.0 fL H Mean Corpuscular Hemoglobin 34.7 27.0-33.0 pg H Mean Corpuscular HGB Conc 34.8 31.0-35.0 g/dl N Red Cell Distribution Width 12.8 11.0-16.0 % N Platelet Count 284 160-400 X10*3/uL N Mean Platelet Volume 10.2 9.4-12.3 fL N Neutrophils Percent Auto 43.2 45-73 % L Imm Gran Pct Auto 0.2 0.0-0.4 % N Lymphocytes Percent Auto 40.5 20-40 % H Monocytes Percent Auto 9.0 2-11 % N Eosinophils Percent Auto 5.4 0-4 % H Basophils Percent Auto 1.7 0-2 % N NRBC Pct Auto 0.0 0.0-0.2 /100WBC N Neutrophils Absolute Auto 2.8 2.0-8.3 x10*3/uL N Imm Gran Abs Auto 0.01 0.00-0.03 X10*3/uL N Lymphocytes Absolute Auto 2.6 1.2-4.9 X10*3/uL N Monocytes Absolute Auto 0.6 0.1-1.2 X10*3/uL N Eosinophils Absolute Auto 0.3 0.0-0.4 X10*3/uL N Basophils Absolute Auto 0.1 0.0-0.2 X10*3/uL N NRBC Abs Auto 0.000 0.0-0.012 X10*3/uL N Prothrombin Time INR Reviewed date:09/27/2024 03:39:49 PM Interpretation: Performing Lab:[address] [address] Notes/Report: Prothrombin Time 9.9 10.9-12.4 SEC L INTERNATIONAL NORM RATIO 0.9 0.9-1.1 N INTERNATIONAL NORMALIZED RATIO (INR) REFERENCE RANGES Reference [...] Panel Reviewed date:09/27/2024 03:40:27 PM Interpretation: Performing Lab:[address] [phone] Notes/Report: Bilirubin Total 0.4 0.0-1.0 mg/dL N Bilirubin Direct 0.1 0.0-0.5 mg/dL N Aspartate Amino Transferase 53 5-31 U/L H Alanine Aminotransferase 61 0-31 U/L H Total Protein 7.7 6.5-8.0 g/dL N Albumin Level 4.1 3.5-5.0 g/dL N Alkaline Phosphatase 138 39-117 U/L H IRON PROFILE Reviewed date:11/16/2024 11:35:52 PM Interpretation: Performing Lab:[facility], [address] [place] [address] Notes/Report: Iron 248 30-160 mcg/dL H Total Iron Binding Capacity 273 228-428 mcg/dL N Percent Iron Saturation 91 15-50 % H Unsaturated Iron Binding < 25 Ferritin Reviewed date:11/16/2024 11:35:37 PM Interpretation: Performing Lab:[facility], [address] [place] [address] Notes/Report: Ferritin 193 10-250 ng/mL N Therapeutic Phlebotomy Reviewed date:11/16/2024 11:37:43 PM Interpretation: Performing Lab:[facility], [address] [place] [address] Notes/Report: THER/HGB 14.4 12.0-16.0 g/dL N THER/HCT TNP 37.0-47.0 % Therapeutic Phlebotomy Phlebotomy Performed 500 mls drawn on 11/16/24. Please note that a copy of this report has been sent to the Primary Care Physician, the ordering physician and any physician designated by patient request. US abdomen comp w elastograp hy (Not yet reviewed by provider) Interpretation: Performing Lab: Notes/Report: [address] [address] Ultrasound Report Signed Patient: Shellie Fontenot MR#: [id number] 48 : 1955 Acct:[id number] Age/Sex: 69 / F ADM Date: 12/25/24 Loc: HO.US Attending Dr: Gil Lacy MD Ordering Physician: Gil Lacy MD Date of Service: 12/25/24 Procedure(s): US abdomen comp w elastography Accession Number(s): [id number] cc: Gil Lacy MD EXAMINATION: US COMPLETE ABDOMEN WITH LIVER ELASTOGRAPHY CLINICAL INFORMATION: Elevated liver enzymes. There are hemachromatosis. COMPARISON: 11/29/2023 abdomen US with elastography. TECHNIQUE: Real-time imaging of the abdominal viscera. Noninvasive ultrasound liver fibrosis assessment is performed using [employer] Elast[employer] point quantification shear wave elastography (pSWE) [...] signed by Daniele Gray MD in OV> 12/25/24 0923 DD/ 1 TD/TT: 12/25/24 0829 Brim Ironer Hand: IRON PROFILE Reviewed date:06/13/2025 02:03:24 PM Interpretation: Performing Lab:[facility], [address] [place] [address] Notes/Report: Iron 159 30-160 mcg/dL N Total Iron Binding Capacity 249 228-428 mcg/dL N Percent Iron Saturation 64 15-50 % H Unsaturated Iron Binding 90 Ferritin Reviewed date:06/09/2025 01:39:57 AM Interpretation: Performing Lab:[facility], [address] [place] [address] Notes/Report: Ferritin 148 10-250 ng/mL N Therapeutic Phlebotomy Reviewed date:06/13/2025 02:02:39 PM Interpretation: Performing Lab:[facility], [address] [place] [address] Notes/Report: THER/HGB 13.9 12.0-16.0 g/dL N THER/HCT TNP 37.0-47.0 % Therapeutic Phlebotomy Phlebotomy Performed 500 mls drawn on 06/10/25. Please note that a copy of this report has been sent to the Primary Care Physician, the ordering physician and any physician designated by patient request. Liver Fibrosis Pnl Reviewed date:2024 06:53:27 PM Interpretation: Performing Lab:[facility], [address] [place] [address] Notes/Report: Liver Fibrosis Score 0.18 Liver Fibrosis [...] a>0.62 and a<=1.00 : A3 (severe activity) PGW-Ebzvq-4-Macroglobuli n 207 106-279 mg/dL FIB-Haptoglobin 92 43-212 mg/dL FIB-Apolipoprotein A1 196 101-198 mg/dL FIB-Total Bilirubin 0.3 0.2-1.2 mg/dL FIB-GGT 51 3-65 U/L FIB-ALT 42 6-29 U/L A Reference ID [id number] Footnote SEE NOTE The reliability of results is dependent on compliance with the preanalytical and analytical conditions recommended by [employer]. The tests have to be deferred for: [...] The performance characteristics have been determined by [facility]. It has not been cleared or approved by the U.S. Food and Drug Administration. Performance characteristics refer to the analytical performance of the test. [employer], the associated logo, [employer] and all associated [employer] bae are the registered trademarks of [employer]. All third alliance party bae - (R) and (TM) - are the property of their respective owners. (C) 4394-1355 [employer]. All rights reserved. THIS TEST WAS PERFORMED AT: [employer] [facility] [address] [place] [address] GERARDO ENGLE MD,PHD,MOLLY Alpha Fetoprotein Reviewed date:2024 06:53:08 PM Interpretation: Performing Lab:[facility], [address] [place] [address] Notes/Report: Alpha Fetoprotein 4.3 N Reference Range: <6.1 The use of AFP as a tumor marker in females is not recommended. This test was performed using the [place] chemiluminescent method. Values obtained from different assay methods cannot be used interchangeably. AFP levels, regardless of value, should not be interpreted as absolute evidence of the presence or absence of disease. THIS TEST WAS PERFORMED AT: [facility] [address] [place] [address] SHAHRZAD OVALLES MD Reason For Referral No Information Medications Medication SIG (Take, Route, Frequency, Duration) Notes Start Date End Date Status Cetirizine HCl 10 MG Tablet TK 1 T PO QA M Oral; Duration: 30 Active Losartan Potassium 25 MG Tablet 1 tablet Orally Once a day Active Amitriptyline HCl 10 MG Tablet 1 tablet at bedtime Orally Once a day Active Levothyroxine Sodium 100 MCG Tablet TK 1 T PO ONCE DAILY AND TK 1 AND SS TS PO ON SATURDAY Oral; Duration: 90 Active Metoprolol Succinate 100 MG Capsule ER 24 Hour Sprinkle 1 capsule Orally Once a day Active Immunizations Vaccine Route Administration Date Status Comme nts Influenza Unknown 05/12/2018 Administered Influenza Unknown 03/11/2020 Refused Influenza Unknown 08/12/2023 Administered Social History Tobacco Use: Social History Observation Description Date Details (start date - stop date) Never Smoker NA - NA Social History Drugs/Alcohol: Social Info Question Answer Notes Alcohol Screen Did you have a drink containing alcohol in the past year? 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 [place] [employer] [place]: Nonsmoker > 10 yrs ago; [...] W/U Status Risk Notes Problem Rectal bleeding (65262170) Rectal bleeding (K62.5) Active confirmed Problem Change in bowel habit (85387184) Change in bowel habit (R19.4) Active confirmed Problem Hereditary hemochromatosis (37828246) Hereditary hemochromatosis (E83.110) Active confirmed Problem Elevated liver enzymes level (990487074) Elevated liver function tests (R79.89) Active confirmed Problem Elevated liver enzymes level (535944250) Elevated liver enzymes (R74.8) Active confirmed Problem Fatty liver (199940574) Fatty liver (K76.0) Active confirmed Problem Iron excess (77819097) Iron excess (E83.19) Active confirmed Problem Constipation (37333504) Constipation, unspecified constipation type (K59.00) Active confirmed Problem Diverticulosis of colon (517160376) Diverticulosis of colon (K57.30) Active confirmed Vital Signs Blood pressure diastolic 00 mm Hg 09/22/2024 Height 64 in 09/22/2024 Blood pressure systolic 00 mm Hg 09/22/2024 Weight 230 lbs 09/22/2024 BMI 39.48 kg/m2 09/22/2024 Encounters Encounter Location Date Provider Diagnosis [facility] [address] [place] [address] 09/22/2024 Gil Lacy Hereditary hemochromatosis E83.110 ; [...] LIVER PROFILE 10/17/2016 IRON + IBC (FE) 02/04/2020 IRON + IBC (FE) 11/04/2018 FERRITIN 02/04/2020 FERRITIN 11/04/2018 CBC w DIFF 10/17/2016 CBC w DIFF 09/22/2024 CBC w DIFF 08/21/2023 HEPATITIS B, C PROFILE 11/04/2018 [id number] (A1A) 11/04/2018 ALPHA-FETOPROTEIN,TUMOR MARKER 9 ALPHA-FETOPROTEIN,TUMOR MARKER 4 ALPHA-FETOPROTEIN,TUMOR MARKER 5 ALPHA-FETOPROTEIN,TUMOR MARKER 7 MITOCHONDRIAL AB 11/04/2018 SMOOTH MUSCLE ANTIBODIES 11/04/2018 [...] Name:Gil Lacy , 09/23/2025 11:00:00 AM, [address], [address], [place], [address], Insurance Providers Payer Name Payer Address Payer Phone Subscriber Number Group Number Insured Name Patient Relationship to Insured Coverage Start Date Coverage End Date [employer] [place] [address] [address] [place] [address] [id number] DANNIELLE FONTENOT Self - patient is [...] [address] Barber HTN Hypothyroid Denies ID,DM,CVA,Lung disease,renal dise ase Bulging discs in neck [...]
--- OUTSIDE RECORDS SUMMARY | 2025-08-03 11:56 | XMS_ITS | Patient Health Record ---
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
== END ==
LOC: HO.CARD 10:36
PROVIDERS: Visit Provider Physician Assistant
DX: R00.2 Palpitations (principal); R00.0 Tachycardia, unspecified
CPT/HCPCS: 93306

== ENCOUNTER → 2025-08-03 10:38 | Outpatient (BNV) | payer OTHER, SELFPAY | PROVIDERS: Visit Provider Internal Medicine Cardiovascular Disease | DX: R00.2 Palpitations (principal) | CPT/HCPCS: 93306 ==